=== PATIENT | female | born 1960 | race Caucasian/White ===

== ENCOUNTER 2018-02-11 14:12 | Emergency (ER) | payer SELFPAY ==
[2018-02-11] MEDS ORDERED: Multivitamins, Adult 10 ML, Thiamine HCl 100 MG, Folic Acid 1 MG in Dextrose 5 %-0.45 %... IV SCH (15:30)
[2018-02-11 15:32] LABS: #Basophils 0.1 thou/uL (0.0-0.2); #Eosinphils 0.1 thou/uL (0.0-0.7); #Lymphocytes 1.4 thou/uL (1.20-3.40); #Monocytes 0.8 thou/uL (0.11-0.59); #Neutrophils 2.7 thou/uL (1.40-6.50); %Basophils 2.7 % (0.0-1.0); %Eosinophils 1.4 % (0.0-10.0); %Lymphocytes 27.8 % (21.0-51.0); %Monocytes 14.9 % (0.0-10.0); %Neutrophils 53.2 % (42.0-75.0); Hemoglobin 16.1 g/dL (12.0-16.0); Mean Corpuscular HGB CONC 35.9 g/dL (32.0-36.0); Mean Corpuscular Hemoglobin 33.3 pg (27.0-31.0); Mean Corpuscular Volume 92.9 fl (81.0-99.0); Mean Platelet Volume 8.3 fL (7.4-10.4); Platelet Count 165 thou/uL (130-400); RBC Distribution Width 13.5 % (11.5-14.5); Red Blood Cell (RBC) Count 4.83 mill/uL (4.20-5.40)
[2018-02-11] MEDS ORDERED: chlordiazePOXIDE HCl 25 MG CAP ONE (15:43)
[2018-02-11 15:53] LABS: Acetaminophen Less than 6.0 mcg/mL (10.0-30.0); Alcohol 262 mg/dL (Less than 10); Salicylate Less than 8.0 mg/dL (15.0-30.0)
[2018-02-11 16:04] LABS: ALT (SGPT) 254 U/L (8-55); AST (SGOT) 346 U/L (5-34); Albumin 4.3 g/dL (3.5-5.0); Alkaline Phosphatase 99 U/L (40-150); Anion Gap 15 mmol/L (10-20); BUN (Urea Nitrogen) Less than 4 mg/dL (9.8-20.1); Bilirubin, Total 1.2 mg/dL (0.2-1.2); Calc. Creatinine Clearance 0 mL/min (70-130); Calcium 9.4 mg/dL (7.8-10.44); Carbon Dioxide 24 mmol/L (22-29); Chloride 100 mmol/L (98-107); Estimated GFR-MDRD Greater than 90; Globulin 3.2 g/dL (2.4-3.5); Glucose 93 mg/dL (70-105); Potassium 5.2 mmol/L (3.5-5.1); Protein, Total 7.5 g/dL (6.0-8.3); Sodium 134 mmol/L (136-145)
== END 2018-02-11 17:30 | disposition home or self-care (01) ==
LOC: ERS 14:12
DX: F10.10 Alcohol abuse, uncomplicated (principal); R19.7 Diarrhea, unspecified; F32.9 Major depressive disorder, single episode, unspecified; F41.9 Anxiety disorder, unspecified; F17.210 Nicotine dependence, cigarettes, uncomplicated; Y90.8 Blood alcohol level of 240 mg/100 ml or more
CPT/HCPCS: 36415; 80053; 80307; 82140; 85025; 96365; 96366; J3411; J7042

== ENCOUNTER 2018-08-25 01:24 | Emergency (ER) | payer SELFPAY ==
[2018-08-25 01:56] LABS: #Basophils 0.1 thou/uL (0.0-0.2); #Eosinphils 0.2 thou/uL (0.0-0.7); #Lymphocytes 3.8 thou/uL (1.20-3.40); #Monocytes 0.7 thou/uL (0.11-0.59); #Neutrophils 6.2 thou/uL (1.40-6.50); %Eosinophils 1.5 % (0.0-10.0); %Lymphocytes 34.7 % (21.0-51.0); %Neutrophils 56.8 % (42.0-75.0); Hemoglobin 16.4 g/dL (12.0-16.0); Mean Corpuscular Volume 86.1 fL (78.0-98.0); Mean Platelet Volume 7.4 fL (7.4-10.4); Platelet Count 388 thou/uL (130-400); RBC Distribution Width 12.5 % (11.5-14.5); Red Blood Cell (RBC) Count 5.28 mill/uL (4.20-5.40); White Blood Cell (WBC) Count 10.8 thou/uL (4.8-10.8)
[2018-08-25 02:17] LABS: ALT (SGPT) 9 U/L (8-55); AST (SGOT) 15 U/L (5-34); Albumin 3.8 g/dL (3.5-5.0); Alkaline Phosphatase 81 U/L (40-150); Anion Gap 12 mmol/L (10-20); BUN (Urea Nitrogen) 5 mg/dL (9.8-20.1); Bilirubin, Total 0.4 mg/dL (0.2-1.2); CK (CPK) 131 U/L (29-168); Calc. Creatinine Clearance 0 mL/min (70-130); Calcium 9.4 mg/dL (7.8-10.44); Carbon Dioxide 30 mmol/L (22-29); Chloride 98 mmol/L (98-107); Estimated GFR-MDRD Greater than 90; Globulin 3.4 g/dL (2.4-3.5); Glucose 76 mg/dL (70-105); Potassium 3.7 mmol/L (3.5-5.1); Protein, Total 7.2 g/dL (6.0-8.3); Sodium 136 mmol/L (136-145)
[2018-08-25] MEDS ORDERED: methylPREDNISolone Sod Succ/PF 125 MG/2 ML VIAL ONE (02:37)
[2018-08-25] MEDS ORDERED: predniSONE 20 MG TAB ONE (02:51)
--- NOTE | 2018-08-25 08:18 | RAD ---
RADIOGRAPH CHEST 1 VIEW: HISTORY: A 58-year-old female with dyspnea and cough. FINDINGS: There is hyperinflation of the lungs, consistent with COPD. There is no evidence of air space densit y, pneumothorax, or pulmonary edema. The lateral costophrenic angles are sharp. The cardiomediastin al silhouette is narrowed by the hyperinflation. There are prominent interstitial markings, chronic versus acute, favor chronic. There are no prior studies available for comparison. IMPRESSION: 1) No definitive acute pulmonary findings. 2) Emphysema. jn [] POS: [facility]
--- NOTE | 2018-08-27 14:06 | EKG ---
Test Reason : Blood Pressure : / mmHG Vent. Rate : 102 BPM Atrial Rate : 102 BPM P-R Int : 124 ms QRS Dur : 082 ms QT Int : 370 ms P-R-T Axes : 033 089 066 degrees QTc Int : 482 ms Sinus tachycardia Confirmed by DEVI FLORES DO ([id number]), state editor KAI BOOKER ([id number] on 08/27/2018 2:05:56 PM Referred By: Confirmed By:DEVI FLORES DO
== END 2018-08-25 05:06 | disposition home or self-care (01) ==
LOC: ERS 01:24
DX: J45.901 Unspecified asthma with (acute) exacerbation (principal); J18.9 Pneumonia, unspecified organism; F41.9 Anxiety disorder, unspecified; F17.210 Nicotine dependence, cigarettes, uncomplicated; I10 Essential (primary) hypertension; Z79.899 Other long term (current) drug therapy
CPT/HCPCS: 36415; 71045; 80053; 82550; 83880; 84484; 85025; 93005; 94640; J2930; J7506; J7620

== ENCOUNTER 2018-09-07 06:52 | Emergency (ER) | payer SELFPAY ==
[2018-09-07 07:31] LABS: #Basophils 0.1 thou/uL (0.0-0.2); #Eosinphils 0.1 thou/uL (0.0-0.7); #Lymphocytes 3.1 thou/uL (1.20-3.40); #Monocytes 0.8 thou/uL (0.11-0.59); #Neutrophils 5.5 thou/uL (1.40-6.50); %Basophils 1.1 % (0.0-1.0); %Eosinophils 1.5 % (0.0-10.0); %Lymphocytes 32.4 % (21.0-51.0); %Neutrophils 56.9 % (42.0-75.0); Hemoglobin 15.4 g/dL (12.0-16.0); Mean Corpuscular HGB CONC 35.4 g/dL (32.0-36.0); Mean Corpuscular Hemoglobin 30.7 pg (27.0-31.0); Mean Corpuscular Volume 86.8 fL (78.0-98.0); Mean Platelet Volume 7.2 fL (7.4-10.4); Platelet Count 314 thou/uL (130-400); RBC Distribution Width 14.2 % (11.5-14.5); Red Blood Cell (RBC) Count 5.01 mill/uL (4.20-5.40); White Blood Cell (WBC) Count 9.6 thou/uL (4.8-10.8)
[2018-09-07 07:52] LABS: ALT (SGPT) 23 U/L (8-55); AST (SGOT) 23 U/L (5-34); Albumin 3.8 g/dL (3.5-5.0); Alkaline Phosphatase 88 U/L (40-150); Anion Gap 13 mmol/L (10-20); BUN (Urea Nitrogen) 8 mg/dL (9.8-20.1); Bilirubin, Total 0.9 mg/dL (0.2-1.2); CK (CPK) 37 U/L (29-168); Calc. Creatinine Clearance 0 mL/min (70-130); Calcium 9.1 mg/dL (7.8-10.44); Carbon Dioxide 30 mmol/L (22-29); Chloride 99 mmol/L (98-107); Estimated GFR-MDRD Greater than 90; Globulin 3.1 g/dL (2.4-3.5); Glucose 108 mg/dL (70-105); Potassium 3.6 mmol/L (3.5-5.1); Protein, Total 6.9 g/dL (6.0-8.3); Sodium 138 mmol/L (136-145)
--- NOTE | 2018-09-07 10:07 | CT ---
CT ANGIOGRAM THORAX WITH IV COTNRAST AND 3D RECONSTRUCTIONS: DATE: 09/07/2018. HISTORY: Dyspnea. COMPARISON: None available. FINDINGS: No filling defects are seen in the pulmonary arteries to suggest a pulmonary embolus. Atherosclerotic dense atherosclerotic vascular calcifications are seen in the coronary arteries as we ll as involving the thoracic spine and origins of the great vessels. There is eccentric atherosclero tic plaque in the descending thoracic aorta as well as involving the proximal left common carotid art mary. There is mild irregular thickening involving the mid thoracic esophagus. There is a noncalcified 8 mm pulmonary nodule in the lateral aspect of the left upper lobe (image 29, series 3). No additional pulmonary nodule or mass is visualized. There does appear to be minimal p eribronchial thickening which could be related to inflammatory process and bronchitis/bronchiolitis. There is mild nonspecific thickening of each adrenal gland without nodule seen. Irregular atherosclerotic calcifications are seen involving the abdominal aorta with associated mild irregular atherosclerotic plaque present. IMPRESSION: 1. Focal thickening involving the mid thoracic esophagus. Endoscopy would be helpful for further ev aluation. 2. Suggestion of minimal peribronchial thickening which may be related to inflammatory process (bron chiolitis). 3. Left upper lobe pulmonary nodule measuring [address] thorax is recommended in 4-[address] . [address] evidence of a pulmonary embolus. CODE T POS: [facility]
--- NOTE | 2018-09-07 10:09 | RAD ---
ONE VIEW CHEST: COMPARISON: 08/25/2018. HISTORY: Dyspnea. FINDINGS: Atherosclerosis of the aorta. Normal cardiac silhouette. Lungs are hyperinflated, without consolida tion or mass. No pneumothorax or osseous abnormalities. IMPRESSION: 1. No acute cardiopulmonary process. 2. Atherosclerosis. POS: [facility]
== END 2018-09-07 09:31 | disposition home or self-care (01) ==
LOC: ERS 06:52
DX: J44.9 Chronic obstructive pulmonary disease, unspecified (principal); R91.1 Solitary pulmonary nodule; F41.9 Anxiety disorder, unspecified; I10 Essential (primary) hypertension; F17.210 Nicotine dependence, cigarettes, uncomplicated; Z79.51 Long term (current) use of inhaled steroids; Z79.899 Other long term (current) drug therapy
CPT/HCPCS: 36415; 71045; 71275; 80053; 82550; 83880; 84484; 85025; 85379; 93005

== ENCOUNTER 2018-09-15 18:01 | Emergency (ER) | payer SELFPAY ==
[2018-09-15] MEDS ORDERED: Multivitamins, Adult 10 ML, Thiamine HCl 100 MG, Folic Acid 1 MG in Dextrose 5 %-0.45 %... IV SCH (19:30)
== END 2018-09-15 21:48 | disposition home or self-care (01) ==
LOC: ERS 18:01
DX: F10.129 Alcohol abuse with intoxication, unspecified (principal); I10 Essential (primary) hypertension; F41.9 Anxiety disorder, unspecified; F17.210 Nicotine dependence, cigarettes, uncomplicated; Z79.899 Other long term (current) drug therapy
CPT/HCPCS: 96365; 96366; J3411; J7042

== ENCOUNTER 2018-09-24 00:47 | Inpatient (IN) | payer SELFPAY ==
[2018-09-24 01:33] LABS: #Basophils 0.1 thou/uL (0.0-0.2); #Lymphocytes 2.3 thou/uL (1.20-3.40); #Monocytes 1.2 thou/uL (0.11-0.59); #Neutrophils 10.9 thou/uL (1.40-6.50); %Basophils 0.6 % (0.0-1.0); %Eosinophils 0.1 % (0.0-10.0); %Monocytes 8.2 % (0.0-10.0); %Neutrophils 75.1 % (42.0-75.0); Hemoglobin 16.3 g/dL (12.0-16.0); Mean Corpuscular HGB CONC 37.3 g/dL (32.0-36.0); Mean Corpuscular Hemoglobin 32.1 pg (27.0-31.0); Mean Corpuscular Volume 86.1 fL (78.0-98.0); Mean Platelet Volume 8.5 fL (7.4-10.4); Platelet Count 175 thou/uL (130-400); RBC Distribution Width 14.2 % (11.5-14.5); Red Blood Cell (RBC) Count 5.08 mill/uL (4.20-5.40); White Blood Cell (WBC) Count 14.5 thou/uL (4.8-10.8)
[2018-09-24 01:46] LABS: Bilirubin Negative (Negative); Blood, Urine Negative (Negative); Clarity CLEAR (Clear); Glucose, Urine (Dipstick) Negative (Negative); Leukocyte Small (Negative); Nitrite Positive (Negative); Protein, Urine (Dipstick) Negative (Neg-Trace); Specific Gravity, Urine 1.011 (1.002-1.036); pH, Urine 7.5 (5.0-9.0)
[2018-09-24 01:48] LABS: ALT (SGPT) 30 U/L (8-55); AST (SGOT) 41 U/L (5-34); Albumin 4.1 g/dL (3.5-5.0); Alkaline Phosphatase 133 U/L (40-150); Anion Gap 16 mmol/L (10-20); BUN (Urea Nitrogen) 4 mg/dL (9.8-20.1); Bilirubin, Total 2.4 mg/dL (0.2-1.2); Calc. Creatinine Clearance 0 mL/min (70-130); Calcium 9.5 mg/dL (7.8-10.44); Carbon Dioxide 26 mmol/L (22-29); Chloride 82 mmol/L (98-107); Estimated GFR-MDRD Greater than 90; Globulin 3.3 g/dL (2.4-3.5); Glucose 115 mg/dL (70-105); Potassium 3.2 mmol/L (3.5-5.1); Protein, Total 7.4 g/dL (6.0-8.3); Sodium 121 mmol/L (136-145)
[2018-09-24 01:49] LABS: Bacteria/HPF None Seen HPF (None Seen); Hyaline Casts/LPF 4-6 HYALINE CAST LPF (0-3 Hyaline); Pathc Cast-AUWi Flag 0.29 (0-2.49); Squamous Epithelial 0-3 HPF (0-3)
[2018-09-24 01:50] LABS: Oval Fat Bodies/HPF None Seen HPF (None Seen); Renal Epithelial None Seen HPF (0-3); Sperm/HPF None Seen HPF (None Seen); Transitional Epithelial NONE SEEN HPF (0-3); Trichomonas/HPF None Seen HPF (None Seen); Yeast-All Forms None Seen HPF (None Seen)
[2018-09-24] MEDS ORDERED: Metoclopramide HCl 10 MG/2 ML VIAL ONE (01:51)
[2018-09-24] MEDS ORDERED: Meclizine HCl 25 MG TAB ONE (01:51)
[2018-09-24] MEDS ORDERED: Dicyclomine 20 MG TAB ONE (01:51)
[2018-09-24 02:30] LABS: Acetaminophen Less than 6.0 mcg/mL (10.0-30.0); Alcohol Less than 10 mg/dL (Less than 10); Salicylate Less than 8.0 mg/dL (15.0-30.0)
[2018-09-24 02:37] LABS: Amphetamine Not Detected (NotDetected); Barbiturates Screen Not Detected (NotDetected); Benzodiazepine Screen Not Detected (NotDetected); Cocaine Metabolite Screen Not Detected (NotDetected); Medtox Control Line Valid? VALID (VALID); Medtox Reader # READER 1; Methadone Not Detected (NotDetected); Methamphetamine Not Detected (NotDetected); Opiate Screen Not Detected (NotDetected); Oxycodone Screen Not Detected (NotDetected); Phencyclidine (PCP) Not Detected (NotDetected); THC/Cannabinoid Screen Not Detected (NotDetected); Tricyclic Screen Not Detected (NotDetected)
[2018-09-24] MEDS ORDERED: cefTRIAXone\\ROCEPHIN 1 GM VIAL ONE (02:37)
[2018-09-24] MEDS ORDERED: Acetaminophen 325 MG TAB PO PRN (08:23)
[2018-09-24] MEDS ORDERED: Ondansetron ODT 4 MG TAB PO PRN (08:23)
[2018-09-24] MEDS ORDERED: Meclizine HCl 25 MG TAB PO PRN (08:27)
[2018-09-24 09:20] LABS: ALT (SGPT) 36 U/L (8-55); AST (SGOT) 49 U/L (5-34); Albumin 3.9 g/dL (3.5-5.0); Alkaline Phosphatase 133 U/L (40-150); Anion Gap 14 mmol/L (10-20); BUN (Urea Nitrogen) 6 mg/dL (9.8-20.1); Bilirubin, Total 2.1 mg/dL (0.2-1.2); Calc. Creatinine Clearance 0 mL/min (70-130); Calcium 9.7 mg/dL (7.8-10.44); Carbon Dioxide 31 mmol/L (22-29); Chloride 89 mmol/L (98-107); Estimated GFR-MDRD Greater than 90; Globulin 3.2 g/dL (2.4-3.5); Glucose 84 mg/dL (70-105); Potassium 3.3 mmol/L (3.5-5.1); Protein, Total 7.1 g/dL (6.0-8.3); Sodium 131 mmol/L (136-145)
[2018-09-24 09:28] LABS: #Lymphocytes 2.6 thou/uL (1.20-3.40); #Monocytes 1.1 thou/uL (0.11-0.59); #Neutrophils 5.7 thou/uL (1.40-6.50); %Basophils 0.3 % (0.0-1.0); %Eosinophils 0.4 % (0.0-10.0); %Lymphocytes 27.9 % (21.0-51.0); %Monocytes 11.4 % (0.0-10.0); Mean Corpuscular HGB CONC 34.3 g/dL (32.0-36.0); Mean Corpuscular Hemoglobin 29.9 pg (27.0-31.0); Mean Corpuscular Volume 87.2 fL (78.0-98.0); Mean Platelet Volume 8.5 fL (7.4-10.4); Platelet Count 188 thou/uL (130-400); RBC Distribution Width 14.5 % (11.5-14.5); Red Blood Cell (RBC) Count 5.35 mill/uL (4.20-5.40); White Blood Cell (WBC) Count 9.4 thou/uL (4.8-10.8)
--- NOTE | 2018-09-24 09:43 | RAD ---
FRONTAL VIEW CHEST: Comparison: 09-07-18 Indication: Shortness of breath. FINDINGS: Lungs are hyperinflated. Cardiac silhouette is normal in size. There is vascular calcification. Chest is similar appearing. IMPRESSION: Stable exam. Note is made of the left upper lobe pulmonary nodule faintly suggested on the basis of this film, alt marisel not well depicted. Recommend follow up as per direction on recent CT chest exam performed 09-07. Please reference that report for follow up recommendations of the patient's previously diagnosed pulmonary nodule. Code T POS: [facility]
[2018-09-24 10:07] LABS: RBC Morphology Normal
[2018-09-24] MEDS ORDERED: Famotidine 20 MG TAB ONE (11:56)
[2018-09-24] MEDS ORDERED: Enoxaparin Sodium 40 MG/0.4 ML SYRINGE ONE (11:56)
[2018-09-24] MEDS ORDERED: Folic Acid 1 MG TAB ONE (11:56)
[2018-09-24] MEDS: Famotidine 20 MG TAB PO SCH ×2 (12:11→20:18)
[2018-09-24] MEDS: Enoxaparin Sodium 40 MG/0.4 ML SYRINGE SC SCH (12:11)
[2018-09-24] MEDS: Folic Acid 1 MG TAB PO SCH (12:12)
[2018-09-24] MEDS: Potassium Chloride 20 MEQ in Premix Bag 1 BAG IVPB SCH ×2 (12:20→15:37)
[2018-09-24 14:35] VITALS: BMI 16.9
--- NOTE | 2018-09-24 14:55 | HP ---
CHIEF COMPLAINT: Nausea, vomiting, diarrhea. HISTORY OF PRESENT ILLNESS: This patient is a 58-year-old female with a history of alcohol abuse, who was recently seen for diagnosis of pneumonia about 1 month ago. The patient subsequently discontinued her antibiotics when she started feeling better and did not complete the full course; however, she was subsequently relatively stable, 3 days ago, she developed nausea, vomiting, and diarrhea. Her symptoms were such that she was unable to eat or drink in any attempt resulted in immediate vomiting. She denied any associated abdominal pain or cramping. She had no ill contacts. She did report intermittent fever subjectively. She also reported some associated pain in her upper back that she states was at one point severe and caused her some sense that she could not take deep breaths and breathe adequately, but she feels like her back symptoms are improved and her shortness of breath has improved, although neither of them have completely fully resolved. She states she feels like she would benefit from a nebulizer treatment. She reports that her stools were "like jelly" that seems to have resolved and her last bowel movement was yesterday. She reports that she is actually hungry like that she has not eaten anything in almost 4 days. REVIEW OF SYSTEMS: The patient reports that during this episode, her vertigo was increased and made it difficult for her to get up and move around and she required an ambulance to get to the hospital, because of that she also reports some ear congestion and sinus congestion. She denies specifically any urinary tract symptoms. All other systems were reviewed and all pertinent positives and negatives noted in the history of present illness. 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 She has a history of significant anxiety. She takes sertraline and occasionally BuSpar. She says she occasionally takes doxepin as needed for sleep. She also admits that she only takes her medications intermittently, and when she starts drinking alcohol, she goes off her medications. She reports she has not had any sertraline in at least 2 weeks. She has a history of asthma and has a nebulizer machine, although she feels she does not know where it is at the moment. She also has a history of episodic vertigo and the above mentioned recent diagnosis of pneumonia. PAST SURGICAL HISTORY: . FAMILY HISTORY: Mother with heart disease. She had coronary bypass and was diabetic. Her father is a borderline diabetic and has some bladder issues. She has a sister who at 40 with cancer that she believes started in her lungs. SOCIAL HISTORY: The patient has a history of a pack-a-day smoking. She says she is down to about half a pack now. She also has a history of alcoholism, and said she was sober for 4 years, but then relapsed, and she is currently drinking about 6 beers per day. Denies drugs. She is . She says she has family in the area and they have a reasonable relationship; however, her surrogate decision maker is a friend named Sofy Holland, whom she reports has power of senior trial attorney. She is full code, but it is clear that she would not want to be on any long-term life support. CURRENT MEDICATIONS: 1. Sertraline 100 mg per day (the patient has not taken in 2 weeks). 2. Doxepin 100 mg at bedtime p.r.n. sleep. 3. Ventolin inhaler 90 mcg. 4. The patient reports that she has a nebulizer, but is not using it, I am not sure what it is. 5. The patient also reports that she is on BuSpar, but has not been taking that either. ALLERGIES: NONE. PHYSICAL EXAMINATION: VITAL SIGNS: Initially, BP 181/96 and pulse 105. Most recent set of vital signs, pulse 90, respirations 19, O2 saturations 98% on room air, BP 117/71. GENERAL APPEARANCE: Age-appropriate female, she is in no distress. She is awake, alert, oriented, pleasant, and cooperative. HEENT: PERRL. There is no OP lesion. Slightly dry oral mucosa. Denture is in place. NECK: Supple and symmetric without lymphadenopathy, JVD, or carotid bruits. HEART: Regular rate and rhythm. No murmurs, gallops, or rubs. LUNGS: Clear to auscultation bilaterally with no wheezes or rales with fairly good air exchange. ABDOMEN: Soft, nontender, and nondistended. Normal bowel sounds. No masses. No organomegaly. EXTREMITIES: Warm and dry with no edema. NEUROLOGIC: The patient appears to move all extremities spontaneously and have relatively normal strength. She is able to sit up in the bed without any difficulty and has no vertigo symptoms. She does report slight decreased sensation of both lower extremities below the knees. PSYCHIATRIC: The patient appears to have normal affect and behavior with no overt evidence of anxiety. LABORATORY DATA: White count 14.5, hemoglobin 16.3, platelets 175. Sodium 121, potassium 3.2, chloride 82, CO2 is 26, BUN 4, creatinine 0.53, glucose 115, calcium 9.5, total bilirubin 2.4, AST 41, ALT 30 abdomen 4.1. Urinalysis shows ketones, positive nitrites, small leukocyte esterase, 7 to 10 red cells, 4 to 6 white cells, and no bacteria seen. Toxicology screen is negative. IMPRESSION AND PLAN: 1. Gastroenteritis. The patient presented with nausea, vomiting, and diarrhea, appears to be improving. At this point, her diarrhea stopped. She reports that she has no nausea and she is hungry. She did have some intermittent fever, suggesting possible viral or infectious etiology. I am going to go ahead and advance her diet and give her p.r.n. antiemetics. 2. Dehydration. The patient was unable to take much p.o. for several days and clinically appears to be dehydrated with dry oral mucosa. Given her sodium issues, we will be slow to rehydrate and we will try to allow her to do that orally. 3. Hyponatremia likely due to the history of alcohol use and dehydration. She did receive a liter of fluids in the emergency department. So, I am going to recheck her sodium now in order to be very cautious and slow in trying to reverse the hyponatremia. This may be also the result of the nausea and vomiting in which case it should self correct. 4. History of alcoholism. The patient has history of significant alcohol abuse. She reports less abuse now, but it is ongoing. We will give her thiamine and folate and watch for any signs of withdrawal, but does not sound like she has had significant issues with that in the past. 5. Anxiety. The patient was on sertraline and reportedly BuSpar, but she takes these very intermittently. I am going to start it back on the sertraline alone right now and make sure she does okay with that. If need be, we will try to consider adding the BuSpar back, but I am afraid that may be contributing to her vertigo symptoms as well. So, we will hold off on that for now. 6. Vertigo. The patient has a history of intermittent vertigo. It was worse with her nausea, vomiting, diarrhea, and dehydration, seems to be resolved now. We will give her p.r.n. meclizine. 7. History of lung nodule. The patient previously had been seen in the emergency department, had a CT angiogram, which revealed an 8 mm lung nodule. I discussed this with the patient. She is well aware and understands that she needs to have a repeat CT scan at 4 to 6 months. 8. Asthma. The patient reports a history of asthma. She is not wheezing presently. She does report subjectively that she had some shortness of breath and feels like she would benefit from a nebulizer. We will go ahead and order those for her with DuoNeb's. 9. Hypokalemia. We will go ahead and give her a dose of IV potassium now, primarily IV, because she has some history of esophagitis on the prior CT scan, and I am afraid her GI system may still be a little bit too sensitive to tolerate p.o. potassium. 10. History of esophagitis. This was primarily noted on her prior CT scans showing some inflammation of the esophagus. We will keep her on a H2 catherine for now. She does not otherwise report significant symptoms. 11. Back pain. This appears to be resolved. The etiology is not clear, but we will get another chest x-ray to just ensure there is no other pathology obvious there. 12. Urinary tract infection. The patient has a few red cells and nitrites in her urine. She does not have bacteria or significant number of white cells or leukocyte esterase. She did receive a dose of Rocephin in the emergency department. We will hold any additional antibiotics until we see if that culture is going to show us anything. 13. Macrocytosis likely related to the alcohol. We will continue with the thiamine and folate. 14. Hyperbilirubinemia. The patient has not had this in the past. It is unclear what the etiology is. We will recheck a CMP to trend that. She does not appear to have other significant hepatic pathology, although concerning because of her significant history of alcohol use. 15. Peripheral neuropathy. The patient reports a history of this. It is intermittent. May be related to alcohol as well. 16. Subjective shortness of breath. Again, the patient has some history of reported asthma, and states that she had some back pain making this worse, both of which are improved; however, we will make sure she has nebulizers, and repeat a chest x-ray now. Job ID: [id number]
[2018-09-24] MEDS ORDERED: Potassium Chloride 20 MEQ TAB PO SCH (15:30)
[2018-09-25 07:25] LABS: #Basophils 0.1 thou/uL (0.0-0.2); #Eosinphils 0.1 thou/uL (0.0-0.7); #Lymphocytes 3.5 thou/uL (1.20-3.40); #Monocytes 1.5 thou/uL (0.11-0.59); #Neutrophils 6.2 thou/uL (1.40-6.50); %Eosinophils 0.7 % (0.0-10.0); %Lymphocytes 30.6 % (21.0-51.0); %Neutrophils 54.7 % (42.0-75.0); Hemoglobin 15.8 g/dL (12.0-16.0); Mean Corpuscular HGB CONC 35.3 g/dL (32.0-36.0); Mean Corpuscular Volume 87.7 fL (78.0-98.0); Mean Platelet Volume 8.7 fL (7.4-10.4); Platelet Count 191 thou/uL (130-400); RBC Distribution Width 14.6 % (11.5-14.5); Red Blood Cell (RBC) Count 5.09 mill/uL (4.20-5.40); White Blood Cell (WBC) Count 11.4 thou/uL (4.8-10.8)
[2018-09-25 07:32] LABS: Anion Gap 15 mmol/L (10-20); BUN (Urea Nitrogen) 9 mg/dL (9.8-20.1); Calc. Creatinine Clearance 71 mL/min (70-130); Calcium 9.6 mg/dL (7.8-10.44); Carbon Dioxide 28 mmol/L (22-29); Chloride 95 mmol/L (98-107); Estimated GFR-MDRD Greater than 90; Glucose 90 mg/dL (70-105); Potassium 3.9 mmol/L (3.5-5.1); Sodium 134 mmol/L (136-145)
[2018-09-25] MEDS: Famotidine 20 MG TAB PO SCH ×2 (08:42→19:49)
[2018-09-25] MEDS: Folic Acid 1 MG TAB PO SCH (08:43)
[2018-09-25] MEDS: Enoxaparin Sodium 40 MG/0.4 ML SYRINGE SC SCH (08:43)
--- NOTE | 2018-09-25 09:06 | PDOC.PN ---
- Subjective Encounter Start Date: 09/25/18 Encounter Start Time: 09:06 Had recurrent diarrhea this morning x 6. Watery with mucous. Has pain in the upper back area. Has intermittent vertigo. Has some sinus congestion. Did not sleep at all last night. Says she feel short of breath. Not sure if it is related to anxiety. - Objective Resuscitation Status - Order Detail: 09/24/18 08:23 Resuscitation Status Routine Resuscitation Status: FULL: Full Resuscitation Discussed with: Patient Additional comments: She indicates she does not want any long-term life support measures. Vital Signs & Weight: Vital Signs (12 hours) Temp Pulse Resp BP BP Pulse Ox 09/25/18 08:56 98 F 98 16 113/67 97 09/25/18 03:57 98.3 F 84 20 137/74 95 09/25/18 01:47 98.5 F 85 20 148/74 H 93 L Weight Weight 93 lb I&O: 09/24/18 09/25/18 09/26/18 06:59 06:59 06:59 Intake Total 480 Balance 480 Result Diagrams: 09/25/18 06:56 09/25/18 06:56 Phys Exam - Physical Examination Constitutional: NAD Respiratory: no wheezing, no rales, no rhonchi, clear to auscultation bilateral Cardiovascular: RRR, no significant murmur, no rub Gastrointestinal: soft, no distention, positive bowel sounds Slight TTP in the upper abdomen. No guarding. Musculoskeletal: no edema No anatomic abnormalities of the T-spine. No TTP. Psychiatric: normal affect, A&O x 3 Skin: normal turgor Dx/Plan (1) Gastroenteritis Code(s): K52.9 - NONINFECTIVE GASTROENTERITIS AND COLITIS, UNSPECIFIED Status : Acute (2) Dehydration Code(s): E86.0 - DEHYDRATION Status: Acute (3) Hyponatremia Code(s): E87.1 - HYPO-OSMOLALITY AND HYPONATREMIA Status: Acute (4) Back pain Code(s): M54.9 - DORSALGIA, UNSPECIFIED Status: Acute (5) Anxiety Code(s): F41.9 - ANXIETY DISORDER, UNSPECIFIED Status: Acute (6) Vertigo Code(s): R42 - DIZZINESS AND GIDDINESS Status: Acute (7) Lung nodule Code(s): R91.1 - SOLITARY PULMONARY NODULE Status: Acute (8) History of alcoholism Code(s): F10.21 - ALCOHOL DEPENDENCE, IN REMISSION Status: Acute (9) Asthma Code(s): J45.909 - UNSPECIFIED ASTHMA, UNCOMPLICATED Status: Acute (10) Hypokalemia Code(s): E87.6 - HYPOKALEMIA Status: Acute (11) Hyperbilirubinemia Code(s): E80.6 - OTHER DISORDERS OF BILIRUBIN METABOLISM Status: Acute (12) Peripheral neuropathy Code(s): G62.9 - POLYNEUROPATHY, UNSPECIFIED Status: Acute - Plan * x-rays of T-spine. * Continue gentle hydration orally. * Sodium is improving gradually as desired. * Tx with librium for anxiety. Watch for further withdrawal symptoms. * Stool studies. * Immodium.
[2018-09-25] MEDS ORDERED: PROVENTIL INHALER 6.7 G (200 INHALATIONS) INH PRN (09:41)
[2018-09-25] MEDS ORDERED: Diphenoxylate HCl/Atropine Tablet PO PRN (12:27)
--- NOTE | 2018-09-25 14:23 | RAD ---
THORACIC SPINE 3 VIEW SERIES: INDICATION: Pain. FINDINGS: There is mild right convexity curvature centered at the lower thoracic spine. Multilevel degenerativ e change is present. There is no evidence of a significant compression fracture or subluxation. Vas cular calcification overlies the aortic knob. IMPRESSION: Degenerative changes of the thoracic spine without acute compression fracture or subluxation. POS: [facility]
[2018-09-25] MEDS ORDERED: ALPRAZolam 0.25 MG TAB PO SCH (15:00)
[2018-09-25] MEDS: chlordiazePOXIDE HCl 25 MG CAP PO SCH (19:49)
[2018-09-25] MEDS ORDERED: Doxepin HCl 25 MG CAP PO SCH (21:00)
[2018-09-26 06:24] LABS: #Basophils 0.1 thou/uL (0.0-0.2); #Eosinphils 0.1 thou/uL (0.0-0.7); #Lymphocytes 3.2 thou/uL (1.20-3.40); #Neutrophils 3.3 thou/uL (1.40-6.50); %Basophils 1.1 % (0.0-1.0); %Eosinophils 1.8 % (0.0-10.0); %Lymphocytes 41.7 % (21.0-51.0); %Monocytes 13.2 % (0.0-10.0); %Neutrophils 42.2 % (42.0-75.0); Hemoglobin 13.8 g/dL (12.0-16.0); Mean Corpuscular HGB CONC 35.6 g/dL (32.0-36.0); Mean Corpuscular Hemoglobin 31.1 pg (27.0-31.0); Mean Corpuscular Volume 87.6 fL (78.0-98.0); Mean Platelet Volume 9.1 fL (7.4-10.4); Platelet Count 160 thou/uL (130-400); RBC Distribution Width 14.4 % (11.5-14.5); Red Blood Cell (RBC) Count 4.43 mill/uL (4.20-5.40); White Blood Cell (WBC) Count 7.8 thou/uL (4.8-10.8)
[2018-09-26 06:43] LABS: ALT (SGPT) 48 U/L (8-55); AST (SGOT) 46 U/L (5-34); Albumin 3.4 g/dL (3.5-5.0); Alkaline Phosphatase 96 U/L (40-150); Anion Gap 15 mmol/L (10-20); BUN (Urea Nitrogen) 9 mg/dL (9.8-20.1); Bilirubin, Total 1.4 mg/dL (0.2-1.2); Calc. Creatinine Clearance 81 mL/min (70-130); Calcium 8.8 mg/dL (7.8-10.44); Carbon Dioxide 24 mmol/L (22-29); Chloride 99 mmol/L (98-107); Estimated GFR-MDRD Greater than 90; Globulin 2.7 g/dL (2.4-3.5); Glucose 83 mg/dL (70-105); Potassium 3.8 mmol/L (3.5-5.1); Protein, Total 6.1 g/dL (6.0-8.3); Sodium 134 mmol/L (136-145)
[2018-09-26] MEDS: Folic Acid 1 MG TAB PO SCH (08:32)
[2018-09-26] MEDS: Enoxaparin Sodium 40 MG/0.4 ML SYRINGE SC SCH ×2 (08:32→08:35)
[2018-09-26] MEDS: Famotidine 20 MG TAB PO SCH (08:32)
[2018-09-26] MEDS: chlordiazePOXIDE HCl 25 MG CAP PO SCH ×2 (08:32→14:32)
[2018-09-26 12:41] VITALS: TEMP 97.6
[2018-09-26 14:57] VITALS: BP 105/65
--- NOTE | 2018-09-28 11:43 | EKG ---
Test Reason : Blood Pressure : / mmHG Vent. Rate : 084 BPM Atrial Rate : 084 BPM P-R Int : 146 ms QRS Dur : 068 ms QT Int : 490 ms P-R-T Axes : 069 086 082 degrees QTc Int : 579 ms Normal sinus rhythm Prolonged QT Abnormal ECG Confirmed by JULIA PAVON ([id number]), editor managing newspaper LAZARO ZHENG ([id number]) on 09/28/2018 11:43:21 AM Referred By: Confirmed By:JULIA PAVON
== END 2018-09-26 15:01 | disposition home or self-care (01) | DRG 392 ==
LOC: ERS 00:47 → ERHOLD 02:42 → T4-A 13:41
PROVIDERS: ADMIT Internal Medicine; ATTEND Internal Medicine
DX: K52.9 Noninfective gastroenteritis and colitis, unspecified (principal); E87.1 Hypo-osmolality and hyponatremia; N39.0 Urinary tract infection, site not specified; F10.10 Alcohol abuse, uncomplicated; F41.9 Anxiety disorder, unspecified; J45.909 Unspecified asthma, uncomplicated; F17.210 Nicotine dependence, cigarettes, uncomplicated; E86.0 Dehydration; R42 Dizziness and giddiness; R91.1 Solitary pulmonary nodule; E87.6 Hypokalemia; E80.6 Other disorders of bilirubin metabolism; D75.89 Other specified diseases of blood and blood-forming organs; G62.9 Polyneuropathy, unspecified
CPT/HCPCS: 36415; 71045; 72072; 80048; 80053; 80306; 80307; 81003; 81015; 83630; 85025; 87045; 87046; 87086; 87324; 87449; 87899; 93005; 94640; 96365; 96367; 99406; J0696; J1650; J2765; J3480; J7620

== ENCOUNTER 2018-12-22 08:27 | Emergency (ER) | payer SELFPAY ==
[2018-12-22 09:08] LABS: ALT (SGPT) 26 U/L (8-55); AST (SGOT) 29 U/L (5-34); Albumin 4.3 g/dL (3.5-5.0); Alkaline Phosphatase 85 U/L (40-150); Anion Gap 23 mmol/L (10-20); BUN (Urea Nitrogen) 6 mg/dL (9.8-20.1); Bilirubin, Total 2.4 mg/dL (0.2-1.2); Calc. Creatinine Clearance 0 mL/min (70-130); Carbon Dioxide 23 mmol/L (22-29); Chloride 78 mmol/L (98-107); Estimated GFR-MDRD Greater than 90; Globulin 2.9 g/dL (2.4-3.5); Glucose 135 mg/dL (70-105); Lipase 38 U/L (8-78); Potassium 3.1 mmol/L (3.5-5.1); Protein, Total 7.2 g/dL (6.0-8.3); Sodium 121 mmol/L (136-145)
[2018-12-22 09:10] LABS: Bilirubin Negative (Negative); Blood, Urine Small (Negative); Clarity CLOUDY (Clear); Glucose, Urine (Dipstick) Negative (Negative); Leukocyte Small (Negative); Nitrite Positive (Negative); Protein, Urine (Dipstick) 100 mg/dL (Neg-Trace); Specific Gravity, Urine 1.013 (1.002-1.036)
[2018-12-22 09:11] LABS: #Lymphocytes 1.5 thou/uL (1.20-3.40); #Neutrophils 10.5 thou/uL (1.40-6.50); %Basophils 0.4 % (0.0-1.0); %Eosinophils 0.1 % (0.0-10.0); %Lymphocytes 11.6 % (21.0-51.0); %Monocytes 7.3 % (0.0-10.0); %Neutrophils 80.7 % (42.0-75.0); Hemoglobin 15.8 g/dL (12.0-16.0); Mean Corpuscular HGB CONC 35.6 g/dL (32.0-36.0); Mean Corpuscular Hemoglobin 29.6 pg (27.0-31.0); Mean Corpuscular Volume 83.1 fL (78.0-98.0); Mean Platelet Volume 8.2 fL (7.4-10.4); Platelet Count 243 thou/uL (130-400); RBC Distribution Width 16.9 % (11.5-14.5); Red Blood Cell (RBC) Count 5.36 mill/uL (4.20-5.40)
[2018-12-22 09:11] LABS: Bacteria/HPF 1+ HPF (None Seen); Hyaline Casts/LPF 0-3 HYALINE CAST LPF (0-3 Hyaline); Pathc Cast-AUWi Flag 0.13 (0-2.49); Squamous Epithelial None Seen HPF (0-3)
[2018-12-22] MEDS ORDERED: Multivitamins, Adult 10 ML, Thiamine HCl 100 MG, Folic Acid 1 MG in Dextrose 5 %-0.45 %... IV SCH (09:15)
[2018-12-22] MEDS ORDERED: Ondansetron ODT 4 MG TAB ONE (09:46)
[2018-12-22] MEDS ORDERED: cefTRIAXone\\ROCEPHIN 1 GM VIAL ONE (09:50)
[2018-12-22] MEDS ORDERED: Meclizine HCl 25 MG TAB ONE (11:30)
== END 2018-12-22 11:37 | disposition home or self-care (01) ==
LOC: ERS 08:27
DX: F10.239 Alcohol dependence with withdrawal, unspecified (principal); N39.0 Urinary tract infection, site not specified; I10 Essential (primary) hypertension; J45.909 Unspecified asthma, uncomplicated; F17.210 Nicotine dependence, cigarettes, uncomplicated; Z79.899 Other long term (current) drug therapy; Y90.0 Blood alcohol level of less than 20 mg/100 ml
CPT/HCPCS: 36415; 80053; 80307; 81003; 81015; 83690; 85025; 87077; 87086; 87186; 96365; 96366; 96375; J0696; J3411; J7042; J8499; Q0162

== ENCOUNTER 2019-01-21 17:35 | Emergency (ER) | payer SELFPAY | END 2019-01-21 17:53 | disposition left against medical advice (07) | LOC: ERS 17:35 | DX: Z53.21 Procedure and treatment not carried out due to patient leaving prior to being seen by health care provider (principal) ==

== ENCOUNTER 2019-01-29 14:58 | Emergency (ER) | payer SELFPAY ==
[2019-01-29 16:29] LABS: Pregnancy Test - Urine (BHCG) Negative (Negative); Pregu Control Background? CLEAR/WHITE (CLR/WHITE); Pregu Control Bar Appear? YES (CONTROL BAR); Specific Gravity 1.004 (1.002-1.036)
[2019-01-29] MEDS ORDERED: Albuterol Sulfate 2.5 mg/0.5 ml Neb ONE ×2 (16:35)
[2019-01-29 16:40] LABS: Amphetamine Not Detected (NotDetected); Barbiturates Screen Not Detected (NotDetected); Benzodiazepine Screen Not Detected (NotDetected); Cocaine Metabolite Screen Not Detected (NotDetected); Medtox Control Line Valid? VALID (VALID); Medtox Reader # READER 4; Methadone Not Detected (NotDetected); Methamphetamine Not Detected (NotDetected); Opiate Screen Not Detected (NotDetected); Oxycodone Screen Not Detected (NotDetected); Phencyclidine (PCP) Not Detected (NotDetected); THC/Cannabinoid Screen Not Detected (NotDetected); Tricyclic Screen Not Detected (NotDetected)
[2019-01-29 16:41] LABS: #Basophils 0.1 thou/uL (0.0-0.2); #Eosinphils 0.1 thou/uL (0.0-0.7); #Lymphocytes 3.5 thou/uL (1.20-3.40); #Monocytes 0.6 thou/uL (0.11-0.59); #Neutrophils 3.8 thou/uL (1.40-6.50); %Basophils 1.3 % (0.0-1.0); %Eosinophils 1.2 % (0.0-10.0); %Lymphocytes 43.6 % (21.0-51.0); %Monocytes 7.6 % (0.0-10.0); %Neutrophils 46.4 % (42.0-75.0); Hemoglobin 15.8 g/dL (12.0-16.0); Mean Corpuscular Hemoglobin 30.3 pg (27.0-31.0); Mean Corpuscular Volume 86.4 fL (78.0-98.0); RBC Distribution Width 18.9 % (11.5-14.5); Red Blood Cell (RBC) Count 5.24 mill/uL (4.20-5.40); White Blood Cell (WBC) Count 8.1 thou/uL (4.8-10.8)
[2019-01-29 16:57] LABS: Large Platelets SLIGHT; MDiff Complete? YES; Mean Platelet Volume 9.3 fL (7.4-10.4); Platelet Count 113 thou/uL (130-400); Platelet Morphology Comment Appears Decreased; Target Cells SLIGHT = 2-5 cells (100X) (0-1/hpf)
--- NOTE | 2019-01-29 17:04 | RAD ---
AP view chest. HISTORY: Bronchitis. AP view chest obtained. The lungs are well aerated. No evidence of active intrathoracic seen. No evid ence of effusions, pneumonia or pneumothorax. IMPRESSION: unremarkable AP view chest.
[2019-01-29 17:26] LABS: ALT (SGPT) 163 U/L (8-55); AST (SGOT) 201 U/L (5-34); Acetaminophen Less than 6.0 mcg/mL (10.0-30.0); Albumin 4.5 g/dL (3.5-5.0); Alcohol 328 mg/dL (Less than 10); Alkaline Phosphatase 95 U/L (40-150); Anion Gap 20 mmol/L (10-20); BUN (Urea Nitrogen) Less than 4 mg/dL (9.8-20.1); Bilirubin, Total 1.3 mg/dL (0.2-1.2); Calc. Creatinine Clearance 0 mL/min (70-130); Calcium 9.5 mg/dL (7.8-10.44); Carbon Dioxide 24 mmol/L (22-29); Chloride 96 mmol/L (98-107); Estimated GFR-MDRD Greater than 90; Globulin 3.3 g/dL (2.4-3.5); Glucose 74 mg/dL (70-105); Potassium 4.1 mmol/L (3.5-5.1); Protein, Total 7.8 g/dL (6.0-8.3); Salicylate Less than 8.0 mg/dL (15.0-30.0); Sodium 136 mmol/L (136-145)
[2019-01-29] MEDS ORDERED: chlordiazePOXIDE HCl 25 MG CAP PO SCH (17:30)
[2019-01-29] MEDS ORDERED: chlordiazePOXIDE HCl 25 MG CAP ONE (18:03)
[2019-01-29] MEDS ORDERED: Thiamine 100 MG TAB ONE (20:29)
== END 2019-01-30 01:07 | disposition home or self-care (01) ==
LOC: ERS 14:58
DX: F10.129 Alcohol abuse with intoxication, unspecified (principal); J45.909 Unspecified asthma, uncomplicated; E05.90 Thyrotoxicosis, unspecified without thyrotoxic crisis or storm; F41.9 Anxiety disorder, unspecified; F32.9 Major depressive disorder, single episode, unspecified; F17.210 Nicotine dependence, cigarettes, uncomplicated; Z79.899 Other long term (current) drug therapy; Y90.4 Blood alcohol level of 80-99 mg/100 ml
CPT/HCPCS: 36415; 71045; 80053; 80306; 80307; 81025; 82550; 84443; 85025; 93005; 94640; 96360; 96361; J7611

== ENCOUNTER 2019-03-22 16:23 | Emergency (ER) | payer SELFPAY ==
[2019-03-22 16:58] LABS: #Basophils 0.2 thou/uL (0.0-0.2); #Monocytes 1.1 thou/uL (0.11-0.59); #Neutrophils 8.4 thou/uL (1.40-6.50); %Basophils 1.2 % (0.0-1.0); %Eosinophils 0.2 % (0.0-10.0); %Lymphocytes 29.3 % (21.0-51.0); %Monocytes 8.1 % (0.0-10.0); %Neutrophils 61.2 % (42.0-75.0); Hemoglobin 15.7 g/dL (12.0-16.0); Mean Corpuscular HGB CONC 34.2 g/dL (32.0-36.0); Mean Corpuscular Hemoglobin 28.9 pg (27.0-31.0); Mean Corpuscular Volume 84.6 fL (78.0-98.0); Mean Platelet Volume 6.3 fL (7.4-10.4); Platelet Count 437 thou/uL (130-400); RBC Distribution Width 15.4 % (11.5-14.5); Red Blood Cell (RBC) Count 5.43 mill/uL (4.20-5.40); White Blood Cell (WBC) Count 13.7 thou/uL (4.8-10.8)
[2019-03-22 17:19] LABS: ALT (SGPT) 41 U/L (8-55); AST (SGOT) 48 U/L (5-34); Acetaminophen Less than 6.0 mcg/mL (10.0-30.0); Albumin 4.5 g/dL (3.4-4.8); Alcohol 333 mg/dL (Less than 10); Alkaline Phosphatase 78 U/L (40-150); Anion Gap 19 mmol/L (10-20); BUN (Urea Nitrogen) 5 mg/dL (9.8-20.1); Bilirubin, Total 0.7 mg/dL (0.2-1.2); Calc. Creatinine Clearance 0 mL/min (70-130); Calcium 9.4 mg/dL (7.8-10.44); Carbon Dioxide 24 mmol/L (23-31); Chloride 90 mmol/L (98-107); Estimated GFR-MDRD Greater than 90; Globulin 3.2 g/dL (2.4-3.5); Glucose 95 mg/dL (80-115); Potassium 3.9 mmol/L (3.5-5.1); Protein, Total 7.7 g/dL (6.0-8.3); Salicylate Less than 8.0 mg/dL (15.0-30.0); Sodium 129 mmol/L (136-145)
--- NOTE | 2019-03-22 17:23 | RAD ---
Exam: Chest one view HISTORY:Fever Comparison: 01/29/2019 FINDINGS: Lungs: Hyperinflated with mild interstitial prominence Cardiac silhouette: Normal size Pulmonary vessels: Normal Pleural Spaces: Clear Pneumothorax: None Osseous abnormalities: None of acuity. IMPRESSION: COPD
[2019-03-22 17:30] LABS: Bilirubin Negative (Negative); Blood, Urine Negative (Negative); Clarity Clear (Clear); Glucose, Urine (Dipstick) Normal (Negative); Leukocyte 25 Leu/uL (Negative); Nitrite Negative (Negative); Protein, Urine (Dipstick) Negative (Neg-Trace); RBC/HPF None Seen HPF (0-3); Squamous Epithelial 0-3 HPF (0-3); Urobilinogen Normal mg/dL (Less than 2); WBC/HPF 0-3 HPF (0-3)
[2019-03-22 17:38] LABS: Amphetamine Not Detected (NotDetected); Barbiturates Screen Not Detected (NotDetected); Benzodiazepine Screen Not Detected (NotDetected); Cocaine Metabolite Screen Not Detected (NotDetected); Medtox Control Line Valid? VALID (VALID); Medtox Reader # READER 1; Methadone Not Detected (NotDetected); Methamphetamine Not Detected (NotDetected); Opiate Screen Not Detected (NotDetected); Oxycodone Screen Not Detected (NotDetected); Phencyclidine (PCP) Not Detected (NotDetected); THC/Cannabinoid Screen Not Detected (NotDetected); Tricyclic Screen Not Detected (NotDetected)
[2019-03-22 17:42] LABS: Bacteria/HPF 1+ HPF (None Seen)
[2019-03-22] MEDS ORDERED: Lorazepam 1 MG TAB ONE (18:14)
[2019-03-23] MEDS ORDERED: Ondansetron ODT 4 MG TAB ONE (03:18)
[2019-03-23] MEDS ORDERED: Lorazepam 2 MG/ML VIAL ONE (03:18)
[2019-03-23] MEDS ORDERED: Lorazepam 1 MG TAB ONE (03:20)
[2019-03-23] MEDS ORDERED: Acetaminophen 500 MG TAB ONE (08:03)
== END 2019-03-23 10:51 | disposition home or self-care (01) ==
LOC: ERS 16:23
DX: F10.239 Alcohol dependence with withdrawal, unspecified (principal); F32.9 Major depressive disorder, single episode, unspecified; E05.90 Thyrotoxicosis, unspecified without thyrotoxic crisis or storm; F41.9 Anxiety disorder, unspecified; F17.210 Nicotine dependence, cigarettes, uncomplicated; Z79.899 Other long term (current) drug therapy; Y90.8 Blood alcohol level of 240 mg/100 ml or more
CPT/HCPCS: 36415; 71045; 80053; 80306; 80307; 81003; 81015; 84443; 85025; J2060; Q0162

== ENCOUNTER 2019-03-28 15:35 | Emergency (ER) | payer SELFPAY ==
[2019-03-28] MEDS ORDERED: Ondansetron PF 4 MG/2 ML Vial ONE (16:15)
[2019-03-28] MEDS ORDERED: Multivitamins, Adult 10 ML, Thiamine HCl 100 MG, Folic Acid 1 MG in Dextrose 5 %-0.45 %... IV SCH (16:30)
[2019-03-28 16:41] LABS: #Basophils 0.2 thou/uL (0.0-0.2); #Eosinphils 0.1 thou/uL (0.0-0.7); #Lymphocytes 3.6 thou/uL (1.20-3.40); #Monocytes 0.6 thou/uL (0.11-0.59); #Neutrophils 3.5 thou/uL (1.40-6.50); %Basophils 2.2 % (0.0-1.0); %Eosinophils 1.5 % (0.0-10.0); %Lymphocytes 45.3 % (21.0-51.0); %Monocytes 7.4 % (0.0-10.0); %Neutrophils 43.7 % (42.0-75.0); Hemoglobin 15.4 g/dL (12.0-16.0); Mean Corpuscular Hemoglobin 29.6 pg (27.0-31.0); Mean Corpuscular Volume 84.6 fL (78.0-98.0); Mean Platelet Volume 7.4 fL (7.4-10.4); Platelet Count 280 thou/uL (130-400); RBC Distribution Width 16.1 % (11.5-14.5); Red Blood Cell (RBC) Count 5.21 mill/uL (4.20-5.40); White Blood Cell (WBC) Count 7.9 thou/uL (4.8-10.8)
[2019-03-28 16:51] LABS: Bilirubin Negative (Negative); Blood, Urine Negative (Negative); Clarity Turbid (Clear); Glucose, Urine (Dipstick) Normal (Negative); Leukocyte 500 Leu/uL (Negative); Nitrite 2+ (Negative); Protein, Urine (Dipstick) Negative (Neg-Trace); RBC/HPF 0-3 HPF (0-3); Squamous Epithelial 0-3 HPF (0-3); Urobilinogen Normal mg/dL (Less than 2); WBC/HPF 21-50 HPF (0-3)
[2019-03-28 16:54] LABS: Bacteria/HPF 1+ HPF (None Seen)
[2019-03-28 16:55] LABS: Amphetamine Not Detected (NotDetected); Barbiturates Screen Not Detected (NotDetected); Benzodiazepine Screen Detected (NotDetected); Cocaine Metabolite Screen Not Detected (NotDetected); Medtox Control Line Valid? VALID (VALID); Medtox Reader # READER 1; Methadone Not Detected (NotDetected); Methamphetamine Not Detected (NotDetected); Opiate Screen Not Detected (NotDetected); Oxycodone Screen Not Detected (NotDetected); Phencyclidine (PCP) Not Detected (NotDetected); THC/Cannabinoid Screen Not Detected (NotDetected); Tricyclic Screen Not Detected (NotDetected)
[2019-03-28] MEDS ORDERED: Lorazepam 2 MG/ML VIAL ONE (17:02)
[2019-03-28 17:11] LABS: ALT (SGPT) 38 U/L (8-55); AST (SGOT) 45 U/L (5-34); Acetaminophen Less than 6.0 mcg/mL (10.0-30.0); Albumin 4.3 g/dL (3.4-4.8); Alcohol 332 mg/dL (Less than 10); Alkaline Phosphatase 81 U/L (40-150); Anion Gap 17 mmol/L (10-20); BUN (Urea Nitrogen) 5 mg/dL (9.8-20.1); Bilirubin, Total 0.7 mg/dL (0.2-1.2); Calc. Creatinine Clearance 0 mL/min (70-130); Calcium 8.8 mg/dL (7.8-10.44); Carbon Dioxide 22 mmol/L (23-31); Chloride 98 mmol/L (98-107); Estimated GFR-MDRD Greater than 90; Globulin 3.3 g/dL (2.4-3.5); Glucose 116 mg/dL (80-115); Potassium 4.1 mmol/L (3.5-5.1); Protein, Total 7.6 g/dL (6.0-8.3); Salicylate Less than 8.0 mg/dL (15.0-30.0); Sodium 133 mmol/L (136-145)
[2019-03-28] MEDS ORDERED: cefTRIAXone\\ROCEPHIN 2 GM VIAL ONE (18:53)
[2019-03-29] MEDS ORDERED: busPIRone HCl 10 MG TAB PO SCH (09:00)
[2019-03-29] MEDS ORDERED: Nicotine 21 MG PATCH TOP SCH (11:00)
== END 2019-03-29 12:21 ==
LOC: ERS 15:35
DX: F10.10 Alcohol abuse, uncomplicated (principal); Y90.8 Blood alcohol level of 240 mg/100 ml or more; R45.851 Suicidal ideations; J45.909 Unspecified asthma, uncomplicated; F41.9 Anxiety disorder, unspecified; F32.9 Major depressive disorder, single episode, unspecified; F17.210 Nicotine dependence, cigarettes, uncomplicated; Z79.899 Other long term (current) drug therapy
CPT/HCPCS: 36415; 80053; 80306; 80307; 81003; 81015; 84443; 85025; 93005; 94760; 96361; 96365; 96366; 96368; 96375; J0696; J2060; J2405; J3411; J7042

== ENCOUNTER 2019-06-23 11:43 | Inpatient (IN) | payer SELFPAY ==
[2019-06-23] MEDS ORDERED: Ondansetron PF 4 MG/2 ML Vial ONE (11:59)
[2019-06-23 12:11] LABS: #Basophils 0.1 thou/uL (0.0-0.2); #Eosinphils 0.1 thou/uL (0.0-0.7); #Monocytes 1.2 thou/uL (0.11-0.59); #Neutrophils 7.8 thou/uL (1.40-6.50); %Basophils 1.3 % (0.0-1.0); %Eosinophils 0.6 % (0.0-10.0); %Lymphocytes 18.3 % (21.0-51.0); %Monocytes 10.4 % (0.0-10.0); %Neutrophils 69.5 % (42.0-75.0); Hemoglobin 13.6 g/dL (12.0-16.0); Mean Corpuscular HGB CONC 36.6 g/dL (32.0-36.0); Mean Corpuscular Hemoglobin 28.5 pg (27.0-31.0); Mean Corpuscular Volume 77.8 fL (78.0-98.0); Platelet Count 328 thou/uL (130-400); RBC Distribution Width 17.8 % (11.5-14.5); Red Blood Cell (RBC) Count 4.79 mill/uL (4.20-5.40); White Blood Cell (WBC) Count 11.2 thou/uL (4.8-10.8)
[2019-06-23 12:23] LABS: Hypochromia SLIGHT = 6-15 cells (100X) (0-5/hpf); MDiff Complete? YES; Microcytosis SLIGHT = 6-15 cells (100X) (0-5/hpf); Platelet Morphology Comment Appears Adequate; Polychromasia SLIGHT = 2-3 cells (100X) (0-2/hpf); Target Cells SLIGHT = 2-5 cells (100X) (0-1/hpf)
[2019-06-23 12:25] LABS: ALT (SGPT) 85 U/L (8-55); AST (SGOT) 78 U/L (5-34); Albumin 4.6 g/dL (3.4-4.8); Alkaline Phosphatase 79 U/L (40-110); Anion Gap 15 mmol/L (10-20); BUN (Urea Nitrogen) 7 mg/dL (9.8-20.1); Bilirubin, Total 1.7 mg/dL (0.2-1.2); CK (CPK) 75 U/L (29-168); Calc. Creatinine Clearance 0 mL/min (70-130); Carbon Dioxide 27 mmol/L (23-31); Chloride 80 mmol/L (98-107); Estimated GFR-MDRD Greater than 90; Globulin 3.1 g/dL (2.4-3.5); Glucose 144 mg/dL (80-115); Lipase 98 U/L (8-78); Protein, Total 7.7 g/dL (6.0-8.3)
[2019-06-23 12:29] LABS: Potassium 2.8 mmol/L (3.5-5.1); Sodium 119 mmol/L (136-145)
[2019-06-23] MEDS ORDERED: Lidocaine Viscous Sol 2% 15 ml UD Cup ONE (12:53)
[2019-06-23] MEDS ORDERED: Mag-Al 1200 mg/1200 mg/30 ML UDCUP ONE (12:53)
[2019-06-23] MEDS ORDERED: Pantoprazole 40 MG VIAL ONE (12:53)
[2019-06-23] MEDS ORDERED: Magnesium 2 GM/50 ML BAG (IN WATER) ONE (12:53)
[2019-06-23 13:18] LABS: Alcohol Less than 10 mg/dL (Less than 10); Magnesium 1.7 mg/dL (1.6-2.6)
[2019-06-23] MEDS ORDERED: Potassium Chloride 40 MEQ in Sodium Chloride 0.9% 250 ML 250 ML IVPB SCH (13:30)
--- NOTE | 2019-06-23 13:34 | RAD ---
CHEST 1 VIEW PORTABLE: Date: 06/23/19 HISTORY: Chest pain for several days. COMPARISON: 03/22/19. FINDINGS: Heart size is normal. The lungs are clear. IMPRESSION: No significant acute intrathoracic disease. Atherosclerosis of aorta. POS: [facility]
[2019-06-23] MEDS ORDERED: Acetaminophen 325 MG TAB PO PRN (14:49)
--- NOTE | 2019-06-23 17:07 | CT ---
CT CHEST WITHOUT CONTRAST: Date: 06/23/19 INDICATION: Lung nodule. Comparison made to CT angio chest dated 09/07/18. FINDINGS: The 8 mm pleural based nodule in the peripheral left upper lobe is again seen and is unchanged in siz e and appearance. The lungs show mild chronic change with hyperexpansion. No other evidence of mass or nodule. No infil trate or effusion. Mediastinum unremarkable. IMPRESSION: 8 mm nodule in the peripheral left upper lobe is again seen and appears stable from 09/07/18. Recomme nd follow-up noncontrast chest CT in 6-12 months for continued surveillance. POS: [facility]
[2019-06-23 18:58] LABS: Anion Gap 11 mmol/L (10-20); BUN (Urea Nitrogen) 6 mg/dL (9.8-20.1); Calc. Creatinine Clearance 0 mL/min (70-130); Calcium 8.9 mg/dL (7.8-10.44); Carbon Dioxide 29 mmol/L (23-31); Chloride 91 mmol/L (98-107); Estimated GFR-MDRD Greater than 90; Glucose 118 mg/dL (80-115); Potassium 3.1 mmol/L (3.5-5.1); Sodium 128 mmol/L (136-145)
--- NOTE | 2019-06-23 21:11 | HP ---
CHIEF COMPLAINT: Chest pain. HISTORY OF PRESENT ILLNESS: This patient is a 59-year-old female, who is alcoholic, who was admitted here back in September. I am familiar with her for taking care of her during that stay. The patient reports that she was placed in [facility] back in March. She says at that time, she was still drinking heavily. She made mention to a friend that her veins would be easy to cut that was taken as a suicidal ideation and she said she simply agreed to go and be admitted at that time, although she says specifically she was not suicidal at that time. She got out on April 04 and states that she has not been drinking since that time. She says that over the past several days, she had some nausea ultimately after redirecting the patient numerous times in order to get appropriate history. It sounds like this may have started with what she describes as allergies or a sinus infection causing some drainage, which led to the nausea. She was having difficulty eating because of the nausea, so she started drinking beer again thinking that it would help her belch and it would make her feel better. It did not and in fact it resulted in some nausea and vomiting. Therefore, she said she quit drinking. She says she was vomiting acid phlegm and bile. When she stopped drinking again, she started taking Librium that had been given to her in the past for symptoms of withdrawal. She says today she is feeling a bit better after getting some fluids and feels like she could eat. She also says that for the past 2 to 3 days, she has had pain in her chest that is radiating to her back. This started after the drinking and the vomiting. She says that it only happens when she is taking a deep breath and that it does as mentioned, radiates to her back some. REVIEW OF SYSTEMS: The patient reports she has been voiding frequently and that her urine is orange in color. She has had some diarrhea, but that has resolved. She subjectively says she has intermittently had some fevers or chills and she also feels like her inhalers have not been working appropriately. All other systems were reviewed. The patient has a difficult time staying on task and on question and has to be redirected, but it appears that all other systems reviewed were negative except for those things mentioned in history of present illness. 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 She has the alcoholism, anxiety for which she is on sertraline and BuSpar, which she is intermittently compliant with. She has a history of asthma. She has some episodic vertigo and it is unclear if this was related to her BuSpar. She also has a history of a pulmonary nodule that was supposed to have followup imaging. She also has a history of hyponatremia and was hyponatremic during her admission in September. She also had some thoracic back pain at that time and reported some peripheral neuropathy. PAST SURGICAL HISTORY: . FAMILY HISTORY: Mother of heart disease and was a diabetic. Father was borderline diabetic. Had a sister, who of cancer when she was 40 and that she believes started in her lungs. SOCIAL HISTORY: The patient continues to smoke a pack of cigarettes per day. She has the history of alcoholism and reports that she was not drinking on a regular basis until she drank the 8 beers over 4 days over the past week, which ultimately resulted in the vomiting. Denies drugs. She is . She says she is full code. Her surrogate decision maker is a friend named Sofy Holland, whom she says also has power of traffic law attorney. She says that she does not want any information given to her POA unless the POA is invoked. She is full code, but was clear again that she did not want any long-term life support. ALLERGIES: NONE. CURRENT MEDICATIONS: 1. Zoloft 100 mg daily. 2. Librium 25 mg q.4 hours p.r.n. withdrawals. 3. BuSpar 30 mg b.i.d. PHYSICAL EXAMINATION: VITAL SIGNS: Blood pressure 120/57, pulse 96, respirations 19, O2 saturation 98% on room air. GENERAL APPEARANCE: Thin, age-appropriate female. She is in no distress. She is awake and alert. She is very pleasant, cooperative, very talkative. HEENT: PERRL. No OP lesions. Dentures in place. The patient has some scabbing over her chin area, which she attributes to using a towel held up to her face when she was expectorating and vomiting. NECK: Supple and symmetric. HEART: Regular rate and rhythm without murmurs, gallops, or rubs. LUNGS: Coarse breath sounds throughout without specific wheezing or rales. ABDOMEN: Soft, nontender, nondistended. Positive bowel sounds. No masses. No organomegaly. EXTREMITIES: No cyanosis, clubbing, or edema. PSYCHIATRIC: Again, the patient tends to skip around a great deal in trying to give a history. She requires frequent redirection, but again is pleasant and otherwise generally appropriate. NEUROLOGIC: The patient has normal movement of all extremities with no focal defects and cranial nerves are grossly intact. LABORATORY DATA: White count 11.2, hemoglobin 13.6, platelets 328. Sodium 119, potassium 2.8, chloride 80, CO2 of 27, BUN 7, creatinine 0.61, glucose 144, magnesium 1.7, total bilirubin is 1.7, AST 78, ALT 85, alkaline phosphatase 79. Troponin less than 0.01. Lipase is 98. TSH 0.4. DIAGNOSTIC DATA: Chest x-ray, no significant acute thoracic abnormalities. ER COURSE: The patient received some Zofran, Maalox, magnesium, viscous lidocaine, and Protonix in the emergency department. She is getting potassium infusion now. IMPRESSION AND PLAN: 1. Hyponatremia. The patient has a history of hyponatremia. It was not this low previously, it was only in the low 120s, likely due to poor p.o. intake, possibly some syndrome of inappropriate antidiuretic hormone from nausea, vomiting, and possibly some beer potomania. She received a liter of fluids in the emergency department prior to my evaluation. We will keep her on a p.o. fluid restriction. Consult Urology. Recheck the BMP soon and obviously be cautious in trying to correct this too quickly. The patient appears to be at her normal baseline mental status based on seeing her back in September. Therefore, I do not believe she is actually acutely symptomatic from the hyponatremia. I suspect this will improve if we can get some protein intake and some fluid restriction. She does not have significant prerenal azotemia on her labs and clinically does not appear to be significantly dehydrated. 2. Hypokalemia, IV potassium infusion. Again, we will recheck that fairly soon along with the sodium. 3. Nausea and vomiting appear to be resolved. 4. Chest pain sounds very noncardiac in nature. We will continue with telemetry and serial troponins. 5. Elevated liver enzymes. Obviously, the patient is a known alcoholic. She has recently been drinking, unclear if her history on the amounts are accurate or reliable, but certainly that is the likely source of her elevated liver enzymes. We will continue to monitor. 6. History of alcoholism. Continue with Librium on low-dose schedule. Give thiamine p.o. 7. History of lung nodule. We will repeat a chest CT. She is well overdue to have that re-evaluated. 8. Possible allergic rhinitis. We will start with p.o. cetirizine for now. 9. History of some gastritis and esophagitis. Given her recent vomiting, we will go ahead and keep her on PPI for now. 10. History of anxiety. Continue with the sertraline and BuSpar. Job ID: [id number]
[2019-06-23] MEDS: busPIRone HCl 10 MG TAB PO SCH (21:58)
[2019-06-23] MEDS: Nicotine 14 MG PATCH TD SCH (21:59)
[2019-06-23] MEDS ORDERED: FLU VACC QS2019-20(6MOS UP)/PF 60 MCG/0.5 ML SYRINGE IM ONE (22:45)
[2019-06-24 01:46] VITALS: BMI 16.1
[2019-06-24 05:34] LABS: #Basophils 0.1 thou/uL (0.0-0.2); #Eosinphils 0.1 thou/uL (0.0-0.7); #Lymphocytes 3.2 thou/uL (1.20-3.40); #Monocytes 1.4 thou/uL (0.11-0.59); #Neutrophils 6.1 thou/uL (1.40-6.50); %Basophils 1.3 % (0.0-1.0); %Eosinophils 0.9 % (0.0-10.0); %Lymphocytes 29.1 % (21.0-51.0); %Monocytes 13.1 % (0.0-10.0); %Neutrophils 55.6 % (42.0-75.0); Hemoglobin 12.2 g/dL (12.0-16.0); Mean Corpuscular HGB CONC 36.2 g/dL (32.0-36.0); Mean Corpuscular Hemoglobin 28.9 pg (27.0-31.0); Mean Corpuscular Volume 79.8 fL (78.0-98.0); Mean Platelet Volume 7.8 fL (7.4-10.4); Platelet Count 318 thou/uL (130-400); RBC Distribution Width 18.2 % (11.5-14.5); Red Blood Cell (RBC) Count 4.23 mill/uL (4.20-5.40)
[2019-06-24 05:46] LABS: ALT (SGPT) 77 U/L (8-55); AST (SGOT) 65 U/L (5-34); Albumin 4.1 g/dL (3.4-4.8); Alkaline Phosphatase 65 U/L (40-110); Anion Gap 12 mmol/L (10-20); BUN (Urea Nitrogen) 8 mg/dL (9.8-20.1); Bilirubin, Total 0.8 mg/dL (0.2-1.2); Calc. Creatinine Clearance 63 mL/min (70-130); Calcium 9.2 mg/dL (7.8-10.44); Carbon Dioxide 31 mmol/L (23-31); Chloride 91 mmol/L (98-107); Estimated GFR-MDRD Greater than 90; Globulin 2.7 g/dL (2.4-3.5); Glucose 133 mg/dL (80-115); Potassium 3.9 mmol/L (3.5-5.1); Protein, Total 6.8 g/dL (6.0-8.3); Sodium 130 mmol/L (136-145)
[2019-06-24] MEDS: Enoxaparin Sodium 40 MG/0.4 ML SYRINGE SC SCH (09:35)
[2019-06-24] MEDS: busPIRone HCl 10 MG TAB PO SCH ×2 (09:36→20:54)
[2019-06-24] MEDS: Thiamine 100 MG TAB PO SCH (09:37)
[2019-06-24] MEDS: Loratadine 10 MG TAB PO SCH (09:37)
--- NOTE | 2019-06-24 12:24 | PDOC.HOSPP ---
- Subjective Encounter Date: 06/24/19 Encounter Time: 10:00 Subjective: awake, not in distress is amb in room - Objective Vital Signs & Weight: Vital Signs (12 hours) Temp Pulse Resp BP Pulse Ox 06/24/19 11:10 98.0 F 88 16 107/61 100 06/24/19 08:15 97.9 F 101 H 18 124/63 99 06/24/19 04:00 98.2 F 88 17 152/68 H 99 Weight Weight 88 lb 4.8 oz I&O: 06/23/19 06/24/19 06/25/19 06:59 06:59 06:59 Intake Total 450 Balance 450 Result Diagrams: 06/24/19 05:00 06/24/19 05:00 Hospitalist ROS - Medication Medications: Active Medications Generic Name Dose Route Start Last Admin Trade Name Freq PRN Reason Stop Dose Admin Buspirone HCl 30 mg 06/23/19 21:00 06/24/19 09:36 Buspar PO 30 mg BID ROM Administration Chlordiazepoxide HCl 10 mg 06/23/19 15:00 06/24/19 09:41 Librium PO Not Given TID ROM Enoxaparin Sodium 40 mg 06/24/19 09:00 06/24/19 09:35 Lovenox SC 40 mg 0900 ROM Administration Loratadine 10 mg 06/24/19 09:00 06/24/19 09:37 Claritin PO 10 mg DAILY ROM Administration Nicotine 14 mg 06/23/19 21:00 06/23/19 21:59 Nicoderm Patch TD Not Given Q24HR ROM Pantoprazole Sodium 40 mg 06/23/19 21:00 06/24/19 09:37 Protonix PO 40 mg BID ROM Administration Sertraline HCl 100 mg 06/24/19 09:00 06/24/19 09:36 Zoloft PO 100 mg DAILY ROM Administration Thiamine HCl 100 mg 06/24/19 09:00 06/24/19 09:37 Thiamine PO 100 mg DAILY ROM Administration - Exam General Appearance: awake alert Eye: PERRL, anicteric sclera ENT: no oropharyngeal lesions, moist mucosa Neck: symmetric, no JVD Heart: RRR, no murmur Respiratory: no wheezes, no rales Gastrointestinal: soft, non-tender, non-distended, normal bowel sounds Extremities: no clubbing, no edema Neurological: cranial nerve grossly intact, no focal deficits Psychiatric: normal affect, A&O x 3 Hosp A/P (1) Hyponatremia Code(s): E87.1 - HYPO-OSMOLALITY AND HYPONATREMIA Status: Acute (2) Alcohol abuse Code(s): F10.10 - ALCOHOL ABUSE, UNCOMPLICATED Status: Acute (3) Anxiety Code(s): F41.9 - ANXIETY DISORDER, UNSPECIFIED Status: Chronic (4) Asthma Code(s): J45.909 - UNSPECIFIED ASTHMA, UNCOMPLICATED Status: Chronic Qualifiers: Asthma severity: mild Asthma persistence: intermittent Asthma complication type: uncomplicated Qualified Code(s): J45.20 - Mild intermittent asthma, uncomplicated - Plan is on fluid restriction sodium is 130 this am dc plan in am on librium, buspar, zoloft, nebs prn to amb as tolerated
[2019-06-24 12:40] LABS: Potassium 3.4 mmol/L (3.5-5.1)
--- NOTE | 2019-06-24 12:52 | CON ---
DATE OF CONSULTATION: 06/24/2019 CONSULTING PHYSICIAN: Nikita Villar MD REASON FOR CONSULT: Hyponatremia. REASON FOR ADMISSION: Chest pain. HISTORY OF PRESENT ILLNESS: This is a 59-year-old female with history of hyponatremia, CVA, asthma, anxiety, who came to the hospital with chest pain and was found to have a sodium level of 119 yesterday and was corrected to 130 this morning. Nephrology was consulted this morning for hyponatremia. The patient is feeling better. She actually wants to go home. She said she was not eating very well. She was just drinking alcohol and was having lot of urine output and diarrhea and vomiting. No fever or chills. No skin rash. PAST MEDICAL HISTORY: Positive for CVA, alcoholism, hyponatremia, asthma, and anxiety. PAST SURGICAL HISTORY: . HOME MEDICATIONS: 1. Zoloft. 2. Librium. 3. BuSpar. ALLERGIES: NONE. SOCIAL HISTORY: She smokes 1 pack per day. Drinks 8 beers over 4 days, she quit few months back and then restarted. FAMILY HISTORY: Positive for diabetes. REVIEW OF SYSTEMS: CONSTITUTIONAL: Negative for weight loss or gain, ability to conduct usual activities. SKIN: Negative for rash, itching. EYES: Negative for double vision, pain. ENT/MOUTH: Negative for nose bleeding, neck stiffness, pain, tenderness. CARDIOVASCULAR: Negative for palpitations, dyspnea on exertion, orthopnea. RESPIRATORY: Negative for shortness of breath, wheezing, cough, hemoptysis, fever or night sweats. GASTROINTESTINAL: Negative for poor appetite, abdominal pain, heartburn, nausea, vomiting, constipation, or diarrhea. GENITOURINARY: Negative for urgency, frequency, dysuria, nocturia. MUSCULOSKELETAL: Negative for pain, swelling. NEUROLOGIC/PSYCHIATRIC: Negative for anxiety, depression. ALLERGY/IMMUNOLOGIC: Negative for skin rash, bleeding tendency. PHYSICAL EXAMINATION: GENERAL: Reveals a thin-built female, in no apparent distress. VITAL SIGNS: Temperature 98.2, pulse 80, respiratory rate 18, and blood pressure 152/60. HEENT: Atraumatic, normocephalic. Oral mucosa is moist. NECK: Supple. CARDIOVASCULAR: S1 and S2. Regular rate and rhythm. RESPIRATORY: Clear. GASTROINTESTINAL: Abdomen is soft. MUSCULOSKELETAL: 1+ edema. DERMATOLOGIC: No skin rash. NEUROLOGIC: Alert and awake. PSYCHIATRIC: Mood and affect normal. LABORATORY DATA: Hemoglobin is 12.2. Potassium is 3.9, sodium is 130, BUN is 8, and creatinine is 0.5. ASSESSMENT AND PLAN: 1. Hyponatremia, corrected to 130 this morning from 09/28. We will recheck sodium later on today. 2. Hypokalemia, replaced. 3. Hypochloremia. 4. Edema, controlled. 5. Hypertension. 6. Alcohol abuse, consult. Plan is to recheck sodium and further decision will be made based on the level. Thank you for the consult. Job ID: [id number]
[2019-06-24 20:30] LABS: Potassium 3.3 mmol/L (3.5-5.1)
[2019-06-24] MEDS ORDERED: Doxepin HCl 25 MG CAP PO SCH (20:45)
[2019-06-24] MEDS: Nicotine 14 MG PATCH TD SCH (20:54)
[2019-06-24] MEDS ORDERED: Potassium Chloride 20 MEQ TAB PO SCH (21:00)
[2019-06-25 05:28] LABS: Anion Gap 11 mmol/L (10-20); BUN (Urea Nitrogen) 10 mg/dL (9.8-20.1); Calc. Creatinine Clearance 63 mL/min (70-130); Calcium 8.9 mg/dL (7.8-10.44); Carbon Dioxide 31 mmol/L (23-31); Chloride 96 mmol/L (98-107); Estimated GFR-MDRD Greater than 90; Glucose 99 mg/dL (80-115); Potassium 4.1 mmol/L (3.5-5.1); Sodium 134 mmol/L (136-145)
[2019-06-25 07:44] VITALS: BP 140/61; TEMP 99.6
[2019-06-25] MEDS: Enoxaparin Sodium 40 MG/0.4 ML SYRINGE SC SCH (08:34)
[2019-06-25] MEDS: busPIRone HCl 10 MG TAB PO SCH (08:34)
[2019-06-25] MEDS: Thiamine 100 MG TAB PO SCH (08:34)
[2019-06-25] MEDS: Loratadine 10 MG TAB PO SCH (08:34)
--- NOTE | 2019-06-25 18:03 | DIS ---
DATE OF ADMISSION: 06/23/2019 DATE OF DISCHARGE: 06/25/2019 DISCHARGE DISPOSITION: To home. PRIMARY DISCHARGE DIAGNOSIS: Severe hyponatremia due to beer potomania/SIADH. SECONDARY DISCHARGE DIAGNOSES: Alcohol abuse, anxiety disorder, asthma which is mild intermittent. PROCEDURES DONE DURING HOSPITALIZATION: CT chest done showed 8 mm nodule in the peripheral left upper lobe which appears stable when compared to prior CAT scan done in August of 2018. H and H 12 and 37, platelet count 318, white count of 11, MCV is 79. Sodium was 119 on the day of admission with discharge numbers of 134. AST 78, ALT 85, alkaline phosphatase 79, total bilirubin 1.7. TSH 0.4. Troponin x1 negative. Plasma alcohol was less than 10 on arrival here. DISCHARGE MEDICATIONS: The patient to continue her home medications as before; 1. Aspirin 81 mg p.o. daily. 2. Albuterol inhaler q.6 hourly p.r.n. 3. Buspirone 30 mg twice daily. 4. Doxepin 50 mg p.o. at bedtime. 5. Sertraline 100 mg p.o. daily. ALLERGIES: NO KNOWN DRUG ALLERGIES. DISCHARGE PLAN: The patient to follow up with primary care physician at [facility] in 1 week. BRIEF COURSE DURING HOSPITALIZATION: The patient initially came to ER on the 14 with complaints of chest discomfort. Her initial workup revealed severe hyponatremia with sodium levels of 119. She also admitted to drinking beer likely in excess. The patient was placed on fluid restriction. Her sodium completely got corrected with this. She has remained neurologically and hemodynamically stable. She is ambulating well in the room. She was counseled with regard to fluid restriction and to completely avoid alcohol. The patient's liver enzymes were elevated, likely due to alcohol usage/alcoholic hepatitis which is resolving. Please note, I have seen and examined the patient on the day of discharge. Job ID: [id number]
--- NOTE | 2019-06-25 20:46 | PRG ---
DATE OF SERVICE: 06/25/2019 SUBJECTIVE: Patient was seen and examined at bedside and overnight events noted. Patient denies any shortness of breath or chest pain or palpitation. No history of nausea or vomiting or diarrhea or fever or chills or cramps. OBJECTIVE: GENERAL: This is an elderly female, in no apparent distress. VITAL SIGNS: Temperature . Heart rate 93. Respiratory rate 18. Blood pressure 140/61. HEENT: Atraumatic, normocephalic. Oral mucosa is moist NECK: Supple. CARDIOVASCULAR: S1, S2 heard. Rate and rhythm regular. RESPIRATORY: Clear to auscultation. GASTROINTESTINAL: Abdomen is soft. MUSCULOSKELETAL: No tenderness. No edema. DERMATOLOGIC: No skin rash. NEUROLOGIC: Alert and awake and oriented X3. No focal neurologic deficits. Moving all the extremities. PSYCHIATRIC: Mood and affect normal. LABORATORY DATA: Sodium 134, potassium 4.1, BUN is 10, and creatinine 0.5. ASSESSMENT AND PLAN: 1. Hyponatremia secondary to poor p.o. intake and volume depletion. Sodium level is better . 2. Hypokalemia, replaced. 3. Edema, controlled. 4. Hypertension. 5. Alcohol abuse, consult. Follow up with the clinic in 1 week. Job ID: [id number]
== END 2019-06-25 15:20 | disposition home or self-care (01) | DRG 644 ==
LOC: ERS 11:43 → ERHOLD 14:13 → 2NO 18:58
PROVIDERS: ADMIT Internal Medicine; ATTEND Internal Medicine
DX: E22.2 Syndrome of inappropriate secretion of antidiuretic hormone (principal); F10.288 Alcohol dependence with other alcohol-induced disorder; F41.9 Anxiety disorder, unspecified; F32.9 Major depressive disorder, single episode, unspecified; F17.210 Nicotine dependence, cigarettes, uncomplicated; E87.6 Hypokalemia; E87.8 Other disorders of electrolyte and fluid balance, not elsewhere classified; J45.20 Mild intermittent asthma, uncomplicated; R91.1 Solitary pulmonary nodule; Y90.0 Blood alcohol level of less than 20 mg/100 ml; K70.10 Alcoholic hepatitis without ascites; Z86.73 Personal history of transient ischemic attack (TIA), and cerebral infarction without residual deficits; Z79.899 Other long term (current) drug therapy; Z79.82 Long term (current) use of aspirin; Z23 Encounter for immunization
CPT/HCPCS: 36415; 71045; 71250; 80048; 80053; 80307; 82550; 83690; 83735; 84443; 84484; 85025; 93005; 96361; 96365; 96366; 96367; 96375; C9113; J1650; J2405; J3475; J3480; J7050

== ENCOUNTER 2019-08-22 20:42 | Emergency (ER) | payer SELFPAY ==
[2019-08-22] MEDS ORDERED: busPIRone HCl 10 MG TAB PO SCH (21:00)
[2019-08-22] MEDS ORDERED: Doxepin HCl 25 MG CAP PO SCH (21:00)
[2019-08-22 21:11] LABS: Bilirubin Negative (Negative); Blood, Urine Negative (Negative); Clarity Clear (Clear); Glucose, Urine (Dipstick) Normal (Negative); Leukocyte Negative Leu/uL (Negative); Nitrite Negative (Negative); Protein, Urine (Dipstick) Negative (Neg-Trace); Urobilinogen Normal mg/dL (Less than 2)
[2019-08-22 21:14] LABS: #Basophils 0.1 thou/uL (0.0-0.2); #Eosinphils 0.1 thou/uL (0.0-0.7); #Lymphocytes 3.6 thou/uL (1.20-3.40); #Monocytes 0.8 thou/uL (0.11-0.59); #Neutrophils 8.1 thou/uL (1.40-6.50); %Eosinophils 0.8 % (0.0-10.0); %Lymphocytes 28.5 % (21.0-51.0); %Neutrophils 63.7 % (42.0-75.0); Hemoglobin 15.7 g/dL (12.0-16.0); Mean Corpuscular HGB CONC 35.9 g/dL (32.0-36.0); Mean Corpuscular Hemoglobin 28.5 pg (27.0-31.0); Mean Corpuscular Volume 79.2 fL (78.0-98.0); Mean Platelet Volume 8.7 fL (7.4-10.4); Platelet Count 201 thou/uL (130-400); RBC Distribution Width 18.9 % (11.5-14.5); White Blood Cell (WBC) Count 12.7 thou/uL (4.8-10.8)
[2019-08-22 21:20] LABS: Amphetamine Not Detected (NotDetected); Barbiturates Screen Not Detected (NotDetected); Benzodiazepine Screen Detected (NotDetected); Cocaine Metabolite Screen Not Detected (NotDetected); Medtox Control Line Valid? VALID (VALID); Medtox Reader # READER 1; Methadone Not Detected (NotDetected); Methamphetamine Not Detected (NotDetected); Opiate Screen Not Detected (NotDetected); Oxycodone Screen Not Detected (NotDetected); Phencyclidine (PCP) Not Detected (NotDetected); THC/Cannabinoid Screen Not Detected (NotDetected); Tricyclic Screen Not Detected (NotDetected)
--- NOTE | 2019-08-22 21:29 | RAD ---
Chest AP view INDICATION: Cough COMPARISON: Prior CT of the thorax dated June 23, 2019 FINDINGS: Lungs:Stable severe emphysema Cardiac silhouette:Heart size is normal. Vascular calcifications of the aortic arch are stable. Pulmonary vasculature:Normal Pleural spaces:No pleural effusion or pneumothorax is demonstrated. Upper abdomen:No abnormality seen. Osseous structures: No acute osseous abnormality. Additional findings:None. IMPRESSION: No acute cardiopulmonary abnormality. Stable emphysema.
[2019-08-22 21:35] LABS: Acetaminophen Less than 6.0 mcg/mL (10.0-30.0); Alcohol 352 mg/dL (Less than 10); Salicylate Less than 8.0 mg/dL (15.0-30.0)
[2019-08-22 21:36] LABS: ALT (SGPT) 32 U/L (8-55); AST (SGOT) 44 U/L (5-34); Albumin 4.3 g/dL (3.4-4.8); Alkaline Phosphatase 92 U/L (40-110); Anion Gap 12 mmol/L (10-20); BUN (Urea Nitrogen) Less than 4 mg/dL (9.8-20.1); Bilirubin, Total 0.6 mg/dL (0.2-1.2); CK (CPK) 101 U/L (29-168); Calc. Creatinine Clearance 0 mL/min (70-130); Calcium 9.6 mg/dL (7.8-10.44); Carbon Dioxide 33 mmol/L (23-31); Chloride 98 mmol/L (98-107); Estimated GFR-MDRD Greater than 90; Globulin 3.5 g/dL (2.4-3.5); Glucose 97 mg/dL (80-115); Potassium 4.1 mmol/L (3.5-5.1); Protein, Total 7.8 g/dL (6.0-8.3); Sodium 139 mmol/L (136-145)
[2019-08-22] MEDS ORDERED: Thiamine 100 MG TAB PO SCH (23:00)
[2019-08-23] MEDS ORDERED: Ondansetron ODT 4 MG TAB ONE (03:33)
[2019-08-23] MEDS ORDERED: chlordiazePOXIDE HCl 25 MG CAP PO PRN (07:06)
[2019-08-23] MEDS ORDERED: chlordiazePOXIDE HCl 25 MG CAP ONE ×2 (07:18→15:52)
[2019-08-23] MEDS ORDERED: Diazepam 10 MG/2 ML SYRINGE ONE (14:13)
== END 2019-08-23 16:04 | disposition home or self-care (01) ==
LOC: ERS 20:42
DX: F10.239 Alcohol dependence with withdrawal, unspecified (principal); F10.229 Alcohol dependence with intoxication, unspecified; R00.0 Tachycardia, unspecified; Y90.0 Blood alcohol level of less than 20 mg/100 ml; E05.90 Thyrotoxicosis, unspecified without thyrotoxic crisis or storm; J45.909 Unspecified asthma, uncomplicated; F41.9 Anxiety disorder, unspecified; F32.9 Major depressive disorder, single episode, unspecified; F17.210 Nicotine dependence, cigarettes, uncomplicated; Z79.51 Long term (current) use of inhaled steroids; Z79.899 Other long term (current) drug therapy; Z79.82 Long term (current) use of aspirin
CPT/HCPCS: 36415; 71045; 80053; 80306; 80307; 81003; 82550; 84443; 85025; 93005; 94640; 96361; 96374; J3360; J7620; Q0162

== ENCOUNTER 2020-02-06 13:50 | Inpatient (IN) | payer SELFPAY ==
[~2020-02-06 13:50] MED LIST: Iopamidol-370 76% 500 ML 1 ML ONE
[2020-02-06] MEDS ORDERED: Ondansetron ODT 4 MG TAB ONE (14:17)
[2020-02-06] MEDS ORDERED: Ondansetron ODT 4 MG TAB PO SCH (15:15)
[2020-02-06] MEDS ORDERED: Multivitamins, Adult 10 ML, Thiamine HCl 100 MG, Folic Acid 1 MG in Dextrose 5 %-0.45 %... IV SCH (15:15)
[2020-02-06] MEDS ORDERED: Diazepam 5 MG TAB PO SCH (15:30)
[2020-02-06 15:34] LABS: Hemoglobin 14.1 g/dL (12.0-16.0); Mean Corpuscular HGB CONC 33.1 g/dL (32.0-36.0); Mean Corpuscular Hemoglobin 28.2 pg (27.0-31.0); Mean Corpuscular Volume 85.2 fL (78.0-98.0); RBC Distribution Width 19.5 % (11.5-14.5); Red Blood Cell (RBC) Count 4.98 mill/uL (4.20-5.40)
[2020-02-06 15:49] LABS: Anisocytosis SLIGHT = 6-15 cells (100X) (0-5/hpf); Band 3 % (5-11); Lymphocytes 4 % (21-51); MDiff Complete? YES; Mean Platelet Volume 11.9 fL (7.4-10.4); Monocytes 6 % (0-10); Neutrophil 87 % (42-75); Platelet Count 133 thou/uL (130-400); Platelet Morphology Comment Appears Adequate; Target Cells SLIGHT = 2-5 cells (100X) (0-1/hpf); White Blood Cell (WBC) Count 8.8 thou/uL (4.8-10.8)
[2020-02-06] MEDS ORDERED: Diazepam 5 MG TAB ONE (16:02)
[2020-02-06 17:04] LABS: ALT (SGPT) 126 U/L (8-55); AST (SGOT) 142 U/L (5-34); Albumin 4.4 g/dL (3.4-4.8); Alcohol Less than 10 mg/dL (Less than 10); Alkaline Phosphatase 105 U/L (40-110); Anion Gap 15 mmol/L (10-20); BUN (Urea Nitrogen) 5 mg/dL (9.8-20.1); Bilirubin, Total 1.4 mg/dL (0.2-1.2); Calc. Creatinine Clearance 0 mL/min (70-130); Calcium 9.2 mg/dL (7.8-10.44); Carbon Dioxide 29 mmol/L (23-31); Chloride 90 mmol/L (98-107); Estimated GFR-MDRD Greater than 90; Globulin 3.3 g/dL (2.4-3.5); Glucose 88 mg/dL (80-115); Magnesium 2.1 mg/dL (1.6-2.6); Potassium 3.6 mmol/L (3.5-5.1); Protein, Total 7.7 g/dL (6.0-8.3); Sodium 130 mmol/L (136-145)
--- NOTE | 2020-02-06 19:24 | CT ---
CTA Angio Chest W WO Con 02/06/2020 6:44 PM Indication: History of shortness of breath and dyspnea Technique: Multiple CTA images were obtained of the thorax with IV contrast. 3-D rendering: MIP dot nstructed images were created and reviewed. Comparison: CT of the thorax dated June 23, [address] PE examination dated September 07, 2018 Findings: Pulmonary arteries: No central or segmental pulmonary embolus is evident. Heart and Aorta: There are thoracic aortic and coronary artery calcifications Mediastinum:Normal appearing. No enlarged lymph nodes. Lungs:There is stable moderate to severe emphysema. Spiculated pulmonary nodule left upper lobe is in creased in size now measuring 10 x 8 x 13 mm whereas previously the lesion measured 8.0 x 7.4 x 8 mm. Pleural space: Clear. Upper Abdomen: There are new hypodensities within the right hepatic lobe, one seen within segment 8 of the right hepatic lobe on image 104 series 2 and additional seen in segment 7 of the right hepatic lobe on image 112 of series 2. The 1.3 cm hypodensity, adjacent to the falciform ligament is relatively stable and may reflect a small hemangioma or area of increased focal fatty deposition. There is diffuse fatty infiltration of the liver. There is a stable 1.1 cm right adrenal myelolipoma. Mild hypertrophy of the left adrenal gland is stable appearing. Osseous Structures: No acute osseous abnormality. There is scattered degenerative and osteoarthritic change present. Diffuse osteopenia. Soft tissues:No abnormality. Other findings:None. Impression: 1. No central or segmental pulmonary embolus demonstrated. 2. Enlarging left upper lobe spiculated pulmonary nodule suspicious for worsening lung malignancy. Th ere are new hypodensities within the right hepatic lobe suspicious for early metastatic disease. Nonemergent follow-up CT the abdomen utilizing liver mass protocol is recommended for additional prudence acterization. There is a small hypodensity seen adjacent to the falciform ligament the liver suspicious for either a small hemangioma or an area of increased focal fatty deposition. 3. Stable moderate to severe emphysema. 4. Stable right adrenal myelolipoma and mild hypertrophy of the left adrenal gland.
--- NOTE | 2020-02-06 21:14 | HP ---
PRIMARY CARE PHYSICIAN: Jimmie. CHIEF COMPLAINT: Feeling shaky. HISTORY OF PRESENT ILLNESS: Ms. Shah is a pleasant 59-year-old female, who has a history of alcoholism. She says that since the pandemic started, she has been locked in the house and cannot do anything and as a result, her drinking has increased. She does tend to drink about a 12 pack a day. She says that has increased it over the last few weeks. She says that she just could not do it anymore and stopped drinking last night. Then this morning, she started feeling extremely shaky and then she was vomiting off and on as well and as a result, she came to the ER for evaluation. She denies any hematemesis, no melena, and denies any abdominal pain. She says she has headache off and on, and then she also says she has been having shortness of breath for the past three weeks, but then she also had earlier asked about getting follow up on a nodule that she had had discovered back in June, which appears to be a pulmonary nodule. Otherwise, the patient has no other complaints other than feeling depressed. She says that she has not been taking her antidepressants because when she drinks, she does not take her medications. However, she denies any suicidal or homicidal ideation and this was asked specifically. REVIEW OF SYSTEMS: All systems were reviewed and are negative except for that mentioned in the history of present illness. PAST MEDICAL HISTORY: Significant for alcoholism, asthma, vertigo, pulmonary nodule, and depression. PAST SURGICAL HISTORY: She has had a . ALLERGIES: NO KNOWN DRUG ALLERGIES. SOCIAL HISTORY: She drinks a 12 pack of beer a day. She also admits to smoking about a pack a day for the last 40 years. She is . She has one daughter. Her medical power of etl application developer is her friend, Sofy Holland. She wants to be a full code. FAMILY HISTORY: Significant for heart disease in her mother. Father was diabetic. Sister had cancer. CURRENT MEDICATIONS: Include: 1. Sertraline. 2. BuSpar. 3. Duloxetine. However, she says she has not had any medications in the last 3 weeks. PHYSICAL EXAMINATION: GENERAL: She is alert and oriented. She does not appear to be in any distress. She is chronically ill in appearance and a bit disheveled. VITAL SIGNS: Blood pressure 126/78, heart rate was 110, respiratory rate of 18, temperature is 98.4, O2 saturation was 95% on room air. HEENT: Pupils are equal, round, and reactive. Extraocular muscles are intact. Her sclerae anicteric. Throat, there is no erythema, no exudates on her ears. Her tympanic membranes are pearly gordillo. There was some mild redness to the drum but there was no bulging, no fluid, and no retraction. NECK: No adenopathy. No bruits. LUNGS: Essentially clear to auscultation. There is a slight rale in the left mid lung field but no wheezing, no rhonchi. CARDIOVASCULAR: She has a normal S1, S2. No S3 or S4. No murmurs, clicks, or rubs. ABDOMEN: Soft. She had some mild right mid abdominal tenderness, very mild. There is no rebound, no guarding, no organomegaly. EXTREMITIES: She has some diffuse muscle wasting in her calves. No edema. No calf tenderness. No joint effusions. NEUROLOGIC: Muscle strength is 5/5 in both upper and lower extremities. SKIN AND INTEGUMENT: There are no skin changes. No rash. LABORATORY DATA: Lab results: The white blood cell count is 8.8, hemoglobin 14.1, hematocrit is 42.5, and platelet count is 133. Sodium 130, potassium 3.6, chloride is 90, CO2 is 29, BUN of 5, creatinine 0.58, glucose is 88, total bilirubin 1.4, AST 142, ALT 126. ASSESSMENT: This is a 59-year-old female, who presents with alcohol withdrawal. She will be admitted to the telemetry unit and placed on an ASE protocol as well as Ativan p.r.n., banana bag. Consult Case Management resources for alcohol abuse. She has been counseled here in the emergency room on the need to quit. She says that she was last in a treatment program in March of last year and she said she was sober for a time, but relapsed. Shortness of breath. I have asked the ER physician to obtain a CT angiogram. However, she does not appear to have any symptoms, but she says subjectively she has been short of breath for the past three weeks. This will allow to rule out PE plus followup on the pulmonary nodule as she had hoped for. 1. Depression. This appears to be clinically stable. Hopefully, once she is stabilized from the alcohol withdrawal standpoint, she can restart her home medications for depression and she will need outpatient followup for this as well. Job ID: [id number]
[2020-02-06 21:23] VITALS: BMI 15.7
[2020-02-06] MEDS ORDERED: Lorazepam 2 MG/ML VIAL SLOW IVP PRN (21:53)
[2020-02-06] MEDS ORDERED: cloNIDine 0.1 MG TAB PO PRN (21:53)
[2020-02-06] MEDS ORDERED: Ondansetron ODT 4 MG TAB PO PRN (21:53)
[2020-02-06] MEDS ORDERED: Lorazepam 1 MG TAB PO PRN (21:53)
[2020-02-06] MEDS ORDERED: Ondansetron PF 4 MG/2 ML Vial IVP PRN (21:53)
[2020-02-07 05:01] LABS: #Basophils 0.1 thou/uL (0.0-0.2); #Eosinphils 0.1 thou/uL (0.0-0.7); #Lymphocytes 2.2 thou/uL (1.20-3.40); #Monocytes 0.8 thou/uL (0.11-0.59); #Neutrophils 3.4 thou/uL (1.40-6.50); %Basophils 1.6 % (0.0-1.0); %Eosinophils 1.3 % (0.0-10.0); %Lymphocytes 33.1 % (21.0-51.0); %Monocytes 11.8 % (0.0-10.0); %Neutrophils 52.2 % (42.0-75.0); Mean Corpuscular HGB CONC 33.3 g/dL (32.0-36.0); Mean Platelet Volume 12.1 fL (7.4-10.4); Platelet Count 133 thou/uL (130-400); RBC Distribution Width 18.8 % (11.5-14.5); Red Blood Cell (RBC) Count 4.64 mill/uL (4.20-5.40); White Blood Cell (WBC) Count 6.5 thou/uL (4.8-10.8)
[2020-02-07 05:17] LABS: Anion Gap 13 mmol/L (10-20); BUN (Urea Nitrogen) 4 mg/dL (9.8-20.1); Calc. Creatinine Clearance 68 mL/min (70-130); Calcium 8.4 mg/dL (7.8-10.44); Carbon Dioxide 23 mmol/L (23-31); Chloride 99 mmol/L (98-107); Estimated GFR-MDRD Greater than 90; Glucose 88 mg/dL (80-115); Potassium 4.3 mmol/L (3.5-5.1); Sodium 131 mmol/L (136-145)
[2020-02-07 13:46] VITALS: BP 142/78; TEMP 97.5
[2020-02-07] MEDS ORDERED: Multivitamins, Adult 10 ML, Folic Acid 1 MG, Thiamine HCl 100 MG in Dextrose 5 %-0.45 %... IV SCH (16:00)
--- NOTE | 2020-02-09 14:06 | DIS ---
DATE OF ADMISSION: 02/06/2020 DATE OF DISCHARGE: 02/07/2020 DISCHARGE DIAGNOSES: 1. Suspicious lung nodule, likely malignant. 2. Vertigo. 3. Urinary tract infection. 4. Early alcohol withdrawal. 5. Depression. DISCHARGE MEDICATIONS: 1. Keflex 500 mg orally twice daily for 7 days. 2. Flonase 1 spray each nose daily, one bottle. 3. Loperamide 2 mg orally as needed for diarrhea. 4. Meclizine 12.5 mg orally twice daily. HISTORY OF PRESENT ILLNESS AND HOSPITAL COURSE: The patient is a 59-year-old female with past medical history of asthma, vertigo, alcoholism, and a pulmonary nodule that was 8 mm and stable until June of 2019. The patient presented with worsening vertigo. The patient has long history of peripheral vertigo and is not on any outpatient medication for it. The patient drinks alcohol daily and stated that she increased her intake over the past few weeks. She started to feel extremely shaky on the day of admission and stated she was unable to walk steadily. The patient was placed in observation status on IV hydration. CT scan of the lung with contrast was obtained, which showed worsening pulmonary nodule which is now 1.3 cm with spiculation suggestive of malignancy. A liver nodule was also noted on the exam. The patient was managed for early alcohol withdrawal with Ativan as needed for CIWA score greater than 8. She was able to ambulate well on the second day of hospitalization and stated that her vertigo has improved. The patient also complained of dysuria and her urinalysis revealed elevated WBC count. The patient will be discharged on a course of Keflex and meclizine. An outpatient followup with pulmonology will be arranged to evaluate her pulmonary nodule. Job ID: [id number]
== END 2020-02-07 14:56 | disposition home or self-care (01) | DRG 181 ==
LOC: ERS 13:50 → 2NO 18:40 → ERHOLD 20:05 → 2NO 21:29
PROVIDERS: ADMIT Internal Medicine; ATTEND Internal Medicine
DX: C34.90 Malignant neoplasm of unspecified part of unspecified bronchus or lung (principal); F10.239 Alcohol dependence with withdrawal, unspecified; N39.0 Urinary tract infection, site not specified; R91.1 Solitary pulmonary nodule; R42 Dizziness and giddiness; F32.9 Major depressive disorder, single episode, unspecified; F41.9 Anxiety disorder, unspecified
CPT/HCPCS: 36415; 71275; 80048; 80053; 80307; 83735; 85025; 93005; 94760; 96365; 96366; J3411; J3475; J3490; J7042; Q0162; Q9967

== ENCOUNTER 2020-03-19 20:07 | Emergency (ER) | payer OTHER, SELFPAY ==
[~2020-03-19 20:07] MED LIST changes: +Iopamidol 370 76% 100 ML VIAL ONE; -Iopamidol-370 76% 500 ML 1 ML ONE
[2020-03-19] MEDS ORDERED: Lidocaine 1% PF 5 ML VIAL ONE (20:23)
[2020-03-19] MEDS ORDERED: Adacel (T-DAP) 0.5 ML SYRINGE ONE (20:23)
--- NOTE | 2020-03-19 21:25 | RAD ---
3 views right hand: 03/19/2020 COMPARISON: None HISTORY: Injury, trauma, pain FINDINGS: There is a comminuted obliquely oriented fracture of the second proximal phalanx extending into the region of the second metacarpal phalangeal joint. No displacement or evidence of dislocation is seen. IMPRESSION: Nondisplaced fracture of the second proximal phalanx as detailed above.
--- NOTE | 2020-03-19 21:26 | RAD ---
4 views right knee: 03/19/2020 COMPARISON: None HISTORY: Injury, trauma, pain FINDINGS: No fracture or dislocation. No radiopaque foreign body or subcutaneous gas. Posterior ather osclerotic calcification noted. IMPRESSION: No acute findings.
--- NOTE | 2020-03-19 21:26 | RAD ---
4 views left knee: 03/19/2020 COMPARISON: None HISTORY: Injury, trauma, pain FINDINGS: No fracture or dislocation. No radiopaque foreign body or subcutaneous gas. Posterior ather osclerotic calcification noted. IMPRESSION: No acute findings.
--- NOTE | 2020-03-19 21:30 | CT ---
Head CT without contrast 03/19/2020: COMPARISON: None HISTORY: Trauma TECHNIQUE: Axial CT imaging at 5 mm intervals from vertex through skull base without contrast FINDINGS: The visualized paranasal sinuses and mastoid air cells are well aerated. No displaced olga rial fracture. Mild diffuse cerebral volume loss. No intracranial hemorrhage, midline shift, or mass effect. IMPRESSION: No intracranial hemorrhage or displaced calvarial fracture.
--- NOTE | 2020-03-19 21:40 | CT ---
CT of thecervical spine: 03/19/2020 COMPARISON:None available HISTORY:Trauma TECHNIQUE: Serial axial CT imaging at2.5 mm intervals from theskull base through lung apices without contrast. Coronal and sagittal reformatted imaging obtained. Findings:The occipital condyles, dens, C1 to articulation, craniocervical junction, atlantoaxial inte rspace, and cervicothoracic junction appear intact. No anterolisthesis or retrolisthesis. No prevertebral soft tissue swelling. On axial image 42, involving the superior articular facet of C7 there is a obliquely oriented lucency suspicious for a nondisplaced fracture. No additional fracture is evident. There are scattered atherosclerotic calcifications at the level of the great vessel origins and involving the carotid system within the neck bilaterally. IMPRESSION: Findings suspicious for a nondisplaced fracture involving the superior articular facet of the C7 vertebral body on the right. Findings discussed with Dr. Mahmood at 9:35 PM 03/19/2020.
--- NOTE | 2020-03-19 21:49 | CT ---
CT of the chest, abdomen, and pelvis: 03/19/2020 HISTORY: Injury, trauma, pain, recent diagnosis of lung cancer TECHNIQUE: Axial CT imaging at 5 mm intervals from the thoracic inlet to the pubic symphysis with IV contrast. Coronal and sagittal reformatted imaging obtained. FINDINGS: No axillary, hilar, or mediastinal lymphadenopathy is noted. No pleural, pericardial, or me diastinal fluid is seen. There is extensive coronary arterial calcification. There is also extensive atherosclerotic calcification involving the aortic arch and the origin of the great vessels . There is scattered atherosclerotic calcification of the descending thoracic aorta. There are scattered emphysematous changes noted bilaterally with an upper lobe predominance. There is a pulmona ry nodule within the lateral aspect of the left upper lobe best seen on axial image 19 measuring 1 cm in transverse dimension, enlarged from the 09/07/2018 CT examination of the chest at which time it measured 8 mm. Interval enlargement is suspicious for possible malignancy. No free intraperitoneal air is seen. The hepatic parenchyma is relatively hypodense, suggesting hepatic steatosis. There is a vague hypode nsity within the anterior aspect of the liver on axial image 59 measuring 8 mm. Additional hypodensity within the anterior aspect of the left lobe of the liver on image 62 measures 8 mm. As re commended on recent CT of the chest, follow-up liver mass protocol CT or MRI advised for further assessment. No hepatic or splenic laceration. The adrenal glands, gallbladder, pancreas, and kidneys demonstrate no acute findings. Limited assessment of the bowel demonstrates sigmoid diverticulosis without evidence for diverticulit is or bowel inflammatory change/bowel obstruction. There is extensive atherosclerotic calcification of the abdominal aorta and its branches. No retroperitoneal or pelvic lymphadenopathy is noted. No acute osseous abnormality is noted within the pelvis. No acute fracture or dislocation is seen involving the thoracic spine or lumbar spine. There is a foc al area of cortical irregularity involving the anterior aspect of the sternum on the sagittal imaging suggesting a possible anterior superior sternal fracture. IMPRESSION: Left upper lobe pulmonary nodule suspicious for malignancy. Nonspecific small hypodensiti es within the liver for which follow-up imaging advised to evaluate for possible metastatic disease. Findings suspicious for a subtle anterior fracture of the superior sternal body. Additional incidental findings as detailed above.
[2020-03-19] MEDS ORDERED: Ketorolac Tromethamine 30 MG/ML VIAL ONE (22:55)
[2020-03-20] MEDS ORDERED: Meclizine HCl 25 MG TAB ONE (00:56)
[2020-03-20] MEDS ORDERED: Acetaminophen 500 MG TAB ONE (00:57)
== END 2020-03-20 01:23 ==
LOC: ERS 20:07
DX: S12.601A Unspecified nondisplaced fracture of seventh cervical vertebra, initial encounter for closed fracture (principal); S62.640A Nondisplaced fracture of proximal phalanx of right index finger, initial encounter for closed fracture; S22.20XA Unspecified fracture of sternum, initial encounter for closed fracture; S61.011A Laceration without foreign body of right thumb without damage to nail, initial encounter; F41.9 Anxiety disorder, unspecified; F17.210 Nicotine dependence, cigarettes, uncomplicated; Z79.899 Other long term (current) drug therapy; V89.2XXA Person injured in unspecified motor-vehicle accident, traffic, initial encounter
CPT/HCPCS: 12002; 70450; 71260; 72125; 74177; 90471; 90715; 96374; J1885; Q9967

== ENCOUNTER 2020-03-29 17:51 | Inpatient (IN) | payer OTHER, SELFPAY ==
[~2020-03-29 17:51] MED LIST changes: +Aminocaproic Acid 5 GM/20 ML VIAL ONE; +Calcium Chloride 1 GM/10 ML Abboject SYRINGE ONE; +Cardioplegic Soln 1,000 ML BAG ONE; +Dexamethasone 20 MG/5 ML VIAL ONE; +EPHEDRINE 25 MG/5 ML SYRINGE ONE; +Heparin 10,000 UNITS/ 10 ML VIAL ONE; +Heparin 30,000 units/30 ml VIAL ONE; +Heparin 5,000 UNITS/ML VIAL ONE; +Iopamidol 370 76% 50 ML VIAL FS ONE; +Ketorolac Tromethamine 30 MG/ML VIAL ONE; +Lidocaine 2% PF 5 ML VIAL ONE; +Magnesium Sulfate 1 GM/2 ML VIAL ONE; +Metoprolol Tartrate 5 MG/5 ML VIAL ONE; +Nitroglycerin 50 MG/250 ML BOT ONE; +PHENYLEPHRINE-NS 100 MCG/ML 10 ML SYRINGE ONE; +Papaverine 60 MG/2 ML VIAL ONE; +Potassium Chloride 60 MEQ/30 ML VIAL ONE; +Protamine Sulfate 250 MG/25 ML VIAL ONE; +Sodium Bicarb 50 MEQ/50 ML Abboject 8.4% SYRINGE ONE; +Thrombin 5000 UNITS/5 ML VIAL ONE; +Vecuronium 10 MG VIAL ONE
[2020-03-29 18:09] LABS: #Basophils 0.1 thou/uL (0.0-0.2); #Lymphocytes 1.3 thou/uL (1.20-3.40); #Neutrophils 9.4 thou/uL (1.40-6.50); %Basophils 0.7 % (0.0-1.0); %Eosinophils 0.3 % (0.0-10.0); %Monocytes 8.3 % (0.0-10.0); %Neutrophils 79.7 % (42.0-75.0); Hemoglobin 11.5 g/dL (12.0-16.0); Mean Corpuscular HGB CONC 32.2 g/dL (32.0-36.0); Mean Corpuscular Hemoglobin 26.8 pg (27.0-31.0); Mean Platelet Volume 7.9 fL (7.4-10.4); Platelet Count 469 thou/uL (130-400); RBC Distribution Width 18.7 % (11.5-14.5); Red Blood Cell (RBC) Count 4.29 mill/uL (4.20-5.40); White Blood Cell (WBC) Count 11.8 thou/uL (4.8-10.8)
[2020-03-29 18:23] LABS: ALT (SGPT) 60 U/L (8-55); AST (SGOT) 56 U/L (5-34); Albumin 4.1 g/dL (3.4-4.8); Alkaline Phosphatase 92 U/L (40-110); Anion Gap 16 mmol/L (10-20); BUN (Urea Nitrogen) 9 mg/dL (9.8-20.1); Bilirubin, Total 0.7 mg/dL (0.2-1.2); Calc. Creatinine Clearance 0 mL/min (70-130); Calcium 9.3 mg/dL (7.8-10.44); Carbon Dioxide 22 mmol/L (23-31); Chloride 100 mmol/L (98-107); Estimated GFR-MDRD 89; Globulin 3.1 g/dL (2.4-3.5); Glucose 170 mg/dL (80-115); Potassium 3.8 mmol/L (3.5-5.1); Protein, Total 7.2 g/dL (6.0-8.3); Sodium 134 mmol/L (136-145)
[2020-03-29 18:28] LABS: PTT 25.5 sec (22.9-36.1); Prothrombin Time 13.5 sec (12.0-14.7)
[2020-03-29 18:36] LABS: Acetaminophen Less than 6.0 mcg/mL (10.0-30.0); Alcohol Less than 10 mg/dL (Less than 10); Lipase 61 U/L (8-78); Magnesium 1.8 mg/dL (1.6-2.6); Salicylate Less than 8.0 mg/dL (15.0-30.0)
--- NOTE | 2020-03-29 18:45 | RAD ---
CHEST ONE VIEW: History: Chest pain, Code 3. Comparison: 08-22-19 FINDINGS: Heart size is within normal limits. There are increased linear and interstitial markings noted bilate rally, horizontally, particularly in the mid and lower lung zones raising concern for some minimal ac point lay ira edema. No confluent pneumonia. No significant acute pleural effusion. IMPRESSION: Evidence for minimal acute interstitial edema. No confluent pneumonia or overt pleural effusion. Stab le heart size. Continued short term follow up. POS: RRE
[2020-03-29 18:50] LABS: CKMB 3.2 ng/mL (0-6.6)
[2020-03-29] MEDS ORDERED: Midazolam HCl 2 mg/2 ml Vial ONE ×2 (19:28→19:47)
[2020-03-29] MEDS ORDERED: Ondansetron PF 4 MG/2 ML Vial ONE (19:29)
[2020-03-29] MEDS ORDERED: Midazolam HCl 5 mg/5 ml Vial ONE (19:47)
[2020-03-29] MEDS ORDERED: Fentanyl 100 MCG/2 ML VIAL ONE (19:47)
[2020-03-29] MEDS ORDERED: Vecuronium 10 MG VIAL ONE (19:48)
[2020-03-29] MEDS ORDERED: Dexmedetomidine 200 MCG/2 ML VIAL ONE (19:48)
[2020-03-29] MEDS ORDERED: Albumin 5% 500 ML ONE (20:09)
[2020-03-29] MEDS ORDERED: Heparin 10,000 UNITS/1 ML VIAL 30,000 UNITS in Sodium Chloride 0.9% 1,000 ML FS SCH (20:15)
[2020-03-29] MEDS ORDERED: Insulin Regular 300 UNITS/3 ML VIAL ONE (20:54)
[2020-03-29] MEDS ORDERED: PHENYLEPHRINE-NS 100 MCG/ML 10 ML SYRINGE ONE (21:48)
[2020-03-29] MEDS ORDERED: Bupivacaine PF 0.5% 30 ML VIAL ONE (22:24)
[2020-03-29] MEDS ORDERED: Dexamethasone 4 mg/ml Vial ONE (22:24)
[2020-03-29] MEDS ORDERED: EPINEPHrine 1 MG/ML AMP ONE (22:24)
[2020-03-29] MEDS ORDERED: Phenylephrine 10 MG/ML VIAL ONE (22:54)
[2020-03-29] MEDS ORDERED: Propofol 1,000 MG/100 ML VIAL IV ONE (23:49)
[2020-03-29] MEDS ORDERED: NS 0.9% w/ 20 MEQ KCL 1,000 ML IV SCH (23:54)
[2020-03-29] MEDS ORDERED: Nitroglycerin 50 MG/250 ML BOT 250 ML IVPB PRN (23:54)
[2020-03-29] MEDS ORDERED: Ondansetron PF 4 MG/2 ML Vial IVP PRN (23:54)
[2020-03-29] MEDS ORDERED: Acetaminophen 325 MG TAB PO PRN (23:54)
[2020-03-29] MEDS ORDERED: Fentanyl 100 MCG/2 ML VIAL SLOW IVP PRN ×2 (23:54)
[2020-03-29] MEDS ORDERED: Potassium Chloride 20 MEQ/100 ML PREMIX BAG IVPB PRN (23:54)
[2020-03-29] MEDS ORDERED: Mag-Al 1200 mg/1200 mg/30 ML UDCUP PO PRN (23:54)
[2020-03-29] MEDS ORDERED: Guaifenesin DM 100-10/5 ML UDCUP PO PRN (23:54)
[2020-03-29] MEDS ORDERED: hydrALAZINE 20 MG/ML VIAL SLOW IVP PRN (23:54)
[2020-03-29] MEDS ORDERED: Bisacodyl 10 MG SUPP PR PRN (23:54)
[2020-03-29] MEDS ORDERED: Phenylephrine 10 MG in Sodium Chloride 0.9% 250 ML 250 ML IVPB PRN (23:54)
[2020-03-29] MEDS ORDERED: Hetastarch 6% 500 ML 500 ML IVPB PRN (23:54)
[2020-03-29] MEDS ORDERED: Morphine 2 MG/ML VIAL SLOW IVP PRN (23:54)
[2020-03-29] MEDS ORDERED: Bisacodyl 5 MG TAB PO PRN (23:54)
[2020-03-29] MEDS ORDERED: Ventilator Sedation Protocol 1 EACH FS ONE (23:54)
[2020-03-30] MEDS ORDERED: Propofol BOLUS 1,000 MG/100 ML VIAL IV PRN (00:02)
[2020-03-30] MEDS ORDERED: Propofol 1,000 MG/100 ML VIAL IV PRN (00:02)
[2020-03-30] MEDS ORDERED: Lorazepam 2 MG/ML VIAL SLOW IVP PRN (00:02)
[2020-03-30] MEDS ORDERED: fentaNYL Citrate/PF 2,000 MCG in Sodium Chloride 0.9% 60 ML IV SCH (00:02)
[2020-03-30] MEDS ORDERED: Morphine 2 MG/ML VIAL SLOW IVP PRN (00:02)
[2020-03-30] MEDS ORDERED: DISCONTINUE PREVIOUS NARCOTIC PAIN MEDICATIONS AND BENZODIAZEPINES FS SCH (00:02)
[2020-03-30] MEDS ORDERED: Fentanyl BOLUS 250 ML IVPB PRN (00:02)
--- NOTE | 2020-03-30 00:05 | CON ---
DATE OF CONSULTATION: 03/29/2020 REASON FOR CONSULTATION: To evaluate patient for emergency coronary artery bypass grafting. HISTORY OF PRESENT ILLNESS: Ms. Shah presented from alf with ST-elevation myocardial infarction. She was brought to the cathode builder, underwent potential cardiac catheterization, which revealed severe three-vessel disease with occluded LAD. Attempted intervention was unsuccessful in the LAD and she was emergently taken to the operating room. PAST MEDICAL HISTORY: Hypertension. PAST SURGICAL HISTORY: Unknown. CURRENT MEDICATIONS: Unknown. ALLERGIES: NONE. PHYSICAL EXAMINATION: GENERAL: This is a thin elderly appearing woman. VITAL SIGNS: Her heart rate was in the 60s, her blood pressure was 180/70. LUNGS: Clear bilaterally. HEART: Rhythm is regular. ABDOMEN: Soft and nontender. ASSESSMENT/PLAN: To the OR for emergency bypass. Job ID: [id number]
[2020-03-30 00:13] LABS: Actual Bicarbonate (HCO3a) 19.5 mEq/L (22-28); Analyzer IN Cardio ER; Base Excess (BEa) -3.8 mEq/L (-2.0 to +3.0); CO2 Tension 30.4 mmHg (35.0-45.0); Calcium, Ionized (arterial) 1.06 mmol/L (1.12-1.30); Carboxyhemoglobin (COHb) 0.6 gm% (0.0-3.0); Hemoglobin (Hb) 13.4 g/dL (12.0-16.0); O2 Tension (PaO2), arterial 142.4 mmHg (> 80.0); Potassium - ABG Lab 3.73 mmol/L (3.70-5.30); pH, Arterial 7.43 (7.35-7.45)
[2020-03-30 00:18] LABS: Puncture Site LINE
[2020-03-30] MEDS ORDERED: Dextrose 5% in Water 1,000 ML IV PRN (00:18)
[2020-03-30] MEDS ORDERED: Insulin Regular 300 UNITS/3 ML VIAL SC PRN (00:18)
[2020-03-30] MEDS ORDERED: Dextrose 50% Abboject 50 ML SYRINGE SLOW IVP PRN (00:18)
--- NOTE | 2020-03-30 00:19 | RAD ---
EXAM: CHEST ONE VIEW HISTORY: Instrument count postoperative. COMPARISON: 03/29/2020 at 1804 hours. FINDINGS: Right subclavian central venous catheter is noted in place with tip overlying the expected location o f the SVC. Left-sided thoracostomy tube is noted in place with tip overlying the lateral left upper chest. Linear metallic density overlies the lower mediastinum which may represent mediastinal drain. Postoperative changes related to median sternotomy are present. Endotracheal tube is seen, but the tip is unable to be visualized as there is a metallic instrument overlying the lower neck and mediast inum as well as epigastric region which obscures visualization of the tip of the endotracheal tube. Pacing device overlies right chest. Cardiac silhouette is magnified by projection. Pulmonary vascular congestion is present with suggestion of an element of minimal pulmonary edema although this does appear improved. No other interval change. IMPRESSION: 1. Lines and tubes in place as described above including a large metallic device overlying the medias tinum. 2. No definite metallic foreign body is appreciated. 3. Lines and tubes in place. 4. Pulmonary vascular congestion and element of mild pulmonary edema
--- NOTE | 2020-03-30 00:21 | RAD ---
EXAM: CHEST ONE VIEW HISTORY: Post open heart surgery. Follow-up evaluation. COMPARISON: 03/29/2020 at 2317 hours FINDINGS: Endotracheal tube is noted in place with tip overlying the T5 vertebral body and above the level of t he [place]. Right subclavian central venous catheter, mediastinal drains and left-sided thoracostomy tube are stable in position. Metallic instrument overlying the lower neck and mediastinum has been re moved. Cardiac silhouette is within normal limits. , Pulmonary vascular congestion and element of mild pulmonary edema persists. No pneumothorax or pleural effusion is evident. IMPRESSION: 1. Postoperative changes of the mediastinum with lines and tubes stable in position. 2. Pulmonary vascular congestion and element of mild pulmonary edema.
[2020-03-30 00:32] LABS: INR-International Normal Ratio 1.3; PTT 32.2 sec (22.9-36.1); Prothrombin Time 16.2 sec (12.0-14.7)
[2020-03-30 00:33] LABS: #Monocytes 1.7 thou/uL (0.11-0.59); #Neutrophils 16.3 thou/uL (1.40-6.50); %Basophils 0.2 % (0.0-1.0); %Eosinophils 0.2 % (0.0-10.0); %Lymphocytes 5.1 % (21.0-51.0); %Monocytes 8.7 % (0.0-10.0); %Neutrophils 85.8 % (42.0-75.0); Hemoglobin 13.1 g/dL (12.0-16.0); Mean Corpuscular HGB CONC 34.3 g/dL (32.0-36.0); Mean Corpuscular Hemoglobin 30.1 pg (27.0-31.0); Mean Corpuscular Volume 87.8 fL (78.0-98.0); Mean Platelet Volume 7.7 fL (7.4-10.4); Platelet Count 222 thou/uL (130-400); RBC Distribution Width 17.3 % (11.5-14.5); Red Blood Cell (RBC) Count 4.37 mill/uL (4.20-5.40)
--- NOTE | 2020-03-30 00:42 | OP ---
DATE OF PROCEDURE: 03/29/2020 PREOPERATIVE DIAGNOSES: 1. Coronary artery disease, status post ST elevation myocardial infarction. 2. Hypertension. 3. Tobacco abuse. POSTOPERATIVE DIAGNOSES: 1. Coronary artery disease, status post ST elevation myocardial infarction. 2. Hypertension. 3. Tobacco abuse. PROCEDURE: 1. Coronary artery bypass grafting x3. 2. Reverse saphenous vein to 1.25 mm LAD-good conduit, small target. 3. Saphenous vein to 1-5 mm obtuse marginal - good conduit, small target. 4. Reverse saphenous vein to 1.25 mm posterior descending artery - good conduit, small target. ANESTHESIA: General endotracheal, Dr. Benita Olivares and . TAMALE MACHINE FEEDER SURGEON: Dr. Evelio Posada. PUMP TIME: 46 minutes. CROSSCLAMP TIME: 23 minutes. LOW-CORE TEMPERATURE: 34 degrees Celsius. DIRECTOR OF MARKET RESEARCH: Audrey Piper. DRAINS: 19-[place] drains x2. DESCRIPTION OF PROCEDURE: The patient was emergently brought from the laboratory equipment installer, placed in supine position on the operating table. Appropriate central line was placed and general endotracheal anesthesia was induced. Chest, abdomen, and legs were prepped and draped in usual sterile fashion. Greater saphenous vein was harvested from both legs for utilization for bypass. Median sternotomy was performed. Left internal mammary artery was begun to be harvested and it was too small to use for bypass. This was aborted. The patient was systemically heparinized. Thymic fat and pericardium were divided with cautery. Pericardial stay sutures were placed. Aortic and atrial cannulation was performed. After adequate heparinization, retrograde prime was performed. The patient was placed on cardiopulmonary bypass. Distal targets were marked. Aortic crossclamp was applied and antegrade sanguineous cardioplegic arrest was obtained. 1 L of antegrade cold [place] cardioplegia was given. Topical cold solution was used. Reverse saphenous vein was anastomosed to PDA in end-to-side fashion with running 7-0 Prolene suture. Anastomosis was tested and was hemostatic. Reverse saphenous vein was anastomosed to the OM in end-to-side fashion with running 7-0 Prolene suture. Anastomosis was tested and was hemostatic. Reverse saphenous vein was anastomosed to LAD in end-to-side fashion with running 7-0 Prolene suture. Anastomosis was tested and was hemostatic. Cross-clamp was removed. Partial occluding clamp placed. Saphenous veins to the OM and PDA were anastomosed to the aortic root. Saphenous vein to LAD was anastomosed to the sidewall of the OM graft. Partial occluding clamp was removed and graft was deaired. Anastomoses were inspected for hemostasis, which was good. Two stitches placed in the LAD graft for hemostasis. The patient was warmed and weaned from cardiopulmonary bypass. After resumption of sinus rhythm, good hemodynamics, temperature greater 36.5, bypass was discontinued. Transfusion was given. Decannulation was performed and pursestring suture secured. Protamine was administered. A 19-[place] drains were placed in the mediastinum. Sternum was treated with vancomycin paste. After adequate hemostasis had been obtained, sternum was closed #5 wire. Sternum was treated with platelet rich plasma and wires were twisted and buried. A presternal block was performed with 0.5% Marcaine mixed with Decadron. Wounds were irrigated and treated with platelet-poor plasma and closed in multiple layers. Needle, sponge, and instrument counts were all reported as correct at the end of the procedure. The patient tolerated the procedure well and was transferred to the intensive care in stable condition. Job ID: [id number]
[2020-03-30 01:00] LABS: Anion Gap 11 mmol/L (10-20); BUN (Urea Nitrogen) 7 mg/dL (9.8-20.1); Calc. Creatinine Clearance 84 mL/min (70-130); Calcium 7.3 mg/dL (7.8-10.44); Carbon Dioxide 21 mmol/L (23-31); Chloride 109 mmol/L (98-107); Estimated GFR-MDRD Greater than 90; Glucose 111 mg/dL (80-115); Potassium 3.8 mmol/L (3.5-5.1); Sodium 137 mmol/L (136-145)
[2020-03-30 04:28] LABS: #Monocytes 1.1 thou/uL (0.11-0.59); #Neutrophils 11.5 thou/uL (1.40-6.50); %Basophils 0.3 % (0.0-1.0); %Lymphocytes 7.1 % (21.0-51.0); %Neutrophils 84.5 % (42.0-75.0); Hemoglobin 13.1 g/dL (12.0-16.0); Mean Corpuscular HGB CONC 33.6 g/dL (32.0-36.0); Mean Corpuscular Hemoglobin 29.1 pg (27.0-31.0); Mean Corpuscular Volume 86.8 fL (78.0-98.0); Mean Platelet Volume 8.3 fL (7.4-10.4); Platelet Count 234 thou/uL (130-400); RBC Distribution Width 17.3 % (11.5-14.5); White Blood Cell (WBC) Count 13.7 thou/uL (4.8-10.8)
[2020-03-30] MEDS: CEFAZOLIN 2 GM in Premix Bag 1 BAG IVPB SCH ×3 (04:36→20:35)
[2020-03-30 04:45] LABS: Anion Gap 11 mmol/L (10-20); BUN (Urea Nitrogen) 9 mg/dL (9.8-20.1); Calc. Creatinine Clearance 77 mL/min (70-130); Calcium 7.5 mg/dL (7.8-10.44); Carbon Dioxide 20 mmol/L (23-31); Chloride 110 mmol/L (98-107); Estimated GFR-MDRD Greater than 90; Glucose 146 mg/dL (80-115); Potassium 4.5 mmol/L (3.5-5.1); Sodium 136 mmol/L (136-145)
--- NOTE | 2020-03-30 06:21 | CON ---
DATE OF CONSULTATION: CHIEF COMPLAINT: Chest pain with acute PA. HISTORY OF PRESENT ILLNESS: Ms. Shah is a 60-year-old woman with previous history of tobacco abuse, who recently presented with acute onset chest pain. This began at 3:30 this afternoon. She proceeded to the emergency room, where she was found have ST-segment elevation. She has no previous history of underlying coronary artery disease. She does have a previous history of alcohol abuse in addition to tobacco abuse. The patient was last seen in the hospital in January of 2020 for alcohol withdrawal. PAST MEDICAL HISTORY: ETOH abuse, asthma, vertigo, pulmonary nodule, depression, . ALLERGIES: NONE. SOCIAL HISTORY: Positive alcohol use, although she has been in [facility] for the last 10 days. She is currently , with one daughter. FAMILY HISTORY: Positive for CAD. REVIEW OF SYSTEMS: A 10-point review of systems is reviewed and is as above, otherwise negative. PHYSICAL EXAMINATION: GENERAL: Patient is a pleasant female, who is in no acute distress. The patient does appear much older than stated age. VITAL SIGNS: Heart rate is 80, blood pressure is 110/70, respirations 20. NEUROLOGIC: The patient is alert and oriented x3 with no focal neurologic deficits. HEENT: Sclerae without icterus. Mouth has moist mucous membranes with normal pallor. NECK: No JVD. Carotid upstroke brisk. No bruits bilaterally. LUNGS: Clear to auscultation with unlabored respirations. BACK: No scoliosis or kyphosis. CARDIAC: Regular rate and rhythm with normal S1 and S2. No S3 or S4 noted. No significant rubs, murmurs, thrills, or gallops noted throughout the precordium. PMI is not displaced. There is no parasternal heave. ABDOMEN: Soft, nontender, nondistended. No peritoneal signs present. No hepatosplenomegaly. No abnormal striae. EXTREMITIES: 2+ femoral and 2+ dorsalis pedis pulses. No cyanosis, clubbing, or edema. SKIN: No gross abnormalities. PERTINENT LABORATORY DATA: Hemoglobin 11.5. Creatinine 0.67. AST and ALT of 56 and 60 respectively. EKG showed normal sinus rhythm with anterolateral ST-segment elevation, suggesting acute myocardial infarction. IMPRESSION: 1. Acute myocardial infarction. 2. Tobacco abuse. RECOMMENDATIONS: At this point, Ms. Shah has been transferred directly to the roving tester laboratory for primary PCI. I discussed the procedure in full detail with the patient. Risks include, but not limited to the following: , stroke, PA, need for emergency surgery, loss of limb, bleeding, and infection, as well as a reaction to the dye causing kidney failure and needing long-term dialysis. I also discussed the risks of PCI to include all of the above including coronary dissection and perforation in addition to acute stent thrombosis and restenosis. All questions about the procedure were answered. Given the above, the patient agreed to proceed with coronary angiography and possible PCI. All questions were answered, and given the above, the patient agreed to proceed with above procedure. I also discussed drug-coated versus nondrug-coated stent placement. She is unsure if she can take Plavix for a year without missing a dose. We will therefore proceed with a bare-metal stent. Further recommendations pending the above. Job ID: [id number]
--- NOTE | 2020-03-30 07:24 | PRG ---
DATE OF SERVICE: 03/30/2020 SUBJECTIVE: She is now about 6 hours post CABG, has been stable overnight with mild hypotension in the 90s. However, decreasing her sedation has increased her blood pressure. She remains intubated with coughing spells. Chest x-ray is unremarkable this morning, perhaps some haziness in the right lung compared to the left. Her laboratory values revealed hemoglobin of 13, a creatinine less than 1. Her chest tube output has been minimal overnight. The chest tube output total is about 100 and her urine output is excellent. PLAN: At this time is to extubate her as tolerated. Pulmonary toilet, nebs, and await COVID test. Job ID: [id number]
[2020-03-30 07:58] LABS: Actual Bicarbonate (HCO3a) 16.8 mEq/L (22-28); Base Excess (BEa) -7.1 mEq/L (-2.0 to +3.0); Calcium, Ionized (arterial) 1.01 mmol/L (1.12-1.30); Carboxyhemoglobin (COHb) 0.6 gm% (0.0-3.0); Hemoglobin (Hb) 11.6 g/dL (12.0-16.0); O2 Tension (PaO2), arterial 112.9 mmHg (> 80.0); Potassium - ABG Lab 3.49 mmol/L (3.70-5.30); pH, Arterial 7.38 (7.35-7.45)
[2020-03-30 08:01] LABS: Puncture Site ALINE
--- NOTE | 2020-03-30 08:03 | RAD ---
EXAM: Single view of the chest HISTORY: Status post open heart surgery COMPARISON: 03/29/2020 FINDINGS: Single view of the chest shows a normal sized cardiomediastinal silhouette. The patient is status post sternotomy. The lines and tubes are unchanged in position. No pneumothorax is seen. There is no evidence of consolidation, mass, or pleural effusion. The bones are unremarkable IMPRESSION: Stable exam
[2020-03-30] MEDS ORDERED: Sodium Bicarb 50 MEQ/50 ML Abboject 8.4% SYRINGE ONE (08:06)
[2020-03-30] MEDS: HYDROcodone/Acetaminophen 5/325 mg Tablet PO PRN ×4 (09:57→22:45)
[2020-03-30] MEDS: Aspirin 325 MG TAB PO SCH (09:58)
[2020-03-30] MEDS: Famotidine/PF 20 mg/2ml Vial SLOW IVP SCH ×2 (10:00→20:36)
[2020-03-30] MEDS: busPIRone HCl 10 MG TAB PO SCH ×2 (10:00→20:37)
[2020-03-30 14:44] LABS: SARS-CoV-2 MS2 Positive; SARS-CoV-2 N Gene Negative; SARS-CoV-2 S Gene Negative; SARS-CoV-2 orf1ab Negative
--- NOTE | 2020-03-30 17:47 | PRG ---
DATE OF SERVICE: 03/30/2020 SUBJECTIVE: Ms. Shah is doing well. She is extubated. No current complaints. OBJECTIVE: VITAL SIGNS: Blood pressure 102/60, pulse 97, and respirations 20. LUNGS: Minimal crackles bilaterally. HEART: Regular rate and rhythm. ABDOMEN: Soft, nontender, and nondistended. EXTREMITIES: No edema. IMPRESSION: 1. Acute myocardial infarction. 2. Severe coronary artery disease. 3. Status post bypass surgery. RECOMMENDATIONS: I discussed the case with Dr. Evelio Posada. The patient did not appear to have a dissection on bypass. She had a good target within the LAD and did well. She is surprisingly done fairly well postoperatively. Once blood pressure is stable, we would recommend TANESHA inhibitor therapy in addition to beta-catherine therapy. She is on aspirin and will add statin therapy. Job ID: [id number]
[2020-03-30] MEDS: Atorvastatin Calcium 40 MG TAB PO SCH (20:38)
[2020-03-30] MEDS ORDERED: Atorvastatin Calcium 10 MG TAB PO SCH (21:00)
[2020-03-30] MEDS: Doxepin HCl 25 MG CAP PO SCH (22:42)
[2020-03-31] MEDS: HYDROcodone/Acetaminophen 5/325 mg Tablet PO PRN ×5 (02:18→23:38)
[2020-03-31 04:48] LABS: #Basophils 0.1 thou/uL (0.0-0.2); #Monocytes 1.2 thou/uL (0.11-0.59); #Neutrophils 9.7 thou/uL (1.40-6.50); %Basophils 0.7 % (0.0-1.0); %Eosinophils 0.2 % (0.0-10.0); %Lymphocytes 14.9 % (21.0-51.0); %Monocytes 9.4 % (0.0-10.0); %Neutrophils 74.7 % (42.0-75.0); Hemoglobin 11.3 g/dL (12.0-16.0); Mean Corpuscular HGB CONC 32.7 g/dL (32.0-36.0); Mean Corpuscular Hemoglobin 28.7 pg (27.0-31.0); Mean Corpuscular Volume 87.8 fL (78.0-98.0); Mean Platelet Volume 8.5 fL (7.4-10.4); Platelet Count 275 thou/uL (130-400); RBC Distribution Width 17.6 % (11.5-14.5); Red Blood Cell (RBC) Count 3.94 mill/uL (4.20-5.40)
[2020-03-31 05:09] LABS: Anion Gap 7 mmol/L (10-20); BUN (Urea Nitrogen) 13 mg/dL (9.8-20.1); Calc. Creatinine Clearance 71 mL/min (70-130); Calcium 7.7 mg/dL (7.8-10.44); Carbon Dioxide 27 mmol/L (23-31); Chloride 103 mmol/L (98-107); Estimated GFR-MDRD Greater than 90; Glucose 116 mg/dL (80-115); Potassium 3.7 mmol/L (3.5-5.1); Sodium 133 mmol/L (136-145)
[2020-03-31] MEDS: Aspirin 325 MG TAB PO SCH (07:28)
[2020-03-31] MEDS: Famotidine/PF 20 mg/2ml Vial SLOW IVP SCH (07:28)
[2020-03-31] MEDS: busPIRone HCl 10 MG TAB PO SCH ×2 (07:28→20:50)
--- NOTE | 2020-03-31 08:08 | RAD ---
EXAM: Single view of the chest HISTORY: Status post open heart surgery COMPARISON: 03/30/2020 FINDINGS: Single view of the chest shows a normal sized cardiomediastinal silhouette. The patient is status post sternotomy. The endotracheal tube, left chest tube, and mediastinal drain have been removed. No pneumothorax is seen. The central venous catheter is unchanged in position. There are sm all bilateral pleural effusions. The bones are unremarkable IMPRESSION: Bilateral pleural effusions
[2020-03-31] MEDS ORDERED: diphenhydrAMINE 25 MG CAP PO PRN (08:46)
[2020-03-31] MEDS ORDERED: Zolpidem Tartrate 5 MG TAB PO PRN (08:46)
[2020-03-31] MEDS ORDERED: Guaifenesin DM 100-10/5 ML UDCUP PO PRN (08:46)
[2020-03-31] MEDS ORDERED: Nitroglycerin 0.4 MG TAB (25 Tab Bottle) SL PRN (08:46)
[2020-03-31] MEDS ORDERED: Mineral Oil ENEMA PR PRN (08:46)
[2020-03-31] MEDS ORDERED: Mag-Al 1200 mg/1200 mg/30 ML UDCUP PO PRN (08:46)
[2020-03-31] MEDS ORDERED: Milk Of Magnesia 30 ML UDCUP PO PRN (08:46)
[2020-03-31] MEDS ORDERED: Bisacodyl 10 MG SUPP PR PRN (08:46)
[2020-03-31] MEDS ORDERED: Bisacodyl 5 MG TAB PO PRN (08:46)
[2020-03-31] MEDS ORDERED: Dextrose 50% Abboject 50 ML SYRINGE SLOW IVP PRN (09:08)
[2020-03-31] MEDS ORDERED: Insulin Regular 300 UNITS/3 ML VIAL SC PRN (09:08)
[2020-03-31] MEDS ORDERED: Dextrose 5% in Water 1,000 ML IV PRN (09:08)
[2020-03-31] MEDS ORDERED: Furosemide 40 MG/4 ML VIAL SLOW IVP SCH (09:15)
--- NOTE | 2020-03-31 09:20 | PRG ---
DATE OF SERVICE: 03/31/2020 SUBJECTIVE: David Shah is status post CABG. She is doing well, less shortness of breath, less cough. OBJECTIVE: VITAL SIGNS: Pulse 103, blood pressure 90/60, saturations 90%, respirations 27. CHEST: No wheezing. No crackles. CARDIAC: Normal S1 and S2. No gallops. ABDOMEN: No masses. LABORATORY DATA: Unremarkable. A chest x-ray this morning shows some CHF and small pleural effusion. ASSESSMENT: Status post coronary artery bypass graft, chronic obstructive pulmonary disease, left lung nodule, bilateral pleural effusion. PLAN: Continue present care, diuretics started. Continue neb treatments. We will follow up. Job ID: [id number]
--- NOTE | 2020-03-31 10:03 | CON ---
DATE OF CONSULTATION: SUBJECTIVE: 60-year-old female, status post CABG in the ICU, just extubated. She [place]. She is currently in the [facility]. Got an EKG, showed ST-segment elevation. Brought to the ER, given nitroglycerin. She was taken to the cardiac cath and underwent bypass. She was extubated. She is a smoker a pack a day for most of her life. PAST MEDICAL HISTORY: Pertinent for asthma, tobacco abuse, coronary artery disease, depression, alcohol abuse. PREVIOUS SURGERIES: , CABG. HOME MEDICATIONS: Include; 1. Librium. 2. Flonase. 3. Doxepin 50. 4. Buspirone 30. 5. Albuterol HFA. 6. She is presently on scheduled neb treatments. ALLERGIES: NONE. REVIEW OF SYSTEMS: Ten-point negative. PHYSICAL EXAMINATION: VITAL SIGNS: Sats are 97% on 2 L, temperature 98, pulse 89, respirations 13, blood pressure 130/80. CHEST: Minimal rhonchi. CARDIAC: Normal S1, S2. No gallops. ABDOMEN: No masses. LABORATORY DATA: PO2 was 112, pCO2 was 29, pH 7.38, prior to extubation, lytes are normal. White count 13,000. ASSESSMENT: Ongoing tobacco and alcohol abuse, chronic obstructive pulmonary disease, acute coronary syndrome, severe 3-vessel disease. PLAN: Just continue neb treatments, supportive care. She was advised to refrain from smoking and drinking. She had a previous CT scan done which had a spiculated nodule in the left upper lung, which as of 03/29 still shows suspicious for malignancy. She is scheduled to have a PET scan done. We will follow. Job ID: [id number]
[2020-03-31] MEDS: Atorvastatin Calcium 40 MG TAB PO SCH (20:50)
[2020-03-31] MEDS: Doxepin HCl 25 MG CAP PO SCH (21:00)
[2020-04-01] MEDS: HYDROcodone/Acetaminophen 5/325 mg Tablet PO PRN ×4 (03:25→21:30)
[2020-04-01] MEDS ORDERED: Carvedilol 6.25 MG TAB PO SCH (09:00)
[2020-04-01] MEDS: Aspirin 325 MG TAB PO SCH (09:07)
[2020-04-01] MEDS: Potassium Chloride 10 MEQ TAB PO SCH (09:07)
[2020-04-01] MEDS: Furosemide 20 MG TAB PO SCH (09:07)
[2020-04-01] MEDS: busPIRone HCl 10 MG TAB PO SCH ×2 (09:07→21:30)
[2020-04-01] MEDS: Carvedilol 3.125 MG TAB PO SCH ×2 (09:08→21:32)
--- NOTE | 2020-04-01 11:29 | PRG ---
DATE OF SERVICE: 03/31/2020 SUBJECTIVE: Ms. Shah is doing very well status post bypass surgery. No current complaints. Blood pressure and heart rate appear stable. She is currently not on pressor agents. She is continuing to use incentive spirometry. OBJECTIVE: VITAL SIGNS: Blood pressure 112/66, pulse 94, respirations 20. LUNGS: Clear to auscultation. HEART: Regular rate and rhythm. ABDOMEN: Soft, nontender, and nondistended. EXTREMITIES: No edema. PERTINENT LABORATORY DATA: Hemoglobin 11.3. Creatinine 0.57. IMPRESSION: 1. Acute myocardial infarction. 2. Coronary artery disease. 3. Status post bypass surgery. 4. Tobacco abuse. 5. Cardiomyopathy. RECOMMENDATIONS: 1. Continue aspirin in addition to atorvastatin. 2. Hold TANESHA inhibitor therapy, ARB, and beta catherine therapy due to hypotension. 3. Incentive spirometry. Job ID: [id number]
--- NOTE | 2020-04-01 11:50 | PRG ---
DATE OF SERVICE: 04/01/2020 SUBJECTIVE: Post CABG, doing well. Less short of breath, less cough. OBJECTIVE: VITAL SIGNS: Sats on room air 95%, pulse 109, blood pressure 140/60. CHEST: No wheezing, no crackles. CARDIAC: Normal S1, S2. No gallops. ABDOMEN: No masses. ASSESSMENT AND PLAN: Chronic obstructive pulmonary disease, status post coronary artery bypass graft, left upper lung nodule, requires outpatient work including a PET scan. Continue neb treatments, supportive care. Job ID: [id number]
[2020-04-01 13:12] VITALS: BMI 18.7
--- NOTE | 2020-04-01 15:29 | PRG ---
DATE OF SERVICE: 04/01/2020 SUBJECTIVE: The patient is doing much better. She appears to be doing well. No current complaints. She does have chronic shortness of breath. She has been released by the group home. OBJECTIVE: VITAL SIGNS: Blood pressure 124/68, pulse 87, temperature 98. LUNGS: Clear to auscultation. HEART: Regular rate and rhythm. ABDOMEN: Soft, nontender, and nondistended. EXTREMITIES: No edema. IMPRESSION: 1. Likely chronic systolic heart failure. 2. Recent myocardial infarction. 3. Status post bypass surgery. 4. Tobacco abuse. RECOMMENDATIONS: 1. I have added low-dose Coreg. 2. We will add TANESHA inhibitor therapy tomorrow. 3. Strict I's and O's with sodium restriction. 4. Discussed LifeVest. She is amenable. 5. Home soon. Job ID: [id number]
[2020-04-01] MEDS: Atorvastatin Calcium 40 MG TAB PO SCH (21:31)
[2020-04-01] MEDS: Doxepin HCl 25 MG CAP PO SCH (21:37)
[2020-04-02] MEDS: HYDROcodone/Acetaminophen 5/325 mg Tablet PO PRN ×3 (03:27→20:50)
[2020-04-02] MEDS ORDERED: Carvedilol 3.125 MG TAB PO SCH (08:52)
[2020-04-02] MEDS ORDERED: Furosemide 40 MG/4 ML VIAL IVP SCH (09:00)
[2020-04-02] MEDS: Potassium Chloride 10 MEQ TAB PO SCH (09:02)
[2020-04-02] MEDS: busPIRone HCl 10 MG TAB PO SCH ×2 (09:02→20:50)
[2020-04-02] MEDS: Aspirin 325 MG TAB PO SCH (09:02)
[2020-04-02] MEDS: Lisinopril 5 MG TAB PO SCH (09:03)
[2020-04-02] MEDS: Furosemide 20 MG TAB PO SCH (09:03)
[2020-04-02] MEDS: Carvedilol 6.25 MG TAB PO SCH ×2 (09:08→20:51)
--- NOTE | 2020-04-02 10:17 | PRG ---
DATE OF SERVICE: SUBJECTIVE: This morning, she is having some difficulty breathing. OBJECTIVE: VITAL SIGNS: Her sats are 92% on room air, respirations 16, temperature 98, pulse 103, blood pressure 130/63. CHEST: No wheezing. No crackles. CARDIAC: Normal S1, S2. No gallops. ABDOMEN: No masses. ASSESSMENT AND PLAN: 1. Chronic obstructive pulmonary disease, emergency coronary artery bypass grafting. 2. Left lung nodule. I have added Dulera to her present neb treatment. Continue supportive care, PT, outpatient workup regarding the left lung nodule. X-ray shows congestive heart failure. She may benefit from a diuretic. Job ID: [id number]
--- NOTE | 2020-04-02 14:58 | PRG ---
DATE OF SERVICE: 04/02/2020 SUBJECTIVE: Ms. Shah today is having more difficulty with shortness of breath. She states she does have underlying COPD. She has difficulty walking to the bathroom and back. She does have crackles on physical exam. Her LVEF is markedly diminished. She is awaiting approval on the . OBJECTIVE: VITAL SIGNS: Blood pressure 142/73, pulse 96, and temperature 98.8. LUNGS: Crackles noted bilaterally. HEART: Regular rate and rhythm. ABDOMEN: Soft, nontender, nondistended. EXTREMITIES: 1+ pitting edema. PERTINENT LABORATORY DATA: Hemoglobin 11.3, hematocrit 34.6. Creatinine 0.57. IMPRESSION: 1. Acute on chronic systolic heart failure. 2. Recent myocardial infarction. 3. Status post bypass surgery. 4. Chronic obstructive pulmonary disease. 5. Tobacco abuse. RECOMMENDATIONS: 1. Give IV dose Lasix x1. 2. Continue p.o. Lasix at 20 q.a.m. 3. Increase carvedilol to 6.25 b.i.d. 4. Continue lisinopril 5 daily. Job ID: [id number]
[2020-04-02] MEDS: Mometasone 200 MCG/Formoterol 5 MCG 120 PUFF INHALER INH SCH (19:13)
[2020-04-02] MEDS: Doxepin HCl 25 MG CAP PO SCH (20:53)
[2020-04-02] MEDS: Atorvastatin Calcium 40 MG TAB PO SCH (20:54)
[2020-04-03] MEDS: HYDROcodone/Acetaminophen 5/325 mg Tablet PO PRN (01:07)
[2020-04-03 04:02] VITALS: TEMP 98.8
[2020-04-03 07:00] VITALS: BP 121/58
[2020-04-03] MEDS: Mometasone 200 MCG/Formoterol 5 MCG 120 PUFF INHALER INH SCH (07:23)
--- NOTE | 2020-04-03 08:13 | PDOC.CPN ---
- Subjective Date: 04/03/20 Time: 08:30 Interval history: Awake, lying in bed, watching TV. Anxious to go home, denies any acute cardiac complaints or concerns. Denies pain other than incisional soreness. Reports BM yesterday, ambulating without assist. Denies any wheezing, using her IS multiple times an hour. Wearing Lifevest, she understands rationale for external defibrillator. Telemetry reviewed, no overnight events. - Review of Systems General: denies: fever/chills, weight/appetite/sleep changes, night sweats, fatigue Respiratory: denies: cough, congestion, shortness of breath, exercise intolerance Cardiovascular: denies: chest pain, palpitation, edema, paroxysmal nocturnal dyspnea, orthopnea Gastrointestinal: reports: nausea. denies: vomiting, diarrhea, constipation, abd pain, GI bleeding - Objective Allergies/Adverse Reactions: Allergies Allergy/AdvReac Type Severity Reaction Status Date / Time No Known Drug Allergies Allergy Verified 11/30/19 22:15 Visit Medications: Current Medications Acetaminophen (Tylenol) 650 mg PO Q6H PRN PRN Reason: Headache/Fever Or Mild Pain Last Admin: 03/30/20 20:38 Dose: 650 mg Hydrocodone Bitart/Acetaminophen ([place] 5/325) 1 tab PO Q4H PRN PRN Reason: Moderate Pain (4-6) Last Admin: 04/03/20 01:07 Dose: 1 tab Hydrocodone Bitart/Acetaminophen ([place] 5/325) 2 tab PO Q4H PRN PRN Reason: Severe Pain (7-10) Last Admin: 04/02/20 20:50 Dose: 2 tab Al Hydroxide/Mg Hydroxide (Maalox) 30 ml PO Q4H PRN PRN Reason: Indigestion Albuterol/Ipratropium (Duoneb) 3 ml NEB Q6H PRN PRN Reason: SHORTNESS OF BREATH Albuterol/Ipratropium (Duoneb) 3 ml NEB [id number] ROM Last Admin: 04/03/20 07:19 Dose: 3 ml Aspirin (Aspirin) 325 mg PO QAM-WM ROM Last Admin: 04/02/20 09:02 Dose: 325 mg Atorvastatin Calcium (Lipitor) 40 mg PO HS ROM Last Admin: 04/02/20 20:54 Dose: 40 mg Bisacodyl (Dulcolax) 10 mg PO Q12H PRN PRN Reason: Constipation Last Admin: 04/02/20 03:27 Dose: 10 mg Bisacodyl (Dulcolax) 10 mg ID Q12H PRN PRN Reason: Constipation Buspirone HCl (Buspar) 30 mg PO BID [facility] Last Admin: 04/02/20 20:50 Dose: 30 mg Carvedilol (Coreg) 6.25 mg PO BID [facility] Last Admin: 04/02/20 20:51 Dose: 6.25 mg Diphenhydramine HCl (Benadryl) 25 mg PO Q6H PRN PRN Reason: Itching & Insomnia or Dereje Silvestre Doxepin HCl (Sinequan) 50 mg PO HS [facility] Last Admin: 04/02/20 20:53 Dose: Not Given Furosemide (Lasix) 20 mg PO DAILY [facility] Last Admin: 04/02/20 09:03 Dose: 20 mg Guaifenesin/Dextromethorphan (Robitussin Dm) 15 ml PO Q4H PRN PRN Reason: Cough Hydralazine HCl (Apresoline) 10 mg SLOW IVP Q6H PRN PRN Reason: To Maintain SBP< 140mmHG Lisinopril (Zestril) 5 mg PO DAILY [facility] Last Admin: 04/02/20 09:03 Dose: 5 mg Magnesium Hydroxide (Milk Of Magnesium) 30 ml PO Q12H PRN PRN Reason: Constipation Mineral Oil (Fleet Mineral Oil) 133 ml ID DAILYPRN PRN PRN Reason: Constipation Mometasone Furoate/Formoterol Fumar (Dulera 200 Mcg/5 Mcg Inhaler) 2 puff INH BID-RT [facility] Last Admin: 04/03/20 07:23 Dose: 2 puff Morphine Sulfate (Morphine) 2 mg SLOW IVP Q15M PRN PRN Reason: Severe Pain (7-10) Nitroglycerin (Nitrostat) 0.4 mg SL Q5MIN PRN PRN Reason: Chest Pain Ondansetron HCl (Zofran) 4 mg IVP Q6H PRN PRN Reason: Nausea/Vomiting Potassium Chloride (Kcl) 20 meq IVPB PRN PRN PRN Reason: K level </= 4.0 Last Admin: 03/30/20 01:28 Dose: 20 meq Potassium Chloride (Klor-Con 10) 10 meq PO QAM-WM [facility] Last Admin: 04/02/20 09:02 Dose: 10 meq Sertraline HCl (Zoloft) 100 mg PO DAILY [facility] Last Admin: 04/02/20 09:02 Dose: 100 mg Sodium Chloride (Flush - Normal Saline) 10 ml IVF PRN PRN PRN Reason: Saline Flush Last Admin: 04/02/20 09:01 Dose: 10 ml Zolpidem Tartrate (Ambien) 5 mg PO HSPRN PRN PRN Reason: Insomnia Vital Signs & Weight: Vital Signs Temp Pulse Resp BP BP Pulse Ox 04/03/20 07:19 110 H 16 04/03/20 07:01 93 L 04/03/20 07:00 98.8 F 91 14 121/58 L 93 L 04/03/20 03:58 98.8 F 89 16 110/59 L 93 L 04/03/20 01:11 93 L 04/03/20 01:10 95 16 109/57 L 93 L 04/03/20 01:09 95 16 95 04/02/20 23:50 91 98/54 L 04/02/20 20:51 111/57 L Admit Weight 96 lb 5.472 oz Weight 88 lb 14.4 oz - Quality Measures CV meds: Beta Elie: Yes, TANESHA/ARB: Yes, Statin: Yes, ASA: Yes, Plavix/Effient/ Brilinta: No, Anticoagulant: No - Medication Contraindications No Antithrombotic reason: Treatment not indicated No Anticoagulant reason: Treatment not indicated - Physical Exam General: alert & oriented x3, appears well, no apparent distress Neck: supple neck, no JVD/HJR Cardiac: regular rate and rhythm, no murmur, S1/S2 Lungs: clear to auscultation, normal breath sounds, no wheeze, rales, rhonchi Neuro: grossly intact Abdomen: active bowel sounds, soft, non-tender Extremities: no cyanosis, no clubbing, no edema Musculoskeletal: normal range of motion - Labs Result Diagrams: 03/31/20 04:30 03/31/20 04:30 Troponin/CKMB CK-MB (CK-2) 3.2 ng/mL (0-6.6) 03/29/20 18:01 Troponin I 0.912 ng/mL (< 0.028) H* 03/29/20 18:01 - Telemetry Sinus rhythms and dysrhythmias: sinus rhythm (Sinus Tachycardia, PACs, rate 80s- 110s) - Assessment/Plan Assessment/Plan: Assessment: 1. CAD-s/p NSTEMI, emergent CABG x3 03/29 2. Systolic HF-EF <35%, LifeVest in place 3. HTN 4. COPD 5. Tobacco Abuse Plan: Okay to d/c home on current medications. Good response to diuretics, home on PO furosemide. Incisions okay, ambulatory without assist. Reinforced importance of follow-up, medication adherence, and alcohol/tobacco cessation. Tolerating current beta elie, ACEi doses, titrate up as tolerated. Follow-up with Dr. Martinez in 4 weeks.
[2020-04-03] MEDS: Furosemide 20 MG TAB PO SCH (08:22)
[2020-04-03] MEDS: busPIRone HCl 10 MG TAB PO SCH (08:22)
[2020-04-03] MEDS: Potassium Chloride 10 MEQ TAB PO SCH (08:23)
[2020-04-03] MEDS: Lisinopril 5 MG TAB PO SCH (08:23)
[2020-04-03] MEDS: Aspirin 325 MG TAB PO SCH (08:23)
[2020-04-03] MEDS: Carvedilol 6.25 MG TAB PO SCH (08:23)
--- NOTE | 2020-04-03 08:55 | DIS ---
DATE OF ADMISSION: 03/29/2020 DATE OF DISCHARGE: 04/03/2020 DIAGNOSES: 1. ST-elevation myocardial infarction. 2. Hypertension. 3. Dyslipidemia. 4. History of tobacco abuse. PROCEDURES: 1. Cardiac catheterization. 2. Coronary artery bypass grafting x3 - reverse saphenous vein grafts to LAD, OM, and PDA. DESCRIPTION OF HOSPITAL STAY: Ms. Shah was brought from correction to the emergency department with ST-elevation myocardial infarction. She was found to have an occluded right system and a critical heavily calcified LAD, which was uninterventional. She was emergently taken to the operating room and underwent bypass as above. She has done remarkably well postoperatively. She is being discharged to home in good condition, follow up with me in [address] Martinez in a month. DISCHARGE MEDICATIONS: 1. Albuterol two puffs every 6 hours. 2. Buspirone 30 mg b.i.d. 3. Doxepin 50 mg at bedtime. 4. Sertraline 100 mg daily. 5. Aspirin 325 mg daily. 6. Lipitor 40 mg at bedtime. 7. Coreg 6.25 mg b.i.d. 8. Fluticasone one spray each nostril daily. 9. Lasix 20 mg daily. 10. Zestril 5 mg daily. 11. [place] 5/325 one to two every 6 hours p.r.n. for pain. Job ID: [id number]
== END 2020-04-03 10:23 | disposition home or self-care (01) | DRG 231 ==
LOC: ERS 17:51 → CCU 18:20 → ERS 18:20 → CCL 18:59 → CCU 19:01 → 2NO 03-31 15:00
PROVIDERS: ADMIT Internal Medicine Cardiovascular Disease; ATTEND Internal Medicine Cardiovascular Disease
PROC: 02100Z9 Bypass Coronary Artery, One Artery from Left Internal Mammary, Open Approach (ICD-10-PCS; principal; 2020-03-29)
PROC: 027034Z Dilation of Coronary Artery, One Artery with Drug-eluting Intraluminal Device, Percutaneous Approach (ICD-10-PCS; 2020-03-29)
PROC: 021109W Bypass Coronary Artery, Two Arteries from Aorta with Autologous Venous Tissue, Open Approach (ICD-10-PCS; 2020-03-29)
PROC: 5A1221Z Performance of Cardiac Output, Continuous (ICD-10-PCS; 2020-03-29)
PROC: 30233N1 Transfusion of Nonautologous Red Blood Cells into Peripheral Vein, Percutaneous Approach (ICD-10-PCS; 2020-03-29)
PROC: 4A023N7 Measurement of Cardiac Sampling and Pressure, Left Heart, Percutaneous Approach (ICD-10-PCS; 2020-03-29)
DX: I21.3 ST elevation (STEMI) myocardial infarction of unspecified site (principal); I50.23 Acute on chronic systolic (congestive) heart failure; I16.1 Hypertensive emergency; J90 Pleural effusion, not elsewhere classified; I42.9 Cardiomyopathy, unspecified; F32.9 Major depressive disorder, single episode, unspecified; I25.10 Atherosclerotic heart disease of native coronary artery without angina pectoris; F17.210 Nicotine dependence, cigarettes, uncomplicated; F10.10 Alcohol abuse, uncomplicated; I95.9 Hypotension, unspecified; I11.0 Hypertensive heart disease with heart failure; R91.1 Solitary pulmonary nodule
CPT/HCPCS: 36415; 36416; 36430; 71045; 76942; 80048; 80053; 80307; 82553; 82805; 83690; 83735; 84484; 85025; 85347; 85610; 85730; 86850; 86900; 86901; 87635; 92920; 93005; 93010; 93458; 93798; 94002; 94150; 94640; 96374; 96375; 97139; 99152; 99153; J0171; J0690; J1100; J1644; J1815; J1885; J1940; J2250; J2370; J2405; J2440; J2704; J2720; J3010; J3370; J3475; J3480; J3490; J7620; P9016; P9045; Q9967; S0017; S0020; S0028; U0003

== ENCOUNTER 2020-06-15 19:31 | Inpatient (IN) | payer OTHER, SELFPAY ==
--- NOTE | 2020-06-15 20:35 | RAD ---
Exam: Chest one view HISTORY:Patient fell from standing. Trauma. Pain. Comparison: 03/31/2020 FINDINGS: Cardiac silhouette:Normal cardiac silhouette. Stable sternotomy wires. Aorta: Atherosclerotic Pulmonary vessels: Normal Costophrenic angles: Left pleural effusion. LUNGS: Hyperinflation with chronic lung parenchymal changes. Pneumothorax: None Osseous abnormalities: Diffuse bony mineralization. Remote left clavicle fracture. IMPRESSION: 1. Atherosclerosis 2. Left pleural effusion.
[2020-06-15 20:42] LABS: #Basophils 0.1 thou/uL (0.0-0.2); #Monocytes 0.8 thou/uL (0.11-0.59); #Neutrophils 5.6 thou/uL (1.40-6.50); %Basophils 0.9 % (0.0-1.0); %Eosinophils 0.2 % (0.0-10.0); %Lymphocytes 23.7 % (21.0-51.0); %Monocytes 9.3 % (0.0-10.0); Hemoglobin 14.3 g/dL (12.0-16.0); Mean Corpuscular HGB CONC 34.2 g/dL (32.0-36.0); Mean Corpuscular Hemoglobin 26.9 pg (27.0-31.0); Mean Corpuscular Volume 78.6 fL (78.0-98.0); Mean Platelet Volume 9.1 fL (7.4-10.4); Platelet Count 277 thou/uL (130-400); RBC Distribution Width 18.6 % (11.5-14.5); Red Blood Cell (RBC) Count 5.32 mill/uL (4.20-5.40); White Blood Cell (WBC) Count 8.5 thou/uL (4.8-10.8)
[2020-06-15 20:49] LABS: PTT 30.9 sec (22.9-36.1); Prothrombin Time 13.1 sec (12.0-14.7)
[2020-06-15 21:05] LABS: ALT (SGPT) 35 U/L (8-55); AST (SGOT) 46 U/L (5-34); Albumin 3.7 g/dL (3.4-4.8); Alkaline Phosphatase 106 U/L (40-110); Anion Gap 21 mmol/L (10-20); BUN (Urea Nitrogen) Less than 4 mg/dL (9.8-20.1); Calc. Creatinine Clearance 0 mL/min (70-130); Calcium 8.7 mg/dL (7.8-10.44); Carbon Dioxide 20 mmol/L (23-31); Chloride 83 mmol/L (98-107); Estimated GFR-MDRD Greater than 90; Globulin 3.6 g/dL (2.4-3.5); Glucose 88 mg/dL (80-115); Lipase 53 U/L (8-78); Potassium 3.9 mmol/L (3.5-5.1); Protein, Total 7.3 g/dL (6.0-8.3); Sodium 120 mmol/L (136-145)
--- NOTE | 2020-06-15 21:10 | CT ---
Exam: Head CT without contrast HISTORY: Fall from standing. Patient hit her head. COMPARISON: 03/19/2020 FINDINGS: Hemorrhage: No intraparenchymal hemorrhage or extra-axial hematoma. Brain parenchyma: Cortical gordillo-white matter differentiation is preserved. No mass effect or midline shift. Basilar cisterns are patent. Ventricular system: Ventricles and sulci are patent symmetric. Redemonstration of a cavum septum jossy ucidum. Calvarium: Intact. Sinuses and mastoid air cells: Adequate aeration. IMPRESSION: No intracranial post traumatic sequelae.
[2020-06-15 21:27] LABS: CKMB 2.8 ng/mL (0-6.6)
[2020-06-15 22:31] LABS: Lactic Acid 3.3 mmol/L (0.5-2.2)
[2020-06-15 22:43] LABS: Acetaminophen Less than 6.0 mcg/mL (10.0-30.0); Alcohol 177 mg/dL (Less than 10); Salicylate Less than 8.0 mg/dL (15.0-30.0)
[2020-06-15] MEDS ORDERED: Ondansetron PF 4 MG/2 ML Vial ONE (23:11)
[2020-06-15 23:43] LABS: Amphetamine Not Detected (NotDetected); Barbiturates Screen Not Detected (NotDetected); Benzodiazepine Screen Not Detected (NotDetected); Cocaine Metabolite Screen Not Detected (NotDetected); Medtox Control Line Valid? VALID (VALID); Medtox Reader # READER 4; Methadone Not Detected (NotDetected); Methamphetamine Not Detected (NotDetected); Opiate Screen Not Detected (NotDetected); Oxycodone Screen Not Detected (NotDetected); Phencyclidine (PCP) Not Detected (NotDetected); THC/Cannabinoid Screen Not Detected (NotDetected); Tricyclic Screen Not Detected (NotDetected)
[2020-06-15] MEDS ORDERED: Ondansetron ODT 4 MG TAB SL PRN (23:45)
[2020-06-15] MEDS ORDERED: Ondansetron PF 4 MG/2 ML Vial IVP PRN (23:45)
[2020-06-15] MEDS ORDERED: Acetaminophen 325 MG TAB PO PRN (23:45)
[2020-06-16 00:21] LABS: Troponin I 0.093 ng/mL (< 0.028)
[2020-06-16] MEDS ORDERED: Promethazine HCl 12.5 MG in Sodium Chloride 0.9% 50 ML IVPB PRN (00:37)
[2020-06-16] MEDS ORDERED: Guaifenesin DM 100-10/5 ML UDCUP PO PRN (00:37)
[2020-06-16] MEDS ORDERED: hydrALAZINE 20 MG/ML VIAL SLOW IVP PRN (00:37)
[2020-06-16] MEDS ORDERED: Acetaminophen 325 MG TAB PO PRN (00:37)
[2020-06-16] MEDS ORDERED: cloNIDine 0.1 MG TAB PO PRN (00:37)
[2020-06-16] MEDS ORDERED: Labetalol HCl 100 MG/20 ML VIAL SLOW IVP PRN (00:37)
[2020-06-16 00:39] LABS: Anion Gap 18 mmol/L (10-20); BUN (Urea Nitrogen) Less than 4 mg/dL (9.8-20.1); Calc. Creatinine Clearance 74 mL/min (70-130); Calcium 8.7 mg/dL (7.8-10.44); Carbon Dioxide 23 mmol/L (23-31); Chloride 87 mmol/L (98-107); Estimated GFR-MDRD Greater than 90; Glucose 81 mg/dL (80-115); Potassium 3.1 mmol/L (3.5-5.1); Sodium 125 mmol/L (136-145)
--- NOTE | 2020-06-16 00:39 | PDOC.HHP ---
Hospitalist HPI - History of Present Illness Vertigo History of Present Illness: Patient is a 60 year old female with PMH hyponatremia, alcohol abuse who presents to ED for vertigo and fall. Patient reports vertigo x 1 day, fell from standing today, no LOC, reports hitting head, no lacterations or open wounds. No persisting head or neck pain. Patient complains of vomiting. She drinks alcohol daily, including before presenting to ED. She drinks over 10 The patient does state that this vertigo has been going on for the past few days. She denies any loss consciousness. The patient has a history of hyponatremia secondary to that. The patient denies any chest pain or shortness of breath although she does have a LifeVest in place. In ED, troponin elevated, Na 120, Dr Denis consulted and recommended no IVF, I[facility] admission. CT head without acute findings. Hospitalist ROS - Review of Systems Constitutional: reports: weakness, malaise, other (vertigo, fall). denies: fever, chills, sweats Eyes: reports: other (chronic blindness). denies: pain, vision change, conjunctivae inflammation, eyelid inflammation, redness ENT: denies: ear pain, ear discharge, nose pain, nose discharge, nose c ongestion, mouth pain, mouth swelling, throat pain, throat swelling, other Respiratory: denies: cough, dry, shortness of breath, hemoptysis, SOB with excertion, pleuritic pain, sputum, wheezing, other Cardiovascular: denies: chest pain, palpitations, orthopnea, paroxysmal noc. dyspnea, edema, light headedness, other Gastrointestinal: denies: nausea, vomiting, abdominal pain, diarrhea, constipation, melena, hematochezia, other Genitourinary: denies: dysuria, frequency, incontinence, hematuria, retention, other Musculoskeletal: denies: neck pain, shoulder pain, arm pain, back pain, hand pain, leg pain, foot pain, other Skin: denies: rash, lesions, derrick, bruising, other Neurological: denies: weakness, numbness, incoordination, change in speech, confusion, seizures, other All other systems reviewed; all pertinent +/- noted in HPI/Subj - Medication Medications: reviewed, see admission documents for list Hospitalist History - Past Medical History Other Medical History: asthma, blood clot in left w/ blindness - Past Surgical History Past Surgical History: reports: CABG, - Family History Family History: reports: no pertinent history - Social History Smoking Status: Current every day smoker Alcohol: reports: Heavy (>10 drinks a day) - Exam General Appearance: NAD, awake alert Eye: PERRL, anicteric sclera ENT: normocephalic atraumatic, no oropharyngeal lesions, moist mucosa Neck: supple, symmetric, no JVD, no thyromegaly, no lymphadenopathy, no carotid bruit Heart: RRR, no murmur, no gallops, no rubs, normal peripheral pulses Respiratory: CTAB, no wheezes, no rales, no ronchi, normal chest expansion, no tachypnea, normal percussion Gastrointestinal: soft, non-tender, non-distended, normal bowel sounds, no palpable masses, no hepatomegaly, no splenomegaly, no bruit Extremities: no cyanosis, no clubbing, no edema Skin: normal turgor, no lesions, no rashes Neurological: cranial nerve grossly intact, normal sensation to touch, no weakness, no focal deficits, no new deficit Musculoskeletal: normal tone, normal strength, no muscle wasting Psychiatric: normal affect, normal behavior, A&O x 3 Hospitalist Results - Labs Result Diagrams: 06/15/20 20:34 06/16/20 05:48 Lab results: WBC 8.5 thou/uL (4.8-10.8) 06/15/20 20:34 Hgb 14.3 g/dL (12.0-16.0) 06/15/20 20:34 Hct 41.8 % (36.0-47.0) 06/15/20 20:34 MCV 78.6 fL (78.0-98.0) 06/15/20 20:34 Plt Count 277 thou/uL (130-400) 06/15/20 20:34 Neutrophils % 66.0 % (42.0-75.0) 06/15/20 20:34 Sodium 120 mmol/L (136-145) L 06/15/20 20:34 Potassium 3.9 mmol/L (3.5-5.1) 06/15/20 20:34 Chloride 83 mmol/L (98-107) L 06/15/20 20:34 Carbon Dioxide 20 mmol/L (23-31) L 06/15/20 20:34 BUN Less than 4 mg/dL (9.8-20.1) L 06/15/20 20:34 Creatinine 0.50 mg/dL (0.6-1.1) L 06/15/20 20:34 Glucose 88 mg/dL (80-115) 06/15/20 20:34 Lactic Acid 3.3 mmol/L (0.5-2.2) H 06/15/20 21:50 Calcium 8.7 mg/dL (7.8-10.44) 06/15/20 20:34 Total Bilirubin 1.0 mg/dL (0.2-1.2) 06/15/20 20:34 AST 46 U/L (5-34) H 06/15/20 20:34 ALT 35 U/L (8-55) 06/15/20 20:34 Alkaline Phosphatase 106 U/L (40-110) 06/15/20 20:34 CK-MB (CK-2) 2.8 ng/mL (0-6.6) 06/15/20 20:34 Troponin I 0.093 ng/mL (< 0.028) H 06/15/20 23:48 B-Natriuretic Peptide 142.0 pg/mL (0-100) H 06/15/20 20:34 Serum Total Protein 7.3 g/dL (6.0-8.3) 06/15/20 20:34 Albumin 3.7 g/dL (3.4-4.8) 06/15/20 20:34 Lipase 53 U/L (8-78) 06/15/20 20:34 Additional comment: VITAL SIGNS SunJun 15, 2020 23:09 JESUS Thomas Jonathan BP: 112/63 (Right Arm) Pulse: 89 Resp: 16 O2 sat: 100 on (Room Air) Time: 06/15/2020 23:09. ED documents, labs, imaging reports, notes reviewed - EKG Interpretation EKG: NSR, 87 bpm, qtc 565, no acute St changes Hospitalist H&P A/P - Plan Plan: Patient is a 60 year old female with PMH hyponatremia, alcohol abuse who presents to ED for vertigo and fall. # hyponatremia - symptomatic w/ vertigo # alcohol abuse # elevated troponin - patient reports vertigo x 1 day, fell from standing today, no LOC, reports hitting head, no lacterations or open wounds. No persisting head or neck pain. Patient complains of vomiting. She drinks alcohol daily, including before presenting to ED. She drinks over 10 drinks a day. The patient does state that this vertigo has been going on for the past few days. She denies any loss consciousness. The patient has a history of hyponatremia secondary to that. The patient denies any chest pain or shortness of breath although she does have a LifeVest in place. In ED, troponin elevated, Na 120, Dr Denis consulted and re commended no IVF, [facility] [place] head without acute findings. - admit [place] [facility] [place] 1L fluid restriction - appreciate nephrology - monitor clinically - ASE protocol
[2020-06-16] MEDS ORDERED: Electrolyte Replacement Protoc 1 EACH EACH FS SCH (00:45)
[2020-06-16] MEDS ORDERED: Potassium Chloride 20 MEQ TAB PO SCH (02:00)
[2020-06-16] MEDS: Ondansetron PF 4 MG/2 ML Vial IVP PRN ×2 (03:14→13:18)
[2020-06-16] MEDS ORDERED: Diazepam 5 MG TAB PO SCH (04:30)
[2020-06-16] MEDS ORDERED: Thiamine HCl 200 MG/2 ML VIAL IM SCH (04:30)
[2020-06-16 06:14] LABS: Anion Gap 17 mmol/L (10-20); BUN (Urea Nitrogen) 4 mg/dL (9.8-20.1); Calc. Creatinine Clearance 65 mL/min (70-130); Calcium 8.7 mg/dL (7.8-10.44); Carbon Dioxide 25 mmol/L (23-31); Chloride 90 mmol/L (98-107); Estimated GFR-MDRD Greater than 90; Glucose 93 mg/dL (80-115); Potassium 4.1 mmol/L (3.5-5.1); Sodium 128 mmol/L (136-145)
[2020-06-16] MEDS ORDERED: Polyethylene Glycol OPTH DROP 15 ML BOT EA EYE PRN (08:50)
[2020-06-16] MEDS ORDERED: SYSTANE GEL OPHTH DROPS 10 ML EA EYE PRN (08:50)
--- NOTE | 2020-06-16 08:55 | PDOC.HOSPP ---
- Subjective Encounter Date: 06/16/20 Encounter Time: 10:00 Subjective: Patient feeling better than on admission. Still with chronic vertigo. Continues to drink heavily which she states makes the vertigo feel a bit better but understands that she needs to stop. - Objective Vital Signs & Weight: Vital Signs (12 hours) Temp Pulse Resp BP Pulse Ox 06/16/20 07:23 98.2 F 06/16/20 04:00 98.4 F 06/16/20 00:00 97/59 L 98 06/15/20 23:48 92 19 105/63 94 L 06/15/20 23:37 97.6 F Weight Weight 82 lb Most Recent Monitor Data Heart Rate from ECG 98 NIBP 89/54 NIBP BP-Mean 65 Respiration from ECG 21 SpO2 94 I&O: 06/15/20 06/16/20 06/17/20 06:59 06:59 06:59 Intake Total 360 Output Total 600 Balance -240 Result Diagrams: 06/15/20 20:34 06/16/20 08:59 Hospitalist ROS - Review of Systems Constitutional: denies: fever, chills Respiratory: denies: cough, shortness of breath Cardiovascular: denies: chest pain, palpitations Gastrointestinal: denies: nausea, vomiting, abdominal pain Neurological: denies: seizures - Medication Medications: Active Medications Generic Name Dose Route Start Last Admin Trade Name Freq PRN Reason Stop Dose Admin Ondansetron HCl 4 mg 06/16/20 00:37 06/16/20 03:14 Ondansetron Pf 4 Mg/2 Ml Vial IVP 4 mg Q6H PRN Administration Nausea/Vomiting use 1st - Exam General Appearance: NAD, awake alert ENT: moist mucosa Heart: RRR, no murmur, no gallops, no rubs Respiratory: CTAB, no wheezes, no rales, no ronchi Gastrointestinal: soft, non-tender, non-distended, normal bowel sounds Neurological - other findings: minimal shakiness at this time in hands Psychiatric: normal affect, normal behavior, A&O x 3 Hosp A/P (1) Vertigo Code(s): R42 - DIZZINESS AND GIDDINESS Status: Acute (2) Alcohol abuse Code(s): F10.10 - ALCOHOL ABUSE, UNCOMPLICATED Status: Acute (3) Hyponatremia Code(s): E87.1 - HYPO-OSMOLALITY AND HYPONATREMIA Status: Acute (4) Anxiety Code(s): F41.9 - ANXIETY DISORDER, UNSPECIFIED Status: Chronic (5) Asthma Code(s): J45.909 - UNSPECIFIED ASTHMA, UNCOMPLICATED Status: Chronic Qualifiers: Asthma severity: mild Asthma persistence: intermittent Asthma complication type: uncomplicated Qualified Code(s): J45.20 - Mild intermittent asthma, uncomplicated (6) Hypokalemia Code(s): E87.6 - HYPOKALEMIA Status: Resolved (7) CAD (coronary artery disease) Code(s): I25.10 - ATHSCL HEART DISEASE OF [place] CORONARY ARTERY W/O ANG PCTRS Status: Chronic (8) S/P CABG x 3 Code(s): Z95.1 - PRESENCE OF AORTOCORONARY BYPASS GRAFT Status: Chronic - Plan Sodium improving with fluid restriction CABG in March, now with pleural effusion, elevated BNP, elevated troponin. Will check ECHO and get cardiology consult Resume home meds as tolerated by blood pressure, holding Lasix for now DVT proph: Lovenox GI proph: Pepcid
[2020-06-16] MEDS ORDERED: Dextrose 5% in Water 1,000 ML IV SCH (09:15)
[2020-06-16] MEDS ORDERED: Fluticasone Propionate Nasal Spray 16 gm Bottle NASAL SCH (09:15)
[2020-06-16 09:29] LABS: Anion Gap 16 mmol/L (10-20); BUN (Urea Nitrogen) 5 mg/dL (9.8-20.1); Calc. Creatinine Clearance 62 mL/min (70-130); Calcium 8.8 mg/dL (7.8-10.44); Carbon Dioxide 25 mmol/L (23-31); Chloride 91 mmol/L (98-107); Estimated GFR-MDRD Greater than 90; Glucose 95 mg/dL (80-115); Potassium 4.4 mmol/L (3.5-5.1); Sodium 128 mmol/L (136-145)
[2020-06-16] MEDS ORDERED: PROVENTIL INHALER 6.7 G (200 INHALATIONS) INH PRN (09:42)
[2020-06-16] MEDS: Heparin 5,000 UNITS/ML VIAL SC SCH ×2 (09:58→21:37)
[2020-06-16] MEDS: Carvedilol 6.25 MG TAB PO SCH ×2 (09:59→20:32)
[2020-06-16] MEDS: Multivitamin W/ Minerals 1 TAB PO SCH (09:59)
[2020-06-16] MEDS: Folic Acid 1 MG TAB PO SCH (09:59)
--- NOTE | 2020-06-16 10:01 | CON ---
DATE OF CONSULTATION: 06/15/2020 REASON FOR CONSULTATION: Hyponatremia. TIME OF CONSULTATION: 10 p.m. HISTORY OF PRESENTING ILLNESS: This is a very pleasant 60-year-old female, who presented to the hospital with vertigo. The patient was noted to have a sodium of 120, but at the time of consultation, repeat sodium was done, which was 125. The patient denies no headache, numbness, nausea, vomiting, or chest pain. PAST MEDICAL HISTORY: Significant for asthma, COPD, hyponatremia, CABG, , noncompliance, history of tobacco abuse, history of alcohol use. ALLERGIES: REVIEWED. MEDICATIONS: Home medications, list reviewed. Hospital medications, list reviewed. REVIEW OF SYSTEMS: A 15-point review of system was performed, negative except for positives noted above. HEENT: Eyes intact, no diplopia. Ears: No hearing loss or earache. Nose: No discharge or bleeding. Chest: No cough or phlegm. Abdomen: No nausea or vomiting. Genitourinary: No hematuria. No Antonio catheter. Musculoskeletal: No low back pain. No joint swelling or pain. Neurological: No syncope. No seizures. Skin: No complaints of rash or itching. Psychiatric: No depression. Constitutional: No weight loss or loss of appetite. PHYSICAL EXAMINATION: General: The patient is awake and alert. Vital Signs: Afebrile, pulse 92, breathing 16, blood pressure 105/53. HEENT: Head normocephalic and atraumatic. Eyes intact, no ulcers. Nose intact, no ulcers. Ears intact, no ulcers. Neck: Supple. No JVD. Chest: Symmetrical and clear. Cardiovascular: Shows S1 and S2, no rub, no murmur. Gastrointestinal: Abdomen is soft, bowel sounds positive. Extremities: Show no edema or ulcers. Skin: Shows no rash or petechiae. Musculoskeletal: Shows no joint swelling or stiffness. Genitourinary: Shows no Antonio or CVA tenderness. Neurologic: Motor intact. Cranial nerves intact. LABORATORY DATA: Labs show sodium 125. ASSESSMENT AND RECOMMENDATION: 1. Hyponatremia, most likely because of beer potomania and excessive fluid intake. This is acute hyponatremia, would recommend no fluid restriction, and we will do a stat sodium. This was ordered for 11 p.m. to see what the progression has been made and we will follow sodium alone. Recheck sodium every 4 to 6 hours. 2. Alcohol abuse. Recommend rehab. 3. Anemia, stable. 4. Medication based on GFR appropriate. Job ID: [id number]
[2020-06-16] MEDS: Lisinopril 5 MG TAB PO SCH (10:07)
[2020-06-16] MEDS: Fluticasone Propionate Nasal Spray 16 gm Bottle NASAL SCH (10:10)
[2020-06-16] MEDS ORDERED: busPIRone HCl 10 MG TAB PO SCH (10:30)
[2020-06-16 12:00] LABS: SARS-CoV-2 MS2 Positive; SARS-CoV-2 N Gene Negative; SARS-CoV-2 S Gene Negative; SARS-CoV-2 by NAA Not Detected (NotDetected); SARS-CoV-2 orf1ab Negative
--- NOTE | 2020-06-16 12:00 | PRG ---
DATE OF SERVICE: 06/16/2020 SUBJECTIVE: A 60-year-old female, being seen for hyponatremia. The patient denies any nausea, vomiting, or chest pain. The patient's sodium after consultation had corrected from 125 to 128 until 9 a.m. this morning. The patient had excessive amount of beer. OBJECTIVE: GENERAL: The patient is awake and alert. VITAL SIGNS: Afebrile, pulse 83, breathing at 16, and blood pressure 106/64. HEENT: Head normocephalic and atraumatic. Eyes intact, no ulcers. Nose intact, no ulcers. Ears intact, no ulcers. NECK: Supple. No JVD. CHEST: Symmetrical and clear. CARDIOVASCULAR: Shows S1 and S2, no rub, no murmur. GASTROINTESTINAL: Abdomen is soft, bowel sounds positive. EXTREMITIES: Show no edema or ulcers. SKIN: Shows no rash or petechiae. MUSCULOSKELETAL: Shows no joint swelling or stiffness. GENITOURINARY: Shows no Antonio or CVA tenderness. NEUROLOGIC: Motor intact. Cranial nerves intact. LABORATORY DATA: Reviewed. ASSESSMENT: 1. Chronic kidney disease, stage 1, stable. 2. Hyponatremia, stable. We will continue D5 water overcorrect the sodium. 3. Hypokalemia, resolved. I would recommend checking magnesium as well as cortisol level. No indication for hypertonic saline. Overall, prognosis is poor . Job ID: [id number]
[2020-06-16 12:25] VITALS: BMI 15.0
--- NOTE | 2020-06-16 12:35 | CON ---
DATE OF CONSULTATION: HISTORY OF PRESENT ILLNESS: David Shah is a 60-year-old female, well known to us, who presented to the ER with dizziness, apparently vertigo symptoms, she tells me. She is still drinking several beers a day. She apparently fell hitting a head. CT of head was done, which is negative. Still smoking up to a pack a day. This morning, in the MICU, she says she is feeling better. Denies any coughing or wheezing. She recently had a PET scan done as outlined following CABG, which had showed a left lung nodule, for which further work was in process. She has chronic cough and some shortness of breath. PAST MEDICAL HISTORY: COPD, asthma, coronary artery disease, depression, alcohol abuse, and tobacco abuse. PAST SURGICAL HISTORY: Recent CABG, . HOME MEDICATIONS: Include: 1. Zoloft 100. 2. Dulera. 3. Lasix 20. 4. Zestril 5. 5. Doxepin 50. 6. Coreg 6.25 twice a day. 7. Buspirone 30 twice a day. 8. Lipitor 40. 9. Aspirin. ALLERGIES: NONE. SOCIAL HISTORY: As noted, alcohol and tobacco abuse. REVIEW OF SYSTEMS: 10-point negative. PHYSICAL EXAMINATION: VITAL SIGNS: Temperature 98, blood pressure 106/65, pulse respiratory rate 18. CHEST: No wheezing. No rhonchi. CARDIAC: Normal S1, S2. No gallops. ABDOMEN: No masses. LABORATORY DATA: Sodium 128, improved from last night, which was 120. Alcohol level is 177. No drugs were seen otherwise. Chest x-ray read as normal. CT head . ASSESSMENT: 1. Chronic obstructive pulmonary disease, ongoing tobacco abuse. 2. Alcohol abuse. 3. Hyponatremia. 4. Coronary artery disease. PLAN: Pulmonary flores, she once again was advised to refrain smoking and drinking. She is on neb treatments. She is on supportive care. Pulmonary/Critical Care is going to follow while in the MICU. Job ID: [id number]
[2020-06-16] MEDS: Diazepam 5 MG TAB PO PRN ×3 (13:13→23:21)
[2020-06-16] MEDS: PROVENTIL INHALER 6.7 G (200 INHALATIONS) INH SCH ×3 (14:13→22:10)
[2020-06-16 17:02] LABS: Chloride 89 mmol/L (98-107); Potassium 3.9 mmol/L (3.5-5.1); Sodium 129 mmol/L (136-145)
[2020-06-16 17:03] LABS: Calcium 9.4 mg/dL (7.8-10.44); Glucose 103 mg/dL (80-115)
[2020-06-16 17:04] LABS: Anion Gap 17 mmol/L (10-20); Carbon Dioxide 27 mmol/L (23-31)
[2020-06-16 17:06] LABS: Calc. Creatinine Clearance 57 mL/min (70-130); Estimated GFR-MDRD Greater than 90
[2020-06-16 17:07] LABS: BUN (Urea Nitrogen) 7 mg/dL (9.8-20.1)
[2020-06-16] MEDS: Loperamide HCl 1 MG/7.5 ML UDCUP PO PRN ×2 (18:32→23:22)
[2020-06-16] MEDS: Mometasone 200 MCG/Formoterol 5 MCG 120 PUFF INHALER INH SCH (18:48)
[2020-06-16] MEDS: busPIRone HCl 10 MG TAB PO SCH (20:31)
[2020-06-16] MEDS: Atorvastatin Calcium 40 MG TAB PO SCH (20:32)
[2020-06-16] MEDS: Famotidine 20 MG TAB PO SCH (20:32)
[2020-06-16] MEDS: Doxepin HCl 25 MG CAP PO SCH (20:32)
[2020-06-16] MEDS: Enoxaparin Sodium 40 MG/0.4 ML SYRINGE SC SCH ×2 (20:33→21:06)
--- NOTE | 2020-06-17 00:37 | CON ---
DATE OF CONSULTATION: INDICATION FOR CONSULTATION: A 60-year-old female with multiple medical problems with coronary artery disease. She recently was admitted with myocardial infarction, underwent bypass surgery. She is now admitted with weakness and hyponatremia. HISTORY OF PRESENT ILLNESS: This very unfortunate 60-year-old female who was seen back in March in the hospital at which time she suffered anterior myocardial infarction. She was taken to the cardiac medical laboratory assistant emergently where I apparently was unable to open the left anterior descending artery using angioplasty techniques. She then underwent bypass surgery. At the time of the bypass surgery, her ejection fraction was about 25% to 30%. She had been doing relatively well after her surgery. She was seen in the office approximately 2 months ago as she does have significant peripheral vascular disease. She has been taking some of her medications, but not all of them. She continues to smoke and apparently continues to use alcohol. Her alcohol level was elevated when she arrived in the hospital on this admission. At this time, she is much more lucid. Apparently, she was slightly confused but was weak, was falling. When she arrived, her sodium was 120, repeat was 125 that was yesterday and today it is now up to 129. Her potassium was also low at 3.1, it is the lowest I saw and then up to 4.4. The renal function also appears to be relatively normal and she denies any complaints of chest pain. She does have some shortness of breath. She has had a LifeVest on in the past, that is not on today during the evaluation. PAST MEDICAL HISTORY: Significant for coronary artery disease, anterior myocardial infarction in March of this year, history of hypertension, tobacco abuse. She has a history of asthma, vertigo, and actually she was complaining of some significant dizziness and fell. She thought she has vertigo, but this may be due to hyponatremia. She has a history of depression. She also has a pulmonary nodule. She has been scheduled for 07/[address] Baca either for biopsy or removal of the pulmonary nodule. I am uncertain as to exactly what the plan is. She has also had a performed in the past. FAMILY HISTORY: Positive for heart disease, diabetes and hypertension. SOCIAL HISTORY: She continues to smoke and abuse alcohol. ALLERGIES: NONE. MEDICATIONS: Prior to admission should have included, 1. Buspirone HCL 30 mg twice a day. 2. Sertraline 100 mg once a day. 3. Aspirin 325 mg a day. 4. Atorvastatin 40 mg a day. 5. Coreg 6.25 mg one twice a day. 6. Stanton 5/325 once every 6 hours p.r.n. as needed. She may not be using this similar to this after surgery. 7. Lisinopril 5 mg a day. 8. Melatonin 5 mg as needed for sleep. 9. Furosemide 20 mg once a day. REVIEW OF SYSTEMS: Mainly, she complains of lightheadedness, dizziness and weakness in her legs, stating that she has numbness in her feet. She complains of vertigo. She has dry eyes. She has occasional cough. She has recently had some diarrhea. Otherwise 12-point review of systems is unremarkable. PHYSICAL EXAMINATION: GENERAL: Reveals an elderly female who actually looks somewhat older than her stated age. VITAL SIGNS: Her blood pressure at this time was 156/90, heart rates in the 90s to 100s and it shows what appears to be sinus tachycardia. Respiratory rate is about 16. O2 saturations were stable in the 90s. Heart rate was in the 99 range. O2 saturation was 95% on room air. HEENT: Shows the head to be normocephalic and atraumatic. NECK: She has bilateral carotid bruits. CHEST: Decreased breath sounds are noted throughout. CARDIOVASCULAR: She has a very soft systolic murmur noted at the apex. I do not hear any significant murmurs, heaves, thrills, bruits, or rubs. ABDOMEN: Shows abdomen to be soft, nontender. Positive bowel sounds are present, actually somewhat hyperactive. MUSCULOSKELETAL: I cannot palpate femoral, popliteal or pedal pulses. She had no lower extremity edema. NEUROLOGIC: She appears to be intact. I cannot elicit any gross focal motor deficits at this time. SKIN: Warm and dry. LABORATORY DATA: As noted. Sodium was 120 on admission, it is now up to 125. Her potassium was 3.1, it is now up to 3.9. Chloride was 87, bicarb was 27. BUN was 7 with a creatinine of 0.6. Her blood sugar was in the 90s to 100s. Her troponin I was 0.093 and yesterday, the troponin was 0.067. Her BNP was 142. Thyroid function appeared to be normal. The TSH was normal. AST was slightly elevated at 46. DIAGNOSTIC DATA: Her EKG shows a sinus rhythm with evidence of previous anterior myocardial infarction. IMPRESSION: 1. Hyponatremia of uncertain etiology. This may be due to diuretics. If she has lung cancer, this may also be playing a role in the hyponatremia. This was being corrected. She will be continued to be followed by the primary service for her hyponatremia. 2. Pulmonary nodule, this is in the left lung and this will be evaluated by Dr. Baca for possible intervention. 3. History of tobacco abuse and chronic cough. She has been advised on multiple occasions to stop smoking. 4. History of chronic obstructive pulmonary disease and asthma. 5. History of coronary artery disease, status post bypass surgery. This appears to be relatively stable despite having a large anterior myocardial infarction at the time of the original visit in March. 6. History of alcohol abuse. She will also be advised to stop smoking. Her alcohol level was somewhat elevated when she was admitted. She will need to be observed for possible delirium tremens. 7. History of depression. I will try to order an echocardiogram for this lady if this has not already been done, so I can re-evaluate exactly what her ejection fraction is prior to further evaluation. Previously, her ejection fraction was about 25% to 30%. Further care of the patient will be by Dr. Martinez when he visits with the patient tomorrow. Job ID: [id number]
[2020-06-17] MEDS ORDERED: Diazepam 5 MG TAB PO PRN (04:00)
[2020-06-17 06:30] LABS: #Basophils 0.1 thou/uL (0.0-0.2); #Eosinphils 0.1 thou/uL (0.0-0.7); #Lymphocytes 1.9 thou/uL (1.20-3.40); #Monocytes 0.8 thou/uL (0.11-0.59); #Neutrophils 3.3 thou/uL (1.40-6.50); %Basophils 1.2 % (0.0-1.0); %Eosinophils 1.5 % (0.0-10.0); %Lymphocytes 30.9 % (21.0-51.0); %Monocytes 12.4 % (0.0-10.0); Hemoglobin 13.1 g/dL (12.0-16.0); Mean Corpuscular HGB CONC 33.4 g/dL (32.0-36.0); Mean Platelet Volume 8.6 fL (7.4-10.4); Platelet Count 259 thou/uL (130-400); RBC Distribution Width 18.2 % (11.5-14.5); Red Blood Cell (RBC) Count 4.82 mill/uL (4.20-5.40); White Blood Cell (WBC) Count 6.1 thou/uL (4.8-10.8)
[2020-06-17] MEDS ORDERED: Nicotine 7 MG PATCH TOP SCH (06:45)
[2020-06-17] MEDS: PROVENTIL INHALER 6.7 G (200 INHALATIONS) INH SCH ×3 (08:08→20:14)
[2020-06-17] MEDS: Mometasone 200 MCG/Formoterol 5 MCG 120 PUFF INHALER INH SCH ×2 (08:08→20:14)
[2020-06-17] MEDS ORDERED: Magnesium Oxide 400 MG TAB PO SCH (09:00)
[2020-06-17] MEDS: busPIRone HCl 10 MG TAB PO SCH ×2 (09:49→20:11)
[2020-06-17] MEDS: Multivitamin W/ Minerals 1 TAB PO SCH (09:49)
[2020-06-17] MEDS: Famotidine 20 MG TAB PO SCH ×2 (09:49→20:10)
[2020-06-17] MEDS: Aspirin 325 MG TAB PO SCH (09:49)
[2020-06-17] MEDS: Folic Acid 1 MG TAB PO SCH (09:49)
[2020-06-17] MEDS: Thiamine 100 MG TAB PO SCH (09:49)
[2020-06-17] MEDS: Lorazepam 2 MG/ML VIAL SLOW IVP PRN ×3 (09:50→23:27)
[2020-06-17] MEDS: Fluticasone Propionate Nasal Spray 16 gm Bottle NASAL SCH (09:50)
[2020-06-17] MEDS: Heparin 5,000 UNITS/ML VIAL SC SCH ×2 (09:50→20:10)
--- NOTE | 2020-06-17 09:58 | PRG ---
DATE OF SERVICE: SUBJECTIVE: David Shah is a 60-year-old female. This morning says she is better, less short of breath. OBJECTIVE: VITAL SIGNS: Saturations are 96% on room air, blood pressure 96/66 . CHEST: No wheezing. No crackles. CARDIAC: Normal S1, S2. No gallops. ABDOMEN: No masses. LABORATORY DATA: Sodium is up to 129. White count 6000. IMPRESSION: 1. Chronic obstructive pulmonary disease, ongoing tobacco abuse, ongoing alcohol abuse. 2. Lung nodule. Hyponatremia, better. PLAN: Pulmonary flores, continue PT, supportive care. We will follow. Job ID: [id number]
[2020-06-17] MEDS: Carvedilol 6.25 MG TAB PO SCH ×2 (10:01→20:14)
[2020-06-17] MEDS: Lisinopril 5 MG TAB PO SCH (10:02)
[2020-06-17 10:17] LABS: Anion Gap 14 mmol/L (10-20); BUN (Urea Nitrogen) 6 mg/dL (9.8-20.1); Calc. Creatinine Clearance 65 mL/min (70-130); Calcium 8.7 mg/dL (7.8-10.44); Carbon Dioxide 26 mmol/L (23-31); Chloride 93 mmol/L (98-107); Estimated GFR-MDRD Greater than 90; Glucose 98 mg/dL (80-115); Magnesium 1.8 mg/dL (1.6-2.6); Potassium 4.1 mmol/L (3.5-5.1); Sodium 129 mmol/L (136-145)
[2020-06-17] MEDS ORDERED: Magnesium 2 GM/50 ML 2 GM in Premix Bag 1 BAG IVPB SCH (10:45)
--- NOTE | 2020-06-17 12:47 | PRG ---
DATE OF SERVICE: 06/17/2020 SUBJECTIVE: Ms. Shah currently has no complaints. No chest pain or pressure noted. She was admitted on 06/16/2020 for lightheadedness and falls. She was found to be hyponatremic and hypokalemic. The patient has a history of tobacco abuse in addition to alcohol abuse. She continues to smoke despite recent bypass surgery. OBJECTIVE: VITAL SIGNS: Blood pressure 118/84, pulse 89, and respirations 20. LUNGS: Rhonchi and rales bilaterally. HEART: Regular rate and rhythm. Slightly tachycardic. ABDOMEN: Soft, nontender, and nondistended. EXTREMITIES: No edema. PERTINENT LABORATORY DATA: Sodium 129, creatinine 0.6. Hemoglobin 13.1, hematocrit 39.1. IMPRESSION: 1. Dizziness and falls. 2. Coronary artery disease. 3. Tobacco abuse. 4. Alcohol abuse. 5. Status post bypass surgery. 6. Hyponatremia. RECOMMENDATIONS: CV standpoint, Ms. Shah appears stable. Continue to treat hyponatremia, which likely caused her recent symptoms. She unfortunately continues to drink and continues to smoke. She does have underlying COPD. Otherwise from my standpoint, I have no further recommendations. We will follow peripherally. Job ID: [id number]
[2020-06-17 13:28] LABS: Anion Gap 11 mmol/L (10-20); BUN (Urea Nitrogen) 8 mg/dL (9.8-20.1); Calc. Creatinine Clearance 57 mL/min (70-130); Carbon Dioxide 30 mmol/L (23-31); Chloride 95 mmol/L (98-107); Estimated GFR-MDRD Greater than 90; Glucose 116 mg/dL (80-115); Sodium 132 mmol/L (136-145)
[2020-06-17] MEDS: Ondansetron PF 4 MG/2 ML Vial IVP PRN (13:53)
--- NOTE | 2020-06-17 14:57 | PDOC.HOSPP ---
- Subjective Encounter Date: 06/17/20 Encounter Time: 11:30 Subjective: Patient is resting. She does have an appointment with Dr. Baca on for lung nodule/cancer, which is diagnosed in 2019. She is afebrile Blood pressure slightly high. Her sodium improved to 132. COVID negative - Objective Vital Signs & Weight: Vital Signs (12 hours) Temp BP Pulse Ox 06/17/20 13:41 97.7 F 06/17/20 10:02 130/89 06/17/20 10:01 115/77 06/17/20 08:00 96 06/17/20 07:08 96.8 F L 06/17/20 04:00 96.8 F L Weight Admit Weight 82 lb 12.8 oz Weight 81 lb 6.4 oz Most Recent Monitor Data Heart Rate from ECG 76 NIBP 151/78 NIBP BP-Mean 102 Respiration from ECG 21 SpO2 93 I&O: 06/16/20 06/17/20 06/18/20 06:59 06:59 06:59 Intake Total 360 2500 Output Total 600 900 Balance -240 1600 Result Diagrams: 06/17/20 03:15 06/17/20 12:50 Hospitalist ROS - Medication Medications: Active Medications Generic Name Dose Route Start Last Admin Trade Name Freq PRN Reason Stop Dose Admin Albuterol Sulfate 2 puff 06/16/20 13:00 06/17/20 13:55 Proventil Inhaler 6.7 G (200 Inhalations) INH 2 puff [id number] ROM Administration Aspirin 325 mg 06/17/20 08:00 06/17/20 09:49 Aspirin 325 Mg Tab PO 325 mg QAM-WM ROM Administration Atorvastatin Calcium 40 mg 06/16/20 21:00 06/16/20 20:32 Atorvastatin Calcium 40 Mg Tab PO 40 mg HS ROM Administration Buspirone HCl 30 mg 06/16/20 21:00 06/17/20 09:49 Buspirone Hcl 10 Mg Tab PO 30 mg BID ROM Administration Carvedilol 6.25 mg 06/16/20 09:00 06/17/20 10:01 Carvedilol 6.25 Mg Tab PO 6.25 mg BID ROM Administration Diazepam 10 mg 06/16/20 04:15 06/16/20 23:21 Diazepam 5 Mg Tab PO 06/17/20 04:00 10 mg Q4H PRN Administration FOR ASE 10 OR GREATER Doxepin HCl 50 mg 06/16/20 21:00 06/16/20 20:32 Doxepin Hcl 25 Mg Cap PO 50 mg HS ROM Administration Famotidine 20 mg 06/16/20 21:00 06/17/20 09:49 Famotidine 20 Mg Tab PO 20 mg BID ROM Administration Fluticasone Propionate 0 gm 06/17/20 09:00 06/17/20 09:50 Fluticasone Propionate Nasal [place] 16 Gm Bottle NASAL Not Given DAILY ROM Folic Acid 1 mg 06/16/20 09:00 06/17/20 09:49 Folic Acid 1 Mg Tab PO 1 mg DAILY ROM Administration Heparin Sodium (Porcine) 5,000 units 06/16/20 09:00 06/17/20 09:50 Heparin 5,000 Units/Ml Vial SC 5,000 units BID ROM Administration Iron/Minerals/Multivitamins 1 tab 06/16/20 09:00 06/17/20 09:49 Multivitamin W/ Minerals 1 Tab PO 1 tab DAILY ROM Administration Lisinopril 5 mg 06/16/20 09:00 06/17/20 10:02 Lisinopril 5 Mg Tab PO Not Given DAILY ROM Loperamide HCl 1 mg 06/16/20 16:55 06/16/20 23:22 Loperamide Hcl 1 Mg/7.5 Ml Udcup PO 1 mg Q4H PRN Administration Diarrhea/Loose Stools Lorazepam 1 mg 06/16/20 04:10 06/17/20 09:50 Lorazepam 2 Mg/Ml Vial SLOW IVP 1 mg Q4H PRN Administration Anxiety/Agitation Magnesium Oxide 400 mg 06/17/20 09:00 06/17/20 09:49 Magnesium Oxide 400 Mg Tab PO 400 mg DAILY ROM Administration Mometasone Furoate/Formoterol Fumar 2 puff 06/16/20 18:30 06/17/20 08:08 Mometasone 200 Mcg/Formoterol 5 Mcg 120 Puff Inhaler INH 2 puff BID-RT ROM Administration Ondansetron HCl 4 mg 06/16/20 00:37 06/17/20 13:53 Ondansetron Pf 4 Mg/2 Ml Vial IVP 4 mg Q6H PRN Administration Nausea/Vomiting use 1st Sertraline HCl 100 mg 06/16/20 09:00 06/17/20 09:49 Sertraline Hcl 100 Mg Tab PO 100 mg DAILY ROM Administration Sodium Chloride 10 ml 06/16/20 09:00 06/17/20 09:51 Flush - Normal Saline 10 Ml Syringe IVF 10 ml Q12HR ROM Administration Sodium Chloride 10 ml 06/15/20 23:45 06/17/20 13:53 Flush - Normal Saline 10 Ml Syringe IVF 10 ml PRN PRN Administration Saline Flush Thiamine HCl 100 mg 06/17/20 09:00 06/17/20 09:49 Thiamine 100 Mg Tab PO 100 mg DAILY ROM Administration - Exam General Appearance: NAD, awake alert, ill appearing Eye: PERRL ENT: normocephalic atraumatic Neck: supple Heart: RRR, normal peripheral pulses Respiratory: CTAB, normal chest expansion Gastrointestinal: soft, normal bowel sounds Neurological: no focal deficits Psychiatric: A&O x 3 Hosp A/P - Plan (1) dizziness secondary to possible dehydration hyponatremia and alcohol use Code(s): R42 - DIZZINESS AND GIDDINESS Status: Acute (4) Anxiety Code(s): F41.9 - ANXIETY DISORDER, UNSPECIFIED Status: Chronic (5) Asthma Code(s): J45.909 - UNSPECIFIED ASTHMA, UNCOMPLICATED Status: Chronic Qualifiers: Asthma severity: mild Asthma persistence: intermittent Asthma complication type: uncomplicated Qualified Code(s): J45.20 - Mild intermittent asthma, uncomplicated (6) Hypokalemia Code(s): E87.6 - HYPOKALEMIA Status: Resolved (7) CAD (coronary artery disease) Code(s): I25.10 - ATHSCL HEART DISEASE OF [place] CORONARY ARTERY W/O ANG PCTRS Status: Chronic (8) S/P CABG x 3 Code(s): Z95.1 - PRESENCE OF AORTOCORONARY BYPASS GRAFT Status: Chronic Lung nodule She does have an appointment with Dr. Baca on for lung nodule/cancer, which is diagnosed in 2019. (3) Hyponatremia -Due to lung cancer and/or beer [place] -With the fluid restriction her sodium is improved History of recent CABG -Echo has been ordered. Stable from cardiac point of view Alcohol abuse, tobacco abuse and ongoing -Ativan. As needed On thiamine. And folic acid and magnesium supplement DVT proph: Lovenox COVID negative
[2020-06-17] MEDS: Loperamide HCl 1 MG/7.5 ML UDCUP PO PRN ×2 (15:24→21:23)
--- NOTE | 2020-06-17 18:03 | PRG ---
DATE OF SERVICE: 06/17/2020 SUBJECTIVE: This is a 60-year-old female, being seen for hyponatremia. The patient denies any nausea, vomiting, or chest pain. PHYSICAL EXAMINATION: General: The patient is awake and alert. Vital Signs: Afebrile, pulse 75, breathing at 16, blood pressure 151/58. HEENT: Head normocephalic and atraumatic. Eyes intact, no ulcers. Nose intact, no ulcers. Ears intact, no ulcers. Neck: Supple. No JVD. Chest: Symmetrical and clear. Cardiovascular: Shows S1 and S2, no rub, no murmur. Gastrointestinal: Abdomen is soft, bowel sounds positive. Extremities: Show no edema or ulcers. Skin: Shows no rash or petechiae. Musculoskeletal: Shows no joint swelling or stiffness. Genitourinary: Shows no Antonio or CVA tenderness. Neurologic: Motor intact. Cranial nerves intact. LABORATORY DATA: Labs reviewed. Sodium was 132, creatinine 0.6. ASSESSMENT: 1. Hyponatremia, resolved. 2. Acute kidney injury, stable. 3. Hypertension, stable. 4. Medication based on GFR appropriate. I will sign off on this patient. Please reconsult as needed. Job ID: [id number]
[2020-06-17] MEDS: Atorvastatin Calcium 40 MG TAB PO SCH (20:11)
[2020-06-17] MEDS: Doxepin HCl 25 MG CAP PO SCH ×2 (20:14→21:17)
[2020-06-17] MEDS ORDERED: Nicotine 14 MG PATCH TOP SCH (21:00)
[2020-06-18] MEDS: PROVENTIL INHALER 6.7 G (200 INHALATIONS) INH SCH ×2 (01:00→06:57)
[2020-06-18 06:42] LABS: Anion Gap 11 mmol/L (10-20); BUN (Urea Nitrogen) 9 mg/dL (9.8-20.1); Calc. Creatinine Clearance 62 mL/min (70-130); Calcium 8.6 mg/dL (7.8-10.44); Carbon Dioxide 28 mmol/L (23-31); Chloride 96 mmol/L (98-107); Estimated GFR-MDRD Greater than 90; Glucose 92 mg/dL (80-115); Potassium 3.9 mmol/L (3.5-5.1); Sodium 131 mmol/L (136-145)
[2020-06-18] MEDS: Mometasone 200 MCG/Formoterol 5 MCG 120 PUFF INHALER INH SCH (06:56)
[2020-06-18] MEDS: busPIRone HCl 10 MG TAB PO SCH (09:14)
[2020-06-18] MEDS: Aspirin 325 MG TAB PO SCH (09:15)
[2020-06-18] MEDS: Fluticasone Propionate Nasal Spray 16 gm Bottle NASAL SCH (09:15)
[2020-06-18] MEDS: Carvedilol 6.25 MG TAB PO SCH (09:15)
[2020-06-18] MEDS: Famotidine 20 MG TAB PO SCH (09:15)
[2020-06-18] MEDS: Lisinopril 5 MG TAB PO SCH (09:16)
[2020-06-18] MEDS: Folic Acid 1 MG TAB PO SCH (09:16)
[2020-06-18] MEDS: Multivitamin W/ Minerals 1 TAB PO SCH (09:16)
[2020-06-18] MEDS: Thiamine 100 MG TAB PO SCH (09:16)
[2020-06-18] MEDS: Heparin 5,000 UNITS/ML VIAL SC SCH (09:16)
[2020-06-18] MEDS: Lorazepam 2 MG/ML VIAL SLOW IVP PRN (09:17)
--- NOTE | 2020-06-18 11:24 | PRG ---
DATE OF SERVICE: 06/18/2020 SUBJECTIVE: This morning, she is better. OBJECTIVE: VITAL SIGNS: Temperature 97, blood pressure 159/94, pulse 91, sats are 92%, respiratory rate 18. CHEST: No wheezing. No crackles. CARDIAC: Normal S1, S2. No masses. LABORATORY DATA: Sodium 131. IMPRESSION: 1. Chronic obstructive pulmonary disease. 2. Hyponatremia. 3. Alcohol abuse. 4. Tobacco abuse. 5. Lung nodule. PLAN: Disposition home any time. She is to refrain from smoking and drinking. Will see in the office as needed. Job ID: [id number]
[2020-06-18] MEDS ORDERED: Aspirin 325 MG TAB PO SCH (11:43)
[2020-06-18] MEDS ORDERED: Metoprolol Tartrate 5 MG/5 ML VIAL IVP PRN (11:43)
[2020-06-18] MEDS ORDERED: Diazepam 5 MG TAB PO SCH ×2 (11:45→21:00)
[2020-06-18] MEDS ORDERED: Aspirin Chewable 81 MG TAB PO SCH (12:30)
[2020-06-18 13:06] VITALS: BP 110/70; TEMP 98.4
--- NOTE | 2020-06-18 15:20 | DIS ---
DATE OF ADMISSION: 06/15/2020 DATE OF DISCHARGE: 06/18/2020 DISCHARGE DIAGNOSES: 1. Dizziness secondary to dehydration, hyponatremia and alcohol use. 2. Anxiety. 3. Hypokalemia. 4. Coronary artery disease. 5. Recent status post CABG x3. 6. Alcohol, tobacco abuse. 7. She has a lung nodule, and appointment with Dr. Baca on and this nodule was diagnosed in 2018. DISCHARGE MEDICATIONS: Same home medications from the previous. There is no change in her home medications. PHYSICAL EXAMINATION: VITAL SIGNS: On the day of discharge, temperature 98.4, pulse 74, blood pressure 110/70, saturating 98% on room air. GENERAL: The patient is alert, oriented, but she looked quite fatigued and tired because of the diarrheal episodes yesterday. She is alert, oriented x3. She is very fragile little lady. CARDIOVASCULAR: Regular rate and rhythm without murmurs, rubs, or gallops. LUNGS: Clear to auscultation bilaterally without wheezing, rales, or rhonchi. ABDOMEN: Soft, nontender, nondistended. Good bowel sounds. CONSULTS: Cardiology with Dr. Martinez and Nephrology with Dr. Denis for hyponatremia. HOSPITAL COURSE: Please refer to history and physical and daily progress note for more details. Briefly, a 60-year-old female with past medical history of alcohol abuse, hyponatremia, presented with dizziness and fall. She had no LOC, reportedly hitting head. No lacerations or open wounds. CT head is unremarkable. She went through fluid restrictions for hyponatremia . It improved to 131 prior to discharge. Her TSH was in the normal range. Cardiology recommended repeat echo, currently the report is pending. She has several risk factors for hyponatremia with CHF and recent EF of 25% but she is on LifeVest for that and chronic alcohol use and she has a lung nodule which could cause paraneoplastic syndrome and associated SIADH and hyponatremia. She has appointment with Dr. Baca on July 05 for evaluation of the lung nodule. Both Cardiology as well as Nephrology cleared her for discharge. She is hemodynamically stable to discharge home. DISCHARGE INSTRUCTIONS: 1. Activity as tolerated. Regular diet. Follow up with PCP in 1 week. 2. Follow up with Dr. Baca on July 05 for lung nodule biopsy. Discharge time took over 35 minutes. Job ID: [id number] [facility]
[2020-06-19] MEDS ORDERED: Aspirin Chewable 81 MG TAB PO SCH (09:00)
== END 2020-06-18 13:12 | disposition home or self-care (01) | DRG 645 ==
LOC: ERS 19:31 → IMCU/EMU 22:07 → T4-A 06-17 17:36
PROVIDERS: ADMIT Internal Medicine; ATTEND Internal Medicine
DX: E22.2 Syndrome of inappropriate secretion of antidiuretic hormone (principal); E86.0 Dehydration; F10.20 Alcohol dependence, uncomplicated; Z20.828 Contact with and (suspected) exposure to other viral communicable diseases; F17.210 Nicotine dependence, cigarettes, uncomplicated; F41.9 Anxiety disorder, unspecified; E87.6 Hypokalemia; I25.10 Atherosclerotic heart disease of native coronary artery without angina pectoris; Z95.1 Presence of aortocoronary bypass graft; G13.0 Paraneoplastic neuromyopathy and neuropathy; F32.9 Major depressive disorder, single episode, unspecified; D64.9 Anemia, unspecified; N18.1 Chronic kidney disease, stage 1; R91.1 Solitary pulmonary nodule; J44.9 Chronic obstructive pulmonary disease, unspecified; J45.20 Mild intermittent asthma, uncomplicated; Z91.19 Patient's noncompliance with other medical treatment and regimen; I25.2 Old myocardial infarction
CPT/HCPCS: 36415; 70450; 71045; 80048; 80053; 80306; 80307; 82010; 82533; 82553; 83605; 83690; 83735; 83880; 83930; 84443; 84484; 85025; 85610; 85730; 87635; 93005; 93306; 96374; J1644; J1650; J2060; J2405; J3411; J3475; J3490; U0003

== ENCOUNTER 2020-06-30 08:07 | Outpatient (CLI) | payer SELFPAY, OTHER | END 2020-06-30 08:08 | disposition home or self-care (01) | LOC: LABBT 08:07 | PROVIDERS: ATTEND Thoracic Surgery (Cardiothoracic Vascular Surgery) | DX: Z01.818 Encounter for other preprocedural examination (principal); R91.8 Other nonspecific abnormal finding of lung field | CPT/HCPCS: 80061; 93005; 93010 ==

== ENCOUNTER 2020-06-30 10:00 | Inpatient (IN) | payer OTHER, SELFPAY ==
[2020-06-30 14:28] LABS: Mean Corpuscular HGB CONC 32.6 g/dL (32.0-36.0); Mean Corpuscular Hemoglobin 26.1 pg (27.0-31.0); Mean Platelet Volume 7.3 fL (7.4-10.4); Platelet Count 642 thou/uL (130-400); RBC Distribution Width 17.8 % (11.5-14.5); Red Blood Cell (RBC) Count 4.99 mill/uL (4.20-5.40)
[2020-06-30 16:02] LABS: Anion Gap 15 mmol/L (10-20); BUN (Urea Nitrogen) 10 mg/dL (9.8-20.1); Calc. Creatinine Clearance 0 mL/min (70-130); Calcium 9.8 mg/dL (7.8-10.44); Carbon Dioxide 26 mmol/L (23-31); Chloride 96 mmol/L (98-107); Estimated GFR-MDRD Greater than 90; Glucose 96 mg/dL (80-115); Potassium 4.9 mmol/L (3.5-5.1); Sodium 132 mmol/L (136-145)
[2020-07-01 13:14] LABS: SARS-CoV-2 MS2 Positive; SARS-CoV-2 N Gene Negative; SARS-CoV-2 S Gene Negative; SARS-CoV-2 by NAA Not Detected (NotDetected); SARS-CoV-2 orf1ab Negative
[2020-07-05] MEDS ORDERED: Fentanyl 100 MCG/2 ML VIAL ONE ×3 (06:26→09:51)
[2020-07-05] MEDS ORDERED: Midazolam HCl 2 mg/2 ml Vial ONE (06:29)
[2020-07-05] MEDS ORDERED: Bupivacaine/Epinephrine 0.25% 30 ML VIAL ONE (06:32)
[2020-07-05] MEDS ORDERED: Phenylephrine 10 MG/ML VIAL ONE (07:19)
[2020-07-05] MEDS ORDERED: Ondansetron HCl/PF 4 MG/2 ML Vial IVP PRN (08:19)
[2020-07-05] MEDS ORDERED: Promethazine HCl 25 MG/ML VIAL IM PRN ×2 (08:19→08:30)
[2020-07-05] MEDS ORDERED: Acetaminophen 500 MG TAB PO PRN (08:19)
[2020-07-05] MEDS ORDERED: Promethazine HCl 25 MG/ML VIAL SLOW IVP PRN (08:19)
[2020-07-05] MEDS ORDERED: Naloxone HCl 0.4 mg/ml Vial IVP PRN (08:30)
[2020-07-05] MEDS ORDERED: Naloxone HCl 0.4 mg/ml Vial IV PRN (08:30)
[2020-07-05] MEDS ORDERED: Ondansetron PF 4 MG/2 ML Vial IVP PRN ×2 (08:30→08:56)
[2020-07-05] MEDS ORDERED: HYDROcodone/Acetaminophen 5/325 mg Tablet PO PRN ×2 (08:30)
[2020-07-05] MEDS ORDERED: traMADol HCl 50 MG TAB PO PRN ×2 (08:30)
[2020-07-05] MEDS ORDERED: Fentanyl 5 mcg/Bup 0.075% Cadd 100 ML EPIDURAL SCH (08:30)
[2020-07-05] MEDS ORDERED: diphenhydrAMINE 50 MG/ML VIAL IVP PRN (08:30)
[2020-07-05] MEDS ORDERED: Bupivacaine 0.25% 10 ML VIAL EPIDURAL PRN (08:30)
[2020-07-05] MEDS ORDERED: Promethazine HCl 25 MG SUPP PR PRN (08:30)
[2020-07-05] MEDS ORDERED: Hydrocerin (Eucerin) Cream 120 gm Jar TOP PRN (08:30)
[2020-07-05] MEDS ORDERED: Zolpidem Tartrate 5 MG TAB PO PRN (08:30)
[2020-07-05] MEDS ORDERED: diphenhydrAMINE 50 MG/ML VIAL IM PRN (08:30)
[2020-07-05] MEDS ORDERED: Nitroglycerin 50 MG/250 ML BOT 250 ML IVPB PRN (08:56)
[2020-07-05] MEDS ORDERED: SYSTANE GEL OPHTH DROPS 10 ML EA EYE PRN (08:56)
[2020-07-05] MEDS ORDERED: Fluticasone Propionate Nasal Spray 16 gm Bottle NASAL PRN (08:56)
[2020-07-05] MEDS ORDERED: Phenylephrine 10 MG/NS 250 ML 250 ML IVPB PRN (08:56)
[2020-07-05] MEDS ORDERED: Polyethylene Glycol OPTH DROP 15 ML BOT EA EYE PRN (08:56)
[2020-07-05] MEDS ORDERED: Phenylephrine 40 MG in Sodium Chloride 0.9% 250 ML 250 ML IVPB SCH (09:15)
--- NOTE | 2020-07-05 09:21 | RAD ---
PORTABLE CHEST 1 VIEW: Date; 07/05/2020 Time: 0833 hours HISTORY: Needle count. FINDINGS/IMPRESSION: Comparison made with exam of 06/15/2020. Interval postop changes are seen in the left upper lung. A left-sided chest tube has been placed. The re is a needle in the projection of the left subclavian vein with a guiding wire through it extending into/coiling in the projection of the azygos vein. Changes of median sternotomy again seen. Surgical clips in the left suprahilar region again noted. Th e heart size is normal. No pneumothoraces or large effusions are seen. POS: OFF
[2020-07-05] MEDS ORDERED: Glycopyrrolate 0.2 MG/ML 5 ML SYRINGE ONE (09:41)
[2020-07-05] MEDS ORDERED: PROPOFOL 200 MG/20 ML VIAL ONE (09:41)
[2020-07-05] MEDS ORDERED: Rocuronium Bromide 10 MG/ML (10ML VIAL) ONE (09:41)
[2020-07-05] MEDS ORDERED: Lidocaine 1% PF 5 ML VIAL ONE (09:41)
[2020-07-05] MEDS ORDERED: Ketorolac Tromethamine 30 MG/ML VIAL ONE (09:41)
[2020-07-05] MEDS ORDERED: Dexamethasone 20 MG/5 ML VIAL ONE (09:41)
[2020-07-05] MEDS ORDERED: Lidocaine 1.5% w/Epi 1:200K 30 ML VIAL (Epid Use) ONE (09:41)
[2020-07-05] MEDS ORDERED: Ondansetron PF 4 MG/2 ML Vial ONE (09:41)
[2020-07-05] MEDS ORDERED: PHENYLEPHRINE-NS 100 MCG/ML 10 ML SYRINGE ONE (09:41)
--- NOTE | 2020-07-05 09:48 | RAD ---
Exam: Chest one view HISTORY:Status post left thoracotomy Comparison: 07/05/2020 at 8:30 AM FINDINGS: Lines and tubes: Left-sided chest tube, oriented towards the medial apex. Position is unchanged. Ther e appears to be a vascular catheter via the left subclavian approach. Catheter projects over the aortic arch/aortic knob. Correlate for possible arterial access. The distal tip may be along the inno minate artery outflow tract. Cardiac silhouette:Normal heart size. There are sternotomy wires. Aorta: Unremarkable Pulmonary vessels: Normal Costophrenic angles: Minimal atelectasis or effusion in the left lung base. LUNGS: Postsurgical changes involving the left lung with diminished lung volume. Pneumothorax: None Osseous abnormalities: None IMPRESSION: 1. Postop changes as described above. Stable left-sided chest tube. 2. Vascular access via the left subclavian approach. Catheter tip does project over the aortic knob. Distal tip is in the upper mediastinum. Tip may terminate along the innominate artery outflow tract. Results study conveyed to Dr. Baca via [employer] connect 07/05/2020 ADDENDUM: Findings were discussed with patient's nurse Cornelia Mccormick. Patient nurse states that there is not a left-sided vascular catheter. Rather, it is the patient's epidural projecting over the left hemithorax and midline the spine.
[2020-07-05] MEDS: Ketorolac Tromethamine 30 MG/ML VIAL IVP SCH ×3 (12:10→23:19)
--- NOTE | 2020-07-05 12:16 | PRG ---
DATE OF SERVICE: 07/05/2020 SUBJECTIVE: A 60-year-old female, status post thoracotomy with biopsy of left lung lesion. Postop, she is extubated in the ICU. Denies any difficulty breathing. OBJECTIVE: VITAL SIGNS: Temperature 98, pulse 75, respiratory rate 18, sats 98%, blood pressure 120/80. CHEST: Decreased breath sounds. No wheezing. CARDIAC: Normal S1 and S2. No gallops. ABDOMEN: No masses. IMAGING STUDIES: X-ray post thoracotomy shows no infiltrates. ASSESSMENT: Chronic obstructive pulmonary disease, ongoing tobacco abuse, status post thoracotomy with biopsy, coronary artery disease. PLAN: She is on adequate inhalers. Continue PT, supportive care, early ambulation. We will follow. Await final path. Job ID: [id number]
[2020-07-05] MEDS: Sodium Chloride 0.9% 1,000 ML IV SCH (12:37)
[2020-07-05] MEDS: CEFAZOLIN 2 GM in Premix Bag 1 BAG IVPB SCH ×2 (14:31→21:04)
[2020-07-05] MEDS: Mometasone 200 MCG/Formoterol 5 MCG 120 PUFF INHALER INH SCH (18:34)
[2020-07-05] MEDS: diphenhydrAMINE 25 MG CAP PO PRN (19:26)
[2020-07-05] MEDS: busPIRone HCl 10 MG TAB PO SCH (21:03)
[2020-07-05] MEDS: Atorvastatin Calcium 40 MG TAB PO SCH (21:04)
--- NOTE | 2020-07-05 21:37 | OP ---
DATE OF PROCEDURE: 07/05/2020 PREOPERATIVE DIAGNOSIS: Left upper lobe lung mass - PET positive. POSTOPERATIVE DIAGNOSIS: Left upper lobe lung mass - PET positive. PROCEDURE PERFORMED: Left thoracoscopy with wedge resection of left upper lobe lung mass. ANESTHESIA: General endotracheal - Dr. Marvel Casillas. DRAINS: 24-Estonian chest tube x1. SPECIMENS: Left upper lobe wedge resection. DESCRIPTION OF PROCEDURE: After consent was obtained, the patient was brought to the operating room and placed in supine position on the operating table. Appropriate central line and monitors were placed. General endotracheal anesthesia was induced. Flexible fiberoptic bronchoscopy was used to confirm double-lumen tube location. The patient was placed in the right lateral decubitus position. Joints were appropriately padded. SCDs were used. Two port incisions were made for 5 mm ports. The ports were inserted, and camera inserted. Adhesions were taken down with electrocautery. I could not visually localize where the lesion was in the left upper lobe as it was approximately 1 cm in diameter, but on the surface. A small working incision was made in the axilla. I was able to insert my finger to feel about mass. The area close to the mass was grasped, and a JUAN JOSE stapler was used to staple a wedged section with approximately a centimeter plus the surrounding tissue. The lung was re-expanded and expanded nicely. There was no air leak from the suture lines. A 24-E[place]ian drain was placed anteriorly. The wounds were then closed in layers and Dermabond applied to skin. The patient was awakened, extubated, and transferred to the recovery room in stable condition. Needle, sponge, and instrument counts were all reported as correct at the end of the procedure. Job ID: [id number]
[2020-07-06 05:03] LABS: #Basophils 0.1 thou/uL (0.0-0.2); #Eosinphils 0.1 thou/uL (0.0-0.7); #Monocytes 0.9 thou/uL (0.11-0.59); #Neutrophils 5.3 thou/uL (1.40-6.50); %Basophils 1.2 % (0.0-1.0); %Eosinophils 0.7 % (0.0-10.0); %Monocytes 9.5 % (0.0-10.0); %Neutrophils 56.6 % (42.0-75.0); Mean Corpuscular HGB CONC 32.6 g/dL (32.0-36.0); Mean Corpuscular Hemoglobin 25.5 pg (27.0-31.0); Mean Corpuscular Volume 78.3 fL (78.0-98.0); Mean Platelet Volume 7.3 fL (7.4-10.4); Platelet Count 407 thou/uL (130-400); RBC Distribution Width 17.4 % (11.5-14.5); Red Blood Cell (RBC) Count 3.92 mill/uL (4.20-5.40); White Blood Cell (WBC) Count 9.4 thou/uL (4.8-10.8)
[2020-07-06 05:20] LABS: Anion Gap 11 mmol/L (10-20); BUN (Urea Nitrogen) 11 mg/dL (9.8-20.1); Calc. Creatinine Clearance 64 mL/min (70-130); Calcium 8.4 mg/dL (7.8-10.44); Carbon Dioxide 22 mmol/L (23-31); Chloride 98 mmol/L (98-107); Estimated GFR-MDRD Greater than 90; Glucose 89 mg/dL (80-115); Sodium 127 mmol/L (136-145)
[2020-07-06] MEDS: Ketorolac Tromethamine 30 MG/ML VIAL IVP SCH ×3 (06:11→17:24)
[2020-07-06] MEDS: CEFAZOLIN 2 GM in Premix Bag 1 BAG IVPB SCH (06:11)
[2020-07-06] MEDS: diphenhydrAMINE 25 MG CAP PO PRN ×2 (06:14→20:26)
[2020-07-06] MEDS: Sodium Chloride 0.9% 1,000 ML IV SCH (06:18)
[2020-07-06] MEDS: Mometasone 200 MCG/Formoterol 5 MCG 120 PUFF INHALER INH SCH ×2 (06:50→18:24)
[2020-07-06] MEDS: Multivit, Therapeutic 1 TAB PO SCH (07:44)
[2020-07-06] MEDS: busPIRone HCl 10 MG TAB PO SCH ×2 (07:45→20:26)
[2020-07-06] MEDS: Aspirin 325 MG TAB PO SCH (07:45)
--- NOTE | 2020-07-06 08:03 | RAD ---
PORTABLE CHEST: Date: 07/06/2020 HISTORY: Status post thoracotomy. FINDINGS: Heart size is borderline in size. Postop sternotomy changes are present. Left-sided chest tube is in place. Elevation of the left hemidiaphragm. Surgical chain-type sutures in the left upper lobe. IMPRESSION: Essentially stable exam. POS: OFF
[2020-07-06] MEDS ORDERED: FLU VACC QS2020-21(6MOS UP)/PF 60 MCG/0.5 ML SYRINGE IM ONE (13:45)
[2020-07-06 14:44] VITALS: BMI 16.5
[2020-07-06] MEDS: Atorvastatin Calcium 40 MG TAB PO SCH (20:26)
[2020-07-07] MEDS: Ketorolac Tromethamine 30 MG/ML VIAL IVP SCH ×2 (00:01→05:45)
[2020-07-07] MEDS ORDERED: Milk Of Magnesia 30 ML UDCUP PO PRN (05:59)
[2020-07-07] MEDS: Mometasone 200 MCG/Formoterol 5 MCG 120 PUFF INHALER INH SCH (07:04)
[2020-07-07] MEDS: Aspirin 325 MG TAB PO SCH (08:44)
[2020-07-07] MEDS: busPIRone HCl 10 MG TAB PO SCH (08:44)
[2020-07-07] MEDS: Multivit, Therapeutic 1 TAB PO SCH (08:44)
[2020-07-07] MEDS ORDERED: Carvedilol 6.25 MG TAB PO SCH (09:00)
[2020-07-07] MEDS: diphenhydrAMINE 25 MG CAP PO PRN (10:18)
[2020-07-07] MEDS ORDERED: HYDROcodone/Acetaminophen 10/325 mg Tablet PO PRN (11:11)
--- NOTE | 2020-07-07 11:37 | PRG ---
DATE OF SERVICE: 07/07/2020 SUBJECTIVE: Post thoracotomy, doing well, still awaiting path. OBJECTIVE: VITAL SIGNS: Temperature 98, blood pressure 106/65, sats 90%, respiratory rate 18. CHEST: No wheezing. No crackles. CARDIAC: Normal S1, S2. No gallops. ABDOMEN: Soft. IMPRESSION: Chronic obstructive pulmonary disease, former smoker, cardiac disease, thoracotomy, wedge resection. PLAN: Hopefully, she can be discharged home soon. Awaiting path. Meantime, we will continue neb treatments, supportive care. She is to avoid a tobacco abuse. Job ID: [id number]
[2020-07-07] MEDS: HYDROcodone/Acetaminophen 10/325 mg Tablet PO PRN ×2 (12:08→15:40)
--- NOTE | 2020-07-07 12:23 | PRG ---
DATE OF SERVICE: 07/06/2020 SUBJECTIVE: Status post thoracotomy, remains in the ICU, but in no distress. Less pain. Less shortness of breath. OBJECTIVE: VITAL SIGNS: Saturations are 94% on room air, pulse respiratory rate 20, and blood pressure . CHEST: Decreased breath sounds. No wheezing. CARDIAC: Normal S1, S2 . ABDOMEN: Soft. LABORATORY DATA: Sodium is 127, otherwise labs are unremarkable. IMPRESSION: 1. Chronic obstructive pulmonary disease. 2. Coronary artery disease. 3. Hyponatremia. PLAN: The patient probably can be transferred out of the ICU. Awaiting results of the path. Job ID: [id number]
[2020-07-07 12:35] VITALS: TEMP 98.5
[2020-07-07 16:07] VITALS: BP 142/71
--- NOTE | 2020-07-07 17:43 | DIS ---
DATE OF ADMISSION: 07/05/2020 DATE OF DISCHARGE: 07/07/2020 DIAGNOSIS: Left upper lobe PET positive 1 cm lung mass. PROCEDURE PERFORMED: Left thoracoscopic resection of lung mass. DESCRIPTION OF HOSPITAL STAY: Ms. Shah was admitted to the hospital for elective wedge resection. She underwent thorascopic wedge resection without difficulty. Chest tube has been discontinued today and she is being discharged to home. Discharge medications were unchanged from her home regimen with the addition of tramadol 50 mg 1 to 2 p.o. q.6 hours p.r.n. pain. Follow up is with me in 2 weeks. Job ID: [id number]
== END 2020-07-07 16:42 | disposition home or self-care (01) | DRG 164 ==
LOC: SURG A 07-05 05:54 → CCU 07-05 11:15 → 2NO 07-06 16:27
PROVIDERS: ADMIT Thoracic Surgery (Cardiothoracic Vascular Surgery); ATTEND Thoracic Surgery (Cardiothoracic Vascular Surgery)
PROC: 0BBC4ZZ Excision of Right Upper Lung Lobe, Percutaneous Endoscopic Approach (ICD-10-PCS; principal; 2020-07-05)
PROC: 0BJ08ZZ Inspection of Tracheobronchial Tree, Via Natural or Artificial Opening Endoscopic (ICD-10-PCS; 2020-07-05)
DX: R91.8 Other nonspecific abnormal finding of lung field (principal); E87.1 Hypo-osmolality and hyponatremia; Z20.828 Contact with and (suspected) exposure to other viral communicable diseases; J44.9 Chronic obstructive pulmonary disease, unspecified; I25.10 Atherosclerotic heart disease of native coronary artery without angina pectoris; F17.210 Nicotine dependence, cigarettes, uncomplicated; I25.2 Old myocardial infarction
CPT/HCPCS: 71045; 80048; 85025; 85027; 86850; 86900; 86901; 87635; 88307; 88313; 88341; 88342; 88360; J0690; J1100; J1200; J1642; J1885; J2001; J2250; J2370; J2405; J2704; J3010; P9045; Q0163; U0003

== ENCOUNTER 2020-07-21 13:01 | Outpatient (CLI) | payer SELFPAY ==
--- NOTE | 2020-07-21 13:43 | RAD ---
XR Chest Pa Lat STANDARD HISTORY: Lung mass, atherosclerotic heart disease COMPARISON: 07/06/2020 FINDINGS: The heart size is normal. Changes of median sternotomy are again seen. The aorta is tortuou s. There are postop changes in the left upper lung. The lungs are well expanded without focal areas of consolidation, pneumothorax or pleural effusions. IMPRESSION: No radiographic evidence of acute cardiopulmonary process.
== END 2020-07-21 13:02 | disposition home or self-care (01) ==
LOC: BICRAD 13:01
PROVIDERS: ATTEND Thoracic Surgery (Cardiothoracic Vascular Surgery)
DX: I25.110 Atherosclerotic heart disease of native coronary artery with unstable angina pectoris (principal); R91.8 Other nonspecific abnormal finding of lung field
CPT/HCPCS: 71046

== ENCOUNTER 2020-08-03 10:58 | Observation (INO) | payer SELFPAY ==
--- NOTE | 2020-08-03 11:44 | RAD ---
PORTABLE CHEST: Date: 08/03/2020 HISTORY: Cough. History of lung cancer. COMPARISON: 07/06/2020 exam. FINDINGS: Heart size within normal limits. There are postop sternotomy changes. Surgical clips are seen in the left hilar region with surgical chain-type sutures in the left upper lobe. No infiltrative process. IMPRESSION: Postop changes of the left lung. No active intrathoracic disease. POS: AH
[2020-08-03 11:49] LABS: Hemoglobin 11.8 g/dL (12.0-16.0); Mean Corpuscular HGB CONC 34.9 g/dL (32.0-36.0); Mean Corpuscular Hemoglobin 25.6 pg (27.0-31.0); Mean Corpuscular Volume 73.5 fL (78.0-98.0); Platelet Count 313 thou/uL (130-400); RBC Distribution Width 19.8 % (11.5-14.5); Red Blood Cell (RBC) Count 4.61 mill/uL (4.20-5.40); White Blood Cell (WBC) Count 4.8 thou/uL (4.8-10.8)
[2020-08-03 12:13] LABS: ALT (SGPT) 23 U/L (8-55); AST (SGOT) 31 U/L (5-34); Alkaline Phosphatase 85 U/L (40-110); Anion Gap 18 mmol/L (10-20); BUN (Urea Nitrogen) Less than 4 mg/dL (9.8-20.1); Bilirubin, Total 0.7 mg/dL (0.2-1.2); Calc. Creatinine Clearance 0 mL/min (70-130); Calcium 8.7 mg/dL (7.8-10.44); Carbon Dioxide 24 mmol/L (23-31); Chloride 98 mmol/L (98-107); Estimated GFR-MDRD Greater than 90; Globulin 3.4 g/dL (2.4-3.5); Glucose 81 mg/dL (80-115); Potassium 3.9 mmol/L (3.5-5.1); Protein, Total 7.4 g/dL (6.0-8.3); Sodium 136 mmol/L (136-145)
[2020-08-03 12:26] LABS: #Basophils 0.1 thou/uL (0.0-0.2); #Eosinphils 0.1 thou/uL (0.0-0.7); #Lymphocytes 1.9 thou/uL (1.20-3.40); #Monocytes 0.5 thou/uL (0.11-0.59); #Neutrophils 2.4 thou/uL (1.40-6.50); %Basophils 1.5 % (0.0-1.0); %Eosinophils 1.3 % (0.0-10.0); %Lymphocytes 39.3 % (21.0-51.0); %Monocytes 9.2 % (0.0-10.0); %Neutrophils 48.8 % (42.0-75.0); Lymphocytes 46 % (21-51); MDiff Complete? YES; Microcytosis SLIGHT = 6-15 cells (100X) (0-5/hpf); Monocytes 6 % (0-10); Neutrophil 45 % (42-75); Platelet Morphology Comment Appears Adequate; Target Cells MODERATE= 6-15 cells (100X) (0-1/hpf)
--- NOTE | 2020-08-03 12:48 | CT ---
CT ANGIOGRAM THORAX WITH CONTRAST: (CTA pulmonary angiogram) DATE: 08/03/2020 HISTORY: 60-year-old female with chest pain and dyspnea. COMPARISON: The nondiagnostic attenuation correction CT for the PET scan of 04/27/2020 TECHNIQUE: IV injection of iodinated contrast. Scan acquisition timing attempted to coincide with iodinated contrast bolus reaching maximal density in pulmonary arteries. 3-D MIP reconstructions. FINDINGS: The previously demonstrated laterally, peripherally located 1 cm left upper lobe pulmonary nodule is no longer present. Instead, there is now a broad band of partially calcified pulmonary scar transversely oriented along the upper portion of the left major fissure, contiguous with focal thickening at its junction with the left lateral pleural surface. No acute infiltrate, pleural effusion, pneumothorax, consolidation, or new suspicious pulmonary nodul e. No pulmonary thromboembolism. Ectasia of ascending aorta. Moderately heavily calcified atherosclerotic plaque of aortic arch and throughout the descending thor acic aorta. Heavy atherosclerotic calcification versus stent in LAD and LCx. No cardiomegaly, pericardial effusion, mediastinal or hilar lymphadenopathy, or tracheobronchial sten osis. Sternotomy wires. No acute rib fracture. IMPRESSION: 1) no pulmonary thromboembolism. 2) no acute findings. 3) status post left upper lobe segmental resection. 4) coronary atherosclerosis due to calcified coronary lesion. 5) previous open-heart surgery.
[2020-08-03] MEDS ORDERED: Iopamidol-370 76% 500 ML 1 ML ONE (13:00)
[2020-08-03] MEDS ORDERED: PROVENTIL INHALER 6.7 G (200 INHALATIONS) ONE (13:29)
[2020-08-03] MEDS ORDERED: Albuterol 200 PUFF (6.7GM INHALER) ONE ×2 (13:32→13:40)
[2020-08-03] MEDS ORDERED: predniSONE 20 MG TAB ONE (14:11)
[2020-08-03] MEDS ORDERED: diphenhydrAMINE 12.5 MG/5 ML UDCUP ONE ×2 (14:57→14:59)
[2020-08-03] MEDS ORDERED: diphenhydrAMINE 50 MG/ML VIAL ONE (15:00)
[2020-08-03] MEDS ORDERED: Furosemide 40 MG/4 ML VIAL ONE (15:01)
[2020-08-03 16:05] LABS: Troponin I 0.027 ng/mL (< 0.028)
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
[2020-08-03] MEDS ORDERED: Magnesium Sulfate 2 GM in Sodium Chloride 0.9% 100 ML IVPB SCH (18:30)
--- NOTE | 2020-08-03 18:41 | PDOC.HHP ---
Hospitalist HPI - History of Present Illness Shortness of breath History of Present Illness: Patient is a 60-year-old female with lung cancer s/p recent wedge resection, asthma with ongoing tobacco abuse, coronary artery disease s/p CABG presented to the emergency room with above complaints. Over the last few weeks patient has shortness of breath that is progressively getting worse. Patient gets short of breath on minimal exertion. The shortness of breath also gets worse when she lies down flat. She also had some cough productive of thick whitish phlegm. She felt nauseous however denies any vomit ing. She continues to smoke on the daily basis. No chest pain, palpitations, syncope or sick contacts reported. In the emergency room her initial vital signs showed temperature 98.5 with respiration of 20 pulse rate of 113 with a blood pressure of 125/78 and O2 saturation 98% on room air. She received 40 mg IV Lasix with oral prednisone and albuterol inhaler in the emergency room. Hospitalist ROS - Review of Systems Gastrointestinal: denies: nausea, vomiting, abdominal pain, diarrhea, constipation, melena, hematochezia, other Genitourinary: denies: dysuria, frequency, incontinence, hematuria, retention, other All other systems reviewed; all pertinent +/- noted in HPI/Subj - Medication Medications: Medication Instructions Recorded Confirmed Type Doxepin HCl 100 mg PO HS PRN 09/24/18 07/02/20 History Sertraline HCl [Zoloft] 100 mg PO DAILY 09/24/18 07/02/20 History Albuterol Sulfate [Proventil Hfa] 2 puff INH Q6H PRN 06/23/19 07/02/20 History Buspirone HCl [busPIRone HCl] 30 mg PO BID 06/23/19 07/02/20 History Polyethylene Glycol OPTH DROP 2 drop EA EYE ASDIR PRN 06/23/19 07/02/20 History [Systane Ophth Solution] Systane Gel Drops [Systane Gel 1 - 2 drop EA EYE ASDIR PRN 06/23/19 07/02/20 History Overnight Therapy] Aspirin 325 mg PO QAM-WM #120 tab 04/02/20 07/02/20 Rx Carvedilol [Coreg] 6.25 mg PO BID #180 tab 04/02/20 07/02/20 Rx Mometasone/Formoterol 200/5 2 puff INH BID-RT #1 inh 04/02/20 07/02/20 Rx [Dulera 200 Mcg/5 Mcg Inhaler] Furosemide [Lasix] 20 mg PO DAILY #90 tab 04/03/20 07/02/20 Rx Atorvastatin Calcium [Lipitor] 40 mg PO DAILY 07/02/20 07/02/20 History Fluticasone Propionate [Flonase 1 spray EA NARE DAILY PRN 07/02/20 07/02/20 History Nasal [place]] Losartan Potassium 25 mg PO DAILY 07/02/20 07/02/20 History Multivitamin [Multivitamins] 1 cap PO DAILY 07/02/20 07/02/20 History Allergies No Known Drug Allergies Allergy (Verified 07/02/20 14:28) pineapple Allergy (Verified 07/06/20 14:31) Hospitalist History - Past Medical History Cardiac: reports: CAD, CHF Pulmonary: reports: asthma, Other (Lung mass status post wedge resection and ) - Past Surgical History Past Surgical History: reports: CABG, - Family History Family History: reports: no pertinent history - Social History Smoking Status: Current every day smoker Alcohol: reports: Heavy (>10 drinks a day) Living Situation: With Family Other Social History: Full code - Exam General Appearance: ill appearing General - other findings: Able to complete short phrases Eye: PERRL, anicteric sclera ENT: normocephalic atraumatic, no oropharyngeal lesions Neck: supple, no JVD, no thyromegaly, no lymphadenopathy Heart: RRR, no gallops, no rubs, normal peripheral pulses Respiratory: no wheezes, rales (Few rales at bases), rhonchi, tachypneic Gastrointestinal: soft, non-tender, non-distended, normal bowel sounds, no guarding, no rigidity Extremities: no cyanosis, no clubbing, no edema Skin: normal turgor, no lesions Neurological: no new deficit Musculoskeletal: generalized weakness Psychiatric: normal affect, A&O x 3 Hospitalist Results - Labs Result Diagrams: 08/03/20 11:30 08/03/20 11:30 Lab results: WBC 4.8 thou/uL (4.8-10.8) 08/03/20 11:30 Hgb 11.8 g/dL (12.0-16.0) L 08/03/20 11:30 Hct 33.8 % (36.0-47.0) L 08/03/20 11:30 MCV 73.5 fL (78.0-98.0) L 08/03/20 11:30 Plt Count 313 thou/uL (130-400) 08/03/20 11:30 Neutrophils % 48.8 % (42.0-75.0) 08/03/20 11:30 Sodium 136 mmol/L (136-145) 08/03/20 11:30 Potassium 3.9 mmol/L (3.5-5.1) 08/03/20 11:30 Chloride 98 mmol/L (98-107) 08/03/20 11:30 Carbon Dioxide 24 mmol/L (23-31) 08/03/20 11:30 BUN Less than 4 mg/dL (9.8-20.1) L 08/03/20 11:30 Creatinine 0.53 mg/dL (0.6-1.1) L 08/03/20 11:30 Glucose 81 mg/dL (80-115) 08/03/20 11:30 Calcium 8.7 mg/dL (7.8-10.44) 08/03/20 11:30 Total Bilirubin 0.7 mg/dL (0.2-1.2) 08/03/20 11:30 AST 31 U/L (5-34) 08/03/20 11:30 ALT 23 U/L (8-55) 08/03/20 11:30 Alkaline Phosphatase 85 U/L (40-110) 08/03/20 11:30 Troponin I 0.027 ng/mL (< 0.028) 08/03/20 15:24 B-Natriuretic Peptide 63.7 pg/mL (0-100) 08/03/20 11:30 Serum Total Protein 7.4 g/dL (6.0-8.3) 08/03/20 11:30 Albumin 4.0 g/dL (3.4-4.8) 08/03/20 11:30 - EKG Interpretation EKG: Sinus rhythm with nonspecific ST-T wave changesreviewed by me - Radiology Interpretation CT scan - chest Status: image reviewed by me Additional Comment: FINDINGS: The previously demonstrated laterally, peripherally located 1 cm left upper lobe pulmonary nodule is no longer present. Instead, there is now a broad band of partially calcified pulmonary scar transversely oriented along the upper portion of the left major fissure, contiguous with focal thickening at its junction with the left lateral pleural surface. No acute infiltrate, pleural effusion, pneumothorax, consolidation, or new suspicious pulmonary nodul e. No pulmonary thromboembolism. Ectasia of ascending aorta. Moderately heavily calcified atherosclerotic plaque of aortic arch and throughout the descending thor acic aorta. Heavy atherosclerotic calcification versus stent in LAD and LCx. No cardiomegaly, pericardial effusion, mediastinal or hilar lymphadenopathy, or tracheobronchial sten osis. Sternotomy wires. No acute rib fracture. IMPRESSION: 1) no pulmonary thromboembolism. 2) no acute findings. 3) status post left upper lobe segmental resection. 4) coronary atherosclerosis due to calcified coronary lesion. 5) previous open-heart surgery. Chest x-ray Status: image reviewed by me Additional Comment: Negative for infiltrate Hospitalist H&P A/P - Plan Plan: Shortness of breathmultifactorial Suspected acute on chronic systolic heart failure exacerbationechocardiogram in 06/29 showed ejection fraction 30 to 35% Coronary artery disease s/p CABG earlier this year Anxiety Ongoing tobacco abuse Hypomagnesemia Bronchial asthma History of lung adenocarcinoma status post recent wedge resection chronic alcoholism Plan: Patient will be monitored in the telemetry unit. Serial troponins will be obtained. She received 1 dose of Lasix. We will continue IV Lasix. She normally takes 20 mg daily. Continue aspirin with beta-blockers and losartan. Verify other home medications. Patient was counseled on tobacco and alcohol ce ssation. Recheck labs in a.m. Replace magnesium. Add thiamine, folic acid and multivitamin. Alcohol withdrawal protocol. Recheck labs in a.m.
[2020-08-03] MEDS ORDERED: Lorazepam 1 MG TAB PO PRN (18:48)
[2020-08-03] MEDS ORDERED: Acetaminophen 325 MG TAB PO PRN ×2 (19:15→19:16)
[2020-08-03] MEDS ORDERED: Ondansetron ODT 4 MG TAB PO PRN (19:16)
[2020-08-03] MEDS ORDERED: Senokot S 8.6-50 MG TAB PO PRN (19:16)
[2020-08-03] MEDS ORDERED: Ondansetron PF 4 MG/2 ML Vial IVP PRN (19:16)
[2020-08-03] MEDS ORDERED: Calcium Carbonate 500 MG ChewTAB PO PRN (19:16)
[2020-08-03] MEDS ORDERED: Polyethylene Glycol OPTH DROP 15 ML BOT EA EYE PRN (19:20)
[2020-08-03] MEDS ORDERED: SYSTANE GEL OPHTH DROPS 10 ML EA EYE PRN (19:20)
[2020-08-03] MEDS ORDERED: Fluticasone Propionate Nasal Spray 16 gm Bottle NASAL PRN (19:20)
[2020-08-03] MEDS ORDERED: cloNIDine 0.1 MG TAB PO PRN (19:21)
[2020-08-03 19:30] LABS: Troponin I 0.026 ng/mL (< 0.028)
[2020-08-03] MEDS ORDERED: Albuterol 200 PUFF (6.7GM INHALER) INH PRN (19:36)
[2020-08-03 20:21] VITALS: BMI 18.2
[2020-08-03] MEDS ORDERED: Magnesium 2 GM/50 ML 2 GM in Premix Bag 1 BAG IVPB SCH (21:00)
[2020-08-03] MEDS: Carvedilol 6.25 MG TAB PO SCH (21:42)
[2020-08-03] MEDS: busPIRone HCl 10 MG TAB PO SCH (21:43)
[2020-08-03] MEDS: Doxepin HCl 25 MG CAP PO PRN (21:43)
[2020-08-03] MEDS: Atorvastatin Calcium 40 MG TAB PO SCH (21:43)
[2020-08-03] MEDS: Famotidine 20 MG TAB PO SCH (21:44)
[2020-08-03] MEDS: Heparin 5,000 UNITS/ML VIAL SC SCH (21:49)
[2020-08-04 03:09] LABS: SARS-CoV-2 MS2 Positive; SARS-CoV-2 N Gene Negative; SARS-CoV-2 S Gene Negative; SARS-CoV-2 by NAA Not Detected (NotDetected); SARS-CoV-2 orf1ab Negative
[2020-08-04 05:52] LABS: #Basophils 0.1 thou/uL (0.0-0.2); #Lymphocytes 2.1 thou/uL (1.20-3.40); #Neutrophils 4.1 thou/uL (1.40-6.50); %Basophils 1.1 % (0.0-1.0); %Eosinophils 0.4 % (0.0-10.0); %Lymphocytes 28.6 % (21.0-51.0); %Monocytes 13.9 % (0.0-10.0); Hemoglobin 11.5 g/dL (12.0-16.0); Mean Corpuscular HGB CONC 31.4 g/dL (32.0-36.0); Mean Corpuscular Hemoglobin 23.3 pg (27.0-31.0); Mean Platelet Volume 8.9 fL (7.4-10.4); Platelet Count 303 thou/uL (130-400); RBC Distribution Width 19.7 % (11.5-14.5); Red Blood Cell (RBC) Count 4.94 mill/uL (4.20-5.40); White Blood Cell (WBC) Count 7.4 thou/uL (4.8-10.8)
[2020-08-04] MEDS ORDERED: Furosemide 20 MG/2 ML VIAL SLOW IVP SCH (06:00)
[2020-08-04 06:17] LABS: Anion Gap 17 mmol/L (10-20); BUN (Urea Nitrogen) 10 mg/dL (9.8-20.1); Calc. Creatinine Clearance 79 mL/min (70-130); Calcium 9.1 mg/dL (7.8-10.44); Carbon Dioxide 27 mmol/L (23-31); Chloride 95 mmol/L (98-107); Estimated GFR-MDRD Greater than 90; Glucose 72 mg/dL (80-115); Sodium 135 mmol/L (136-145)
[2020-08-04] MEDS: Mometasone 200 MCG/Formoterol 5 MCG 120 PUFF INHALER INH SCH ×2 (06:46→18:22)
[2020-08-04] MEDS: Heparin 5,000 UNITS/ML VIAL SC SCH ×2 (08:16→21:29)
[2020-08-04] MEDS: Aspirin 325 MG TAB PO SCH (08:17)
[2020-08-04] MEDS: Thiamine 100 MG TAB PO SCH (08:17)
[2020-08-04] MEDS: Multivit, Therapeutic 1 TAB PO SCH (08:17)
[2020-08-04] MEDS: Famotidine 20 MG TAB PO SCH ×2 (08:18→21:29)
[2020-08-04] MEDS: Carvedilol 6.25 MG TAB PO SCH ×2 (08:18→23:55)
[2020-08-04] MEDS: Folic Acid 1 MG TAB PO SCH (08:18)
[2020-08-04] MEDS: busPIRone HCl 10 MG TAB PO SCH ×2 (08:18→21:27)
[2020-08-04] MEDS ORDERED: Multivit, Therapeutic 1 TAB PO SCH (09:00)
[2020-08-04] MEDS ORDERED: Losartan 25 MG TAB PO SCH (09:00)
[2020-08-04] MEDS ORDERED: FLU VACC QS2020-21(6MOS UP)/PF 60 MCG/0.5 ML SYRINGE IM ONE (09:00)
[2020-08-04] MEDS ORDERED: Furosemide 20 MG TAB PO SCH (09:00)
--- NOTE | 2020-08-04 12:14 | PDOC.HOSPP ---
- Subjective Encounter Date: 08/04/20 Encounter Time: 12:13 Subjective: This patient is a 60-year-old woman who actually looks a lot older than her age with a history of lung cancer status post wedge resection, she likely has COPD from tobacco smoking, she is not on O2 at home who presented to the hospital with worsening shortness of breath. She is requiring O2 and does desaturate rather rapidly whenever she ambulates within the room. It is felt that she has congestive heart failure exacerbation but her chest x-ray is clear and her BNP is only 63. On exam she does not have any edema and she had very little if any rales on exam. I suspect her dyspnea likely from COPD exacerbation. She does not appear to have any wheezing on exam. I agree with bronchodilators, steroids and will consider empiric antibiotics. - Objective Vital Signs & Weight: Vital Signs (12 hours) Temp Pulse Resp BP BP Pulse Ox 08/04/20 11:06 90 15 106/60 97 08/04/20 08:18 149/77 H 97 08/04/20 07:34 98.3 F 97 16 149/77 H 97 08/04/20 06:47 98 08/04/20 06:46 98 16 98 08/04/20 04:00 98.1 F 92 22 H 140/82 100 Weight Weight 99 lb 11.2 oz I&O: 08/03/20 08/04/20 08/05/20 06:59 06:59 06:59 Intake Total 1010 Balance 1010 Result Diagrams: 08/04/20 05:23 08/04/20 05:23 Radiology Reviewed by me: Yes EKG Reviewed by me: Yes Hospitalist ROS - Review of Systems Constitutional: reports: sweats, weakness, malaise Respiratory: reports: cough, dry, shortness of breath, SOB with excertion, wheezing - Medication Medications: Active Medications Generic Name Dose Route Start Last Admin Trade Name Freq PRN Reason Stop Dose Admin Aspirin 325 mg 08/04/20 08:00 08/04/20 08:17 Aspirin 325 Mg Tab PO 325 mg QAM-WM ROM Administration Atorvastatin Calcium 40 mg 08/03/20 21:00 08/03/20 21:43 Atorvastatin Calcium 40 Mg Tab PO 40 mg HS ROM Administration Buspirone HCl 30 mg 08/03/20 21:00 08/04/20 08:18 Buspirone Hcl 10 Mg Tab PO 30 mg BID ROM Administration Carvedilol 6.25 mg 08/03/20 21:00 08/04/20 08:18 Carvedilol 6.25 Mg Tab PO 6.25 mg BID ROM Administration Doxepin HCl 100 mg 08/03/20 19:36 08/03/20 21:43 Doxepin Hcl 25 Mg Cap PO 100 mg HSPRN PRN Administration Insomnia Famotidine 20 mg 08/03/20 21:00 08/04/20 08:18 Famotidine 20 Mg Tab PO 20 mg BID ROM Administration Folic Acid 1 mg 08/04/20 09:00 08/04/20 08:18 Folic Acid 1 Mg Tab PO 1 mg DAILY ROM Administration Furosemide 20 mg 08/04/20 06:00 08/04/20 05:51 Furosemide 20 Mg/2 Ml Vial SLOW IVP 20 mg 0600,1400 ROM Administration Heparin Sodium (Porcine) 5,000 units 08/03/20 21:00 08/04/20 08:16 Heparin 5,000 Units/Ml Vial SC 5,000 units BID ROM Administration Losartan Potassium 25 mg 08/04/20 09:00 08/04/20 08:17 Losartan 25 Mg Tab PO 25 mg DAILY ROM Administration Mometasone Furoate/Formoterol Fumar 2 puff 08/04/20 06:30 08/04/20 06:46 Mometasone 200 Mcg/Formoterol 5 Mcg 120 Puff Inhaler INH 2 puff BID-RT ROM Administration Multivitamins 1 tab 08/04/20 09:00 08/04/20 08:17 Multivit, Therapeutic 1 Tab PO 1 tab DAILY ROM Administration Sertraline HCl 100 mg 08/04/20 09:00 08/04/20 08:17 Sertraline Hcl 100 Mg Tab PO 100 mg DAILY ROM Administration Sodium Chloride 10 ml 08/03/20 19:16 08/04/20 05:51 Flush - Normal Saline 10 Ml Syringe IVF 10 ml PRN PRN Administration Saline Flush Thiamine HCl 100 mg 08/04/20 09:00 08/04/20 08:17 Thiamine 100 Mg Tab PO 100 mg DAILY ROM Administration - Exam General Appearance: NAD, awake alert Eye: PERRL, anicteric sclera ENT: normocephalic atraumatic, no oropharyngeal lesions Neck: supple, symmetric, no JVD, no thyromegaly, no lymphadenopathy Heart: RRR, no murmur, no gallops, no rubs, normal peripheral pulses Respiratory: CTAB, no wheezes, no rales, no ronchi, normal chest expansion Gastrointestinal: soft, non-tender, non-distended, normal bowel sounds, no palpable masses Extremities: no cyanosis, no clubbing, 1+ LE edema Skin: normal turgor, no lesions, no rashes Neurological: cranial nerve grossly intact, normal sensation to touch, no weakness, no focal deficits, no new deficit Musculoskeletal: normal tone, normal strength Psychiatric: normal affect, normal behavior, A&O x 3 Hosp A/P (1) Acute respiratory failure with hypoxia Code(s): J96.01 - ACUTE RESPIRATORY FAILURE WITH HYPOXIA Status: Acute (2) COPD with acute exacerbation Code(s): J44.1 - CHRONIC OBSTRUCTIVE PULMONARY DISEASE W (ACUTE) EXACERBATION Status: Acute (3) Ischemic cardiomyopathy Code(s): I25.5 - ISCHEMIC CARDIOMYOPATHY Status: Acute (4) CAD (coronary artery disease) Code(s): I25.10 - ATHSCL HEART DISEASE OF [place] CORONARY ARTERY W/O ANG PCTRS Status: Chronic (5) Tobacco dependence Code(s): F17.200 - NICOTINE DEPENDENCE, UNSPECIFIED, UNCOMPLICATED Status: Acute - Plan #1. Acute respiratory failure with hypoxia. This is secondary to COPD exacerbation. I will continue O2 supplementation and wean as tolerated. 2. COPD with acute exacerbation. Agree with bronchodilators, steroids and I am going to add empiric IV antibiotics. Her chest x-ray did not show any evidence of pneumonia however. 3. Tobacco dependence. Patient unfortunately continues to indulge in tobacco. I have counseled about cessation of tobacco. We will have nicotine patches available. 4. Protein calorie malnutrition. The patient's BMI is only 18 suggesting moderate to severe malnutrition. She could benefit from dietary consult. 5. Coronary artery disease Patient with previous bypass surgery. 6. Ischemic cardiomyopathy. Continue routine home medicines.
[2020-08-04] MEDS ORDERED: ALPRAZolam 0.25 MG TAB PO PRN (16:56)
[2020-08-04] MEDS: Atorvastatin Calcium 40 MG TAB PO SCH (21:28)
[2020-08-04] MEDS: Cefdinir 300 MG CAP PO SCH (21:28)
[2020-08-05] MEDS: Doxepin HCl 25 MG CAP PO PRN (00:20)
[2020-08-05 05:07] LABS: #Basophils 0.1 thou/uL (0.0-0.2); #Eosinphils 0.1 thou/uL (0.0-0.7); #Lymphocytes 2.4 thou/uL (1.20-3.40); #Monocytes 0.6 thou/uL (0.11-0.59); #Neutrophils 4.2 thou/uL (1.40-6.50); %Basophils 1.3 % (0.0-1.0); %Eosinophils 1.3 % (0.0-10.0); %Lymphocytes 32.4 % (21.0-51.0); %Monocytes 8.4 % (0.0-10.0); %Neutrophils 56.5 % (42.0-75.0); Mean Corpuscular HGB CONC 32.8 g/dL (32.0-36.0); Mean Corpuscular Hemoglobin 24.3 pg (27.0-31.0); Mean Corpuscular Volume 74.2 fL (78.0-98.0); Mean Platelet Volume 9.6 fL (7.4-10.4); Platelet Count 251 thou/uL (130-400); Red Blood Cell (RBC) Count 4.93 mill/uL (4.20-5.40); White Blood Cell (WBC) Count 7.5 thou/uL (4.8-10.8)
[2020-08-05 05:24] LABS: Anion Gap 15 mmol/L (10-20); BUN (Urea Nitrogen) 13 mg/dL (9.8-20.1); Calc. Creatinine Clearance 62 mL/min (70-130); Calcium 9.2 mg/dL (7.8-10.44); Carbon Dioxide 29 mmol/L (23-31); Chloride 92 mmol/L (98-107); Estimated GFR-MDRD 89; Glucose 132 mg/dL (80-115); Potassium 3.2 mmol/L (3.5-5.1); Sodium 133 mmol/L (136-145)
[2020-08-05] MEDS: Mometasone 200 MCG/Formoterol 5 MCG 120 PUFF INHALER INH SCH (08:04)
[2020-08-05] MEDS ORDERED: Furosemide 20 MG TAB PO SCH (09:00)
[2020-08-05] MEDS: busPIRone HCl 10 MG TAB PO SCH (09:54)
[2020-08-05] MEDS: Aspirin 325 MG TAB PO SCH (09:54)
[2020-08-05] MEDS: Cefdinir 300 MG CAP PO SCH (09:55)
[2020-08-05] MEDS: Folic Acid 1 MG TAB PO SCH (09:55)
[2020-08-05] MEDS: Carvedilol 6.25 MG TAB PO SCH (09:55)
[2020-08-05] MEDS: Famotidine 20 MG TAB PO SCH (09:55)
[2020-08-05] MEDS: Heparin 5,000 UNITS/ML VIAL SC SCH (09:56)
[2020-08-05] MEDS: Thiamine 100 MG TAB PO SCH (09:56)
[2020-08-05] MEDS: Multivit, Therapeutic 1 TAB PO SCH (09:56)
[2020-08-05 12:03] VITALS: BP 114/61; TEMP 97.4
--- NOTE | 2020-08-05 15:03 | PDOC.DS.DS ---
Provider - Provider Date of Admission: 08/03/20 14:36 Date of Discharge: 08/05/20 Admitting Provider: Quinn Mckinnon MD Primary Care Physician: [facility] Clinic Course - Hospital Course Hospital Course: This is a 60-year-old woman who has quite a complex medical history including coronary artery disease with recent bypass surgery, she has ischemic cardiomyopathy with an EF around 30%. She has congestive heart failure likely from systolic dysfunction, she has COPD and unfortunately ongoing tobacco dependence who presented to the hospital worsening shortness of breath. She was admitted due to concern for CHF exacerbation. She was started on diuresis. She did diurese as much as possible. In addition she was also felt to have COPD exacerbation more than congestive heart failure. She responded well to inhalers. She did receive empiric IV antibiotics. During this hospitalization she did have an episode where her blood pressure was very low but it did improve with time. She does take Coreg, Lasix, losartan at home as part of her home medicines. I took the liberty to change her beta-catherine from Coreg to metoprolol succinate 12.5 mg daily. We discussed the need for her to stop smoking. She was willing to try some nicotine patch. She did well and was subsequently discharged home today in a stable condition. Resuscitation Status: 08/03/20 19:16 Resuscitation Status Routine Resuscitation Status: FULL: Full Resuscitation - Labs Lab Results: 08/05/20 04:45 08/05/20 04:45 Abnormal Lab Results - Last 48 hrs 08/04/20 05:23: Sodium 135 L, Chloride 95 L, Creatinine 0.53 L 08/04/20 05:23: Hgb 11.5 L, MCV 74.0 L, MCH 23.3 L, MCHC 31.4 L, RDW 19.7 H, Monocytes % 13.9 H, Basophils % 1.1 H, Monocytes # 1.0 H 08/05/20 04:45: Sodium 133 L, Potassium 3.2 L, Chloride 92 L 08/05/20 04:45: MCV 74.2 L, MCH 24.3 L, RDW 20.0 H, Basophils % 1.3 H, Monocytes # 0.6 H - Physical Exam Vitals: Vital Signs (12 hours) Temp Pulse Pulse Pulse Resp BP BP 08/05/20 11:59 97.4 F L 80 17 08/05/20 09:55 129/43 L 08/05/20 09:36 08/05/20 08:46 99 113 H 87/57 L 08/05/20 07:23 98.3 F 90 14 08/05/20 04:00 97.7 F 89 16 BP BP BP BP BP Pulse Ox 08/05/20 11:59 114/61 98 08/05/20 09:55 08/05/20 09:36 86/54 L 85/51 L 121/63 08/05/20 08:46 96/54 L 76/46 L 08/05/20 07:23 129/65 97 08/05/20 04:00 100/60 95 Weight Admit Weight 99 lb Weight 103 lb Physical Exam: The patient was seen and examined on the day of discharge. Problem - Problem (1) Acute respiratory failure with hypoxia Code(s): J96.01 - ACUTE RESPIRATORY FAILURE WITH HYPOXIA Status: Acute Plan: This resolved and she was sent home today. (2) COPD with acute exacerbation Code(s): J44.1 - CHRONIC OBSTRUCTIVE PULMONARY DISEASE W (ACUTE) EXACERBATION Status: Acute Plan: She will continue her home inhalers. (3) Ischemic cardiomyopathy Code(s): I25.5 - ISCHEMIC CARDIOMYOPATHY Status: Acute Plan: She will continue her routine home medicines. (4) CAD (coronary artery disease) Code(s): I25.10 - ATHSCL HEART DISEASE OF [place] CORONARY ARTERY W/O ANG PCTRS Status: Chronic Qualifiers: Coronary Disease-Associated Artery/Lesion type: [place] artery [place] vs. transplanted heart: [place] heart Associated angina: without angina Qualified Code(s): I25.10 - Atherosclerotic heart disease of [place] coronary artery without angina pectoris (5) Tobacco dependence Code(s): F17.200 - NICOTINE DEPENDENCE, UNSPECIFIED, UNCOMPLICATED Status: Acute Plan: She is in desperate need of smoking cessation. Plan - Discharge Medications Prescriptions: Meclizine HCl [Antivert] 12.5 mg PO DAILY #30 tab Nicotine [Nicotine Patch] 1 each TD DAILY #30 patch.td24 Cefdinir [Omnicef] 300 mg PO BID #10 cap Metoprolol Succinate [Toprol XL] 12.5 mg PO DAILY #90 tab Home Medications: Medication Instructions Recorded Confirmed Type Doxepin HCl 100 mg PO HS PRN 09/24/18 08/03/20 History Buspirone HCl [busPIRone HCl] 30 mg PO BID 06/23/19 08/03/20 History Aspirin 325 mg PO QAM-WM #120 tab 04/02/20 08/03/20 Rx Mometasone/Formoterol 200/5 2 puff INH BID-RT #1 inh 04/02/20 08/03/20 Rx [Dulera 200 Mcg/5 Mcg Inhaler] Furosemide [Lasix] 20 mg PO DAILY #90 tab 04/03/20 08/03/20 Rx Atorvastatin Calcium [Lipitor] 40 mg PO DAILY 07/02/20 08/03/20 History QUEtiapine Fumarate [SEROquel] 25 mg PO DAILY 08/03/20 08/03/20 History Cefdinir [Omnicef] 300 mg PO BID #10 cap 08/05/20 Rx Furosemide [Lasix] 20 mg PO DAILY tab 08/05/20 Rx Meclizine HCl [Antivert] 12.5 mg PO DAILY #30 tab 08/05/20 Rx Metoprolol Succinate [Toprol XL] 12.5 mg PO DAILY #90 tab 08/05/20 Rx Nicotine [Nicotine Patch] 1 each TD DAILY #30 patch.td24 08/05/20 Rx Sertraline HCl [Zoloft] 100 mg PO DAILY tab 08/05/20 Rx Allergies: pineapple Allergy (Verified 08/05/20 03:43) Hives - Discharge Instructions Activity:: Activity as Tolerated Nourishment:: Heart Healthy Diet Therapies:: Physical Therapy - Follow up Plan Referrals: Cardiac Rehab - [place] [Outside] - 7 Days (Your doctor has ordered Outpatient Cardiac Rehab for you to begin within 1-2 weeks after you go home from the hospital. The location nearest to you is the [facility]. The front office in [place] will call you in 1-2 days to get you scheduled for your evaluation. If you do not receive a call, please reach out to them at [phone] and request an appointment. ) [facility] [Primary Care Provider] - 7 Days Disposition: HOME Quality - Care Measures CORE MEASURES:: N/A
== END 2020-08-05 14:01 | disposition home or self-care (01) ==
LOC: ERS 10:58 → 2SE 14:36
PROVIDERS: ADMIT Internal Medicine; ATTEND Hospitalist
DX: J44.1 Chronic obstructive pulmonary disease with (acute) exacerbation (principal); J96.01 Acute respiratory failure with hypoxia; I25.5 Ischemic cardiomyopathy; I25.10 Atherosclerotic heart disease of native coronary artery without angina pectoris; F17.290 Nicotine dependence, other tobacco product, uncomplicated; E43 Unspecified severe protein-calorie malnutrition; Z79.82 Long term (current) use of aspirin; Z79.899 Other long term (current) drug therapy; Z91.018 Allergy to other foods; Z68.1 Body mass index [BMI] 19.9 or less, adult
CPT/HCPCS: 36415; 71045; 71275; 80048; 80053; 83735; 83880; 84484; 85025; 87635; 93005; 93798; 94664; 96374; 96375; 96376; 97139; G0378; J1200; J1644; J1940; J1956; J2405; J3475; J7512; Q0163; Q9967; U0003

== ENCOUNTER 2020-08-30 12:11 | Inpatient (IN) | payer OTHER, SELFPAY ==
--- NOTE | 2020-08-30 13:09 | CT ---
Head CT without contrast 08/30/2020: COMPARISON: 06/15/2020 HISTORY: Weakness and dizziness, dehydration, fall and head trauma a few days ago TECHNIQUE: Axial CT imaging at 5 mm intervals from vertex through skull base without contrast FINDINGS: Imaged paranasal sinuses and mastoid air cells are well-aerated. No displaced calvarial fra cture. No intracranial hemorrhage, midline shift, mass effect, or ventricular enlargement. Cavum septum pellucidum incidentally noted. IMPRESSION: No acute findings.
[2020-08-30 13:19] LABS: Hemoglobin 11.7 g/dL (12.0-16.0); Mean Corpuscular HGB CONC 34.9 g/dL (32.0-36.0); Mean Corpuscular Hemoglobin 26.1 pg (27.0-31.0); Mean Corpuscular Volume 74.8 fL (78.0-98.0); Mean Platelet Volume 11.5 fL (7.4-10.4); Platelet Count 177 thou/uL (130-400); RBC Distribution Width 21.3 % (11.5-14.5); Red Blood Cell (RBC) Count 4.49 mill/uL (4.20-5.40); White Blood Cell (WBC) Count 18.3 thou/uL (4.8-10.8)
--- NOTE | 2020-08-30 13:20 | RAD ---
XR Chest 1 View Portable History: Vertigo Comparison: Chest radiograph August 03, 2020 Findings: Suture left upper lobe. Left perihilar surgical clips. Mild chronic left hemithorax volume loss. No confluent airspace consolidation, pneumothorax or effusions. Dense transverse aortic calcification s. New left distal clavicular fracture distal to the coracoclavicular ligaments. Impression: 1. No acute intrathoracic abnormality. 2. New minimally displaced left distal clavicular fracture peripheral to the coracoclavicular ligamen ts.
[2020-08-30 13:27] LABS: Acetaminophen Less than 6.0 mcg/mL (10.0-30.0); Alcohol Less than 10 mg/dL (Less than 10); Salicylate Less than 8.0 mg/dL (15.0-30.0)
[2020-08-30 13:34] LABS: ALT (SGPT) 103 U/L (8-55); AST (SGOT) 205 U/L (5-34); Albumin 3.9 g/dL (3.4-4.8); Alkaline Phosphatase 83 U/L (40-110); Anion Gap 24 mmol/L (10-20); BUN (Urea Nitrogen) 10 mg/dL (9.8-20.1); Bilirubin, Total 2.4 mg/dL (0.2-1.2); Calc. Creatinine Clearance 0 mL/min (70-130); Calcium 8.6 mg/dL (7.8-10.44); Carbon Dioxide 22 mmol/L (23-31); Glucose 104 mg/dL (80-115); Protein, Total 6.9 g/dL (6.0-8.3)
[2020-08-30 13:44] LABS: Chloride 71 mmol/L (98-107); Potassium 2.9 mmol/L (3.5-5.1); Sodium 114 mmol/L (136-145)
[2020-08-30 13:45] LABS: Anisocytosis MODERATE=16-30 cells (100X) (0-5/hpf); Band 14 % (5-11); Lymphocytes 5 % (21-51); MDiff Complete? YES; Monocytes 1 % (0-10); Neutrophil 80 % (42-75); Platelet Morphology Comment Appears Adequate; Target Cells MODERATE= 6-15 cells (100X) (0-1/hpf)
--- NOTE | 2020-08-30 14:39 | PDOC.HHP ---
Hospitalist HPI - History of Present Illness Severe hyponatremia History of Present Illness: 60-year-old female who was admitted recently in hospital, she was discharged from the hospital on August 05, 2020, patient came back to emergency room with decreased appetite, nausea vomiting, generalized weakness, dizziness, symptoms gradually gotten worse for last 3 days, patient reports that because of dizzi ness he fell down and hit her head, she denies any loss of consciousness, in the emergency room patient had CT brain which was negative for any acute process, ED Course: BP: 119/69, Pulse: 99, Resp: 18, Temp: 99.1 (Oral), Pain: 9, O2 sat: 99 on (Room Air), Time: 08/30/2020 12:19. Patient is given IV fluid 1 L Hospitalist ROS - Review of Systems Constitutional: reports: weakness, malaise Eyes: denies: pain, vision change, conjunctivae inflammation, eyelid inflammation, redness, other ENT: denies: ear pain, ear discharge, nose pain, nose discharge, nose congestion, mouth pain, mouth swelling, throat pain, throat swelling, other Respiratory: denies: cough, dry, shortness of breath, hemoptysis, SOB with excertion, pleuritic pain, sputum, wheezing, other Cardiovascular: reports: light headedness Gastrointestinal: denies: nausea, vomiting, abdominal pain, diarrhea, constip ation, melena, hematochezia, other Genitourinary: denies: dysuria, frequency, incontinence, hematuria, retention, other Musculoskeletal: denies: neck pain, shoulder pain, arm pain, back pain, hand pain, leg pain, foot pain, other Skin: denies: rash, lesions, derrick, bruising, other - Medication Medications: Medication Medication Instructions Recorded Confirmed Type Doxepin HCl 100 mg PO HS PRN 09/24/18 08/03/20 History Buspirone HCl [busPIRone HCl] 30 mg PO BID 06/23/19 08/03/20 History Aspirin 325 mg PO QAM-WM #120 tab 04/02/20 08/03/20 Rx Mometasone/Formoterol 200/5 2 puff INH BID-RT #1 inh 04/02/20 08/03/20 Rx [Dulera 200 Mcg/5 Mcg Inhaler] Furosemide [Lasix] 20 mg PO DAILY #90 tab 04/03/20 08/03/20 Rx Atorvastatin Calcium [Lipitor] 40 mg PO DAILY 07/02/20 08/03/20 History QUEtiapine Fumarate [SEROquel] 25 mg PO DAILY 08/03/20 08/03/20 History Cefdinir [Omnicef] 300 mg PO BID #10 cap 08/05/20 Rx Furosemide [Lasix] 20 mg PO DAILY tab 08/05/20 Rx Meclizine HCl [Antivert] 12.5 mg PO DAILY #30 tab 08/05/20 Rx Metoprolol Succinate [Toprol XL] 12.5 mg PO DAILY #90 tab 08/05/20 Rx Nicotine [Nicotine Patch] 1 each TD DAILY #30 patch.td24 08/05/20 Rx Sertraline HCl [Zoloft] 100 mg PO DAILY tab 08/05/20 Rx Allergy Allergies pineapple Allergy (Verified 08/05/20 03:43) Philip Hospitalist History - Past Medical History Other Medical History: Hypertension Asthma Alcohol abuse Blood clot in left eye - Past Surgical History Past Surgical History: reports: CABG, Other Surgical History: Left lower lobectomy - Family History Other Family History: No strong family history of premature coronary artery disease stroke or cancer - Social History Alcohol: reports: Heavy (>10 drinks a day) Other Social History: Patient drinks alcohol daily, 10 drinks per day, she smokes about half pack per day, no other illicit drug abuse - Exam General Appearance: NAD, awake alert Eye: PERRL, anicteric sclera ENT: normocephalic atraumatic, no oropharyngeal lesions Neck: supple, symmetric, no JVD, no thyromegaly Heart: RRR, no murmur, no gallops, no rubs Respiratory: no wheezes, no rales, no ronchi Gastrointestinal: soft, non-tender, non-distended, normal bowel sounds Extremities: no cyanosis, no clubbing, no edema Skin: normal turgor, no lesions Neurological: no focal deficits Musculoskeletal: normal tone, normal strength Psychiatric: normal affect, normal behavior Hospitalist Results - Labs Result Diagrams: 08/30/20 12:54 08/30/20 12:54 Lab results: WBC 18.3 thou/uL (4.8-10.8) H 08/30/20 12:54 Hgb 11.7 g/dL (12.0-16.0) L 08/30/20 12:54 Hct 33.6 % (36.0-47.0) L 08/30/20 12:54 MCV 74.8 fL (78.0-98.0) L 08/30/20 12:54 Plt Count 177 thou/uL (130-400) 08/30/20 12:54 Band Neuts % (Manual) 14 % (5-11) H 08/30/20 12:54 Sodium 114 mmol/L (136-145) L* 08/30/20 12:54 Potassium 2.9 mmol/L (3.5-5.1) L* 08/30/20 12:54 Chloride 71 mmol/L (98-107) L* 08/30/20 12:54 Carbon Dioxide 22 mmol/L (23-31) L 08/30/20 12:54 BUN 10 mg/dL (9.8-20.1) 08/30/20 12:54 Creatinine 0.55 mg/dL (0.6-1.1) L 08/30/20 12:54 Glucose 104 mg/dL (80-115) 08/30/20 12:54 Calcium 8.6 mg/dL (7.8-10.44) 08/30/20 12:54 Total Bilirubin 2.4 mg/dL (0.2-1.2) H 08/30/20 12:54 AST 205 U/L (5-34) H 08/30/20 12:54 ALT 103 U/L (8-55) H 08/30/20 12:54 Alkaline Phosphatase 83 U/L (40-110) 08/30/20 12:54 Troponin I 0.024 ng/mL (< 0.028) 08/30/20 12:54 Serum Total Protein 6.9 g/dL (6.0-8.3) 08/30/20 12:54 Albumin 3.9 g/dL (3.4-4.8) 08/30/20 12:54 - Radiology Interpretation Chest x-ray Status: image reviewed by me Additional Comment: Chest x-ray showing no acute cardiopulmonary process, minimally displaced left distal clavicular fracture peripheral to coracoclavicular ligament CT scan - head Status: image reviewed by me Additional Comment: CT brain based on my review no acute intracranial process Hospitalist H&P A/P - Problem (1) Hyponatremia Code(s): E87.1 - HYPO-OSMOLALITY AND HYPONATREMIA Status: Acute Assessment and Plan: Suspecting from beer potomania (2) Hypokalemia Code(s): E87.6 - HYPOKALEMIA Status: Acute Assessment and Plan: Due to nausea and vomiting (3) Clavicular fracture Code(s): S42.009A - FRACTURE OF UNSP PART OF UNSP CLAVICLE, INIT FOR CLOS FX Status: Acute (4) Transaminitis Code(s): R74.01 - ELEVATION OF LEVELS OF LIVER TRANSAMINASE LEVELS Status: Acute Assessment and Plan: Due to alcohol (5) Leukocytosis Code(s): D72.829 - ELEVATED WHITE BLOOD CELL COUNT, UNSPECIFIED Status: Acute Qualifiers: Leukocytosis type: bandemia Qualified Code(s): D72.825 - Bandemia (6) COPD (chronic obstructive pulmonary disease) Status: Chronic Qualifiers: Chronic bronchitis type: unspecified (7) Alcohol abuse Code(s): F10.10 - ALCOHOL ABUSE, UNCOMPLICATED Status: Chronic (8) Ischemic cardiomyopathy Code(s): I25.5 - ISCHEMIC CARDIOMYOPATHY Status: Chronic (9) Peripheral neuropathy Code(s): G62.9 - POLYNEUROPATHY, UNSPECIFIED Status: Chronic (10) Tobacco dependence Code(s): F17.200 - NICOTINE DEPENDENCE, UNSPECIFIED, UNCOMPLICATED Status: Chronic (11) Vertigo Code(s): R42 - DIZZINESS AND GIDDINESS Status: Chronic (12) Anxiety Code(s): F41.9 - ANXIETY DISORDER, UNSPECIFIED Status: Chronic (13) CAD (coronary artery disease) Code(s): I25.10 - ATHSCL HEART DISEASE OF [place] CORONARY ARTERY W/O ANG PCTRS Status: Chronic Qualifiers: Coronary Disease-Associated Artery/Lesion type: [place] artery [place] vs. transplanted heart: [place] heart Associated angina: without angina Qualified Code(s): I25.10 - Atherosclerotic heart disease of [place] coronary artery without angina pectoris - Plan Plan: Plan Admission to IMCU Check urine sodium, creatinine, osmolality, TSH, cortisol, Continue NS with KCl at 100 mL/h Nephrology consultation right upper quadrant ultrasound Repeat labs tomorrow Add IV vitamins with IV fluid Check urine analysis and urine culture Start empiric Rocephin for bandemia Selected home medication will be reconciled Counseling given to avoid tobacco and alcohol abuse DVT prophylaxis Lovenox 40 mg subcu daily GI prophylaxis C 20 mg p.o. twice daily CODE STATUS patient is full code
[2020-08-30 15:40] LABS: Bilirubin Negative (Negative); Blood, Urine Negative (Negative); Clarity Turbid (Clear); Glucose, Urine (Dipstick) Normal (Negative); Ketone, Urine 80 mg/dL (Negative); Leukocyte Negative Leu/uL (Negative); Nitrite Negative (Negative); Protein, Urine (Dipstick) 20 mg/dL (Neg-Trace); Specific Gravity, Urine 1.017 (1.002-1.036)
[2020-08-30 16:00] LABS: Amphetamine Not Detected (NotDetected); Barbiturates Screen Not Detected (NotDetected); Benzodiazepine Screen Not Detected (NotDetected); Cocaine Metabolite Screen Not Detected (NotDetected); Medtox Control Line Valid? VALID (VALID); Medtox Reader # READER 4; Methadone Not Detected (NotDetected); Methamphetamine Not Detected (NotDetected); Opiate Screen Not Detected (NotDetected); Oxycodone Screen Not Detected (NotDetected); Phencyclidine (PCP) Not Detected (NotDetected); THC/Cannabinoid Screen Not Detected (NotDetected); Tricyclic Screen Not Detected (NotDetected)
[2020-08-30] MEDS ORDERED: Loperamide HCl 2 MG CAP PO PRN (16:44)
[2020-08-30] MEDS ORDERED: Multivit, Adult Inj 10 ML VIAL IV SCH (16:44)
[2020-08-30] MEDS ORDERED: Bisacodyl 10 MG SUPP PR PRN (16:44)
[2020-08-30] MEDS ORDERED: Calcium Carbonate 500 MG ChewTAB PO PRN (16:44)
[2020-08-30] MEDS ORDERED: Guaifenesin DM 100-10/5 ML UDCUP PO PRN (16:44)
[2020-08-30] MEDS ORDERED: Senokot S 8.6-50 MG TAB PO PRN (16:44)
[2020-08-30] MEDS ORDERED: Lorazepam 2 MG/ML VIAL SLOW IVP PRN (16:44)
[2020-08-30] MEDS ORDERED: NS 0.9% w/ 20 MEQ KCL 1,000 ML/1,000 ML BAG IV SCH (16:44)
[2020-08-30 17:36] LABS: Sodium 119 mmol/L (136-145)
[2020-08-30] MEDS ORDERED: Mometasone 200 MCG/Formoterol 5 MCG 120 PUFF INHALER INH SCH ×2 (18:30→20:15)
[2020-08-30] MEDS ORDERED: Multivitamins, Adult 10 ML in Sodium Chloride 0.9% 500 ML IV SCH (20:30)
[2020-08-30] MEDS: busPIRone HCl 10 MG TAB PO SCH (21:09)
[2020-08-30] MEDS: Famotidine 20 MG TAB PO SCH (21:09)
[2020-08-30] MEDS: cefTRIAXone\\ROCEPHIN 1 GM in Sodium Chloride 0.9% 100 ML IVPB SCH (21:10)
[2020-08-30 21:29] LABS: Anion Gap 21 mmol/L (10-20); BUN (Urea Nitrogen) 6 mg/dL (9.8-20.1); Calc. Creatinine Clearance 0 mL/min (70-130); Carbon Dioxide 21 mmol/L (23-31); Chloride 80 mmol/L (98-107); Glucose 88 mg/dL (80-115)
--- NOTE | 2020-08-30 21:29 | ULT ---
US Gallbladder RUQ: 08/30/2020 8:11 PM CLINICAL HISTORY: Abnormal LFTs. STUDY: Limited right upper quadrant ultrasound of abdomen. COMPARISON: CTA chest 08/03/2020 FINDINGS: Liver: Size: Normal. Echogenicity: Hyperechoic consistent with hepatic steatosis. Contour: Smooth. Mass: None. Bile ducts: No intrahepatic or extrahepatic biliary dilatation. Common bile duct measures 4 mm. Gallbladder: Normal. Pancreas: Head, body, and tail appear normal. Right kidney: No pelvicalyceal dilatation. Right kidney measuring 11.3 cm in length. IMPRESSION: Fatty liver
[2020-08-30 21:34] LABS: Potassium 2.7 mmol/L (3.5-5.1); Sodium 119 mmol/L (136-145)
[2020-08-30] MEDS ORDERED: Nicotine 21 MG PATCH TD PRN (22:00)
[2020-08-30] MEDS ORDERED: Potassium Chloride 20 MEQ TAB PO SCH (22:30)
[2020-08-30 23:29] VITALS: BMI 14.8
[2020-08-31 01:22] LABS: SARS-CoV-2 MS2 Positive; SARS-CoV-2 N Gene Negative; SARS-CoV-2 S Gene Negative; SARS-CoV-2 by NAA Not Detected (NotDetected); SARS-CoV-2 orf1ab Negative
[2020-08-31] MEDS: busPIRone HCl 10 MG TAB PO SCH ×3 (03:05→20:49)
[2020-08-31 04:26] LABS: ALT (SGPT) 76 U/L (8-55); AST (SGOT) 113 U/L (5-34); Albumin 3.3 g/dL (3.4-4.8); Alkaline Phosphatase 72 U/L (40-110); Anion Gap 20 mmol/L (10-20); BUN (Urea Nitrogen) 5 mg/dL (9.8-20.1); Bilirubin, Total 1.5 mg/dL (0.2-1.2); Calc. Creatinine Clearance 75 mL/min (70-130); Calcium 8.2 mg/dL (7.8-10.44); Carbon Dioxide 22 mmol/L (23-31); Chloride 82 mmol/L (98-107); Globulin 2.6 g/dL (2.4-3.5); Glucose 84 mg/dL (80-115); Magnesium 1.9 mg/dL (1.6-2.6); Potassium 3.2 mmol/L (3.5-5.1); Protein, Total 5.9 g/dL (6.0-8.3); Sodium 121 mmol/L (136-145)
[2020-08-31 04:35] LABS: Phosphorus 1.6 mg/dL (2.3-4.7)
[2020-08-31] MEDS ORDERED: Electrolyte Replacement Protocol 1 EACH FS SCH (04:45)
[2020-08-31] MEDS ORDERED: Magnesium 2 GM/50 ML 2 GM in Premix Bag 1 BAG IVPB SCH ×2 (05:00→09:45)
[2020-08-31 05:12] LABS: #Basophils 0.2 thou/uL (0.0-0.2); #Lymphocytes 1.5 thou/uL (1.20-3.40); #Monocytes 1.4 thou/uL (0.11-0.59); #Neutrophils 13.1 thou/uL (1.40-6.50); %Basophils 1.3 % (0.0-1.0); %Eosinophils 0.1 % (0.0-10.0); %Lymphocytes 9.4 % (21.0-51.0); %Monocytes 8.5 % (0.0-10.0); %Neutrophils 80.8 % (42.0-75.0); Anisocytosis MODERATE=16-30 cells (100X) (0-5/hpf); Hemoglobin 9.9 g/dL (12.0-16.0); MDiff Complete? YES; Mean Corpuscular HGB CONC 34.3 g/dL (32.0-36.0); Mean Corpuscular Hemoglobin 25.6 pg (27.0-31.0); Mean Corpuscular Volume 74.5 fL (78.0-98.0); Mean Platelet Volume 11.2 fL (7.4-10.4); Platelet Count 176 thou/uL (130-400); RBC Distribution Width 21.3 % (11.5-14.5); Red Blood Cell (RBC) Count 3.87 mill/uL (4.20-5.40); Target Cells MODERATE= 6-15 cells (100X) (0-1/hpf); White Blood Cell (WBC) Count 16.2 thou/uL (4.8-10.8)
[2020-08-31] MEDS ORDERED: Potassium Phosphate 15 MMOL in Sodium Chloride 0.9% 250 ML 250 ML IVPB SCH (05:15)
[2020-08-31] MEDS ORDERED: Potassium Chloride 20 MEQ TAB PO SCH ×2 (05:15→08:30)
[2020-08-31] MEDS: PHOS-NAK 1 PKT PACK PO SCH ×2 (05:41→09:59)
[2020-08-31] MEDS: Mometasone 200 MCG/Formoterol 5 MCG 120 PUFF INHALER INH SCH (08:33)
[2020-08-31 08:51] LABS: Anion Gap 18 mmol/L (10-20); BUN (Urea Nitrogen) 5 mg/dL (9.8-20.1); Calc. Creatinine Clearance 75 mL/min (70-130); Calcium 8.5 mg/dL (7.8-10.44); Carbon Dioxide 22 mmol/L (23-31); Chloride 84 mmol/L (98-107); Glucose 80 mg/dL (80-115); Potassium 3.3 mmol/L (3.5-5.1); Sodium 121 mmol/L (136-145)
[2020-08-31] MEDS ORDERED: FLU VACC QS2020-21(6MOS UP)/PF 60 MCG/0.5 ML SYRINGE IM ONE (09:00)
--- NOTE | 2020-08-31 09:25 | CON ---
DATE OF CONSULTATION: 08/31/2020 REASON FOR CONSULTATION: Hyponatremia. TIME AND DATE OF CONSULTATION: 9 a.m. on August 31. HISTORY OF PRESENT ILLNESS: This is a very pleasant 60-year-old female, who presented to the hospital for severe hyponatremia. The patient denies headache, numbness, tingling, or weakness. Denies any confusion. The patient has a history of alcohol abuse and poor nutrition and has been admitted on multiple times. PAST MEDICAL HISTORY: Significant for hypertension, asthma, alcohol abuse, history of CABG, and . HOME MEDICATIONS: List reviewed. HOSPITAL MEDICATIONS: List reviewed. REVIEW OF SYSTEMS: 15-point review of systems was performed, negative except for positives noted above. HEENT: Eyes intact, no diplopia. Ears: No hearing loss or earache. Nose: No discharge or bleeding. CHEST: No cough or phlegm. ABDOMEN: No nausea or vomiting. GENITOURINARY: No hematuria. No Antonio catheter. MUSCULOSKELETAL: No low back pain. No joint swelling or pain. NEUROLOGICAL: No syncope. No seizures. SKIN: No complaints of rash or itching. PSYCHIATRIC: No depression. CONSTITUTIONAL: No weight loss or loss of appetite. PHYSICAL EXAMINATION: GENERAL: The patient is awake and alert. VITAL SIGNS: Afebrile, pulse 98, breathing at 16, blood pressure 92/62. HEENT: Head normocephalic and atraumatic. Eyes intact, no ulcers. Nose intact, no ulcers. Ears intact, no ulcers. NECK: Supple. No JVD. CHEST: Symmetrical and clear. CARDIOVASCULAR: Shows S1 and S2, no rub, no murmur. GASTROINTESTINAL: Abdomen is soft, bowel sounds positive. EXTREMITIES: Show no edema or ulcers. SKIN: Shows no rash or petechiae. MUSCULOSKELETAL: Shows no joint swelling or stiffness. GENITOURINARY: Shows no Antonio or CVA tenderness. NEUROLOGIC: Motor intact. Cranial nerves intact. LABORATORY DATA: Hemoglobin 9.9. Sodium is 121. ASSESSMENT AND RECOMMENDATIONS: 1. Hyponatremia, improved from 119 to 121. Rate of correction is good. 2. Hypophosphatemia. Recommend high phosphorus diet. 3. Hypomagnesemia. Recommend replacement. 4. Hypokalemia. Recommend 40 mEq of potassium. I would recommend checking labs every 6 hours and please call me with the results. Job ID: [id number]
[2020-08-31] MEDS: Aspirin 325 MG TAB PO SCH (09:57)
[2020-08-31] MEDS: Atorvastatin Calcium 40 MG TAB PO SCH (09:57)
[2020-08-31] MEDS: Famotidine 20 MG TAB PO SCH ×2 (09:57→20:32)
[2020-08-31] MEDS: Enoxaparin Sodium 40 MG/0.4 ML SYRINGE SC SCH (09:59)
[2020-08-31] MEDS: Lorazepam 1 MG TAB PO PRN (09:59)
--- NOTE | 2020-08-31 15:04 | PDOC.HOSPP ---
- Subjective Encounter Date: 08/31/20 Encounter Time: 11:00 Subjective: F/u: hyponatremia The patient is laying in bed. She is tired with no other complaints. She drinks two beers daily. She has not had any seizures. She does have some shortness of breath She states she fell yesterday, did not hit her head or lose consciousness. She complains of left sided shoulder pain which is very tender to touch and she asks me not to move it - Objective Vital Signs & Weight: Vital Signs (12 hours) Temp Pulse Pulse Pulse Resp BP BP 08/31/20 12:54 101 H 13 08/31/20 12:00 98.3 F 08/31/20 09:03 102 H 98 96/55 L 107/63 08/31/20 08:00 08/31/20 07:32 98.8 F 08/31/20 04:00 98.1 F 97 20 08/31/20 03:41 98.1 F BP Pulse Ox Pulse Ox Pulse Ox 08/31/20 12:54 100 08/31/20 12:00 08/31/20 09:03 100 100 08/31/20 08:00 100 08/31/20 07:32 08/31/20 04:00 96/61 100 08/31/20 03:41 Weight Admit Weight 81 lb 1 oz Weight 81 lb 1 oz Most Recent Monitor Data Heart Rate from ECG 99 NIBP 102/62 NIBP BP-Mean 75 Respiration from ECG 13 SpO2 97 I&O: 08/30/20 08/31/20 09/01/20 06:59 06:59 06:59 Intake Total 75 Balance 75 Result Diagrams: 08/31/20 03:45 08/31/20 08:18 Hospitalist ROS - Review of Systems Constitutional: denies: fever, chills - Medication Medications: Active Medications Generic Name Dose Route Start Last Admin Trade Name Freq PRN Reason Stop Dose Admin Albuterol/Ipratropium 3 ml 08/30/20 19:00 08/31/20 12:54 Ipratropium/Albuterol Sulfate 3 Ml Neb NEB 3 ml [id number] ROM Administration Aspirin 325 mg 08/31/20 08:00 08/31/20 09:57 Aspirin 325 Mg Tab PO 325 mg QAM-WM ROM Administration Atorvastatin Calcium 40 mg 08/31/20 09:00 08/31/20 09:57 Atorvastatin Calcium 40 Mg Tab PO 40 mg DAILY ROM Administration Buspirone HCl 30 mg 08/30/20 21:00 08/31/20 10:00 Buspirone Hcl 10 Mg Tab PO Not Given BID ROM Enoxaparin Sodium 40 mg 08/31/20 09:00 08/31/20 09:59 Enoxaparin Sodium 40 Mg/0.4 Ml Syringe SC 40 mg 0900 ROM Administration Famotidine 20 mg 08/30/20 21:00 08/31/20 09:57 Famotidine 20 Mg Tab PO 20 mg BID ROM Administration Ceftriaxone Sodium 1 gm/ 100 mls @ 200 mls/hr 08/30/20 21:00 08/30/20 21:10 Sodium Chloride IVPB 100 mls Q24HR ROM Administration Lorazepam 1 mg 08/30/20 16:44 08/31/20 09:59 Lorazepam 1 Mg Tab PO 1 mg Q4H PRN Administration Anxiety/Agitation Mometasone Furoate/Formoterol Fumar 2 puff 08/31/20 06:30 08/31/20 08:33 Mometasone 200 Mcg/Formoterol 5 Mcg 120 Puff Inhaler INH Not Given BID-RT ROM Quetiapine Fumarate 25 mg 08/30/20 21:00 08/30/20 21:10 Quetiapine Fumarate 25 Mg Tab PO 25 mg HS ROM Administration Quetiapine Fumarate 12.5 mg 08/31/20 09:00 08/31/20 13:01 Quetiapine Fumarate 25 Mg Tab PO Not Given 0900,1200 [facility] Sertraline HCl 100 mg 08/31/20 09:00 08/31/20 09:57 Sertraline Hcl 100 Mg Tab PO 100 mg DAILY ROM Administration - Exam General Appearance: NAD, awake alert Eye: PERRL, anicteric sclera ENT: normocephalic atraumatic, no oropharyngeal lesions Neck: no JVD Heart: RRR, no murmur, no gallops, no rubs Respiratory: CTAB, no wheezes, no rales, no ronchi, normal percussion Gastrointestinal: soft, non-tender, non-distended, normal bowel sounds, no palpable masses Extremities: no cyanosis, no clubbing, no edema Extremities - other findings: extensive bruising left shoulder and upper back, tender to palpation Skin: normal turgor, no lesions, no rashes Neurological: cranial nerve grossly intact, normal sensation to touch, no weakness Musculoskeletal: normal tone, normal strength, no muscle wasting Psychiatric: A&O x 3 Hosp A/P - Plan F/u: hyponatremia This is a 60 year old female who presented with severe dizziness. She fell two days ago and states her left arm hurts. She was found to have a sodium of 122 and admitted for further workup Hyponatremia - BMP is 121, increased 7 points from yesterday. Will repeat BMP this afternoon to make sure it is not increasing too much - check urine and serum osmolarity. If consistent with SIADH, will add a fluid restriction Hypokalemia - potassium 3.3, will recheck Minimally displaced left clavicular fracture - will place ortho consult Leukocytosis- possibily from UTI - continue IV ceftriaxone. WBC has improved to 16.2 Macrocytic anemia - Hb 9.9, check B12/folate/TSH
[2020-08-31 16:21] LABS: Anion Gap 17 mmol/L (10-20); BUN (Urea Nitrogen) 6 mg/dL (9.8-20.1); Calc. Creatinine Clearance 81 mL/min (70-130); Calcium 8.2 mg/dL (7.8-10.44); Carbon Dioxide 24 mmol/L (23-31); Chloride 87 mmol/L (98-107); Glucose 94 mg/dL (80-115); Potassium 3.8 mmol/L (3.5-5.1); Sodium 124 mmol/L (136-145)
[2020-08-31 19:46] LABS: Anion Gap 17 mmol/L (10-20); BUN (Urea Nitrogen) 7 mg/dL (9.8-20.1); Calc. Creatinine Clearance 79 mL/min (70-130); Calcium 8.3 mg/dL (7.8-10.44); Carbon Dioxide 23 mmol/L (23-31); Chloride 90 mmol/L (98-107); Glucose 104 mg/dL (80-115); Potassium 4.1 mmol/L (3.5-5.1); Sodium 126 mmol/L (136-145)
[2020-08-31] MEDS: cefTRIAXone\\ROCEPHIN 1 GM in Sodium Chloride 0.9% 100 ML IVPB SCH (20:32)
[2020-09-01] MEDS: Lorazepam 1 MG TAB PO PRN (00:04)
[2020-09-01] MEDS: Mometasone 200 MCG/Formoterol 5 MCG 120 PUFF INHALER INH SCH ×3 (02:03→19:49)
[2020-09-01 04:19] LABS: Hemoglobin 10.2 g/dL (12.0-16.0); Mean Corpuscular HGB CONC 33.1 g/dL (32.0-36.0); Mean Corpuscular Hemoglobin 24.9 pg (27.0-31.0); Mean Corpuscular Volume 75.2 fL (78.0-98.0); Mean Platelet Volume 10.9 fL (7.4-10.4); Platelet Count 206 thou/uL (130-400); RBC Distribution Width 21.2 % (11.5-14.5); White Blood Cell (WBC) Count 13.8 thou/uL (4.8-10.8)
[2020-09-01 04:28] LABS: Anion Gap 17 mmol/L (10-20); BUN (Urea Nitrogen) 6 mg/dL (9.8-20.1); Calc. Creatinine Clearance 79 mL/min (70-130); Calcium 8.6 mg/dL (7.8-10.44); Carbon Dioxide 25 mmol/L (23-31); Chloride 89 mmol/L (98-107); Glucose 98 mg/dL (80-115); Potassium 3.7 mmol/L (3.5-5.1); Sodium 127 mmol/L (136-145)
[2020-09-01] MEDS: Atorvastatin Calcium 40 MG TAB PO SCH (09:42)
[2020-09-01] MEDS: Aspirin 325 MG TAB PO SCH (09:42)
[2020-09-01] MEDS: Famotidine 20 MG TAB PO SCH ×2 (09:42→20:42)
[2020-09-01] MEDS: Enoxaparin Sodium 40 MG/0.4 ML SYRINGE SC SCH (09:43)
[2020-09-01] MEDS: busPIRone HCl 10 MG TAB PO SCH ×2 (09:43→20:42)
--- NOTE | 2020-09-01 11:01 | PRG ---
DATE OF SERVICE: 09/01/2020 SUBJECTIVE: A 60-year-old female, being seen for hyponatremia. The patient is resting. PHYSICAL EXAMINATION: The patient is resting General: The patient is awake and alert. Vital Signs: Afebrile, pulse 85, breathing at 16, blood pressure 110/70. HEENT: Head normocephalic and atraumatic. Eyes intact, no ulcers. Nose intact, no ulcers. Ears intact, no ulcers. Neck: Supple. No JVD. Chest: Symmetrical and clear. Cardiovascular: Shows S1 and S2, no rub, no murmur. Gastrointestinal: Abdomen is soft, bowel sounds positive. Extremities: Show no edema or ulcers. Skin: Shows no rash or petechiae. Musculoskeletal: Shows no joint swelling or stiffness. Genitourinary: Shows no Antonio or CVA tenderness. Neurologic: Motor intact. Cranial nerves intact. LABORATORY DATA: Reviewed. ASSESSMENT AND PLAN: 1. Chronic kidney disease, stage 1, stable. 2. Hyponatremia, improved. 3. Medication based on GFR, appropriate. 4. I would recommend 1200 mL fluid restriction. I will sign off on this patient. Please reconsult as needed. Job ID: [id number]
--- NOTE | 2020-09-01 11:45 | CON ---
DATE OF CONSULTATION: REQUESTING PHYSICIAN: Erin Biswas MD CONSULTING PHYSICIAN: Torey Duff MD REASON FOR CONSULTATION: Left distal clavicle fracture from fall. BRIEF CLINICAL HISTORY: David is a 60-year-old female who was admitted by the medicine team for hyponatremia and change in mentation. She also sustained a fall, resulting in a left clavicle fracture, which is why our service has been consulted. PAST MEDICAL HISTORY: Her medical history is very complex and includes: 1. Hyponatremia. 2. Chronic alcohol use. 3. Chronic tobacco use. 4. Generalized deconditioning overall and poor health. Apparently, she was discharged about a month ago and has been readmitted to the hospital 2 days ago by the medicine team after a fall, striking her head. The pain in the clavicle was exacerbated with use of the arm. She does have some alleviating symptomatology with resting and reclining. She has not been placed in a sling at this point. She is aware of the discomfort and pain in her clavicle from the fracture. She denies any fever, chills, nausea, vomiting, or other constitutional symptoms preceding her fall. PHYSICAL EXAMINATION: GENERAL: She is alert, responsive, but quite groggy, but communicates appropriately, but not very effectively with examiner. She is alert, awakens, and responsive with examiner, but appears very somnolent. VITAL SIGNS: Temperature 98, pulse 100, respiratory rate 18, O2 saturation 94% on room air. EXTREMITIES: Visual inspection of the left chest wall demonstrates her to have bruising over the left distal clavicle as expected. Little bit tenderness is elicited with palpation. She is neurovascularly intact in the left upper extremity with good manager billing strength, 5/5 strength is noted. IMAGING STUDIES: Two views of left clavicle demonstrate a displaced distal clavicle fracture involving probably the last centimeter of the clavicle itself with not much shortening. IMPRESSION: Minimally displaced left distal clavicle fracture. PLAN: 1. Conservative treatment at this point will be instituted with an arm sling and may remove for showers and try to limit weightbearing as much as possible. Nonoperative management is highly recommended with this particular patient as well as this particular injury. No surgical recommendation will be made at this point. We will order a sling and sign off for now. If therapy is instituted, then she may be weightbearing as tolerated on the left upper extremity. 2. Reconsult as needed. Job ID: [id number]
--- NOTE | 2020-09-01 11:47 | RAD ---
2 VIEWS LEFT CLAVICLE: Date: 09/01/2020 HISTORY: Fracture. FINDINGS: There is an obliquely oriented left clavicle fracture distally with comminution. The distal fracture fragment demonstrates superior displacement measuring approximately 6-7 mm. Midline sternotomy wires are noted. There is a suture line in the left lung apex. IMPRESSION: Comminuted, displaced distal left clavicle fracture. POS: AH
--- NOTE | 2020-09-01 16:21 | PDOC.HOSPP ---
- Subjective Encounter Date: 09/01/20 Encounter Time: 11:00 Subjective: F/u : Hypernatremia, left clavicle fracture The patient is more alert today. SHe states she wants something to eat and would like mashed potatoes. She has no teeth . She denies headaches. She still has some left arm pain . She has not gotten out of bed yet - Objective Vital Signs & Weight: Vital Signs (12 hours) Temp Pulse Pulse Pulse Resp BP Pulse Ox 09/01/20 16:00 98.4 F 09/01/20 14:20 106 H 18 96 09/01/20 11:32 98.6 F 09/01/20 09:08 109 H 118 H 150/95 H 09/01/20 08:00 94 L 09/01/20 07:29 98.2 F 09/01/20 07:19 102 H 18 98 09/01/20 04:43 99 Pulse Ox Pulse Ox 09/01/20 16:00 09/01/20 14:20 09/01/20 11:32 09/01/20 09:08 100 100 09/01/20 08:00 09/01/20 07:29 09/01/20 07:19 09/01/20 04:43 Weight Admit Weight 81 lb 1 oz Weight 81 lb 1 oz Most Recent Monitor Data Heart Rate from ECG 107 NIBP 91/60 NIBP BP-Mean 70 Respiration from ECG 14 SpO2 92 I&O: 08/31/20 09/01/20 09/02/20 06:59 06:59 06:59 Intake Total 75 Output Total 100 Balance 75 -100 Result Diagrams: 09/01/20 03:48 09/01/20 03:48 Hospitalist ROS - Review of Systems Constitutional: denies: fever, chills - Medication Medications: Active Medications Generic Name Dose Route Start Last Admin Trade Name Freq PRN Reason Stop Dose Admin Albuterol/Ipratropium 3 ml 08/30/20 19:00 09/01/20 14:20 Ipratropium/Albuterol Sulfate 3 Ml Neb NEB 3 ml [id number] ROM Administration Aspirin 325 mg 08/31/20 08:00 09/01/20 09:42 Aspirin 325 Mg Tab PO 325 mg QAM-WM ROM Administration Atorvastatin Calcium 40 mg 08/31/20 09:00 09/01/20 09:42 Atorvastatin Calcium 40 Mg Tab PO 40 mg DAILY ROM Administration Buspirone HCl 30 mg 08/30/20 21:00 09/01/20 09:43 Buspirone Hcl 10 Mg Tab PO Not Given BID ROM Enoxaparin Sodium 40 mg 08/31/20 09:00 09/01/20 09:43 Enoxaparin Sodium 40 Mg/0.4 Ml Syringe SC 40 mg 0900 ROM Administration Famotidine 20 mg 08/30/20 21:00 09/01/20 09:42 Famotidine 20 Mg Tab PO 20 mg BID [facility] Administration Ceftriaxone Sodium 1 gm/ 100 mls @ 200 mls/hr 08/30/20 21:00 08/31/20 20:32 Sodium Chloride IVPB 100 mls Q24HR ROM Administration Lorazepam 1 mg 08/30/20 16:44 09/01/20 00:04 Lorazepam 1 Mg Tab PO 1 mg Q4H PRN Administration Anxiety/Agitation Mometasone Furoate/Formoterol Fumar 2 puff 08/31/20 06:30 09/01/20 07:18 Mometasone 200 Mcg/Formoterol 5 Mcg 120 Puff Inhaler INH 2 puff BID-RT ROM Administration Quetiapine Fumarate 25 mg 08/30/20 21:00 08/31/20 20:33 Quetiapine Fumarate 25 Mg Tab PO 25 mg HS ROM Administration Sertraline HCl 100 mg 08/31/20 09:00 09/01/20 09:42 Sertraline Hcl 100 Mg Tab PO 100 mg DAILY ROM Administration Sodium Chloride 10 ml 08/31/20 21:00 09/01/20 09:43 Flush - Normal Saline 10 Ml Syringe IVF 10 ml Q12HR ROM Administration - Exam General Appearance: NAD, awake alert General - other findings: drowsy Eye: PERRL, anicteric sclera ENT: normocephalic atraumatic, no oropharyngeal lesions Neck: no JVD Heart: RRR, no murmur, no gallops, no rubs Respiratory: CTAB, no wheezes, no rales, no ronchi, normal percussion Gastrointestinal: soft, non-tender, non-distended, normal bowel sounds Extremities: no cyanosis, no clubbing, no edema Extremities - other findings: pain on left shoulder Skin: normal turgor, no lesions, no rashes Skin - other findings: bruising of skin on the left shoulder Neurological: cranial nerve grossly intact, normal sensation to touch, no weakness Hosp A/P - Plan F/u: hyponatremia Clavicle Xray: comminuted, displaced left clavicle fracture This is a 60 year old female who presented with severe dizziness. She fell two days ago and states her left arm hurts. She was found to have a sodium of 122 a nd admitted for further workup Hyponatremia - likely from beer potomania, SIADH - sodium has improved to 127. Started fluid restriction today by nephrology. Serum osmolarity 255, urine osmolarity 590 Acute metabolic vs drug induced encephalopathy - still very drowsy. She gets seroquel tid, will discontinue - continue with PT Minimally displaced left clavicular fracture - ortho consulted. CLavicle X ray shows displaced left clavicle fracture. PLaced in a sling. Ortho recommended nonoperative management. Can remove for showers and limit weightbearing Hypokalemia -resolved Leukocytosis- possibily from UTI - continue IV ceftriaxone. WBC has improved to 13.8. Will send urine culture Microcytic anemia - Hb 10, B12/folate/TSH normal. Check iron panel in the am Dispo: transfer to medical floor if mental status improves
[2020-09-01 18:02] LABS: Anion Gap 16 mmol/L (10-20); BUN (Urea Nitrogen) 7 mg/dL (9.8-20.1); Calc. Creatinine Clearance 71 mL/min (70-130); Calcium 8.5 mg/dL (7.8-10.44); Carbon Dioxide 26 mmol/L (23-31); Chloride 92 mmol/L (98-107); Glucose 196 mg/dL (80-115); Potassium 3.1 mmol/L (3.5-5.1); Sodium 131 mmol/L (136-145)
[2020-09-01] MEDS: cefTRIAXone\\ROCEPHIN 1 GM in Sodium Chloride 0.9% 100 ML IVPB SCH (20:42)
--- NOTE | 2020-09-01 21:40 | PDOC.EVN ---
Event Note - Event Note Event Note: Patient's sodium has increased by 10 in 24 hours. Will add D5W to slow rate of correction for a few hours
[2020-09-01] MEDS ORDERED: Dextrose 5% in Water 1,000 ML IV SCH (21:45)
[2020-09-01] MEDS ORDERED: Potassium Chloride 20 MEQ TAB PO SCH (21:45)
[2020-09-02 04:14] LABS: Anion Gap 15 mmol/L (10-20); BUN (Urea Nitrogen) 7 mg/dL (9.8-20.1); Calc. Creatinine Clearance 74 mL/min (70-130); Calcium 8.9 mg/dL (7.8-10.44); Carbon Dioxide 28 mmol/L (23-31); Chloride 92 mmol/L (98-107); Glucose 144 mg/dL (80-115); Iron 36 ug/dL (50-170); Iron Binding Capacity, Total 271 mcg/dL (265-497); Potassium 3.8 mmol/L (3.5-5.1); Sodium 131 mmol/L (136-145)
[2020-09-02 05:31] LABS: Hemoglobin 10.4 g/dL (12.0-16.0); Mean Corpuscular HGB CONC 33.7 g/dL (32.0-36.0); Mean Corpuscular Hemoglobin 25.8 pg (27.0-31.0); Mean Corpuscular Volume 76.6 fL (78.0-98.0); Mean Platelet Volume 9.7 fL (7.4-10.4); Platelet Count 253 thou/uL (130-400); RBC Distribution Width 21.6 % (11.5-14.5); Red Blood Cell (RBC) Count 4.01 mill/uL (4.20-5.40); White Blood Cell (WBC) Count 11.3 thou/uL (4.8-10.8)
[2020-09-02] MEDS: Mometasone 200 MCG/Formoterol 5 MCG 120 PUFF INHALER INH SCH ×2 (06:47→19:06)
[2020-09-02] MEDS: Famotidine 20 MG TAB PO SCH ×2 (10:08→19:53)
[2020-09-02] MEDS: Aspirin 325 MG TAB PO SCH (10:08)
[2020-09-02] MEDS: Atorvastatin Calcium 40 MG TAB PO SCH (10:08)
[2020-09-02] MEDS: busPIRone HCl 10 MG TAB PO SCH ×2 (10:08→19:54)
[2020-09-02] MEDS: Enoxaparin Sodium 40 MG/0.4 ML SYRINGE SC SCH (10:09)
--- NOTE | 2020-09-02 10:19 | PRG ---
DATE OF SERVICE: 09/02/2020 SUBJECTIVE: A 60-year-old female, being seen for hyponatremia. The patient denies nausea, vomiting, or chest pain. OBJECTIVE: GENERAL: On exam, the patient is awake and alert. VITAL SIGNS: Afebrile, pulse , breathing at 16, and blood pressure 137/96. HEENT: Head normocephalic and atraumatic. Eyes intact, no ulcers. Nose intact, no ulcers. Ears intact, no ulcers. NECK: Supple. No JVD. CHEST: Symmetrical and clear. CARDIOVASCULAR: Shows S1 and S2, no rub, no murmur. GASTROINTESTINAL: Abdomen is soft, bowel sounds positive. EXTREMITIES: Show no edema or ulcers. SKIN: Shows no rash or petechiae. MUSCULOSKELETAL: Shows no joint swelling or stiffness. GENITOURINARY: Shows no Antonio or CVA tenderness. NEUROLOGIC: Motor intact. Cranial nerves intact. LABORATORY DATA: Reviewed. ASSESSMENT AND PLAN: 1. Chronic kidney disease, stage 1, stable. 2. Hypertension, stable. 3. Hyponatremia, resolved. I will sign off on this patient. Please reconsult as needed. Job ID: [id number]
--- NOTE | 2020-09-02 17:24 | PDOC.HOSPP ---
- Subjective Encounter Date: 09/02/20 Encounter Time: 14:00 Subjective: F/u: hyponatremia The patient's sodium has improved to 131. She is eating and drinking now. SHe complains of dizziness while walking and is very unsteady per nursing. Her family member stated that she did not look good and falls a lot at home. She reports a history of vertigo Family member told nurse that she drinks 12 beers daily Encephalopathy - nurse states that she did not know where she was earlier. She was heard calling for her mom and dad when I left the room - Objective Vital Signs & Weight: Vital Signs (12 hours) Temp Pulse Pulse Resp BP BP Pulse Ox 09/02/20 16:31 98.2 F 79 18 159/82 H 96 09/02/20 14:59 104 H 131/71 09/02/20 14:40 104 H 20 98 09/02/20 11:27 97.6 F 09/02/20 08:00 100 09/02/20 07:37 98.4 F 09/02/20 06:51 110 H 22 H 98 09/02/20 06:47 110 H 22 H 98 Weight Admit Weight 81 lb 1 oz Weight 81 lb 1 oz Most Recent Monitor Data Heart Rate from ECG 113 NIBP 137/87 NIBP BP-Mean 103 Respiration from ECG 19 SpO2 100 I&O: 09/01/20 09/02/20 09/03/20 06:59 06:59 06:59 Intake Total 720 Output Total 100 Balance -100 720 Result Diagrams: 09/02/20 03:37 09/02/20 03:37 Hospitalist ROS - Review of Systems Constitutional: denies: fever, chills - Medication Medications: Active Medications Generic Name Dose Route Start Last Admin Trade Name Freq PRN Reason Stop Dose Admin Albuterol/Ipratropium 3 ml 08/30/20 19:00 09/02/20 14:40 Ipratropium/Albuterol Sulfate 3 Ml Neb NEB 3 ml [id number] ROM Administration Aspirin 325 mg 08/31/20 08:00 09/02/20 10:08 Aspirin 325 Mg Tab PO 325 mg QAM-WM ROM Administration Atorvastatin Calcium 40 mg 08/31/20 09:00 09/02/20 10:08 Atorvastatin Calcium 40 Mg Tab PO 40 mg DAILY ROM Administration Buspirone HCl 30 mg 08/30/20 21:00 09/02/20 10:08 Buspirone Hcl 10 Mg Tab PO 30 mg BID ROM Administration Enoxaparin Sodium 40 mg 08/31/20 09:00 09/02/20 10:09 Enoxaparin Sodium 40 Mg/0.4 Ml Syringe SC 40 mg 0900 ROM Administration Famotidine 20 mg 08/30/20 21:00 09/02/20 10:08 Famotidine 20 Mg Tab PO 20 mg BID ROM Administration Ceftriaxone Sodium 1 gm/ 100 mls @ 200 mls/hr 08/30/20 21:00 09/01/20 20:42 Sodium Chloride IVPB 100 mls Q24HR ROM Administration Lorazepam 1 mg 08/30/20 16:44 09/01/20 00:04 Lorazepam 1 Mg Tab PO 1 mg Q4H PRN Administration Anxiety/Agitation Mometasone Furoate/Formoterol Fumar 2 puff 08/31/20 06:30 09/02/20 06:47 Mometasone 200 Mcg/Formoterol 5 Mcg 120 Puff Inhaler INH 2 puff BID-RT ROM Administration Quetiapine Fumarate 25 mg 08/30/20 21:00 09/01/20 20:42 Quetiapine Fumarate 25 Mg Tab PO 25 mg HS ROM Administration Sertraline HCl 100 mg 08/31/20 09:00 09/02/20 10:08 Sertraline Hcl 100 Mg Tab PO 100 mg DAILY ROM Administration Sodium Chloride 10 ml 08/31/20 21:00 09/02/20 10:35 Flush - Normal Saline 10 Ml Syringe IVF 10 ml Q12HR ROM Administration - Exam General Appearance: NAD, awake alert General - other findings: more awake, confused Eye: PERRL, anicteric sclera ENT: normocephalic atraumatic, no oropharyngeal lesions Neck: no JVD Heart: RRR, no murmur, no gallops, no rubs Respiratory: CTAB, no wheezes, no rales, no ronchi Gastrointestinal: soft, non-tender, non-distended, normal bowel sounds Extremities: no cyanosis, no clubbing, no edema Skin: normal turgor, no lesions, no rashes Hosp A/P - Plan F/u: hyponatremia Clavicle Xray: comminuted, displaced left clavicle fracture This is a 60 year old female who presented with severe dizziness. She fell two days ago and states her left arm hurts. She was found to have a sodium of 122 and admitted for further workup Hyponatremia - likely from beer potomania, SIADH - sodium has improved to 131. Continue fluid restriction. Acute metabolic vs drug induced encephalopathy vs from UTI - still very drowsy. Seroquel was discontinued. Will reduce the night dose - continue with PT Dizziness - check orthostatics. Will order meclizine prn UTI - patient with leukocytosis, is currently on day 4 of antibiotics. WBC has improved to 11. Urine culture normal - will switch IV ceftriaxone to oral Anemia of chronic disease - Hb 10, iron studies consistent with anemia of chronic disease. B12 and folate and TSH normal Minimally displaced left clavicular fracture - ortho consulted. CLavicle X ray shows displaced left clavicle fracture. PLaced in a sling. Ortho recommended nonoperative management. Can remove for showers and limit weightbearing Hypokalemia -resolved Dispo: transfer to medical floor if mental status improves
[2020-09-02] MEDS ORDERED: Cefdinir 300 MG CAP PO SCH (17:45)
[2020-09-03] MEDS: Acetaminophen 325 MG TAB PO PRN ×2 (01:43→18:34)
[2020-09-03 06:11] LABS: Hemoglobin 9.6 g/dL (12.0-16.0); Mean Corpuscular HGB CONC 33.1 g/dL (32.0-36.0); Mean Corpuscular Hemoglobin 25.4 pg (27.0-31.0); Mean Corpuscular Volume 76.6 fL (78.0-98.0); Mean Platelet Volume 8.8 fL (7.4-10.4); Platelet Count 316 thou/uL (130-400); RBC Distribution Width 21.6 % (11.5-14.5); Red Blood Cell (RBC) Count 3.77 mill/uL (4.20-5.40); White Blood Cell (WBC) Count 9.8 thou/uL (4.8-10.8)
[2020-09-03 06:31] LABS: Anion Gap 13 mmol/L (10-20); BUN (Urea Nitrogen) 10 mg/dL (9.8-20.1); Calc. Creatinine Clearance 81 mL/min (70-130); Calcium 8.7 mg/dL (7.8-10.44); Carbon Dioxide 28 mmol/L (23-31); Chloride 97 mmol/L (98-107); Glucose 102 mg/dL (80-115); Potassium 3.6 mmol/L (3.5-5.1); Sodium 134 mmol/L (136-145)
[2020-09-03] MEDS: Mometasone 200 MCG/Formoterol 5 MCG 120 PUFF INHALER INH SCH ×2 (07:12→18:19)
[2020-09-03] MEDS: Cefdinir 300 MG CAP PO SCH ×2 (08:40→21:51)
[2020-09-03] MEDS: Famotidine 20 MG TAB PO SCH ×2 (08:40→21:51)
[2020-09-03] MEDS: busPIRone HCl 10 MG TAB PO SCH ×2 (08:40→21:51)
[2020-09-03] MEDS: Aspirin 325 MG TAB PO SCH (08:40)
[2020-09-03] MEDS: Enoxaparin Sodium 40 MG/0.4 ML SYRINGE SC SCH (08:40)
[2020-09-03] MEDS: Atorvastatin Calcium 40 MG TAB PO SCH (08:40)
[2020-09-03] MEDS ORDERED: Fludrocortisone Acetate 0.1 MG TAB PO SCH (12:30)
--- NOTE | 2020-09-03 15:34 | PDOC.HOSPP ---
- Subjective Encounter Date: 09/03/20 Encounter Time: 11:00 Subjective: F/u: hyponatremia, dizziness The patient still feels dizzy while walking but improved from yesterday. Orthostatics positive yesterday 160 supine to 100 standing. She was given fludrocortisone and repeat orthostatics supine 137/75, sitting 123/76, standing 119/74 I discussed with the patient about going to rehab from here which she was agreeable, and thereafter she would probably benefit from a substance abuse [facility]. Spoke to patient's HCP with permission of the patient. She states she doesn't feel the patient needs the seroquel and [facility] had ordered it more for insomnia. She feels her insomnia was more from her drinking too much and it made her too sedated. The patient drinks two 16 ounce beers daily . - Objective Vital Signs & Weight: Vital Signs (12 hours) Temp Pulse Resp BP Pulse Ox 09/03/20 08:40 154/77 H 96 09/03/20 07:12 98 18 95 09/03/20 04:45 97.9 F 99 18 161/82 H 96 Weight Admit Weight 81 lb 1 oz Weight 81 lb 1 oz Most Recent Monitor Data Heart Rate from ECG 113 NIBP 137/87 NIBP BP-Mean 103 Respiration from ECG 19 SpO2 100 I&O: 09/02/20 09/03/20 09/04/20 06:59 06:59 06:59 Intake Total 720 250 Output Total 71 Balance 720 179 Result Diagrams: 09/03/20 05:47 09/03/20 05:47 Hospitalist ROS - Review of Systems Constitutional: denies: fever, chills - Medication Medications: Active Medications Generic Name Dose Route Start Last Admin Trade Name Freq PRN Reason Stop Dose Admin Acetaminophen 650 mg 08/30/20 16:44 09/03/20 01:43 Acetaminophen 325 Mg Tab PO 650 mg Q4H PRN Administration Headache/Fever/Mild Pain (1-3) Albuterol/Ipratropium 3 ml 08/30/20 19:00 09/03/20 14:58 Ipratropium/Albuterol Sulfate 3 Ml Neb NEB Not Given [id number] ROM Aspirin 325 mg 08/31/20 08:00 09/03/20 08:40 Aspirin 325 Mg Tab PO 325 mg QAM-WM ROM Administration Atorvastatin Calcium 40 mg 08/31/20 09:00 09/03/20 08:40 Atorvastatin Calcium 40 Mg Tab PO 40 mg DAILY ROM Administration Buspirone HCl 30 mg 08/30/20 21:00 09/03/20 08:40 Buspirone Hcl 10 Mg Tab PO 30 mg BID ROM Administration Cefdinir 300 mg 09/03/20 09:00 09/03/20 08:40 Cefdinir 300 Mg Cap PO 300 mg BID ROM Administration Enoxaparin Sodium 40 mg 08/31/20 09:00 09/03/20 08:40 Enoxaparin Sodium 40 Mg/0.4 Ml Syringe SC 40 mg 0900 ROM Administration Famotidine 20 mg 08/30/20 21:00 09/03/20 08:40 Famotidine 20 Mg Tab PO 20 mg BID ROM Administration Lorazepam 1 mg 08/30/20 16:44 09/01/20 00:04 Lorazepam 1 Mg Tab PO 1 mg Q4H PRN Administration Anxiety/Agitation Mometasone Furoate/Formoterol Fumar 2 puff 08/31/20 06:30 09/03/20 07:12 Mometasone 200 Mcg/Formoterol 5 Mcg 120 Puff Inhaler INH 2 puff BID-RT ROM Administration Sertraline HCl 100 mg 08/31/20 09:00 09/03/20 08:40 Sertraline Hcl 100 Mg Tab PO 100 mg DAILY ROM Administration Sodium Chloride 10 ml 08/31/20 21:00 09/03/20 08:41 Flush - Normal Saline 10 Ml Syringe IVF 10 ml Q12HR ROM Administration - Exam General Appearance: NAD, awake alert General - other findings: severely malnourished Eye: PERRL, anicteric sclera ENT: normocephalic atraumatic, no oropharyngeal lesions Neck: no JVD Heart: RRR, no murmur, no gallops, no rubs Respiratory: CTAB, no wheezes, no rales, no ronchi Gastrointestinal: soft, non-tender, non-distended, normal bowel sounds Extremities: no cyanosis, no clubbing, no edema Skin: normal turgor, no lesions, no rashes Neurological: cranial nerve grossly intact, normal sensation to touch, no weakne ss Hosp A/P - Plan F/u: hyponatremia Clavicle Xray: comminuted, displaced left clavicle fracture This is a 60 year old female who presented with severe dizziness. She fell two days ago and states her left arm hurts. She was found to have a sodium of 122 and admitted for further workup Hyponatremia - likely from beer potomania, SIADH -resolved, sodium up to 137 Acute metabolic vs drug induced encephalopathy vs from UTI - resolved. Seroquel will be completely discontinued Dizziness likely from orthostatic hypotension vs drug related - added fludrocortisone 0.1 mg daily with improvement in orthostatics but still mild dizziness. Advised to wear TORIBIO stockings - continue with PT UTI - patient with leukocytosis, is currently on day 5 of antibiotics. WBC has resolved to 9. Will discontinue cefdinir after tonights dose Minimally displaced left clavicular fracture - ortho consulted. CLavicle X ray shows displaced left clavicle fracture. PLaced in a sling. Ortho recommended nonoperative management. Can remove for showers and limit weightbearing Severe Malnutrition - will continue ensure supplements bid Anemia of chronic disease - Hb 10, iron studies consistent with anemia of chronic disease. B12 and folate and TSH normal Hypokalemia -resolved Dispo: case management consulted for rehab
[2020-09-04] MEDS: Mometasone 200 MCG/Formoterol 5 MCG 120 PUFF INHALER INH SCH ×2 (07:05→19:40)
[2020-09-04 07:31] LABS: Anion Gap 14 mmol/L (10-20); BUN (Urea Nitrogen) 14 mg/dL (9.8-20.1); Calc. Creatinine Clearance 79 mL/min (70-130); Calcium 8.5 mg/dL (7.8-10.44); Carbon Dioxide 28 mmol/L (23-31); Chloride 97 mmol/L (98-107); Glucose 95 mg/dL (80-115); Potassium 3.5 mmol/L (3.5-5.1); Sodium 135 mmol/L (136-145)
[2020-09-04] MEDS ORDERED: Potassium Chloride 20 MEQ TAB PO SCH (07:45)
[2020-09-04 08:07] LABS: Hemoglobin 10.2 g/dL (12.0-16.0); Mean Corpuscular HGB CONC 32.4 g/dL (32.0-36.0); Mean Corpuscular Hemoglobin 25.4 pg (27.0-31.0); Mean Corpuscular Volume 78.3 fL (78.0-98.0); Mean Platelet Volume 8.4 fL (7.4-10.4); Platelet Count 400 thou/uL (130-400); RBC Distribution Width 22.6 % (11.5-14.5); Red Blood Cell (RBC) Count 4.01 mill/uL (4.20-5.40); White Blood Cell (WBC) Count 6.1 thou/uL (4.8-10.8)
[2020-09-04] MEDS: Aspirin 325 MG TAB PO SCH (08:42)
[2020-09-04] MEDS: busPIRone HCl 10 MG TAB PO SCH ×2 (08:43→19:40)
[2020-09-04] MEDS: Atorvastatin Calcium 40 MG TAB PO SCH (08:44)
[2020-09-04] MEDS: Cefdinir 300 MG CAP PO SCH (08:44)
[2020-09-04] MEDS: Famotidine 20 MG TAB PO SCH ×2 (08:45→19:40)
[2020-09-04] MEDS: Fludrocortisone Acetate 0.1 MG TAB PO SCH (08:46)
[2020-09-04] MEDS: Enoxaparin Sodium 40 MG/0.4 ML SYRINGE SC SCH (08:46)
[2020-09-04] MEDS: HYDROcodone/Acetaminophen 5/325 mg Tablet PO PRN ×2 (12:51→19:40)
--- NOTE | 2020-09-04 18:03 | PDOC.HOSPP ---
- Subjective Encounter Date: 09/04/20 Encounter Time: 17:55 Subjective: f/u s/p fall with L clavicle fx managed non-operatively, hyponatremia due to beer potomania resolving. Awaiting rehab approval. - Objective Vital Signs & Weight: Vital Signs (12 hours) Temp Pulse Resp BP Pulse Ox 09/04/20 11:50 97.8 F 99 16 152/79 H 98 09/04/20 07:35 99.0 F 100 16 154/77 H 95 09/04/20 07:04 99 14 94 L Weight Admit Weight 81 lb 1 oz Weight 81 lb 1 oz Most Recent Monitor Data Heart Rate from ECG 113 NIBP 137/87 NIBP BP-Mean 103 Respiration from ECG 19 SpO2 100 I&O: 09/03/20 09/04/20 09/05/20 06:59 06:59 06:59 Intake Total 250 473 472 Output Total 71 Balance 179 473 472 Result Diagrams: 09/04/20 06:11 09/04/20 06:11 Additional Labs: Microbiology 09/01/20 06:55 Urine voided Urine Culture - Final NO GROWTH AT 48 HOURS Laboratory Tests 08/30/20 08/30/20 08/31/20 16:40 17:01 15:41 Sodium Iron Vitamin B12 Folate 8.40 TSH 3rd Generation Cortisol 36.10 SARS-CoV-2 (PCR) Not Detected 08/31/20 09/01/20 09/01/20 15:41 03:48 17:33 Sodium 127 L 131 L Iron Vitamin B12 1462 H Folate TSH 3rd Generation 1.0435 Cortisol SARS-CoV-2 (PCR) 09/02/20 09/03/20 03:37 05:47 Sodium 131 L 134 L Iron 36 L Vitamin B12 Folate TSH 3rd Generation Cortisol SARS-CoV-2 (PCR) Hospitalist ROS - Medication Medications: Active Medications Generic Name Dose Route Start Last Admin Trade Name Freq PRN Reason Stop Dose Admin Acetaminophen 650 mg 08/30/20 16:44 09/03/20 18:34 Acetaminophen 325 Mg Tab PO 650 mg Q4H PRN Administration Headache/Fever/Mild Pain (1-3) Hydrocodone Bitart/Acetaminophen 1 tab 08/30/20 16:44 09/04/20 12:51 Hydrocodone/Acetaminophen 5/325 Mg Tablet PO 1 tab Q4H PRN Administration Moderate Pain (4-6) Albuterol/Ipratropium 3 ml 08/30/20 19:00 09/04/20 15:30 Ipratropium/Albuterol Sulfate 3 Ml Neb NEB Not Given T5MW-OH ROM Aspirin 325 mg 08/31/20 08:00 09/04/20 08:42 Aspirin 325 Mg Tab PO 325 mg QAM-WM ROM Administration Atorvastatin Calcium 40 mg 08/31/20 09:00 09/04/20 08:44 Atorvastatin Calcium 40 Mg Tab PO 40 mg DAILY ROM Administration Buspirone HCl 30 mg 08/30/20 21:00 09/04/20 08:43 Buspirone Hcl 10 Mg Tab PO 30 mg BID ROM Administration Famotidine 20 mg 08/30/20 21:00 09/04/20 08:45 Famotidine 20 Mg Tab PO 20 mg BID ROM Administration Fludrocortisone Acetate 0.1 mg 09/04/20 09:00 09/04/20 08:46 Fludrocortisone Acetate 0.1 Mg Tab PO 0.1 mg DAILY ROM Administration Lorazepam 1 mg 08/30/20 16:44 09/01/20 00:04 Lorazepam 1 Mg Tab PO 1 mg Q4H PRN Administration Anxiety/Agitation Mometasone Furoate/Formoterol Fumar 2 puff 08/31/20 06:30 09/04/20 07:05 Mometasone 200 Mcg/Formoterol 5 Mcg 120 Puff Inhaler INH 2 puff BID-RT ROM Administration Sertraline HCl 100 mg 08/31/20 09:00 09/04/20 08:45 Sertraline Hcl 100 Mg Tab PO 100 mg DAILY ROM Administration Sodium Chloride 10 ml 08/31/20 21:00 09/04/20 09:10 Flush - Normal Saline 10 Ml Syringe IVF Not Given Q12HR ROM - Exam General Appearance: NAD, awake alert Eye: PERRL, anicteric sclera ENT: normocephalic atraumatic, no oropharyngeal lesions Neck: supple, symmetric, no JVD, no thyromegaly Heart: RRR, no murmur, no gallops, no rubs, normal peripheral pulses Heart - other findings: S1, S2 Respiratory: CTAB, no wheezes, no rales, no ronchi, normal chest expansion, no tachypnea Gastrointestinal: soft, non-tender, non-distended, normal bowel sounds, no palpable masses Extremities: no cyanosis Extremities - other findings: LUE in sling Skin: normal turgor, no lesions Neurological: cranial nerve grossly intact, no new deficit Musculoskeletal: normal tone, normal strength, no muscle wasting, diffuse muscle atrophy Psychiatric: normal affect, A&O x 3 Hosp A/P (1) Hyponatremia Code(s): E87.1 - HYPO-OSMOLALITY AND HYPONATREMIA Status: Chronic Plan: Secondary to SIADH/ETOH abuse, resolving currently (2) Alcohol abuse Code(s): F10.10 - ALCOHOL ABUSE, UNCOMPLICATED Status: Chronic Plan: ETOH cessation resources, may consider detox unit (3) Severe protein-calorie malnutrition Code(s): E43 - UNSPECIFIED SEVERE PROTEIN-CALORIE MALNUTRITION Status: Chronic Plan: Continue Regular diet/Ensure/Mighty shakes (4) Hypokalemia Code(s): E87.6 - HYPOKALEMIA Status: Acute Plan: Resolving, continue supplementation and serial monitoring (5) Acute metabolic encephalopathy Code(s): G93.41 - METABOLIC ENCEPHALOPATHY Status: Acute Plan: Resolved, likely multifactorial including severe hyponatremia - Plan PT/OT, administrator social welfare, out of bed/ambulate, DVT proph w/SCDs Stable currently Continue supportive mgmt OOB with PT CM assisting with rehab options Fluid restriction, Na+ replacement
[2020-09-05] MEDS: Mometasone 200 MCG/Formoterol 5 MCG 120 PUFF INHALER INH SCH ×2 (07:36→19:58)
[2020-09-05] MEDS: Famotidine 20 MG TAB PO SCH ×2 (08:22→20:47)
[2020-09-05] MEDS: Atorvastatin Calcium 40 MG TAB PO SCH (08:22)
[2020-09-05] MEDS: Fludrocortisone Acetate 0.1 MG TAB PO SCH (08:22)
[2020-09-05] MEDS: Aspirin 325 MG TAB PO SCH (08:22)
[2020-09-05] MEDS: busPIRone HCl 10 MG TAB PO SCH ×2 (08:22→20:47)
[2020-09-05] MEDS: Enoxaparin Sodium 30 MG/0.3 ML SYRINGE SC SCH (08:23)
--- NOTE | 2020-09-05 14:35 | PDOC.HOSPP ---
- Subjective Encounter Date: 09/05/20 Encounter Time: 14:30 Subjective: f/u for ETOH abuse, fall with L clavicle fx managed non-operatively. Overall feeling better, tolerating po intake. - Objective Vital Signs & Weight: Vital Signs (12 hours) Temp Pulse Resp BP Pulse Ox 09/05/20 07:36 108 H 18 94 L 09/05/20 07:32 97.6 F 109 H 18 145/83 H 94 L 09/05/20 04:45 97.9 F 108 H 16 159/81 H 96 Weight Admit Weight 81 lb 1 oz Weight 81 lb 1 oz Most Recent Monitor Data Heart Rate from ECG 113 NIBP 137/87 NIBP BP-Mean 103 Respiration from ECG 19 SpO2 100 I&O: 09/04/20 09/05/20 09/06/20 06:59 06:59 06:59 Intake Total 473 592 Balance 473 592 Result Diagrams: 09/04/20 06:11 09/04/20 06:11 Additional Labs: Microbiology 09/01/20 06:55 Urine voided Urine Culture - Final NO GROWTH AT 48 HOURS Laboratory Tests 08/30/20 08/30/20 08/31/20 16:40 17:01 15:41 Sodium Iron Vitamin B12 Folate 8.40 TSH 3rd Generation Cortisol 36.10 SARS-CoV-2 (PCR) Not Detected 08/31/20 09/01/20 09/01/20 15:41 03:48 17:33 Sodium 127 L 131 L Iron Vitamin B12 1462 H Folate TSH 3rd Generation 1.0435 Cortisol SARS-CoV-2 (PCR) 09/02/20 09/03/20 03:37 05:47 Sodium 131 L 134 L Iron 36 L Vitamin B12 Folate TSH 3rd Generation Cortisol SARS-CoV-2 (PCR) Hospitalist ROS - Medication Medications: Active Medications Generic Name Dose Route Start Last Admin Trade Name Freq PRN Reason Stop Dose Admin Acetaminophen 650 mg 08/30/20 16:44 09/03/20 18:34 Acetaminophen 325 Mg Tab PO 650 mg Q4H PRN Administration Headache/Fever/Mild Pain (1-3) Hydrocodone Bitart/Acetaminophen 1 tab 08/30/20 16:44 09/04/20 19:40 Hydrocodone/Acetaminophen 5/325 Mg Tablet PO 1 tab Q4H PRN Administration Moderate Pain (4-6) Albuterol/Ipratropium 3 ml 08/30/20 19:00 09/05/20 07:36 Ipratropium/Albuterol Sulfate 3 Ml Neb NEB 3 ml [id number] ROM Administration Aspirin 325 mg 08/31/20 08:00 09/05/20 08:22 Aspirin 325 Mg Tab PO 325 mg QAM-WM ROM Administration Atorvastatin Calcium 40 mg 08/31/20 09:00 09/05/20 08:22 Atorvastatin Calcium 40 Mg Tab PO 40 mg DAILY ROM Administration Buspirone HCl 30 mg 08/30/20 21:00 09/05/20 08:22 Buspirone Hcl 10 Mg Tab PO 30 mg BID ROM Administration Enoxaparin Sodium 30 mg 09/05/20 09:00 09/05/20 08:23 Enoxaparin Sodium 30 Mg/0.3 Ml Syringe SC 30 mg 0900 ROM Administration Famotidine 20 mg 08/30/20 21:00 09/05/20 08:22 Famotidine 20 Mg Tab PO 20 mg BID ROM Administration Fludrocortisone Acetate 0.1 mg 09/04/20 09:00 09/05/20 08:22 Fludrocortisone Acetate 0.1 Mg Tab PO 0.1 mg DAILY ROM Administration Lorazepam 1 mg 08/30/20 16:44 09/01/20 00:04 Lorazepam 1 Mg Tab PO 1 mg Q4H PRN Administration Anxiety/Agitation Mometasone Furoate/Formoterol Fumar 2 puff 08/31/20 06:30 09/05/20 07:36 Mometasone 200 Mcg/Formoterol 5 Mcg 120 Puff Inhaler INH 2 puff BID-RT ROM Administration Sertraline HCl 100 mg 08/31/20 09:00 09/05/20 08:22 Sertraline Hcl 100 Mg Tab PO 100 mg DAILY ROM Administration Sodium Chloride 10 ml 08/31/20 21:00 09/05/20 08:23 Flush - Normal Saline 10 Ml Syringe IVF 10 ml Q12HR ROM Administration - Exam General Appearance: NAD, awake alert Eye: PERRL, anicteric sclera ENT: normocephalic atraumatic, no oropharyngeal lesions Neck: supple, symmetric, no JVD, no thyromegaly, no lymphadenopathy Heart: RRR, no murmur, no gallops, no rubs, normal peripheral pulses Heart - other findings: S1, S2 Respiratory: CTAB, no wheezes, no rales, no ronchi, normal chest expansion, no tachypnea Gastrointestinal: soft, non-tender, non-distended, normal bowel sounds, no palpable masses Extremities: no cyanosis, no clubbing Extremities - other findings: L distal clavicle with ecchymosis, TTP Skin: normal turgor, no lesions Neurological: cranial nerve grossly intact, no new deficit Musculoskeletal: normal tone, generalized weakness Psychiatric: normal affect, A&O x 3 Hosp A/P (1) Hyponatremia Code(s): E87.1 - HYPO-OSMOLALITY AND HYPONATREMIA Status: Chronic Plan: Improved, continue supportive mgmt (2) Alcohol abuse Code(s): F10.10 - ALCOHOL ABUSE, UNCOMPLICATED Status: Chronic Plan: Cessation resources, no withdrawal sx (3) Severe protein-calorie malnutrition Code(s): E43 - UNSPECIFIED SEVERE PROTEIN-CALORIE MALNUTRITION Status: Chronic Plan: Continue Ensure/Mighty shakes/Reg diet (4) Hypokalemia Code(s): E87.6 - HYPOKALEMIA Status: Acute Plan: Resolved (5) Acute metabolic encephalopathy Code(s): G93.41 - METABOLIC ENCEPHALOPATHY Status: Acute - Plan PT/OT, social security benefits interviewer, out of bed/ambulate, DVT proph w/SCDs Stable currently Continue supportive mgmt OOB with PT CM assisting with rehab options Fluid restriction, Na+ replacement
[2020-09-05] MEDS: HYDROcodone/Acetaminophen 5/325 mg Tablet PO PRN ×2 (17:24→21:31)
[2020-09-06] MEDS: Acetaminophen 325 MG TAB PO PRN (04:08)
[2020-09-06] MEDS: busPIRone HCl 10 MG TAB PO SCH ×2 (08:04→19:52)
[2020-09-06] MEDS: Aspirin 325 MG TAB PO SCH (08:04)
[2020-09-06] MEDS: Atorvastatin Calcium 40 MG TAB PO SCH (08:04)
[2020-09-06] MEDS: Fludrocortisone Acetate 0.1 MG TAB PO SCH (08:04)
[2020-09-06] MEDS: Enoxaparin Sodium 30 MG/0.3 ML SYRINGE SC SCH (08:04)
[2020-09-06] MEDS: Famotidine 20 MG TAB PO SCH ×2 (08:05→19:52)
[2020-09-06] MEDS: Mometasone 200 MCG/Formoterol 5 MCG 120 PUFF INHALER INH SCH ×2 (11:46→18:59)
--- NOTE | 2020-09-06 16:42 | PDOC.HOSPP ---
- Subjective Encounter Date: 09/06/20 Encounter Time: 16:45 Subjective: f/u for ETOH abuse/fall/L clavicle fx managed non-operatively. Awaiting placmement options. - Objective Vital Signs & Weight: Vital Signs (12 hours) Temp Pulse Resp BP BP BP Pulse Ox 09/06/20 08:39 164/93 H 164/89 H 09/06/20 07:33 97.9 F 109 H 20 167/90 H 93 L Pulse Ox Pulse Ox 09/06/20 08:39 97 95 09/06/20 07:33 Weight Admit Weight 81 lb 1 oz Weight 81 lb 1 oz Most Recent Monitor Data Heart Rate from ECG 113 NIBP 137/87 NIBP BP-Mean 103 Respiration from ECG 19 SpO2 100 I&O: 09/05/20 09/06/20 09/07/20 06:59 06:59 06:59 Intake Total 592 370 Balance 592 370 Result Diagrams: 09/04/20 06:11 09/04/20 06:11 Additional Labs: Microbiology 09/01/20 06:55 Urine voided Urine Culture - Final NO GROWTH AT 48 HOURS Laboratory Tests 08/30/20 08/30/20 08/31/20 16:40 17:01 15:41 Sodium Iron Vitamin B12 Folate 8.40 TSH 3rd Generation Cortisol 36.10 SARS-CoV-2 (PCR) Not Detected 08/31/20 09/01/20 09/01/20 15:41 03:48 17:33 Sodium 127 L 131 L Iron Vitamin B12 1462 H Folate TSH 3rd Generation 1.0435 Cortisol SARS-CoV-2 (PCR) 09/02/20 09/03/20 03:37 05:47 Sodium 131 L 134 L Iron 36 L Vitamin B12 Folate TSH 3rd Generation Cortisol SARS-CoV-2 (PCR) Hospitalist ROS - Medication Medications: Active Medications Generic Name Dose Route Start Last Admin Trade Name Freq PRN Reason Stop Dose Admin Acetaminophen 650 mg 08/30/20 16:44 09/06/20 04:08 Acetaminophen 325 Mg Tab PO 650 mg Q4H PRN Administration Headache/Fever/Mild Pain (1-3) Hydrocodone Bitart/Acetaminophen 1 tab 08/30/20 16:44 09/05/20 21:31 Hydrocodone/Acetaminophen 5/325 Mg Tablet PO 1 tab Q4H PRN Administration Moderate Pain (4-6) Albuterol/Ipratropium 3 ml 08/30/20 19:00 09/06/20 14:34 Ipratropium/Albuterol Sulfate 3 Ml Neb NEB Not Given [id number] ROM Aspirin 325 mg 08/31/20 08:00 09/06/20 08:04 Aspirin 325 Mg Tab PO 325 mg QAM-WM ROM Administration Atorvastatin Calcium 40 mg 08/31/20 09:00 09/06/20 08:04 Atorvastatin Calcium 40 Mg Tab PO 40 mg DAILY ROM Administration Buspirone HCl 30 mg 08/30/20 21:00 09/06/20 08:04 Buspirone Hcl 10 Mg Tab PO 30 mg BID ROM Administration Enoxaparin Sodium 30 mg 09/05/20 09:00 09/06/20 08:04 Enoxaparin Sodium 30 Mg/0.3 Ml Syringe SC 30 mg 0900 ROM Administration Famotidine 20 mg 08/30/20 21:00 09/06/20 08:05 Famotidine 20 Mg Tab PO 20 mg BID ROM Administration Fludrocortisone Acetate 0.1 mg 09/04/20 09:00 09/06/20 08:04 Fludrocortisone Acetate 0.1 Mg Tab PO 0.1 mg DAILY ROM Administration Lorazepam 1 mg 08/30/20 16:44 09/01/20 00:04 Lorazepam 1 Mg Tab PO 1 mg Q4H PRN Administration Anxiety/Agitation Mometasone Furoate/Formoterol Fumar 2 puff 08/31/20 06:30 09/06/20 11:46 Mometasone 200 Mcg/Formoterol 5 Mcg 120 Puff Inhaler INH Not Given BID-RT ROM Sertraline HCl 100 mg 08/31/20 09:00 09/06/20 08:04 Sertraline Hcl 100 Mg Tab PO 100 mg DAILY ROM Administration Sodium Chloride 10 ml 08/31/20 21:00 09/06/20 08:05 Flush - Normal Saline 10 Ml Syringe IVF 10 ml Q12HR ROM Administration - Exam General Appearance: NAD, awake alert Eye: PERRL, anicteric sclera ENT: normocephalic atraumatic, no oropharyngeal lesions Neck: supple, symmetric, no JVD, no thyromegaly, no lymphadenopathy Heart: RRR, no gallops, no rubs, normal peripheral pulses Heart - other findings: S1, S2 Respiratory: CTAB, no wheezes, no rales, no ronchi, normal chest expansion, no t achypnea Gastrointestinal: soft, non-tender, non-distended, normal bowel sounds, no palpable masses Extremities: no cyanosis, no clubbing, no edema Skin: normal turgor, no lesions Neurological: cranial nerve grossly intact, no new deficit Musculoskeletal: normal tone, generalized weakness Psychiatric: normal affect, A&O x 3 Hosp A/P (1) Hyponatremia Code(s): E87.1 - HYPO-OSMOLALITY AND HYPONATREMIA Status: Chronic Plan: Improved, continue routine monitoring, secondary to ETOH abuse (2) Alcohol abuse Code(s): F10.10 - ALCOHOL ABUSE, UNCOMPLICATED Status: Chronic Plan: Cessation resources (3) Severe protein-calorie malnutrition Code(s): E43 - UNSPECIFIED SEVERE PROTEIN-CALORIE MALNUTRITION Status: Chronic Plan: Continue Reg Diet/Ensure Enlive/Mighty Shakes (4) Hypokalemia Code(s): E87.6 - HYPOKALEMIA Status: Acute Plan: Resolved (5) Acute metabolic encephalopathy Code(s): G93.41 - METABOLIC ENCEPHALOPATHY Status: Acute - Plan PT/OT, social work specialist, out of bed/ambulate, DVT proph w/SCDs Stable currently Continue supportive mgmt OOB with PT CM assisting with rehab options Fluid restriction, Na+ replacement
[2020-09-06] MEDS: HYDROcodone/Acetaminophen 5/325 mg Tablet PO PRN (19:52)
[2020-09-06] MEDS: Meclizine HCl 25 MG TAB PO PRN (19:58)
[2020-09-06] MEDS: Lorazepam 1 MG TAB PO PRN (21:37)
[2020-09-07] MEDS: Mometasone 200 MCG/Formoterol 5 MCG 120 PUFF INHALER INH SCH ×2 (07:21→19:02)
[2020-09-07] MEDS: Aspirin 325 MG TAB PO SCH (08:25)
[2020-09-07] MEDS: Fludrocortisone Acetate 0.1 MG TAB PO SCH (08:25)
[2020-09-07] MEDS: busPIRone HCl 10 MG TAB PO SCH ×2 (08:25→20:03)
[2020-09-07] MEDS: Famotidine 20 MG TAB PO SCH ×2 (08:25→20:03)
[2020-09-07] MEDS: Atorvastatin Calcium 40 MG TAB PO SCH (08:25)
[2020-09-07] MEDS: Enoxaparin Sodium 30 MG/0.3 ML SYRINGE SC SCH (08:25)
[2020-09-07] MEDS: HYDROcodone/Acetaminophen 5/325 mg Tablet PO PRN ×2 (08:33→16:09)
--- NOTE | 2020-09-07 13:02 | PDOC.HOSPP ---
- Subjective Encounter Date: 09/07/20 Encounter Time: 13:00 Subjective: f/u s/p fall/ETOH abuse/L clavicle fracture and severe deconditioning. Nurse reports pt unsteady and needing CGA using bedside toilet. - Objective Vital Signs & Weight: Vital Signs (12 hours) Temp Pulse Resp BP Pulse Ox 09/07/20 07:53 98.8 F 113 H 18 120/72 95 09/07/20 07:19 101 H 14 97 09/07/20 01:42 102 H 12 94 L Weight Admit Weight 81 lb 1 oz Weight 81 lb 1 oz Most Recent Monitor Data Heart Rate from ECG 113 NIBP 137/87 NIBP BP-Mean 103 Respiration from ECG 19 SpO2 100 I&O: 09/06/20 09/07/20 09/08/20 06:59 06:59 06:59 Intake Total 370 510 240 Balance 370 510 240 Result Diagrams: 09/04/20 06:11 09/04/20 06:11 Hospitalist ROS - Medication Medications: Active Medications Generic Name Dose Route Start Last Admin Trade Name Freq PRN Reason Stop Dose Admin Acetaminophen 650 mg 08/30/20 16:44 09/06/20 04:08 Acetaminophen 325 Mg Tab PO 650 mg Q4H PRN Administration Headache/Fever/Mild Pain (1-3) Hydrocodone Bitart/Acetaminophen 1 tab 08/30/20 16:44 09/07/20 08:33 Hydrocodone/Acetaminophen 5/325 Mg Tablet PO 1 tab Q4H PRN Administration Moderate Pain (4-6) Albuterol/Ipratropium 3 ml 08/30/20 19:00 09/07/20 07:19 Ipratropium/Albuterol Sulfate 3 Ml Neb NEB 3 ml [id number] Administration Aspirin 325 mg 08/31/20 08:00 09/07/20 08:25 Aspirin 325 Mg Tab PO 325 mg QAM-WM ROM Administration Atorvastatin Calcium 40 mg 08/31/20 09:00 09/07/20 08:25 Atorvastatin Calcium 40 Mg Tab PO 40 mg DAILY ROM Administration Buspirone HCl 30 mg 08/30/20 21:00 09/07/20 08:25 Buspirone Hcl 10 Mg Tab PO 30 mg BID ROM Administration Enoxaparin Sodium 30 mg 09/05/20 09:00 09/07/20 08:25 Enoxaparin Sodium 30 Mg/0.3 Ml Syringe SC 30 mg 0900 ROM Administration Famotidine 20 mg 08/30/20 21:00 09/07/20 08:25 Famotidine 20 Mg Tab PO 20 mg BID ROM Administration Fludrocortisone Acetate 0.1 mg 09/04/20 09:00 09/07/20 08:25 Fludrocortisone Acetate 0.1 Mg Tab PO 0.1 mg DAILY ROM Administration Lorazepam 1 mg 08/30/20 16:44 09/06/20 21:37 Lorazepam 1 Mg Tab PO 1 mg Q4H PRN Administration Anxiety/Agitation Meclizine HCl 25 mg 09/02/20 14:21 09/06/20 19:58 Meclizine Hcl 25 Mg Tab PO 25 mg Q8H PRN Administration Dizziness Mometasone Furoate/Formoterol Fumar 2 puff 08/31/20 06:30 09/07/20 07:21 Mometasone 200 Mcg/Formoterol 5 Mcg 120 Puff Inhaler INH 2 puff BID-RT ROM Administration Sertraline HCl 100 mg 08/31/20 09:00 09/07/20 08:25 Sertraline Hcl 100 Mg Tab PO 100 mg DAILY ROM Administration Sodium Chloride 10 ml 08/31/20 21:00 09/07/20 08:26 Flush - Normal Saline 10 Ml Syringe IVF 10 ml Q12HR ROM Administration - Exam General Appearance: NAD, awake alert Eye: PERRL, anicteric sclera ENT: normocephalic atraumatic, no oropharyngeal lesions Neck: supple, symmetric, no JVD, no thyromegaly, no lymphadenopathy Heart: RRR, no murmur, no gallops, no rubs, normal peripheral pulses Heart - other findings: S1, S2 Respiratory: CTAB, no wheezes, no rales, no ronchi, normal chest expansion, no tachypnea Gastrointestinal: soft, non-tender, non-distended, normal bowel sounds, no palpable masses Extremities: no cyanosis, no clubbing, no edema Skin: normal turgor Neurological: cranial nerve grossly intact, no new deficit Musculoskeletal: normal tone, generalized weakness Psychiatric: A&O x 3, flat affect Hosp A/P (1) Hyponatremia Code(s): E87.1 - HYPO-OSMOLALITY AND HYPONATREMIA Status: Chronic Plan: Improved, avoid ETOH, serial monitoring (2) Alcohol abuse Code(s): F10.10 - ALCOHOL ABUSE, UNCOMPLICATED Status: Chronic Plan: Cessation resources (3) Severe protein-calorie malnutrition Code(s): E43 - UNSPECIFIED SEVERE PROTEIN-CALORIE MALNUTRITION Status: Chronic Plan: Regular Diet/Ensure Enlive/Mighty Shakes (4) Hypokalemia Code(s): E87.6 - HYPOKALEMIA Status: Acute Plan: Resolved (5) Acute metabolic encephalopathy Code(s): G93.41 - METABOLIC ENCEPHALOPATHY Status: Acute (6) Physical deconditioning Code(s): R53.81 - OTHER MALAISE Status: Chronic Plan: OOB with PT, likely will need HH or SNF but unfunded - Plan PT/OT, social services analyst, out of bed/ambulate, DVT proph w/SCDs Stable currently Continue supportive mgmt OOB with PT SNF and HH likely not an option given pt is unfunded Fluid restriction, Na+ replacement Fall risk precautions
[2020-09-07] MEDS: Meclizine HCl 25 MG TAB PO PRN (16:09)
[2020-09-07] MEDS: Lorazepam 1 MG TAB PO PRN (20:03)
[2020-09-08 07:58] VITALS: BP 148/81; TEMP 97.8
[2020-09-08] MEDS: Atorvastatin Calcium 40 MG TAB PO SCH (08:42)
[2020-09-08] MEDS: busPIRone HCl 10 MG TAB PO SCH (08:42)
[2020-09-08] MEDS: Famotidine 20 MG TAB PO SCH (08:42)
[2020-09-08] MEDS: Aspirin 325 MG TAB PO SCH (08:42)
[2020-09-08] MEDS: Enoxaparin Sodium 30 MG/0.3 ML SYRINGE SC SCH (08:43)
[2020-09-08] MEDS: Fludrocortisone Acetate 0.1 MG TAB PO SCH (08:53)
[2020-09-08] MEDS: Meclizine HCl 25 MG TAB PO PRN (08:53)
--- NOTE | 2020-09-08 10:44 | DIS ---
DATE OF ADMISSION: 08/30/2020 DATE OF DISCHARGE: 09/08/2020 DISCHARGE DIAGNOSES: 1. Hyponatremia, acute on chronic secondarily to beer potomania; improved. 2. Hypokalemia, resolved. 3. Left clavicle fracture, conservative management. 4. Chronic alcohol abuse. 5. Severe protein calorie malnutrition. 6. Acute metabolic encephalopathy, multifactorial, improved. 7. Physical deconditioning. 8. Multiple falls. 9. Hypertension. CONSULTATIONS: Dr. Denis with Nephrology Service. PERTINENT LABORATORY AND X-RAY FINDINGS: Sodium ranged between 114-135, potassium ranged between 2.7 to 4.1, phosphorus 1.6, magnesium level ranged between 1.9 to 2.0. Serum iron level 36, TIBC 271, ferritin 319. Vitamin B12 level 1462. Folate level 8.40. TSH 1.04. Serum cortisol level 36.1. CBC showed a white blood cell count ranged between 6.1 to 18.3, hemoglobin ranged between 9.6 to 11.7. Urine drug screen dated 08/30/2020 negative. Plasma alcohol level less than 10. COVID-19 PCR not detected 08/30/2020. Urine culture dated 09/01/2020, showed no growth at 48 hours. Abdominal ultrasound dated 08/30/2020, showed fatty liver without acute process. CT of the brain without contrast dated 08/30/2020, showed no acute cardiopulmonary process. Portable chest x-ray dated 08/30/2020, showed no acute intrathoracic process. Minimally displaced left distal clavicle fracture. HOSPITAL COURSE: The patient was initially admitted after presenting with generalized weakness, vertigo, general deconditioning, and recent fall. The patient was initially managed with IV fluids with chest imaging showing a minimally displaced left clavicle fracture. The patient with chronic alcohol abuse with associated hyponatremia, treated with intravenous normal saline and consultation with Nephrology Service. The patient received generous IV fluid replacement with serial monitoring of sodium level showing overall improving values in a controlled manner. The patient's initial sodium of 114, corrected to 135 by the time of discharge. The patient also received electrolyte replacement protocol due to hypokalemia and hypophosphatemia and received general supportive management. The patient was also held on all antihypertensive medications after initial presentation with hypotension, likely multifactorial including dehydration and poor nutrition. The patient was evaluated by the Orthopedic Surgery Service, however, was deemed appropriate for conservative management of her left clavicle fracture with left arm sling. The patient was evaluated for potential prison inpatient rehab placement. However, due to lack of insurance, was unable to secure a bed. The patient did ambulate with Physical Therapy up to 160 feet with standby assistance. The patient was noted with unsteady gait, however, was able to mobilize and transfer from the bed to sitting position and the toilet with minimal assistance. I have examined the patient at the time of discharge and discussed followup instructions. The patient verbalizes understanding and agreement; ready for discharge on 09/08/2020. DISCHARGE MEDICATIONS: 1. BuSpar 30 mg p.o. b.i.d. 2. Lisinopril 5 mg p.o. daily. 3. Meclizine 12.5 mg p.o. daily p.r.n. 4. Lipitor 40 mg p.o. daily. 5. Dulera 2 puffs inhaled b.i.d. 6. Zoloft 100 mg p.o. daily. 7. Albuterol sulfate 2 puffs inhaled q.4-6 hours p.r.n. FOLLOWUP: The patient may follow up with her primary clinic at [place], [place]. The patient will follow up with the Orthopedic Surgery Service and to call their office for appointment time and date. CONDITION ON DISCHARGE: Fair. ACTIVITY: Ad-carmina. DIET: Regular. CODE STATUS: Full. DISPOSITION: To home, 09/08/2020. TIME SPENT: Total time preparing and coordinating discharge, 35 minutes. Job ID: [id number]
[2020-09-08] MEDS: Mometasone 200 MCG/Formoterol 5 MCG 120 PUFF INHALER INH SCH (14:08)
--- NOTE | 2020-09-11 16:53 | EKG ---
Test Reason : DIZZINESS Blood Pressure : / mmHG Vent. Rate : 097 BPM Atrial Rate : 097 BPM P-R Int : 174 ms QRS Dur : 092 ms QT Int : 434 ms P-R-T Axes : 076 087 057 degrees QTc Int : 551 ms Normal sinus rhythm Possible Left atrial enlargement Anterior infarct , age undetermined Abnormal ECG Confirmed by ADINA VANEGAS ([id number]), staff editor LAZARO ZHENG ([id number]) on 09/11/2020 4:53:06 PM Referred By: MOHIT Confirmed By:ADINA Mendoza
== END 2020-09-08 14:48 | disposition home or self-care (01) | DRG 643 ==
LOC: ERS 12:11 → ERHOLD 14:51 → IMCU/EMU 19:48 → T4-B 09-02 16:52
PROVIDERS: ADMIT Internal Medicine; ATTEND Internal Medicine
DX: E22.2 Syndrome of inappropriate secretion of antidiuretic hormone (principal); E43 Unspecified severe protein-calorie malnutrition; G93.41 Metabolic encephalopathy; Z68.1 Body mass index [BMI] 19.9 or less, adult; N39.0 Urinary tract infection, site not specified; Z20.828 Contact with and (suspected) exposure to other viral communicable diseases; E87.6 Hypokalemia; Y90.0 Blood alcohol level of less than 20 mg/100 ml; E83.39 Other disorders of phosphorus metabolism; E86.0 Dehydration; F17.210 Nicotine dependence, cigarettes, uncomplicated; R74.01 Elevation of levels of liver transaminase levels; J44.9 Chronic obstructive pulmonary disease, unspecified; I25.5 Ischemic cardiomyopathy; G62.9 Polyneuropathy, unspecified; F41.9 Anxiety disorder, unspecified; I25.10 Atherosclerotic heart disease of native coronary artery without angina pectoris; F32.9 Major depressive disorder, single episode, unspecified; F10.20 Alcohol dependence, uncomplicated; S42.032A Displaced fracture of lateral end of left clavicle, initial encounter for closed fracture; E83.42 Hypomagnesemia; N18.1 Chronic kidney disease, stage 1; I12.9 Hypertensive chronic kidney disease with stage 1 through stage 4 chronic kidney disease, or unspecified chronic kidney disease; W18.30XA Fall on same level, unspecified, initial encounter; R29.6 Repeated falls; Z91.81 History of falling; Z28.21 Immunization not carried out because of patient refusal; Z79.899 Other long term (current) drug therapy; Z91.018 Allergy to other foods; Z95.1 Presence of aortocoronary bypass graft
CPT/HCPCS: 36415; 51701; 70450; 71045; 76705; 80048; 80053; 80306; 80307; 81003; 82533; 82607; 82728; 82746; 83540; 83550; 83735; 83930; 83935; 84100; 84443; 84484; 85025; 85027; 87086; 87635; 93005; 94640; J0696; J1650; J3475; J3490; J7620; U0003

== ENCOUNTER 2020-10-03 17:41 | Inpatient (IN) | payer MEDICAID, OTHER, SELFPAY ==
[~2020-10-03 17:41] MED LIST changes: -Aminocaproic Acid 5 GM/20 ML VIAL ONE; -Calcium Chloride 1 GM/10 ML Abboject SYRINGE ONE; -Cardioplegic Soln 1,000 ML BAG ONE; -Dexamethasone 20 MG/5 ML VIAL ONE; -EPHEDRINE 25 MG/5 ML SYRINGE ONE; -Heparin 10,000 UNITS/ 10 ML VIAL ONE; -Heparin 30,000 units/30 ml VIAL ONE; -Heparin 5,000 UNITS/ML VIAL ONE; -Iopamidol 370 76% 100 ML VIAL ONE; -Iopamidol 370 76% 50 ML VIAL FS ONE; +Iopamidol-370 76% 500 ML 1 ML ONE; -Ketorolac Tromethamine 30 MG/ML VIAL ONE; -Lidocaine 2% PF 5 ML VIAL ONE; -Magnesium Sulfate 1 GM/2 ML VIAL ONE; -Metoprolol Tartrate 5 MG/5 ML VIAL ONE; -Nitroglycerin 50 MG/250 ML BOT ONE; -PHENYLEPHRINE-NS 100 MCG/ML 10 ML SYRINGE ONE; -Papaverine 60 MG/2 ML VIAL ONE; -Potassium Chloride 60 MEQ/30 ML VIAL ONE; -Protamine Sulfate 250 MG/25 ML VIAL ONE; -Sodium Bicarb 50 MEQ/50 ML Abboject 8.4% SYRINGE ONE; -Thrombin 5000 UNITS/5 ML VIAL ONE; -Vecuronium 10 MG VIAL ONE
[2020-10-03] MEDS ORDERED: chlordiazePOXIDE HCl 25 MG CAP ONE (18:34)
[2020-10-03] MEDS ORDERED: Lorazepam 2 MG/ML VIAL ONE ×2 (18:34→20:32)
[2020-10-03] MEDS ORDERED: Multivitamins, Adult 10 ML, Thiamine HCl 100 MG, Folic Acid 1 MG in Dextrose 5 %-0.45 %... IV SCH (19:00)
[2020-10-03 19:03] LABS: #Lymphocytes 1.3 thou/uL (1.20-3.40); #Monocytes 0.5 thou/uL (0.11-0.59); #Neutrophils 2.9 thou/uL (1.40-6.50); %Basophils 0.6 % (0.0-1.0); %Eosinophils 0.5 % (0.0-10.0); %Lymphocytes 27.1 % (21.0-51.0); %Monocytes 10.9 % (0.0-10.0); %Neutrophils 60.8 % (42.0-75.0); Mean Corpuscular HGB CONC 34.6 g/dL (32.0-36.0); Mean Corpuscular Hemoglobin 26.9 pg (27.0-31.0); Mean Corpuscular Volume 77.9 fL (78.0-98.0); Mean Platelet Volume 8.3 fL (7.4-10.4); Platelet Count 256 thou/uL (130-400); RBC Distribution Width 20.3 % (11.5-14.5); Red Blood Cell (RBC) Count 4.45 mill/uL (4.20-5.40); White Blood Cell (WBC) Count 4.8 thou/uL (4.8-10.8)
[2020-10-03 19:10] LABS: ALT (SGPT) 36 U/L (8-55); AST (SGOT) 49 U/L (5-34); Albumin 3.8 g/dL (3.4-4.8); Alkaline Phosphatase 91 U/L (40-110); Anion Gap 23 mmol/L (10-20); BUN (Urea Nitrogen) 4 mg/dL (9.8-20.1); Bilirubin, Total 0.5 mg/dL (0.2-1.2); Calc. Creatinine Clearance 0 mL/min (70-130); Calcium 8.5 mg/dL (7.8-10.44); Carbon Dioxide 22 mmol/L (23-31); Chloride 96 mmol/L (98-107); Globulin 3.3 g/dL (2.4-3.5); Glucose 204 mg/dL (80-115); Lipase 136 U/L (8-78); Potassium 3.5 mmol/L (3.5-5.1); Protein, Total 7.1 g/dL (5.8-8.1); Sodium 137 mmol/L (136-145)
[2020-10-03 21:45] LABS: Acetaminophen Less than 6.0 mcg/mL (10.0-30.0); Alcohol 196 mg/dL (Less than 10); Salicylate Less than 8.0 mg/dL (15.0-30.0)
[2020-10-03 22:14] LABS: Bilirubin Negative (Negative); Blood, Urine Negative (Negative); Clarity Clear (Clear); Glucose, Urine (Dipstick) Normal (Negative); Ketone, Urine Negative (Negative); Leukocyte Negative Leu/uL (Negative); Nitrite Negative (Negative); Protein, Urine (Dipstick) Negative (Neg-Trace); Specific Gravity, Urine 1.024 (1.002-1.036); Urobilinogen Normal mg/dL (Less than 2); pH, Urine 6.5 (5.0-9.0)
[2020-10-03 22:22] LABS: Amphetamine Not Detected (NotDetected); Barbiturates Screen Not Detected (NotDetected); Benzodiazepine Screen Not Detected (NotDetected); Cocaine Metabolite Screen Not Detected (NotDetected); Medtox Reader # READER 4; Methadone Not Detected (NotDetected); Methamphetamine Not Detected (NotDetected); Opiate Screen Not Detected (NotDetected); Oxycodone Screen Not Detected (NotDetected); Phencyclidine (PCP) Not Detected (NotDetected); THC/Cannabinoid Screen Not Detected (NotDetected); Tricyclic Screen Not Detected (NotDetected)
[2020-10-03 22:23] LABS: Medtox Control Line Valid? VALID (VALID)
[2020-10-03] MEDS ORDERED: Calcium Carbonate 500 MG ChewTAB PO PRN (23:49)
[2020-10-03] MEDS ORDERED: Ondansetron ODT 4 MG TAB PO PRN (23:49)
[2020-10-03] MEDS ORDERED: Senokot S 8.6-50 MG TAB PO PRN (23:49)
[2020-10-03] MEDS ORDERED: Bisacodyl 5 MG TAB PO PRN (23:49)
[2020-10-03] MEDS ORDERED: Lorazepam 2 MG/ML VIAL SLOW IVP PRN (23:56)
[2020-10-04] MEDS ORDERED: Diazepam 5 MG TAB PO PRN (00:08)
[2020-10-04] MEDS ORDERED: Sodium Chloride 0.9% (PF) 10 ML VIAL FS PRN (00:15)
[2020-10-04 00:46] LABS: SARS-CoV-2 NAA Rapid Test Not Detected (NotDetected)
[2020-10-04] MEDS ORDERED: Thiamine HCl 200 MG/2 ML VIAL IM SCH (01:00)
[2020-10-04] MEDS ORDERED: Lorazepam 2 MG/ML VIAL ONE (01:50)
[2020-10-04] MEDS: Lorazepam 2 MG/ML VIAL SLOW IVP PRN ×2 (02:03→18:41)
[2020-10-04] MEDS ORDERED: chlordiazePOXIDE HCl 25 MG CAP ONE (08:17)
[2020-10-04 08:19] LABS: #Basophils 0.1 thou/uL (0.0-0.2); #Lymphocytes 1.7 thou/uL (1.20-3.40); #Monocytes 0.7 thou/uL (0.11-0.59); #Neutrophils 6.8 thou/uL (1.40-6.50); %Basophils 0.7 % (0.0-1.0); %Eosinophils 0.3 % (0.0-10.0); %Lymphocytes 17.9 % (21.0-51.0); %Monocytes 7.6 % (0.0-10.0); %Neutrophils 73.5 % (42.0-75.0); Hemoglobin 11.7 g/dL (12.0-16.0); Mean Corpuscular HGB CONC 32.6 g/dL (32.0-36.0); Mean Corpuscular Hemoglobin 25.4 pg (27.0-31.0); Mean Corpuscular Volume 77.9 fL (78.0-98.0); Mean Platelet Volume 9.1 fL (7.4-10.4); Platelet Count 206 thou/uL (130-400); RBC Distribution Width 20.5 % (11.5-14.5); White Blood Cell (WBC) Count 9.3 thou/uL (4.8-10.8)
[2020-10-04] MEDS ORDERED: Pantoprazole 40 MG VIAL ONE (08:19)
[2020-10-04] MEDS ORDERED: Folic Acid 1 MG TAB ONE (08:19)
[2020-10-04] MEDS ORDERED: Thiamine 100 MG TAB ONE (08:19)
[2020-10-04 08:21] LABS: Iron 62 ug/dL (50-170); Iron Binding Capacity, Total 386 mcg/dL (265-497); Lipase 107 U/L (8-78)
[2020-10-04 08:22] LABS: Anion Gap 17 mmol/L (10-20); BUN (Urea Nitrogen) 4 mg/dL (9.8-20.1); Calc. Creatinine Clearance 0 mL/min (70-130); Calcium 8.6 mg/dL (7.8-10.44); Carbon Dioxide 26 mmol/L (23-31); Chloride 96 mmol/L (98-107); Glucose 100 mg/dL (80-115); Iron 60 ug/dL (50-170); Iron Binding Capacity, Total 391 mcg/dL (265-497); Magnesium 1.9 mg/dL (1.6-2.6); Potassium 3.6 mmol/L (3.5-5.1); Sodium 135 mmol/L (136-145)
[2020-10-04 08:41] LABS: Hypochromia SLIGHT = 6-15 cells (100X) (0-5/hpf); MDiff Complete? YES; Microcytosis SLIGHT = 6-15 cells (100X) (0-5/hpf); Platelet Morphology Comment Appears Adequate; Polychromasia SLIGHT = 2-3 cells (100X) (0-2/hpf); Target Cells MODERATE= 6-15 cells (100X) (0-1/hpf)
[2020-10-04 08:46] LABS: Ferritin 57.68 ng/mL (10-291)
[2020-10-04] MEDS: Pantoprazole 40 MG VIAL IVP SCH (11:08)
[2020-10-04] MEDS: Folic Acid 1 MG TAB PO SCH (11:08)
[2020-10-04] MEDS: chlordiazePOXIDE HCl 25 MG CAP PO SCH ×2 (11:08→17:40)
[2020-10-04] MEDS ORDERED: Magnevist 469MG/ML 20 ML VIAL ONE (12:26)
[2020-10-04] MEDS: Multivitamin W/ Minerals 1 TAB PO SCH (18:18)
[2020-10-04] MEDS: Mometasone 200 MCG/Formoterol 5 MCG 120 PUFF INHALER INH SCH (19:34)
[2020-10-04] MEDS: busPIRone HCl 10 MG TAB PO SCH (20:19)
[2020-10-04] MEDS: Carvedilol 6.25 MG TAB PO SCH (20:19)
[2020-10-05] MEDS ORDERED: Diazepam 5 MG TAB PO PRN (04:00)
[2020-10-05] MEDS: Lorazepam 2 MG/ML VIAL SLOW IVP PRN (04:40)
[2020-10-05] MEDS: Mometasone 200 MCG/Formoterol 5 MCG 120 PUFF INHALER INH SCH ×2 (07:36→18:56)
[2020-10-05] MEDS ORDERED: FLU VACC QS2020-21(6MOS UP)/PF 60 MCG/0.5 ML SYRINGE IM ONE (09:00)
[2020-10-05] MEDS: Thiamine 100 MG TAB PO SCH (10:02)
[2020-10-05] MEDS: Lisinopril 5 MG TAB PO SCH (10:03)
[2020-10-05] MEDS: Atorvastatin Calcium 40 MG TAB PO SCH (10:03)
[2020-10-05] MEDS: busPIRone HCl 10 MG TAB PO SCH ×2 (10:03→21:16)
[2020-10-05] MEDS: Carvedilol 6.25 MG TAB PO SCH ×2 (10:04→21:16)
[2020-10-05] MEDS: Magnesium Oxide 400 MG TAB PO SCH (10:04)
[2020-10-05] MEDS: Pantoprazole 40 MG VIAL IVP SCH (10:04)
[2020-10-05] MEDS: Multivitamin W/ Minerals 1 TAB PO SCH (10:04)
[2020-10-05] MEDS: Folic Acid 1 MG TAB PO SCH (10:04)
[2020-10-05 10:59] VITALS: BMI 14.8
[2020-10-05] MEDS: BEER 1 CAN PO SCH ×2 (12:28→17:23)
[2020-10-05] MEDS ORDERED: Nicotine 14 MG PATCH TOP SCH (17:00)
[2020-10-05] MEDS: Acetaminophen 325 MG TAB PO PRN (21:15)
[2020-10-06] MEDS: Acetaminophen 325 MG TAB PO PRN (04:11)
[2020-10-06] MEDS: Mometasone 200 MCG/Formoterol 5 MCG 120 PUFF INHALER INH SCH (07:29)
[2020-10-06] MEDS: BEER 1 CAN PO SCH ×2 (09:25→12:23)
[2020-10-06] MEDS: Magnesium Oxide 400 MG TAB PO SCH (09:26)
[2020-10-06] MEDS: Multivitamin W/ Minerals 1 TAB PO SCH (09:26)
[2020-10-06] MEDS: busPIRone HCl 10 MG TAB PO SCH (09:26)
[2020-10-06] MEDS: Pantoprazole 40 MG VIAL IVP SCH (09:26)
[2020-10-06] MEDS: Atorvastatin Calcium 40 MG TAB PO SCH (09:26)
[2020-10-06] MEDS: Carvedilol 6.25 MG TAB PO SCH (09:26)
[2020-10-06] MEDS: Folic Acid 1 MG TAB PO SCH (09:26)
[2020-10-06] MEDS: Lisinopril 5 MG TAB PO SCH (09:26)
[2020-10-06] MEDS: Thiamine 100 MG TAB PO SCH (09:26)
[2020-10-06 11:56] VITALS: BP 109/59; TEMP 98.1
== END 2020-10-06 16:00 | disposition home or self-care (01) | DRG 897 ==
LOC: ERS 17:41 → ERHOLD 21:47 → 2NO 10-04 17:04
PROVIDERS: ADMIT Internal Medicine; ATTEND Internal Medicine
DX: F10.139 Alcohol abuse with withdrawal, unspecified (principal); K86.0 Alcohol-induced chronic pancreatitis; E05.80 Other thyrotoxicosis without thyrotoxic crisis or storm; Z20.822 Contact with and (suspected) exposure to COVID-19; R73.9 Hyperglycemia, unspecified; I25.10 Atherosclerotic heart disease of native coronary artery without angina pectoris; J44.9 Chronic obstructive pulmonary disease, unspecified; Y90.6 Blood alcohol level of 120-199 mg/100 ml; E78.5 Hyperlipidemia, unspecified; F41.9 Anxiety disorder, unspecified; F17.210 Nicotine dependence, cigarettes, uncomplicated; D50.9 Iron deficiency anemia, unspecified; Z95.1 Presence of aortocoronary bypass graft; Z28.21 Immunization not carried out because of patient refusal; Z85.118 Personal history of other malignant neoplasm of bronchus and lung; Z91.81 History of falling; Z79.899 Other long term (current) drug therapy; Z79.82 Long term (current) use of aspirin
CPT/HCPCS: 0240U; 36415; 51701; 70450; 70553; 71045; 71275; 72125; 80048; 80053; 80306; 80307; 81003; 82607; 82728; 82746; 83036; 83540; 83550; 83690; 83735; 83880; 84439; 84443; 84484; 85025; 85046; 85379; 87040; 87077; 87086; 87186; 93005; 96365; 96366; 96375; 96376; A9579; C9113; J2060; J3411; J3475; J3490; J7042; Q9967

== ENCOUNTER 2020-10-07 15:59 | Emergency (ER) | payer MEDICAID, SELFPAY ==
[2020-10-07] MEDS ORDERED: Multivitamins, Adult 10 ML, Thiamine HCl 100 MG, Folic Acid 1 MG in Dextrose 5 %-0.45 %... IV SCH (16:30)
[2020-10-07 16:49] LABS: Bilirubin Negative (Negative); Blood, Urine Negative (Negative); Clarity Clear (Clear); Glucose, Urine (Dipstick) Normal (Negative); Ketone, Urine Negative (Negative); Leukocyte 75 Leu/uL (Negative); Nitrite Negative (Negative); Protein, Urine (Dipstick) Negative (Neg-Trace); RBC/HPF None Seen HPF (0-3); Specific Gravity, Urine 1.002 (1.002-1.036); Squamous Epithelial None Seen HPF (0-3); Urobilinogen Normal mg/dL (Less than 2); WBC/HPF 0-3 HPF (0-3)
[2020-10-07 16:51] LABS: Bacteria/HPF 1+ HPF (None Seen)
[2020-10-07 16:58] LABS: Amphetamine Not Detected (NotDetected); Barbiturates Screen Not Detected (NotDetected); Benzodiazepine Screen Detected (NotDetected); Cocaine Metabolite Screen Not Detected (NotDetected); Medtox Control Line Valid? VALID (VALID); Medtox Reader # READER 1; Methadone Not Detected (NotDetected); Methamphetamine Not Detected (NotDetected); Opiate Screen Not Detected (NotDetected); Oxycodone Screen Not Detected (NotDetected); Phencyclidine (PCP) Not Detected (NotDetected); THC/Cannabinoid Screen Not Detected (NotDetected); Tricyclic Screen Not Detected (NotDetected)
[2020-10-07 17:07] LABS: Mean Corpuscular HGB CONC 32.1 g/dL (32.0-36.0); Mean Corpuscular Hemoglobin 24.8 pg (27.0-31.0); Mean Corpuscular Volume 77.3 fL (78.0-98.0); Mean Platelet Volume 9.9 fL (7.4-10.4); Platelet Count 219 thou/uL (130-400); RBC Distribution Width 20.6 % (11.5-14.5); Red Blood Cell (RBC) Count 4.84 mill/uL (4.20-5.40); White Blood Cell (WBC) Count 11.4 thou/uL (4.8-10.8)
[2020-10-07 17:08] LABS: #Basophils 0.1 thou/uL (0.0-0.2); #Eosinphils 0.1 thou/uL (0.0-0.7); #Lymphocytes 2.1 thou/uL (1.20-3.40); #Monocytes 0.8 thou/uL (0.11-0.59); #Neutrophils 8.3 thou/uL (1.40-6.50); %Basophils 0.5 % (0.0-1.0); %Eosinophils 0.6 % (0.0-10.0); %Lymphocytes 18.7 % (21.0-51.0); %Monocytes 7.2 % (0.0-10.0); %Neutrophils 73.1 % (42.0-75.0)
[2020-10-07 17:13] LABS: Acetaminophen Less than 6.0 mcg/mL (10.0-30.0); Alcohol 129 mg/dL (Less than 10); Salicylate Less than 8.0 mg/dL (15.0-30.0)
[2020-10-07 17:14] LABS: ALT (SGPT) 26 U/L (8-55); AST (SGOT) 27 U/L (5-34); Albumin 3.7 g/dL (3.4-4.8); Alkaline Phosphatase 96 U/L (40-110); Anion Gap 17 mmol/L (10-20); BUN (Urea Nitrogen) Less than 4 mg/dL (9.8-20.1); Bilirubin, Total 0.5 mg/dL (0.2-1.2); Calc. Creatinine Clearance 0 mL/min (70-130); Calcium 8.8 mg/dL (7.8-10.44); Carbon Dioxide 24 mmol/L (23-31); Chloride 91 mmol/L (98-107); Globulin 3.2 g/dL (2.4-3.5); Glucose 89 mg/dL (80-115); Potassium 3.1 mmol/L (3.5-5.1); Protein, Total 6.9 g/dL (5.8-8.1); Sodium 129 mmol/L (136-145)
[2020-10-07 17:20] LABS: Anisocytosis SLIGHT = 6-15 cells (100X) (0-5/hpf); Band 3 % (5-11); Elliptocytes SLIGHT = 2-5 cells (100X) (0-1/hpf); Eosinophils 1 % (0-10); Lymphocytes 20 % (21-51); MDiff Complete? YES; Microcytosis SLIGHT = 6-15 cells (100X) (0-5/hpf); Monocytes 6 % (0-10); Neutrophil 69 % (42-75); Ovalocytes SLIGHT = 2-5 cells (100X) (0-1/hpf); Platelet Morphology Comment Appears Adequate; Polychromasia SLIGHT = 2-3 cells (100X) (0-2/hpf); Schistocytes SLIGHT = 2-5 cells (100X) (0-1/hpf); Target Cells SLIGHT = 2-5 cells (100X) (0-1/hpf)
[2020-10-08] MEDS ORDERED: Lorazepam 2 MG/ML VIAL ONE ×2 (08:32→22:19)
[2020-10-08] MEDS ORDERED: Diazepam 5 MG TAB ONE ×2 (13:47→19:45)
[2020-10-08] MEDS ORDERED: Folic Acid 1 MG TAB ONE (13:48)
[2020-10-08] MEDS ORDERED: Thiamine 100 MG TAB ONE (13:48)
[2020-10-08] MEDS ORDERED: Multivit, Therapeutic 1 TAB PO SCH (14:15)
[2020-10-08 17:35] LABS: SARS-CoV-2 NAA Rapid Test Not Detected (NotDetected)
== END 2020-10-07 23:56 ==
LOC: ERS 15:59
DX: R45.851 Suicidal ideations (principal); R19.7 Diarrhea, unspecified; E86.0 Dehydration; Z20.822 Contact with and (suspected) exposure to COVID-19; J45.909 Unspecified asthma, uncomplicated; I10 Essential (primary) hypertension; F17.210 Nicotine dependence, cigarettes, uncomplicated; Z79.82 Long term (current) use of aspirin; Z79.899 Other long term (current) drug therapy
CPT/HCPCS: 36415; 71045; 80053; 80306; 80307; 81003; 81015; 84443; 85025; 93005; 96365; 96366; 96375; 96376; J2060; J3411; J7042; U0002

== ENCOUNTER 2021-03-13 12:36 | Emergency (ER) | payer MEDICAID ==
[2021-03-13 13:04] LABS: #Basophils 0.1 thou/uL (0.0-0.2); #Lymphocytes 1.1 thou/uL (1.20-3.40); #Monocytes 0.7 thou/uL (0.11-0.59); #Neutrophils 8.1 thou/uL (1.40-6.50); %Basophils 0.6 % (0.0-1.0); %Eosinophils 0.2 % (0.0-10.0); %Monocytes 6.8 % (0.0-10.0); %Neutrophils 81.4 % (42.0-75.0); Hemoglobin 15.6 g/dL (12.0-16.0); Mean Corpuscular HGB CONC 35.6 g/dL (32.0-36.0); Mean Corpuscular Hemoglobin 31.1 pg (27.0-31.0); Mean Corpuscular Volume 87.4 fL (78.0-98.0); Mean Platelet Volume 8.6 fL (7.4-10.4); Platelet Count 187 thou/uL (130-400); RBC Distribution Width 15.5 % (11.5-14.5); Red Blood Cell (RBC) Count 5.01 mill/uL (4.20-5.40)
[2021-03-13 13:28] LABS: ALT (SGPT) 31 U/L (8-55); AST (SGOT) 33 U/L (5-34); Albumin 4.2 g/dL (3.4-4.8); Alkaline Phosphatase 89 U/L (40-110); Anion Gap 19 mmol/L (10-20); BUN (Urea Nitrogen) 8 mg/dL (9.8-20.1); Calc. Creatinine Clearance 0 mL/min (70-130); Calcium 8.6 mg/dL (7.8-10.44); Carbon Dioxide 24 mmol/L (23-31); Chloride 92 mmol/L (98-107); Globulin 2.7 g/dL (2.4-3.5); Glucose 100 mg/dL (80-115); Potassium 3.4 mmol/L (3.5-5.1); Protein, Total 6.9 g/dL (5.8-8.1); Sodium 132 mmol/L (136-145)
[2021-03-13] MEDS ORDERED: methylPREDNISolone Sod Succ/PF 125 MG/2 ML VIAL ONE (14:07)
[2021-03-13 15:30] LABS: Bilirubin Negative (Negative); Blood, Urine Negative (Negative); Clarity Clear (Clear); Glucose, Urine (Dipstick) Normal (Negative); Ketone, Urine Negative (Negative); Leukocyte Negative Leu/uL (Negative); Nitrite Negative (Negative); Protein, Urine (Dipstick) Negative (Neg-Trace); Specific Gravity, Urine 1.006 (1.002-1.036); Urobilinogen Normal mg/dL (Less than 2)
== END 2021-03-13 15:59 | disposition home or self-care (01) ==
LOC: ERS 12:36
DX: J44.1 Chronic obstructive pulmonary disease with (acute) exacerbation (principal); I10 Essential (primary) hypertension; F17.210 Nicotine dependence, cigarettes, uncomplicated; Z79.899 Other long term (current) drug therapy
CPT/HCPCS: 36415; 51701; 71045; 80053; 81003; 83880; 84484; 85025; 87086; 93005; 96374; J2930; J7620

== ENCOUNTER 2021-05-17 20:33 | Inpatient (IN) | payer OTHER ==
[2021-05-17 22:23] LABS: Hemoglobin 16.6 g/dL (12.0-16.0); Mean Corpuscular HGB CONC 35.4 g/dL (32.0-36.0); Mean Corpuscular Hemoglobin 32.3 pg (27.0-31.0); Mean Corpuscular Volume 91.2 fL (78.0-98.0); Platelet Count 168 thou/uL (130-400); RBC Distribution Width 16.5 % (11.5-14.5); Red Blood Cell (RBC) Count 5.15 mill/uL (4.20-5.40); White Blood Cell (WBC) Count 22.5 thou/uL (4.8-10.8)
[2021-05-17 22:28] LABS: ALT (SGPT) 165 U/L (8-55); AST (SGOT) 182 U/L (5-34); Acetaminophen Less than 6.0 mcg/mL (10.0-30.0); Albumin 4.5 g/dL (3.4-4.8); Alcohol 352 mg/dL (Less than 10); Alkaline Phosphatase 118 U/L (40-110); Anion Gap 21 mmol/L (10-20); BUN (Urea Nitrogen) Less than 4 mg/dL (9.8-20.1); Bilirubin, Total 1.6 mg/dL (0.2-1.2); CK (CPK) 174 U/L (29-168); Calc. Creatinine Clearance 0 mL/min (70-130); Calcium 9.3 mg/dL (7.8-10.44); Carbon Dioxide 24 mmol/L (23-31); Chloride 95 mmol/L (98-107); Globulin 3.4 g/dL (2.4-3.5); Glucose 84 mg/dL (80-115); Potassium 3.8 mmol/L (3.5-5.1); Protein, Total 7.9 g/dL (5.8-8.1); Salicylate Less than 8.0 mg/dL (15.0-30.0); Sodium 136 mmol/L (136-145)
[2021-05-17 22:41] LABS: Lymphocytes 43 % (21-51); MDiff Complete? YES; Monocytes 9 % (0-10); Neutrophil 32 % (42-75); Platelet Morphology Comment Appears Adequate; RBC Morphology Normal; Reactive Lymphocytes 16 % (0-10)
[2021-05-18] MEDS ORDERED: Ondansetron PF 4 MG/2 ML Vial ONE (00:32)
[2021-05-18] MEDS ORDERED: cefTRIAXone\\ROCEPHIN 2 GM VIAL ONE (00:33)
[2021-05-18 00:37] LABS: Bilirubin Negative (Negative); Blood, Urine Negative (Negative); Clarity Clear (Clear); Glucose, Urine (Dipstick) Normal (Negative); Ketone, Urine Negative (Negative); Leukocyte Negative Leu/uL (Negative); Nitrite Negative (Negative); Protein, Urine (Dipstick) Negative (Neg-Trace); Specific Gravity, Urine 1.003 (1.002-1.036); Urobilinogen Normal mg/dL (Less than 2); pH, Urine 6.5 (5.0-9.0)
[2021-05-18 00:47] LABS: Amphetamine Not Detected (NotDetected); Barbiturates Screen Not Detected (NotDetected); Benzodiazepine Screen Not Detected (NotDetected); Cocaine Metabolite Screen Not Detected (NotDetected); Methadone Not Detected (NotDetected); Methamphetamine Not Detected (NotDetected); Opiate Screen Not Detected (NotDetected); Oxycodone Screen Not Detected (NotDetected); Phencyclidine (PCP) Not Detected (NotDetected); THC/Cannabinoid Screen Not Detected (NotDetected); Tricyclic Screen Not Detected (NotDetected)
[2021-05-18 01:04] LABS: Troponin I Less than 0.010 ng/mL (< 0.028)
[2021-05-18] MEDS ORDERED: Lorazepam 2 MG/ML VIAL ONE ×2 (02:34→09:23)
[2021-05-18 02:52] LABS: Lactic Acid 2.1 mmol/L (0.5-2.2)
[2021-05-18] MEDS: Lorazepam 2 MG/ML VIAL SLOW IVP PRN ×4 (03:00→22:49)
[2021-05-18 04:22] LABS: SARS-CoV-2 NAA Rapid Test Not Detected (NotDetected)
[2021-05-18] MEDS ORDERED: Senokot S 8.6-50 MG TAB PO PRN (09:56)
[2021-05-18] MEDS ORDERED: Ondansetron PF 4 MG/2 ML Vial IVP PRN (09:56)
[2021-05-18] MEDS ORDERED: Acetaminophen 325 MG TAB PO PRN (09:56)
[2021-05-18 10:31] LABS: #Basophils 0.1 thou/uL (0.0-0.2); #Lymphocytes 1.7 thou/uL (1.20-3.40); #Monocytes 0.8 thou/uL (0.11-0.59); %Basophils 0.6 % (0.0-1.0); %Eosinophils 0.6 % (0.0-10.0); %Lymphocytes 19.7 % (21.0-51.0); %Monocytes 9.1 % (0.0-10.0); %Neutrophils 70.1 % (42.0-75.0); Mean Corpuscular HGB CONC 36.5 g/dL (32.0-36.0); Mean Corpuscular Hemoglobin 33.2 pg (27.0-31.0); Mean Platelet Volume 7.9 fL (7.4-10.4); Platelet Count 152 thou/uL (130-400); RBC Distribution Width 16.4 % (11.5-14.5); Red Blood Cell (RBC) Count 4.52 mill/uL (4.20-5.40); White Blood Cell (WBC) Count 8.6 thou/uL (4.8-10.8)
[2021-05-18] MEDS: Nicotine 21 MG PATCH TD SCH (10:45)
[2021-05-18] MEDS: Multivitamins, Adult 10 ML, Folic Acid 1 MG, Thiamine HCl 100 MG in Dextrose 5 %-0.45 %... IV SCH (10:45)
[2021-05-18 10:51] LABS: Anion Gap 17 mmol/L (10-20); BUN (Urea Nitrogen) Less than 4 mg/dL (9.8-20.1); Calc. Creatinine Clearance 0 mL/min (70-130); Calcium 8.6 mg/dL (7.8-10.44); Carbon Dioxide 26 mmol/L (23-31); Chloride 96 mmol/L (98-107); Glucose 99 mg/dL (80-115); Magnesium 1.6 mg/dL (1.6-2.6); Phosphorus 3.2 mg/dL (2.3-4.7); Potassium 3.6 mmol/L (3.5-5.1); Sodium 135 mmol/L (136-145)
[2021-05-18 15:35] VITALS: BMI 15.4
[2021-05-18] MEDS ORDERED: hydrALAZINE 25 MG TAB PO PRN (18:15)
[2021-05-18] MEDS: chlordiazePOXIDE HCl 25 MG CAP PO SCH (21:36)
[2021-05-18] MEDS: Famotidine 20 MG TAB PO SCH (21:36)
[2021-05-19 05:42] LABS: Hemoglobin 15.6 g/dL (12.0-16.0); Mean Corpuscular HGB CONC 33.5 g/dL (32.0-36.0); Mean Corpuscular Hemoglobin 30.6 pg (27.0-31.0); Mean Corpuscular Volume 91.5 fL (78.0-98.0); Mean Platelet Volume 8.8 fL (7.4-10.4); Platelet Count 147 thou/uL (130-400); RBC Distribution Width 16.5 % (11.5-14.5); White Blood Cell (WBC) Count 15.7 thou/uL (4.8-10.8)
[2021-05-19 05:43] LABS: Band 1 % (5-11); Lymphocytes 35 % (21-51); MDiff Complete? YES; Neutrophil 64 % (42-75); Platelet Morphology Comment Appears Adequate; RBC Morphology Normal
[2021-05-19 05:48] LABS: ALT (SGPT) 120 U/L (8-55); AST (SGOT) 119 U/L (5-34); Albumin 3.8 g/dL (3.4-4.8); Alkaline Phosphatase 108 U/L (40-110); Anion Gap 13 mmol/L (10-20); BUN (Urea Nitrogen) 4 mg/dL (9.8-20.1); Bilirubin, Total 2.1 mg/dL (0.2-1.2); Calc. Creatinine Clearance 70 mL/min (70-130); Carbon Dioxide 29 mmol/L (23-31); Chloride 95 mmol/L (98-107); Glucose 80 mg/dL (80-115); Potassium 4.2 mmol/L (3.5-5.1); Protein, Total 6.8 g/dL (5.8-8.1); Sodium 133 mmol/L (136-145)
[2021-05-19] MEDS: chlordiazePOXIDE HCl 25 MG CAP PO SCH ×2 (06:13→14:54)
[2021-05-19] MEDS: Enoxaparin Sodium 40 MG/0.4 ML SYRINGE SC SCH (08:32)
[2021-05-19] MEDS: Nicotine 21 MG PATCH TD SCH (08:33)
[2021-05-19] MEDS: Famotidine 20 MG TAB PO SCH ×2 (08:33→21:03)
[2021-05-19] MEDS: Multivitamins, Adult 10 ML, Folic Acid 1 MG, Thiamine HCl 100 MG in Dextrose 5 %-0.45 %... IV SCH (08:41)
[2021-05-19] MEDS ORDERED: hydrOXYzine 25 MG TAB PO PRN (10:51)
[2021-05-19 11:43] LABS: #Eosinphils 0.1 thou/uL (0.0-0.7); #Lymphocytes 1.5 thou/uL (1.20-3.40); #Monocytes 0.7 thou/uL (0.11-0.59); #Neutrophils 4.4 thou/uL (1.40-6.50); %Basophils 0.6 % (0.0-1.0); %Eosinophils 1.6 % (0.0-10.0); %Lymphocytes 21.5 % (21.0-51.0); %Monocytes 10.8 % (0.0-10.0); %Neutrophils 65.6 % (42.0-75.0); Hemoglobin 15.2 g/dL (12.0-16.0); Mean Corpuscular HGB CONC 35.8 g/dL (32.0-36.0); Mean Corpuscular Volume 92.1 fL (78.0-98.0); Mean Platelet Volume 8.7 fL (7.4-10.4); Platelet Count 148 thou/uL (130-400); RBC Distribution Width 16.8 % (11.5-14.5); White Blood Cell (WBC) Count 6.8 thou/uL (4.8-10.8)
[2021-05-19] MEDS: chlordiazePOXIDE HCl 5 MG CAP PO SCH ×2 (15:09→22:12)
[2021-05-19] MEDS: Lorazepam 2 MG/ML VIAL SLOW IVP PRN (20:59)
[2021-05-19] MEDS ORDERED: Albuterol Sulfate 1.25 MG/3 ML NEB INH PRN (22:38)
[2021-05-19] MEDS ORDERED: cefTRIAXone\\ROCEPHIN 1 GM in Sodium Chloride 0.9% 100 ML IVPB SCH (23:00)
[2021-05-20] MEDS ORDERED: Albuterol Sulfate 2.5 mg/3 ml Neb ONE (02:25)
[2021-05-20] MEDS: Lorazepam 2 MG/ML VIAL SLOW IVP PRN ×2 (02:28→08:41)
[2021-05-20 04:39] LABS: Anion Gap 14 mmol/L (10-20); BUN (Urea Nitrogen) 4 mg/dL (9.8-20.1); Calc. Creatinine Clearance 61 mL/min (70-130); Calcium 9.3 mg/dL (7.8-10.44); Carbon Dioxide 28 mmol/L (23-31); Chloride 97 mmol/L (98-107); Glucose 135 mg/dL (80-115); Potassium 3.2 mmol/L (3.5-5.1); Sodium 136 mmol/L (136-145)
[2021-05-20] MEDS: chlordiazePOXIDE HCl 5 MG CAP PO SCH (06:00)
[2021-05-20 07:21] VITALS: BP 119/64; TEMP 98
[2021-05-20] MEDS ORDERED: Potassium Chloride 20 MEQ TAB PO SCH (08:00)
[2021-05-20] MEDS: Famotidine 20 MG TAB PO SCH (08:40)
[2021-05-20] MEDS: Enoxaparin Sodium 40 MG/0.4 ML SYRINGE SC SCH (08:40)
[2021-05-20 09:47] LABS: Magnesium 1.6 mg/dL (1.6-2.6)
== END 2021-05-20 10:00 | disposition home or self-care (01) | DRG 872 ==
LOC: ERS 20:33 → ERHOLD 05-18 00:38 → 2NO 05-18 14:57
PROVIDERS: ADMIT Student in an Organized Health Care Education/Training Program; ATTEND Internal Medicine
DX: A41.9 Sepsis, unspecified organism (principal); E87.2 Acidosis; F33.9 Major depressive disorder, recurrent, unspecified; F10.229 Alcohol dependence with intoxication, unspecified; Z20.822 Contact with and (suspected) exposure to COVID-19; E86.0 Dehydration; K70.10 Alcoholic hepatitis without ascites; J32.9 Chronic sinusitis, unspecified; F17.210 Nicotine dependence, cigarettes, uncomplicated; I25.10 Atherosclerotic heart disease of native coronary artery without angina pectoris; I10 Essential (primary) hypertension; Y90.8 Blood alcohol level of 240 mg/100 ml or more; J44.9 Chronic obstructive pulmonary disease, unspecified; F41.9 Anxiety disorder, unspecified; Z79.899 Other long term (current) drug therapy; Z91.19 Patient's noncompliance with other medical treatment and regimen; Z91.018 Allergy to other foods; Z85.118 Personal history of other malignant neoplasm of bronchus and lung
CPT/HCPCS: 36415; 70450; 71045; 80048; 80053; 80306; 80307; 81003; 82550; 83605; 83735; 84100; 84443; 84484; 85007; 85025; 85027; 87040; 87086; 93005; 94640; 96365; 96375; J0696; J1650; J2060; J2405; J3411; J3490; J7042; J7611; U0002

== ENCOUNTER 2021-05-29 09:06 | Inpatient (IN) | payer OTHER ==
[2021-05-29] MEDS ORDERED: Folic Acid 1 MG TAB ONE (09:33)
[2021-05-29 09:46] LABS: #Basophils 0.1 thou/uL (0.0-0.2); #Lymphocytes 0.6 thou/uL (1.20-3.40); #Monocytes 0.7 thou/uL (0.11-0.59); #Neutrophils 7.2 thou/uL (1.40-6.50); %Basophils 0.7 % (0.0-1.0); %Lymphocytes 7.3 % (21.0-51.0); %Monocytes 8.4 % (0.0-10.0); %Neutrophils 83.6 % (42.0-75.0); Hemoglobin 15.2 g/dL (12.0-16.0); Mean Corpuscular HGB CONC 34.3 g/dL (32.0-36.0); Mean Corpuscular Hemoglobin 31.5 pg (27.0-31.0); Mean Platelet Volume 6.6 fL (7.4-10.4); Platelet Count 413 thou/uL (130-400); RBC Distribution Width 15.9 % (11.5-14.5); Red Blood Cell (RBC) Count 4.81 mill/uL (4.20-5.40); White Blood Cell (WBC) Count 8.6 thou/uL (4.8-10.8)
[2021-05-29 09:54] LABS: ALT (SGPT) 101 U/L (8-55); AST (SGOT) 80 U/L (5-34); Albumin 4.4 g/dL (3.4-4.8); Alkaline Phosphatase 109 U/L (40-110); Anion Gap 24 mmol/L (10-20); BUN (Urea Nitrogen) 4 mg/dL (9.8-20.1); Bilirubin, Total 1.4 mg/dL (0.2-1.2); Calc. Creatinine Clearance 0 mL/min (70-130); Calcium 9.6 mg/dL (7.8-10.44); Carbon Dioxide 21 mmol/L (23-31); Chloride 97 mmol/L (98-107); Globulin 3.3 g/dL (2.4-3.5); Glucose 125 mg/dL (80-115); Magnesium 1.8 mg/dL (1.6-2.6); Potassium 4.1 mmol/L (3.5-5.1); Protein, Total 7.7 g/dL (5.8-8.1); Sodium 138 mmol/L (136-145)
[2021-05-29 09:55] LABS: Acetaminophen Less than 6.0 mcg/mL (10.0-30.0); Alcohol 162 mg/dL (Less than 10); Salicylate Less than 8.0 mg/dL (15.0-30.0)
[2021-05-29] MEDS ORDERED: Ondansetron PF 4 MG/2 ML Vial ONE (11:41)
[2021-05-29 11:54] LABS: Bacteria/HPF None Seen HPF (None Seen); Bilirubin Negative (Negative); Blood, Urine Negative (Negative); Clarity Clear (Clear); Glucose, Urine (Dipstick) Normal (Negative); Ketone, Urine 10 mg/dL (Negative); Leukocyte 75 Leu/uL (Negative); Nitrite Negative (Negative); Protein, Urine (Dipstick) 20 mg/dL (Neg-Trace); RBC/HPF None Seen HPF (0-3); Specific Gravity, Urine 1.015 (1.002-1.036); Squamous Epithelial 0-3 HPF (0-3); WBC/HPF 0-3 HPF (0-3); pH, Urine 6.5 (5.0-9.0)
[2021-05-29] MEDS ORDERED: Thiamine HCl 200 MG/2 ML VIAL SLOW IVP SCH (12:30)
[2021-05-29] MEDS ORDERED: Diazepam 10 MG/2 ML SYRINGE ONE (14:03)
[2021-05-29] MEDS ORDERED: Diazepam 5 MG TAB ONE ×3 (14:04→18:30)
[2021-05-29] MEDS ORDERED: Ondansetron PF 4 MG/2 ML Vial IVP PRN (16:42)
[2021-05-29] MEDS ORDERED: cloNIDine 0.1 MG TAB PO PRN (16:43)
[2021-05-29] MEDS ORDERED: cefTRIAXone\\ROCEPHIN 1 GM VIAL ONE (18:16)
[2021-05-29] MEDS: Nicotine 21 MG PATCH TD SCH (18:30)
[2021-05-29] MEDS: cefTRIAXone\\ROCEPHIN 1 GM in Sodium Chloride 0.9% 100 ML IVPB SCH (19:02)
[2021-05-29] MEDS: Multivitamins, Adult 10 ML, Folic Acid 1 MG, Thiamine HCl 100 MG in Dextrose 5 %-0.45 %... IV SCH (20:00)
[2021-05-29 21:47] LABS: SARS-CoV-2 NAA Rapid Test Not Detected (NotDetected)
[2021-05-29] MEDS: Diazepam 5 MG TAB PO SCH (23:11)
[2021-05-30 05:49] VITALS: BMI 16.1
[2021-05-30 05:51] LABS: #Basophils 0.1 thou/uL (0.0-0.2); #Eosinphils 0.1 thou/uL (0.0-0.7); #Lymphocytes 1.4 thou/uL (1.20-3.40); #Monocytes 0.8 thou/uL (0.11-0.59); #Neutrophils 5.3 thou/uL (1.40-6.50); %Basophils 0.9 % (0.0-1.0); %Eosinophils 1.5 % (0.0-10.0); %Lymphocytes 18.5 % (21.0-51.0); %Monocytes 10.5 % (0.0-10.0); %Neutrophils 68.6 % (42.0-75.0); Hemoglobin 15.7 g/dL (12.0-16.0); Mean Corpuscular HGB CONC 37.8 g/dL (32.0-36.0); Mean Corpuscular Hemoglobin 35.1 pg (27.0-31.0); Mean Corpuscular Volume 92.9 fL (78.0-98.0); Mean Platelet Volume 7.2 fL (7.4-10.4); Platelet Count 311 thou/uL (130-400); RBC Distribution Width 15.7 % (11.5-14.5); Red Blood Cell (RBC) Count 4.48 mill/uL (4.20-5.40); White Blood Cell (WBC) Count 7.7 thou/uL (4.8-10.8)
[2021-05-30 06:20] LABS: ALT (SGPT) 66 U/L (8-55); AST (SGOT) 41 U/L (5-34); Albumin 3.8 g/dL (3.4-4.8); Alkaline Phosphatase 97 U/L (40-110); Anion Gap 13 mmol/L (10-20); BUN (Urea Nitrogen) 5 mg/dL (9.8-20.1); Bilirubin, Total 1.8 mg/dL (0.2-1.2); Calc. Creatinine Clearance 69 mL/min (70-130); Calcium 9.1 mg/dL (7.8-10.44); Carbon Dioxide 28 mmol/L (23-31); Chloride 96 mmol/L (98-107); Globulin 2.8 g/dL (2.4-3.5); Glucose 108 mg/dL (80-115); Potassium 3.9 mmol/L (3.5-5.1); Protein, Total 6.6 g/dL (5.8-8.1); Sodium 133 mmol/L (136-145)
[2021-05-30] MEDS: Enoxaparin Sodium 40 MG/0.4 ML SYRINGE SC SCH (08:36)
[2021-05-30] MEDS: Diazepam 5 MG TAB PO SCH ×3 (08:37→21:18)
[2021-05-30] MEDS: cefTRIAXone\\ROCEPHIN 1 GM in Sodium Chloride 0.9% 100 ML IVPB SCH (16:53)
[2021-05-30] MEDS: Nicotine 21 MG PATCH TD SCH (16:54)
[2021-05-30] MEDS: Multivitamins, Adult 10 ML, Folic Acid 1 MG, Thiamine HCl 100 MG in Dextrose 5 %-0.45 %... IV SCH (18:13)
[2021-05-31] MEDS: Enoxaparin Sodium 40 MG/0.4 ML SYRINGE SC SCH (08:36)
[2021-05-31] MEDS: Diazepam 5 MG TAB PO SCH (08:36)
[2021-05-31] MEDS ORDERED: Folic Acid 1 MG TAB PO SCH (09:00)
[2021-05-31] MEDS ORDERED: Thiamine 100 MG TAB PO SCH (09:00)
[2021-05-31 12:46] VITALS: BP 133/76; TEMP 97.7
== END 2021-05-31 12:40 | disposition home or self-care (01) | DRG 897 ==
LOC: ERS 09:06 → ERHOLD 15:16 → 3SE 22:02
PROVIDERS: ADMIT Internal Medicine; ATTEND Internal Medicine
PROC: HZ2ZZZZ Detoxification Services for Substance Abuse Treatment (ICD-10-PCS; principal; 2021-05-29)
DX: F10.229 Alcohol dependence with intoxication, unspecified (principal); F33.9 Major depressive disorder, recurrent, unspecified; N39.0 Urinary tract infection, site not specified; Z20.822 Contact with and (suspected) exposure to COVID-19; Y90.6 Blood alcohol level of 120-199 mg/100 ml; F17.210 Nicotine dependence, cigarettes, uncomplicated; F41.9 Anxiety disorder, unspecified; I25.10 Atherosclerotic heart disease of native coronary artery without angina pectoris; J44.9 Chronic obstructive pulmonary disease, unspecified; I10 Essential (primary) hypertension; Z91.018 Allergy to other foods; Z95.1 Presence of aortocoronary bypass graft; Z85.118 Personal history of other malignant neoplasm of bronchus and lung; Z90.2 Acquired absence of lung [part of]; Z71.41 Alcohol abuse counseling and surveillance of alcoholic; Z79.899 Other long term (current) drug therapy
CPT/HCPCS: 36415; 70450; 71045; 80053; 80307; 81003; 81015; 83735; 83880; 84484; 85025; 87086; 93005; 96374; 96375; J0696; J1650; J2405; J3360; J3411; J3490; J7042; U0002

== ENCOUNTER 2021-06-21 18:27 | Inpatient (IN) | payer OTHER ==
[2021-06-21 19:59] LABS: Hemoglobin 15.3 g/dL (12.0-16.0); Mean Corpuscular HGB CONC 35.5 g/dL (32.0-36.0); Mean Corpuscular Hemoglobin 31.6 pg (27.0-31.0); Mean Corpuscular Volume 88.9 fL (78.0-98.0); RBC Distribution Width 15.4 % (11.5-14.5); Red Blood Cell (RBC) Count 4.85 mill/uL (4.20-5.40); White Blood Cell (WBC) Count 16.7 thou/uL (4.8-10.8)
[2021-06-21 20:02] LABS: #Basophils 0.1 thou/uL (0.0-0.2); #Monocytes 1.1 thou/uL (0.11-0.59); #Neutrophils 14.5 thou/uL (1.40-6.50); %Basophils 0.3 % (0.0-1.0); %Lymphocytes 5.8 % (21.0-51.0); %Monocytes 6.8 % (0.0-10.0)
[2021-06-21 20:09] LABS: ALT (SGPT) 96 U/L (8-55); AST (SGOT) 169 U/L (5-34); Albumin 4.3 g/dL (3.4-4.8); Alkaline Phosphatase 88 U/L (40-110); Anion Gap 24 mmol/L (10-20); BUN (Urea Nitrogen) 9 mg/dL (9.8-20.1); Bilirubin, Total 2.4 mg/dL (0.2-1.2); Calc. Creatinine Clearance 0 mL/min (70-130); Calcium 9.5 mg/dL (7.8-10.44); Carbon Dioxide 20 mmol/L (23-31); Chloride 88 mmol/L (98-107); Globulin 3.1 g/dL (2.4-3.5); Potassium 3.6 mmol/L (3.5-5.1); Protein, Total 7.4 g/dL (5.8-8.1); Sodium 128 mmol/L (136-145)
[2021-06-21 20:15] LABS: Glucose 59 mg/dL (80-115)
[2021-06-21 20:18] LABS: Anisocytosis SLIGHT = 6-15 cells (100X) (0-5/hpf); MDiff Complete? YES; Mean Platelet Volume 9.1 fL (7.4-10.4); Platelet Count 117 thou/uL (130-400); Platelet Morphology Comment Appears Decreased
[2021-06-21 20:54] LABS: Bacteria/HPF None Seen HPF (None Seen); Bilirubin 1+ (Negative); Blood, Urine Trace (Negative); Clarity Clear (Clear); Glucose, Urine (Dipstick) Normal (Negative); Ketone, Urine 150 mg/dL (Negative); Leukocyte 25 Leu/uL (Negative); Nitrite Negative (Negative); Protein, Urine (Dipstick) 30 mg/dL (Neg-Trace); RBC/HPF 0-3 HPF (0-3); Squamous Epithelial 0-3 HPF (0-3); Urobilinogen 3 mg/dL (Less than 2); WBC/HPF 0-3 HPF (0-3)
[2021-06-21 21:01] LABS: Amphetamine Not Detected (NotDetected); Barbiturates Screen Not Detected (NotDetected); Benzodiazepine Screen Detected (NotDetected); Cocaine Metabolite Screen Not Detected (NotDetected); Methadone Not Detected (NotDetected); Methamphetamine Not Detected (NotDetected); Opiate Screen Not Detected (NotDetected); Oxycodone Screen Not Detected (NotDetected); Phencyclidine (PCP) Not Detected (NotDetected); THC/Cannabinoid Screen Not Detected (NotDetected); Tricyclic Screen Detected (NotDetected)
[2021-06-21] MEDS ORDERED: Ondansetron ODT 4 MG TAB PO PRN (23:06)
[2021-06-21] MEDS ORDERED: Acetaminophen 325 MG TAB PO PRN (23:06)
[2021-06-21] MEDS ORDERED: Ondansetron PF 4 MG/2 ML Vial IVP PRN (23:06)
[2021-06-21] MEDS ORDERED: Acetaminophen 650 MG Suppository PR PRN (23:06)
[2021-06-22] LABS: Lactic Acid 1.3 mmol/L (0.5-2.2)
[2021-06-22 00:05] LABS: Anion Gap 18 mmol/L (10-20); BUN (Urea Nitrogen) 10 mg/dL (9.8-20.1); Calc. Creatinine Clearance 0 mL/min (70-130); Calcium 9.4 mg/dL (7.8-10.44); Carbon Dioxide 23 mmol/L (23-31); Chloride 89 mmol/L (98-107); Glucose 90 mg/dL (80-115); Magnesium 1.9 mg/dL (1.6-2.6); Potassium 3.2 mmol/L (3.5-5.1); Sodium 127 mmol/L (136-145)
[2021-06-22 00:57] VITALS: BMI 15.7
[2021-06-22] MEDS ORDERED: FLU VACC QS2021-22(6MOS UP)/PF 60 MCG/0.5 ML SYRINGE IM ONE (01:45)
[2021-06-22] MEDS ORDERED: Non-Formulary Item 1 EACH (Doxepin Hcl [Doxepin Hcl] 100 MG Capsule) PO SCH (02:01)
[2021-06-22] MEDS ORDERED: Doxepin HCl 25 MG CAP PO SCH ×2 (02:15→21:00)
[2021-06-22] MEDS ORDERED: Electrolyte Replacement Protocol 1 EACH FS SCH ×2 (04:00→12:00)
[2021-06-22] MEDS ORDERED: cefTRIAXone\\ROCEPHIN 1 GM in Sodium Chloride 0.9% 100 ML IVPB SCH (04:00)
[2021-06-22] MEDS ORDERED: Piperacillin/Tazobactam 3.375 GM in Sodium Chloride 0.9% 100 ML IVPB SCH ×2 (04:00→04:15)
[2021-06-22] MEDS: Sodium Chloride 0.9% 1,000 ML IV SCH (04:26)
[2021-06-22] MEDS ORDERED: Sterile Water 10 ML VIAL FS PRN (04:30)
[2021-06-22] MEDS ORDERED: OLANZapine 10 MG VIAL IM SCH (04:30)
[2021-06-22 04:43] LABS: Anion Gap 17 mmol/L (10-20); BUN (Urea Nitrogen) 10 mg/dL (9.8-20.1); Calc. Creatinine Clearance 59 mL/min (70-130); Calcium 9.3 mg/dL (7.8-10.44); Carbon Dioxide 24 mmol/L (23-31); Chloride 93 mmol/L (98-107); Glucose 82 mg/dL (80-115); Potassium 3.3 mmol/L (3.5-5.1); Sodium 131 mmol/L (136-145)
[2021-06-22 04:46] LABS: #Eosinphils 0.1 thou/uL (0.0-0.7); #Lymphocytes 1.9 thou/uL (1.20-3.40); #Monocytes 1.4 thou/uL (0.11-0.59); #Neutrophils 8.2 thou/uL (1.40-6.50); %Basophils 0.4 % (0.0-1.0); %Eosinophils 0.5 % (0.0-10.0); %Lymphocytes 16.2 % (21.0-51.0); %Monocytes 11.8 % (0.0-10.0); %Neutrophils 71.1 % (42.0-75.0); Mean Corpuscular HGB CONC 36.5 g/dL (32.0-36.0); Mean Corpuscular Hemoglobin 32.4 pg (27.0-31.0); Mean Corpuscular Volume 88.8 fL (78.0-98.0); Mean Platelet Volume 9.2 fL (7.4-10.4); Platelet Count 110 thou/uL (130-400); RBC Distribution Width 15.3 % (11.5-14.5); Red Blood Cell (RBC) Count 4.63 mill/uL (4.20-5.40); White Blood Cell (WBC) Count 11.5 thou/uL (4.8-10.8)
[2021-06-22] MEDS ORDERED: Magnesium 2 GM/50 ML 2 GM in Premix Bag 1 BAG IVPB SCH (07:00)
[2021-06-22] MEDS: Potassium Chloride 20 MEQ TAB PO SCH ×2 (07:34→09:33)
[2021-06-22] MEDS: Enoxaparin Sodium 40 MG/0.4 ML SYRINGE SC SCH (08:02)
[2021-06-22] MEDS: Piperacillin/Tazobactam 3.375 GM in Sodium Chloride 0.9% 100 ML IVPB SCH ×3 (09:32→23:19)
[2021-06-22] MEDS: Thiamine 100 MG TAB PO SCH ×3 (11:02→23:19)
[2021-06-22 11:42] LABS: SARS-CoV-2 PCR by NAA Not Detected (NotDetected)
[2021-06-22] MEDS ORDERED: Lorazepam 1 MG TAB PO PRN (11:53)
[2021-06-22] MEDS ORDERED: Ondansetron ODT 4 MG TAB PO PRN (11:53)
[2021-06-22] MEDS ORDERED: Lorazepam 2 MG/ML VIAL IM PRN (11:53)
[2021-06-22] MEDS ORDERED: Thiamine HCl 200 MG/2 ML VIAL SLOW IVP SCH (12:00)
[2021-06-22 12:54] LABS: #Basophils 0.1 thou/uL (0.0-0.2); #Lymphocytes 1.1 thou/uL (1.20-3.40); #Neutrophils 6.7 thou/uL (1.40-6.50); %Basophils 0.6 % (0.0-1.0); %Eosinophils 0.5 % (0.0-10.0); %Lymphocytes 12.3 % (21.0-51.0); %Monocytes 10.9 % (0.0-10.0); %Neutrophils 75.7 % (42.0-75.0); Hemoglobin 14.3 g/dL (12.0-16.0); Mean Corpuscular HGB CONC 35.4 g/dL (32.0-36.0); Mean Corpuscular Hemoglobin 31.5 pg (27.0-31.0); Mean Corpuscular Volume 88.9 fL (78.0-98.0); Mean Platelet Volume 9.4 fL (7.4-10.4); Platelet Count 114 thou/uL (130-400); RBC Distribution Width 15.3 % (11.5-14.5); Red Blood Cell (RBC) Count 4.55 mill/uL (4.20-5.40); White Blood Cell (WBC) Count 8.9 thou/uL (4.8-10.8)
[2021-06-22 13:09] LABS: ALT (SGPT) 85 U/L (8-55); AST (SGOT) 138 U/L (5-34); Albumin 3.9 g/dL (3.4-4.8); Alkaline Phosphatase 82 U/L (40-110); Anion Gap 17 mmol/L (10-20); BUN (Urea Nitrogen) 9 mg/dL (9.8-20.1); Bilirubin, Total 2.1 mg/dL (0.2-1.2); Calc. Creatinine Clearance 58 mL/min (70-130); Carbon Dioxide 25 mmol/L (23-31); Chloride 94 mmol/L (98-107); Globulin 2.7 g/dL (2.4-3.5); Glucose 134 mg/dL (80-115); Magnesium 2.2 mg/dL (1.6-2.6); Phosphorus 2.1 mg/dL (2.3-4.7); Potassium 3.8 mmol/L (3.5-5.1); Protein, Total 6.6 g/dL (5.8-8.1); Sodium 132 mmol/L (136-145)
[2021-06-22 13:27] LABS: Syphilis Antibody Nonreactive (Nonreactive); Syphilis Antibody Index 0.04 S/CO (<1.00 Non-Reactive)
[2021-06-22] MEDS ORDERED: Multivit, Therapeutic 1 TAB PO SCH (13:45)
[2021-06-22] MEDS ORDERED: Folic Acid 1 MG TAB PO SCH (14:00)
[2021-06-22] MEDS: Lorazepam 1 MG TAB PO SCH ×3 (14:17→23:19)
[2021-06-22] MEDS: Melatonin 3 MG TAB PO PRN (23:21)
[2021-06-23] MEDS: Thiamine 100 MG TAB PO SCH ×4 (05:26→23:09)
[2021-06-23] MEDS: Lorazepam 1 MG TAB PO SCH ×4 (05:26→23:09)
[2021-06-23] MEDS: Sodium Chloride 0.9% 1,000 ML IV SCH ×3 (05:27→12:32)
[2021-06-23 06:49] LABS: #Basophils 0.1 thou/uL (0.0-0.2); #Eosinphils 0.1 thou/uL (0.0-0.7); #Lymphocytes 1.4 thou/uL (1.20-3.40); #Neutrophils 5.2 thou/uL (1.40-6.50); %Basophils 1.3 % (0.0-1.0); %Eosinophils 1.7 % (0.0-10.0); %Monocytes 13.2 % (0.0-10.0); %Neutrophils 65.8 % (42.0-75.0); Hemoglobin 14.6 g/dL (12.0-16.0); Mean Corpuscular Hemoglobin 31.3 pg (27.0-31.0); Mean Corpuscular Volume 89.5 fL (78.0-98.0); Mean Platelet Volume 8.9 fL (7.4-10.4); Platelet Count 119 thou/uL (130-400); RBC Distribution Width 15.3 % (11.5-14.5); Red Blood Cell (RBC) Count 4.67 mill/uL (4.20-5.40); White Blood Cell (WBC) Count 7.8 thou/uL (4.8-10.8)
[2021-06-23 07:17] LABS: Anion Gap 18 mmol/L (10-20); BUN (Urea Nitrogen) 7 mg/dL (9.8-20.1); Calc. Creatinine Clearance 74 mL/min (70-130); Calcium 8.5 mg/dL (7.8-10.44); Carbon Dioxide 21 mmol/L (23-31); Chloride 97 mmol/L (98-107); Glucose 68 mg/dL (80-115); Potassium 3.6 mmol/L (3.5-5.1); Sodium 132 mmol/L (136-145)
[2021-06-23] MEDS: Enoxaparin Sodium 40 MG/0.4 ML SYRINGE SC SCH (08:46)
[2021-06-23] MEDS: Piperacillin/Tazobactam 3.375 GM in Sodium Chloride 0.9% 100 ML IVPB SCH ×3 (08:46→23:09)
[2021-06-23] MEDS: Folic Acid 1 MG TAB PO SCH (08:47)
[2021-06-23] MEDS: Multivit, Therapeutic 1 TAB PO SCH (08:47)
[2021-06-23] MEDS ORDERED: Nicotine 21 MG PATCH TD SCH (11:15)
[2021-06-23] MEDS: D5 0.9% NS w/ 20 mEq KCl 1,000 ML IV SCH (12:31)
[2021-06-23] MEDS: Melatonin 3 MG TAB PO PRN (23:09)
[2021-06-24] MEDS: Lorazepam 1 MG TAB PO PRN ×2 (03:05→09:05)
[2021-06-24] MEDS: Lorazepam 1 MG TAB PO SCH (06:30)
[2021-06-24] MEDS: Thiamine 100 MG TAB PO SCH ×4 (06:30→18:43)
[2021-06-24] MEDS ORDERED: Lisinopril 10 MG TAB PO SCH (09:00)
[2021-06-24] MEDS ORDERED: Nicotine 21 MG PATCH TD SCH (09:00)
[2021-06-24] MEDS ORDERED: Aspirin 81 mg Enteric Coated Tablet PO SCH (09:00)
[2021-06-24] MEDS: Folic Acid 1 MG TAB PO SCH (09:06)
[2021-06-24] MEDS: Enoxaparin Sodium 40 MG/0.4 ML SYRINGE SC SCH (09:06)
[2021-06-24] MEDS: Multivit, Therapeutic 1 TAB PO SCH (09:06)
[2021-06-24] MEDS: Piperacillin/Tazobactam 3.375 GM in Sodium Chloride 0.9% 100 ML IVPB SCH (09:32)
[2021-06-24] MEDS: D5 0.9% NS w/ 20 mEq KCl 1,000 ML IV SCH (09:33)
[2021-06-24] MEDS ORDERED: Lorazepam 1 MG TAB PO PRN ×2 (11:53→18:13)
[2021-06-24] MEDS: Lorazepam 0.5 MG TAB PO SCH ×2 (13:22→17:25)
[2021-06-24] MEDS ORDERED: Acetaminophen 325 MG TAB PO PRN (17:46)
[2021-06-24] MEDS ORDERED: Acetaminophen 650 MG Suppository PR PRN (17:46)
[2021-06-24] MEDS ORDERED: Ondansetron ODT 4 MG TAB PO PRN (17:46)
[2021-06-24] MEDS ORDERED: Ondansetron PF 4 MG/2 ML Vial IVP PRN (17:47)
[2021-06-24] MEDS ORDERED: Sterile Water 10 ML VIAL FS PRN (17:47)
[2021-06-24] MEDS: Melatonin 3 MG TAB PO PRN (21:09)
[2021-06-25] MEDS: Lorazepam 0.5 MG TAB PO SCH ×2 (00:07→07:24)
[2021-06-25] MEDS: Thiamine 100 MG TAB PO SCH ×5 (00:07→18:32)
[2021-06-25] MEDS: Multivit, Therapeutic 1 TAB PO SCH (09:13)
[2021-06-25] MEDS: Aspirin 81 mg Enteric Coated Tablet PO SCH (09:13)
[2021-06-25] MEDS: Folic Acid 1 MG TAB PO SCH (09:14)
[2021-06-25] MEDS: Enoxaparin Sodium 40 MG/0.4 ML SYRINGE SC SCH (09:14)
[2021-06-25] MEDS: Lisinopril 10 MG TAB PO SCH (09:14)
[2021-06-25] MEDS: Nicotine 21 MG PATCH TD SCH (09:14)
[2021-06-25 09:35] LABS: Anion Gap 15 mmol/L (10-20); BUN (Urea Nitrogen) 8 mg/dL (9.8-20.1); Calc. Creatinine Clearance 72 mL/min (70-130); Calcium 8.7 mg/dL (7.8-10.44); Carbon Dioxide 25 mmol/L (23-31); Chloride 100 mmol/L (98-107); Glucose 98 mg/dL (80-115); Sodium 137 mmol/L (136-145)
[2021-06-25] MEDS ORDERED: Potassium Chloride 20 MEQ TAB PO SCH (10:00)
[2021-06-25] MEDS ORDERED: Lorazepam 0.5 MG TAB PO PRN ×2 (11:53)
[2021-06-25] MEDS ORDERED: Thiamine 100 MG TAB PO SCH (12:00)
[2021-06-25] MEDS: Melatonin 3 MG TAB PO PRN (21:47)
[2021-06-26] MEDS: Thiamine 100 MG TAB PO SCH ×4 (01:35→17:31)
[2021-06-26 06:32] LABS: Potassium 3.3 mmol/L (3.5-5.1)
[2021-06-26] MEDS ORDERED: Potassium Chloride 20 MEQ TAB PO SCH (07:00)
[2021-06-26] MEDS: Lisinopril 10 MG TAB PO SCH (08:11)
[2021-06-26] MEDS: Folic Acid 1 MG TAB PO SCH (08:11)
[2021-06-26] MEDS: Multivit, Therapeutic 1 TAB PO SCH (08:11)
[2021-06-26] MEDS: Aspirin 81 mg Enteric Coated Tablet PO SCH (08:11)
[2021-06-26] MEDS: Enoxaparin Sodium 40 MG/0.4 ML SYRINGE SC SCH (08:11)
[2021-06-26] MEDS: Nicotine 21 MG PATCH TD SCH (08:27)
[2021-06-26 14:35] LABS: Hemoglobin 14.5 g/dL (12.0-16.0); Mean Corpuscular Hemoglobin 32.7 pg (27.0-31.0); Mean Corpuscular Volume 90.9 fL (78.0-98.0); Mean Platelet Volume 7.6 fL (7.4-10.4); Platelet Count 228 thou/uL (130-400); RBC Distribution Width 15.5 % (11.5-14.5); Red Blood Cell (RBC) Count 4.44 mill/uL (4.20-5.40); White Blood Cell (WBC) Count 7.6 thou/uL (4.8-10.8)
[2021-06-26 14:49] LABS: Band 1 % (5-11); Eosinophils 1 % (0-10); Lymphocytes 22 % (21-51); MDiff Complete? YES; Monocytes 12 % (0-10); Neutrophil 58 % (42-75); Platelet Morphology Comment Appears Adequate; RBC Morphology Normal; Reactive Lymphocytes 5 % (0-10)
[2021-06-26] MEDS: Melatonin 3 MG TAB PO PRN (22:30)
[2021-06-27] MEDS: Thiamine 100 MG TAB PO SCH ×3 (02:33→12:05)
[2021-06-27] MEDS: Enoxaparin Sodium 40 MG/0.4 ML SYRINGE SC SCH (07:45)
[2021-06-27] MEDS: Aspirin 81 mg Enteric Coated Tablet PO SCH (07:45)
[2021-06-27] MEDS: Multivit, Therapeutic 1 TAB PO SCH (07:45)
[2021-06-27] MEDS: Nicotine 21 MG PATCH TD SCH (07:46)
[2021-06-27] MEDS: Folic Acid 1 MG TAB PO SCH (07:46)
[2021-06-27] MEDS: Lisinopril 10 MG TAB PO SCH (07:47)
[2021-06-27] MEDS ORDERED: Meclizine HCl 12.5 MG TAB PO PRN (11:58)
[2021-06-27 12:51] VITALS: BP 153/83; TEMP 98.6
[2021-06-27] MEDS ORDERED: chlordiazePOXIDE HCl 5 MG CAP PO SCH (15:00)
[2021-06-27 17:08] LABS: Potassium 4.4 mmol/L (3.5-5.1)
[2021-06-27 17:51] LABS: Anion Gap 15 mmol/L (10-20); BUN (Urea Nitrogen) 6 mg/dL (9.8-20.1); Calc. Creatinine Clearance 66 mL/min (70-130); Calcium 9.5 mg/dL (7.8-10.44); Carbon Dioxide 26 mmol/L (23-31); Chloride 97 mmol/L (98-107); Glucose 99 mg/dL (80-115); Sodium 133 mmol/L (136-145)
== END 2021-06-27 18:24 | disposition home health service (06) | DRG 56 ==
LOC: ERS 18:27 → T4-A 22:37 → 2SW 06-22 06:57 → OBSVTOIN 06-22 16:19 → 2SW 06-22 21:56 → UNDODISIN 06-24 17:20 → T4-A 06-24 18:40
PROVIDERS: ADMIT Student in an Organized Health Care Education/Training Program; ATTEND Internal Medicine
DX: G31.2 Degeneration of nervous system due to alcohol (principal); G92.9 Unspecified toxic encephalopathy; J96.01 Acute respiratory failure with hypoxia; N39.0 Urinary tract infection, site not specified; E87.1 Hypo-osmolality and hyponatremia; E44.0 Moderate protein-calorie malnutrition; I50.42 Chronic combined systolic (congestive) and diastolic (congestive) heart failure; I13.0 Hypertensive heart and chronic kidney disease with heart failure and stage 1 through stage 4 chronic kidney disease, or unspecified chronic kidney disease; J44.1 Chronic obstructive pulmonary disease with (acute) exacerbation; Z68.1 Body mass index [BMI] 19.9 or less, adult; Z20.822 Contact with and (suspected) exposure to COVID-19; I25.10 Atherosclerotic heart disease of native coronary artery without angina pectoris; F17.210 Nicotine dependence, cigarettes, uncomplicated; R26.81 Unsteadiness on feet; F19.10 Other psychoactive substance abuse, uncomplicated; F13.10 Sedative, hypnotic or anxiolytic abuse, uncomplicated; E87.6 Hypokalemia; E83.39 Other disorders of phosphorus metabolism; E88.09 Other disorders of plasma-protein metabolism, not elsewhere classified; F41.9 Anxiety disorder, unspecified; F32.A Depression, unspecified; E16.2 Hypoglycemia, unspecified; T50.905A Adverse effect of unspecified drugs, medicaments and biological substances, initial encounter; E86.1 Hypovolemia; N18.1 Chronic kidney disease, stage 1; F10.220 Alcohol dependence with intoxication, uncomplicated; R29.6 Repeated falls; H81.10 Benign paroxysmal vertigo, unspecified ear; R19.7 Diarrhea, unspecified; Z90.2 Acquired absence of lung [part of]; Z85.118 Personal history of other malignant neoplasm of bronchus and lung; I25.2 Old myocardial infarction; Z95.1 Presence of aortocoronary bypass graft; Z91.81 History of falling; Z91.018 Allergy to other foods; Z79.899 Other long term (current) drug therapy; Z71.6 Tobacco abuse counseling
CPT/HCPCS: 36415; 36416; 70450; 70551; 71045; 80048; 80053; 80306; 80307; 81001; 82140; 82248; 83605; 83735; 83930; 83935; 84100; 84132; 84443; 84484; 85025; 86780; 87040; 87045; 87046; 87081; 87086; 87328; 87329; 87427; 87449; 93005; 93010; 93306; 95712; 95819; 95957; 96372; 96374; 96375; 96376; G0378; J1650; J2543; J3475; J3480; J3490; J7050; U0003; U0005

== ENCOUNTER 2022-02-24 17:48 | Emergency (ER) | payer OTHER ==
[2022-02-24 18:29] LABS: #Basophils 0.1 thou/uL (0.0-0.2); #Lymphocytes 2.1 thou/uL (1.20-3.40); #Monocytes 0.6 thou/uL (0.11-0.59); #Neutrophils 3.7 thou/uL (1.40-6.50); %Basophils 1.9 % (0.0-1.0); %Eosinophils 0.5 % (0.0-10.0); %Lymphocytes 31.7 % (21.0-51.0); %Monocytes 8.8 % (0.0-10.0); %Neutrophils 57.1 % (42.0-75.0); Hemoglobin 16.1 g/dL (12.0-16.0); Mean Corpuscular HGB CONC 34.8 g/dL (32.0-36.0); Mean Corpuscular Hemoglobin 30.9 pg (27.0-31.0); Mean Corpuscular Volume 88.7 fL (78.0-98.0); Mean Platelet Volume 8.4 fL (7.4-10.4); Platelet Count 207 thou/uL (130-400); Red Blood Cell (RBC) Count 5.22 mill/uL (4.20-5.40); White Blood Cell (WBC) Count 6.5 thou/uL (4.8-10.8)
[2022-02-24 18:46] LABS: ALT (SGPT) 265 U/L (8-55); AST (SGOT) 328 U/L (5-34); Acetaminophen Less than 10.0 mcg/mL (10.0-30.0); Albumin 4.3 g/dL (3.4-4.8); Alkaline Phosphatase 111 U/L (40-110); Anion Gap 20 mmol/L (10-20); BUN (Urea Nitrogen) Less than 4 mg/dL (9.8-20.1); Bilirubin, Total 1.2 mg/dL (0.2-1.2); CK (CPK) 138 U/L (29-168); Calc. Creatinine Clearance 0 mL/min (70-130); Carbon Dioxide 23 mmol/L (23-31); Chloride 92 mmol/L (98-107); Globulin 3.4 g/dL (2.4-3.5); Glucose 90 mg/dL (80-115); Lipase 193 U/L (8-78); Potassium 3.9 mmol/L (3.5-5.1); Protein, Total 7.7 g/dL (5.8-8.1); Salicylate Less than 8.0 mg/dL (15.0-30.0); Sodium 131 mmol/L (136-145)
[2022-02-24 18:53] LABS: Alcohol 435 mg/dL (Less than 10)
[2022-02-24 23:52] LABS: Bilirubin Negative (Negative); Blood, Urine Negative (Negative); Clarity Clear (Clear); Glucose, Urine (Dipstick) Normal (Negative); Ketone, Urine Negative (Negative); Leukocyte Negative Leu/uL (Negative); Nitrite Negative (Negative); Protein, Urine (Dipstick) Negative (Neg-Trace); Specific Gravity, Urine 1.006 (1.002-1.036); Urobilinogen Normal mg/dL (Less than 2); pH, Urine 5.5 (5.0-9.0)
[2022-02-25] MEDS ORDERED: Dicyclomine 20 MG/2 ML VIAL ONE (06:23)
== END 2022-02-25 00:33 | disposition home or self-care (01) ==
LOC: EEVIPCON 17:48 → ERS 17:48
DX: F10.129 Alcohol abuse with intoxication, unspecified (principal); Y90.8 Blood alcohol level of 240 mg/100 ml or more; I10 Essential (primary) hypertension; I25.2 Old myocardial infarction; J45.909 Unspecified asthma, uncomplicated; F17.210 Nicotine dependence, cigarettes, uncomplicated; Z85.118 Personal history of other malignant neoplasm of bronchus and lung
CPT/HCPCS: 51701; 70450; 71045; 72125; 80053; 80307; 81003; 82550; 83690; 83735; 84484; 85025; 93005; 96372; J0500

== ENCOUNTER 2022-03-06 16:56 | Emergency (ER) | payer OTHER ==
[2022-03-06 18:23] LABS: #Lymphocytes 1.6 thou/uL (1.20-3.40); #Monocytes 1.1 thou/uL (0.11-0.59); #Neutrophils 9.5 thou/uL (1.40-6.50); %Basophils 0.3 % (0.0-1.0); %Lymphocytes 13.4 % (21.0-51.0); %Monocytes 8.7 % (0.0-10.0); %Neutrophils 77.6 % (42.0-75.0); Hemoglobin 13.4 g/dL (12.0-16.0); Mean Corpuscular HGB CONC 35.6 g/dL (32.0-36.0); Mean Corpuscular Hemoglobin 31.4 pg (27.0-31.0); Mean Corpuscular Volume 88.4 fL (78.0-98.0); Mean Platelet Volume 9.8 fL (7.4-10.4); Platelet Count 122 thou/uL (130-400); RBC Distribution Width 16.3 % (11.5-14.5); Red Blood Cell (RBC) Count 4.25 mill/uL (4.20-5.40); White Blood Cell (WBC) Count 12.2 thou/uL (4.8-10.8)
[2022-03-06 18:54] LABS: ALT (SGPT) 139 U/L (8-55); AST (SGOT) 191 U/L (5-34); Acetaminophen Less than 10.0 mcg/mL (10.0-30.0); Albumin 3.8 g/dL (3.4-4.8); Alcohol 307 mg/dL (Less than 10); Alkaline Phosphatase 137 U/L (40-110); Anion Gap 22 mmol/L (10-20); BUN (Urea Nitrogen) Less than 4 mg/dL (9.8-20.1); Bilirubin, Total 2.1 mg/dL (0.2-1.2); Calc. Creatinine Clearance 0 mL/min (70-130); Calcium 8.6 mg/dL (7.8-10.44); Carbon Dioxide 24 mmol/L (23-31); Chloride 86 mmol/L (98-107); Globulin 3.1 g/dL (2.4-3.5); Glucose 88 mg/dL (80-115); Potassium 3.5 mmol/L (3.5-5.1); Protein, Total 6.9 g/dL (5.8-8.1); Salicylate Less than 8.0 mg/dL (15.0-30.0); Sodium 128 mmol/L (136-145)
[2022-03-06 19:03] LABS: Bacteria/HPF 1+ HPF (None Seen); Bilirubin Negative (Negative); Blood, Urine Negative (Negative); Clarity Turbid (Clear); Glucose, Urine (Dipstick) Normal (Negative); Ketone, Urine Negative (Negative); Leukocyte 500 Leu/uL (Negative); Nitrite Negative (Negative); Protein, Urine (Dipstick) Negative (Neg-Trace); RBC/HPF 0-3 HPF (0-3); Specific Gravity, Urine 1.002 (1.002-1.036); Squamous Epithelial None Seen HPF (0-3); Urobilinogen Normal mg/dL (Less than 2); pH, Urine 6.5 (5.0-9.0)
[2022-03-06 19:08] LABS: Amphetamine Not Detected (NotDetected); Barbiturates Screen Not Detected (NotDetected); Benzodiazepine Screen Not Detected (NotDetected); Cocaine Metabolite Screen Not Detected (NotDetected); Methadone Not Detected (NotDetected); Methamphetamine Not Detected (NotDetected); Opiate Screen Not Detected (NotDetected); Oxycodone Screen Not Detected (NotDetected); Phencyclidine (PCP) Not Detected (NotDetected); THC/Cannabinoid Screen Not Detected (NotDetected); Tricyclic Screen Not Detected (NotDetected)
== END 2022-03-06 20:37 | disposition home or self-care (01) ==
LOC: ERS 16:56
DX: S09.90XA Unspecified injury of head, initial encounter (principal); F10.129 Alcohol abuse with intoxication, unspecified; V43.52XA Car driver injured in collision with other type car in traffic accident, initial encounter; J45.909 Unspecified asthma, uncomplicated; I10 Essential (primary) hypertension; Z85.118 Personal history of other malignant neoplasm of bronchus and lung; F17.210 Nicotine dependence, cigarettes, uncomplicated; Y90.8 Blood alcohol level of 240 mg/100 ml or more
CPT/HCPCS: 36415; 70450; 71045; 80053; 80306; 80307; 81003; 81015; 85025; 93005

== ENCOUNTER 2022-03-11 21:40 | Inpatient (IN) | payer OTHER ==
[~2022-03-11 21:40] MED LIST changes: +Iopamidol 370 76% 100 ML VIAL ONE; -Iopamidol-370 76% 500 ML 1 ML ONE
[2022-03-11 23:52] LABS: Anion Gap 22 mmol/L (10-20); BUN (Urea Nitrogen) 6 mg/dL (9.8-20.1); Calc. Creatinine Clearance 0 mL/min (70-130); Calcium 8.2 mg/dL (7.8-10.44); Carbon Dioxide 24 mmol/L (23-31); Chloride 78 mmol/L (98-107); Estimated GFR 109; Glucose 92 mg/dL (80-115); Sodium 121 mmol/L (136-145)
[2022-03-12 00:08] LABS: Potassium 2.6 mmol/L (3.5-5.1)
[2022-03-12 00:12] LABS: Actual Bicarbonate (HCO3v) 28 mEq/L (22-28); Analyzer IN Cardio ER; Base Excess 4.3 mEq/L (-2.0 to +3.0); Calcium, Ionized (venous) 0.93 mmol/L (1.16-1.32); Chloride (VBG) 79 mmol/L (98-106); Hemoglobin (Hb) 13.6 g/dL (11.7-16.0); Potassium (VBG) 2.54 mmol/L (3.70-5.30); Sodium 117.1 mmol/L (133-146); pH (venous) 7.49 (7.32-7.43)
[2022-03-12] MEDS ORDERED: Potassium Chloride 20 MEQ TAB ONE (00:25)
[2022-03-12] MEDS ORDERED: Potassium Chloride 20 MEQ/100 ML PREMIX BAG ONE (00:25)
[2022-03-12 00:30] LABS: ALT (SGPT) 70 U/L (8-55); AST (SGOT) 59 U/L (5-34); Albumin 3.3 g/dL (3.4-4.8); Alkaline Phosphatase 118 U/L (40-110); Anion Gap 19 mmol/L (10-20); BUN (Urea Nitrogen) 6 mg/dL (9.8-20.1); Bilirubin, Total 1.9 mg/dL (0.2-1.2); Calc. Creatinine Clearance 0 mL/min (70-130); Calcium 8.2 mg/dL (7.8-10.44); Carbon Dioxide 25 mmol/L (23-31); Chloride 78 mmol/L (98-107); Estimated GFR 109; Globulin 2.5 g/dL (2.4-3.5); Glucose 94 mg/dL (80-115); Lipase 88 U/L (8-78); Potassium 2.3 mmol/L (3.5-5.1); Protein, Total 5.8 g/dL (5.8-8.1); Sodium 120 mmol/L (136-145)
[2022-03-12 01:08] LABS: CKMB 5.6 ng/mL (0-6.6)
[2022-03-12 01:49] LABS: #Monocytes 1.6 thou/uL (0.11-0.59); #Neutrophils 7.7 thou/uL (1.40-6.50); %Basophils 0.4 % (0.0-1.0); %Eosinophils 0.4 % (0.0-10.0); %Lymphocytes 17.2 % (21.0-51.0); %Monocytes 14.3 % (0.0-10.0); %Neutrophils 67.7 % (42.0-75.0); Hemoglobin 13.2 g/dL (12.0-16.0); Mean Platelet Volume 8.4 fL (7.4-10.4); Platelet Count 251 thou/uL (130-400); RBC Morphology Normal; Red Blood Cell (RBC) Count 4.12 mill/uL (4.20-5.40); White Blood Cell (WBC) Count 11.3 thou/uL (4.8-10.8)
[2022-03-12] MEDS ORDERED: Ondansetron ODT 4 MG TAB PO PRN (01:57)
[2022-03-12] MEDS ORDERED: Lorazepam 2 MG/ML VIAL IM PRN (01:57)
[2022-03-12] MEDS ORDERED: Lorazepam 1 MG TAB PO PRN (01:57)
[2022-03-12] MEDS ORDERED: Zolpidem Tartrate 5 MG TAB PO PRN (01:57)
[2022-03-12] MEDS ORDERED: Acetaminophen 325 MG TAB PO PRN (01:57)
[2022-03-12] MEDS ORDERED: Bisacodyl 5 MG TAB PO PRN (01:57)
[2022-03-12] MEDS ORDERED: Ondansetron PF 4 MG/2 ML Vial IVP PRN (01:57)
[2022-03-12] MEDS ORDERED: Nitroglycerin 0.4 MG TAB (25 Tab Bottle) SL PRN ×2 (01:57→02:25)
[2022-03-12] MEDS ORDERED: Electrolyte Replacement Protocol 1 EACH FS SCH (02:00)
[2022-03-12] MEDS ORDERED: Aspirin 325 MG TAB PO SCH (02:00)
[2022-03-12] MEDS ORDERED: Potassium Chloride 20 MEQ TAB PO SCH ×3 (02:30→14:15)
[2022-03-12] MEDS ORDERED: Aspirin 325 MG TAB ONE (02:45)
[2022-03-12] MEDS ORDERED: Lactated Ringer's 1,000 ML IV SCH (02:45)
[2022-03-12] MEDS ORDERED: Pantoprazole 40 MG VIAL IVP SCH (02:45)
[2022-03-12] MEDS ORDERED: Magnesium 2 GM/50 ML(in water) 2 GM in Premix Bag 1 BAG IVPB SCH (02:45)
[2022-03-12 03:06] LABS: Troponin I 0.032 ng/mL (< 0.028)
[2022-03-12 03:20] LABS: Magnesium 1.6 mg/dL (1.6-2.6)
[2022-03-12 03:32] LABS: ALT (SGPT) 66 U/L (8-55); AST (SGOT) 59 U/L (5-34); Albumin 3.1 g/dL (3.4-4.8); Alkaline Phosphatase 110 U/L (40-110); Anion Gap 20 mmol/L (10-20); BUN (Urea Nitrogen) 5 mg/dL (9.8-20.1); Bilirubin, Total 1.8 mg/dL (0.2-1.2); Calc. Creatinine Clearance 0 mL/min (70-130); Calcium 7.8 mg/dL (7.8-10.44); Carbon Dioxide 23 mmol/L (23-31); Cardiac Risk 3.9 (Less than 4.5); Chloride 86 mmol/L (98-107); Cholesterol 140 mg/dl (< 200 Desired); Estimated GFR 109; Globulin 2.6 g/dL (2.4-3.5); Glucose 73 mg/dL (80-115); HDL Cholesterol 36 mg/dL (>60 Neg Risk); LDL Cholesterol, Calculated 89 mg/dL; Potassium 3.2 mmol/L (3.5-5.1); Protein, Total 5.7 g/dL (5.8-8.1); Sodium 126 mmol/L (136-145); Triglycerides 74 mg/dL (Less than 150)
[2022-03-12 03:39] LABS: Bilirubin, Direct 0.8 mg/dL (0.1-0.3)
[2022-03-12 03:52] LABS: Band 19 % (5-11); Hemoglobin 12.8 g/dL (12.0-16.0); Lymphocytes 29 % (21-51); MDiff Complete? YES; Mean Corpuscular HGB CONC 34.3 g/dL (32.0-36.0); Mean Corpuscular Hemoglobin 30.6 pg (27.0-31.0); Mean Corpuscular Volume 89.4 fL (78.0-98.0); Mean Platelet Volume 8.2 fL (7.4-10.4); Monocytes 6 % (0-10); Neutrophil 45 % (42-75); Nucleated RBC 1 % (0); Platelet Count 241 thou/uL (130-400); RBC Distribution Width 16.8 % (11.5-14.5); Red Blood Cell (RBC) Count 4.17 mill/uL (4.20-5.40); White Blood Cell (WBC) Count 9.6 thou/uL (4.8-10.8)
[2022-03-12] MEDS: Lorazepam 1 MG TAB PO SCH ×4 (05:28→20:04)
[2022-03-12] MEDS: Thiamine HCl 200 MG/2 ML VIAL SLOW IVP SCH (05:42)
[2022-03-12] MEDS: cefTRIAXone\\ROCEPHIN 1 GM in Sodium Chloride 0.9% 100 ML IVPB SCH (05:43)
[2022-03-12] MEDS: Nicotine 14 MG PATCH TD SCH (05:50)
[2022-03-12 06:13] LABS: Anion Gap 18 mmol/L (10-20); BUN (Urea Nitrogen) 4 mg/dL (9.8-20.1); Calc. Creatinine Clearance 0 mL/min (70-130); Carbon Dioxide 23 mmol/L (23-31); Chloride 92 mmol/L (98-107); Estimated GFR 110; Glucose 71 mg/dL (80-115); Potassium 3.3 mmol/L (3.5-5.1); Sodium 130 mmol/L (136-145)
[2022-03-12] MEDS: Folic Acid 1 MG TAB PO SCH (07:23)
[2022-03-12] MEDS: Multivit, Therapeutic 1 TAB PO SCH (07:23)
[2022-03-12] MEDS: Aspirin Chewable 81 MG TAB PO SCH (07:23)
[2022-03-12] MEDS: Famotidine 20 MG TAB PO SCH ×2 (07:23→20:19)
[2022-03-12 07:44] LABS: Troponin I 0.039 ng/mL (< 0.028)
[2022-03-12] MEDS ORDERED: ISOVUE-370 76%-LOCM 1 ML ONE (08:00)
[2022-03-12] MEDS ORDERED: Prevnar 13-Val Conj/PF 0.5 ML SYRINGE IM ONE (09:00)
[2022-03-12] MEDS ORDERED: Enoxaparin Sodium 40 MG/0.4 ML SYRINGE SC SCH (09:00)
[2022-03-12] MEDS: Potassium Chloride 20 MEQ in Lactated Ringer's 1,000 ML IV SCH ×2 (09:41→15:53)
[2022-03-12 10:14] LABS: Anion Gap 14 mmol/L (10-20); BUN (Urea Nitrogen) 4 mg/dL (9.8-20.1); Calc. Creatinine Clearance 83 mL/min (70-130); Calcium 7.8 mg/dL (7.8-10.44); Carbon Dioxide 26 mmol/L (23-31); Chloride 93 mmol/L (98-107); Estimated GFR 110; Glucose 75 mg/dL (80-115); Sodium 130 mmol/L (136-145)
[2022-03-12 10:17] LABS: Potassium 2.9 mmol/L (3.5-5.1)
[2022-03-12 11:35] LABS: Syphilis Antibody Nonreactive (Nonreactive); Syphilis Antibody Index 0.06 S/CO (<1.00 Non-Reactive)
[2022-03-12 12:23] LABS: Amphetamine Not Detected (NotDetected); Barbiturates Screen Not Detected (NotDetected); Benzodiazepine Screen Not Detected (NotDetected); Cocaine Metabolite Screen Not Detected (NotDetected); Methadone Not Detected (NotDetected); Methamphetamine Not Detected (NotDetected); Opiate Screen Not Detected (NotDetected); Oxycodone Screen Not Detected (NotDetected); Phencyclidine (PCP) Not Detected (NotDetected); THC/Cannabinoid Screen Not Detected (NotDetected); Tricyclic Screen Not Detected (NotDetected)
[2022-03-12 14:05] LABS: Anion Gap 20 mmol/L (10-20); BUN (Urea Nitrogen) 4 mg/dL (9.8-20.1); Calc. Creatinine Clearance 83 mL/min (70-130); Calcium 7.9 mg/dL (7.8-10.44); Carbon Dioxide 21 mmol/L (23-31); Chloride 95 mmol/L (98-107); Estimated GFR 110; Glucose 70 mg/dL (80-115); Potassium 3.5 mmol/L (3.5-5.1); Sodium 132 mmol/L (136-145)
[2022-03-12] MEDS ORDERED: Dextrose 5% in Water 1,000 ML IV SCH (14:15)
[2022-03-12 16:22] LABS: Anion Gap 15 mmol/L (10-20); BUN (Urea Nitrogen) 5 mg/dL (9.8-20.1); Calc. Creatinine Clearance 77 mL/min (70-130); Carbon Dioxide 23 mmol/L (23-31); Chloride 96 mmol/L (98-107); Estimated GFR 108; Glucose 96 mg/dL (80-115); Sodium 131 mmol/L (136-145)
[2022-03-12] MEDS ORDERED: Electrolyte Replacement Protocol FS PRN (18:00)
[2022-03-12] MEDS ORDERED: Potassium Chloride 40 MEQ in Sodium Chloride 0.9% 250 ML 250 ML IVPB SCH (18:00)
[2022-03-12 19:03] LABS: Anion Gap 12 mmol/L (10-20); BUN (Urea Nitrogen) 7 mg/dL (9.8-20.1); Calc. Creatinine Clearance 74 mL/min (70-130); Calcium 7.8 mg/dL (7.8-10.44); Carbon Dioxide 28 mmol/L (23-31); Chloride 97 mmol/L (98-107); Estimated GFR 107; Glucose 157 mg/dL (80-115); Potassium 3.3 mmol/L (3.5-5.1); Sodium 134 mmol/L (136-145)
[2022-03-12 22:55] LABS: Anion Gap 12 mmol/L (10-20); BUN (Urea Nitrogen) 6 mg/dL (9.8-20.1); Calc. Creatinine Clearance 73 mL/min (70-130); Calcium 7.6 mg/dL (7.8-10.44); Carbon Dioxide 26 mmol/L (23-31); Chloride 100 mmol/L (98-107); Estimated GFR 106; Glucose 151 mg/dL (80-115); Potassium 3.9 mmol/L (3.5-5.1); Sodium 134 mmol/L (136-145)
[2022-03-13] MEDS ORDERED: Lorazepam 1 MG TAB PO PRN (01:58)
[2022-03-13] MEDS: Lorazepam 1 MG TAB PO SCH ×4 (02:00→21:10)
[2022-03-13] MEDS: Dextrose 5% in Water 1,000 ML IV SCH ×2 (03:24→09:09)
[2022-03-13] MEDS: cefTRIAXone\\ROCEPHIN 1 GM in Sodium Chloride 0.9% 100 ML IVPB SCH (03:29)
[2022-03-13] MEDS: Nicotine 14 MG PATCH TD SCH (03:59)
[2022-03-13] MEDS: Thiamine HCl 200 MG/2 ML VIAL SLOW IVP SCH (04:21)
[2022-03-13 07:22] LABS: Anion Gap 14 mmol/L (10-20); BUN (Urea Nitrogen) 5 mg/dL (9.8-20.1); Calc. Creatinine Clearance 83 mL/min (70-130); Calcium 7.8 mg/dL (7.8-10.44); Carbon Dioxide 21 mmol/L (23-31); Chloride 97 mmol/L (98-107); Estimated GFR 110; Glucose 139 mg/dL (80-115); Potassium 4.8 mmol/L (3.5-5.1); Sodium 127 mmol/L (136-145)
[2022-03-13] MEDS: Famotidine 20 MG TAB PO SCH ×2 (09:09→21:10)
[2022-03-13] MEDS: Aspirin Chewable 81 MG TAB PO SCH (09:09)
[2022-03-13] MEDS: Enoxaparin Sodium 30 MG/0.3 ML SYRINGE SC SCH (09:09)
[2022-03-13] MEDS: Multivit, Therapeutic 1 TAB PO SCH (09:09)
[2022-03-13] MEDS: Folic Acid 1 MG TAB PO SCH (09:09)
[2022-03-13 17:12] LABS: Anion Gap 14 mmol/L (10-20); BUN (Urea Nitrogen) Less than 4 mg/dL (9.8-20.1); Calc. Creatinine Clearance 86 mL/min (70-130); Calcium 7.9 mg/dL (7.8-10.44); Carbon Dioxide 26 mmol/L (23-31); Chloride 92 mmol/L (98-107); Estimated GFR 110; Glucose 90 mg/dL (80-115); Potassium 3.9 mmol/L (3.5-5.1); Sodium 128 mmol/L (136-145)
[2022-03-13 23:53] LABS: Anion Gap 13 mmol/L (10-20); BUN (Urea Nitrogen) Less than 4 mg/dL (9.8-20.1); Calc. Creatinine Clearance 78 mL/min (70-130); Calcium 7.9 mg/dL (7.8-10.44); Carbon Dioxide 27 mmol/L (23-31); Chloride 92 mmol/L (98-107); Estimated GFR 108; Glucose 96 mg/dL (80-115); Magnesium 1.6 mg/dL (1.6-2.6); Potassium 3.8 mmol/L (3.5-5.1); Sodium 128 mmol/L (136-145)
[2022-03-13 23:56] LABS: Troponin I 0.028 ng/mL (< 0.028)
[2022-03-14] MEDS ORDERED: Magnesium 2 GM/50 ML(in water) 2 GM in Premix Bag 1 BAG IVPB SCH (00:30)
[2022-03-14] MEDS ORDERED: Potassium Chloride 20 MEQ TAB PO SCH ×2 (01:15→08:00)
[2022-03-14] MEDS ORDERED: Potassium Chloride 20 MEQ in Premix Bag 1 BAG IVPB SCH (01:30)
[2022-03-14] MEDS: Lorazepam 0.5 MG TAB PO SCH ×4 (01:54→20:52)
[2022-03-14] MEDS: Nicotine 14 MG PATCH TD SCH (01:55)
[2022-03-14] MEDS ORDERED: Lorazepam 1 MG TAB PO PRN (01:58)
[2022-03-14] MEDS: Thiamine HCl 200 MG/2 ML VIAL SLOW IVP SCH (03:18)
[2022-03-14] MEDS: cefTRIAXone\\ROCEPHIN 1 GM in Sodium Chloride 0.9% 100 ML IVPB SCH (03:18)
[2022-03-14 06:50] LABS: Anion Gap 11 mmol/L (10-20); BUN (Urea Nitrogen) Less than 4 mg/dL (9.8-20.1); Calc. Creatinine Clearance 86 mL/min (70-130); Calcium 7.8 mg/dL (7.8-10.44); Carbon Dioxide 27 mmol/L (23-31); Chloride 95 mmol/L (98-107); Estimated GFR 110; Glucose 98 mg/dL (80-115); Potassium 3.4 mmol/L (3.5-5.1); Sodium 130 mmol/L (136-145)
[2022-03-14] MEDS: Multivit, Therapeutic 1 TAB PO SCH (08:40)
[2022-03-14] MEDS: Famotidine 20 MG TAB PO SCH (08:40)
[2022-03-14] MEDS: Aspirin Chewable 81 MG TAB PO SCH (08:40)
[2022-03-14] MEDS: Folic Acid 1 MG TAB PO SCH (08:40)
[2022-03-14] MEDS: Enoxaparin Sodium 30 MG/0.3 ML SYRINGE SC SCH (08:41)
[2022-03-15] MEDS ORDERED: Lorazepam 0.5 MG TAB PO PRN (01:58)
[2022-03-15] MEDS: Nicotine 14 MG PATCH TD SCH ×2 (02:37→23:45)
[2022-03-15] MEDS: Thiamine 100 MG TAB PO SCH ×2 (02:37→23:44)
[2022-03-15 03:54] LABS: Anion Gap 12 mmol/L (10-20); BUN (Urea Nitrogen) 4 mg/dL (9.8-20.1); Calc. Creatinine Clearance 81 mL/min (70-130); Calcium 8.2 mg/dL (7.8-10.44); Carbon Dioxide 27 mmol/L (23-31); Chloride 97 mmol/L (98-107); Estimated GFR 109; Glucose 102 mg/dL (80-115); Potassium 3.9 mmol/L (3.5-5.1); Sodium 132 mmol/L (136-145)
[2022-03-15] MEDS: Multivit, Therapeutic 1 TAB PO SCH (07:44)
[2022-03-15] MEDS: Aspirin Chewable 81 MG TAB PO SCH (07:44)
[2022-03-15] MEDS: Folic Acid 1 MG TAB PO SCH (07:44)
[2022-03-15] MEDS: Enoxaparin Sodium 30 MG/0.3 ML SYRINGE SC SCH (07:44)
[2022-03-15] MEDS: HYDROcodone/Acetaminophen 5/325 mg Tablet PO PRN ×2 (08:55→15:15)
[2022-03-15 13:58] VITALS: BMI 15.3
[2022-03-16 06:04] LABS: Anion Gap 14 mmol/L (10-20); BUN (Urea Nitrogen) 4 mg/dL (9.8-20.1); Calc. Creatinine Clearance 81 mL/min (70-130); Calcium 8.6 mg/dL (7.8-10.44); Carbon Dioxide 23 mmol/L (23-31); Chloride 97 mmol/L (98-107); Estimated GFR 109; Glucose 112 mg/dL (80-115); Potassium 4.2 mmol/L (3.5-5.1); Sodium 130 mmol/L (136-145)
[2022-03-16] MEDS ORDERED: Lidocaine 2% Viscous Solution 20 ML, Aluminum & Magnesium Hydroxide 30 ML, Donnatal Eli... SSW SCH (09:00)
[2022-03-16] MEDS: Enoxaparin Sodium 30 MG/0.3 ML SYRINGE SC SCH (09:23)
[2022-03-16] MEDS: Folic Acid 1 MG TAB PO SCH (09:23)
[2022-03-16] MEDS: Multivit, Therapeutic 1 TAB PO SCH (09:23)
[2022-03-16] MEDS: Aspirin Chewable 81 MG TAB PO SCH (09:23)
[2022-03-16 11:30] VITALS: BP 127/74; TEMP 97.9
== END 2022-03-16 13:43 | disposition home or self-care (01) | DRG 640 ==
LOC: ERS 21:40 → IMCU/EMU 03-12 01:54 → T4-A 03-15 17:53
PROVIDERS: ADMIT Hospitalist; ATTEND Hospitalist
DX: E87.1 Hypo-osmolality and hyponatremia (principal); E43 Unspecified severe protein-calorie malnutrition; N17.9 Acute kidney failure, unspecified; Z68.1 Body mass index [BMI] 19.9 or less, adult; I74.5 Embolism and thrombosis of iliac artery; R64 Cachexia; I70.92 Chronic total occlusion of artery of the extremities; Z20.822 Contact with and (suspected) exposure to COVID-19; E87.6 Hypokalemia; F17.210 Nicotine dependence, cigarettes, uncomplicated; F41.9 Anxiety disorder, unspecified; F32.A Depression, unspecified; E86.0 Dehydration; I25.10 Atherosclerotic heart disease of native coronary artery without angina pectoris; F10.20 Alcohol dependence, uncomplicated; N18.1 Chronic kidney disease, stage 1; I12.9 Hypertensive chronic kidney disease with stage 1 through stage 4 chronic kidney disease, or unspecified chronic kidney disease; R77.8 Other specified abnormalities of plasma proteins; I70.203 Unspecified atherosclerosis of native arteries of extremities, bilateral legs; Z28.21 Immunization not carried out because of patient refusal; Z91.018 Allergy to other foods; I25.2 Old myocardial infarction; Z95.1 Presence of aortocoronary bypass graft; Z87.440 Personal history of urinary (tract) infections; Z79.899 Other long term (current) drug therapy; Z90.2 Acquired absence of lung [part of]; Z71.41 Alcohol abuse counseling and surveillance of alcoholic
CPT/HCPCS: 36415; 71046; 74177; 75635; 80048; 80061; 80306; 82248; 82553; 82805; 83605; 83690; 83735; 84100; 84484; 85025; 86780; 87040; 93005; 93010; 94760; 96374; 96375; 97139; C9113; J0696; J1650; J3411; J3475; J3480; J3490; J7050; J7070; J7120; Q0162; Q9966; Q9967; U0003; U0005

== ENCOUNTER 2022-03-30 19:01 | Inpatient (IN) | payer OTHER ==
[2022-03-30] MEDS ORDERED: Ondansetron PF 4 MG/2 ML Vial ONE (19:31)
[2022-03-30 19:51] LABS: #Basophils 0.1 thou/uL (0.0-0.2); #Eosinphils 0.1 thou/uL (0.0-0.7); #Lymphocytes 2.1 thou/uL (1.20-3.40); #Monocytes 0.4 thou/uL (0.11-0.59); #Neutrophils 4.4 thou/uL (1.40-6.50); %Basophils 1.5 % (0.0-1.0); %Eosinophils 0.9 % (0.0-10.0); %Neutrophils 62.7 % (42.0-75.0); Mean Corpuscular HGB CONC 33.7 g/dL (32.0-36.0); Mean Corpuscular Hemoglobin 31.2 pg (27.0-31.0); Mean Corpuscular Volume 92.4 fL (78.0-98.0); Mean Platelet Volume 7.6 fL (7.4-10.4); Platelet Count 264 thou/uL (130-400); RBC Distribution Width 15.9 % (11.5-14.5); Red Blood Cell (RBC) Count 4.51 mill/uL (4.20-5.40); White Blood Cell (WBC) Count 7.1 thou/uL (4.8-10.8)
[2022-03-30 20:11] LABS: ALT (SGPT) 37 U/L (8-55); AST (SGOT) 56 U/L (5-34); Albumin 3.3 g/dL (3.4-4.8); Alkaline Phosphatase 99 U/L (40-110); Anion Gap 17 mmol/L (10-20); BUN (Urea Nitrogen) Less than 4 mg/dL (9.8-20.1); Bilirubin, Total 0.7 mg/dL (0.2-1.2); Calc. Creatinine Clearance 0 mL/min (70-130); Calcium 8.4 mg/dL (7.8-10.44); Carbon Dioxide 22 mmol/L (23-31); Chloride 102 mmol/L (98-107); Estimated GFR 109; Globulin 3.3 g/dL (2.4-3.5); Glucose 81 mg/dL (80-115); Lipase 161 U/L (8-78); Protein, Total 6.6 g/dL (5.8-8.1); Sodium 137 mmol/L (136-145)
[2022-03-30] MEDS ORDERED: Lorazepam 2 MG/ML VIAL IM PRN (21:00)
[2022-03-30] MEDS ORDERED: Meperidine HCl/PF 25 MG/ML VIAL SLOW IVP PRN (21:00)
[2022-03-30] MEDS ORDERED: Electrolyte Replacement Protocol 1 EACH FS SCH (21:00)
[2022-03-30] MEDS ORDERED: Acetaminophen 650 MG Suppository PR PRN (21:00)
[2022-03-30] MEDS ORDERED: Promethazine HCl 25 MG/ML VIAL IM PRN (21:00)
[2022-03-30] MEDS ORDERED: Ondansetron ODT 4 MG TAB SL PRN (21:15)
[2022-03-30] MEDS ORDERED: Ondansetron PF 4 MG/2 ML Vial IVP PRN (21:15)
[2022-03-30] MEDS ORDERED: Multivitamins, Adult 10 ML, Thiamine HCl 100 MG, Folic Acid 1 MG in Dextrose 5 %-0.45 %... IV SCH (21:15)
[2022-03-30] MEDS ORDERED: Thiamine HCl 200 MG/2 ML VIAL SLOW IVP SCH (21:15)
[2022-03-30] MEDS ORDERED: Aspirin Chewable 81 MG TAB ONE (21:50)
[2022-03-30] MEDS ORDERED: Nitroglycerin 0.4 MG TAB (25 Tab Bottle) SL PRN (23:01)
[2022-03-30] MEDS ORDERED: hydrALAZINE 20 MG/ML VIAL SLOW IVP PRN (23:20)
[2022-03-30] MEDS: Famotidine/PF 20 mg/2ml Vial SLOW IVP SCH (23:25)
[2022-03-31] MEDS: Sodium Chloride 0.9% 1,000 ML IV SCH ×4 (00:55→22:00)
[2022-03-31] MEDS: Dextrose 5 % And 0.9 % NaCl 1,000 ML IV SCH ×2 (00:55→03:39)
[2022-03-31 04:40] LABS: Anion Gap 18 mmol/L (10-20); BUN (Urea Nitrogen) 5 mg/dL (9.8-20.1); Bilirubin, Direct 0.3 mg/dL (0.1-0.3); CRP (Inflammatory) Less than 0.50 mg/dL (= or < 0.5); Calc. Creatinine Clearance 94 mL/min (70-130); Calcium 8.3 mg/dL (7.8-10.44); Carbon Dioxide 20 mmol/L (23-31); Cardiac Risk 2.1 (Less than 4.5); Chloride 104 mmol/L (98-107); Cholesterol 187 mg/dl (< 200 Desired); Estimated GFR 108; Glucose 81 mg/dL (80-115); HDL Cholesterol 90 mg/dL (>60 Neg Risk); LDL Cholesterol, Calculated 85 mg/dL; Lipase 180 U/L (8-78); Magnesium 1.7 mg/dL (1.6-2.6); Phosphorus 3.7 mg/dL (2.3-4.7); Potassium 3.8 mmol/L (3.5-5.1); Sodium 138 mmol/L (136-145); Triglycerides 62 mg/dL (Less than 150)
[2022-03-31] MEDS ORDERED: Lorazepam (BATCHED) 2 MG/ML SYR SLOW IVP PRN (07:00)
[2022-03-31] MEDS: Mometasone 200 MCG/Formoterol 5 MCG 120 PUFF INHALER INH SCH ×2 (07:38→22:30)
[2022-03-31 07:45] LABS: Troponin I 0.019 ng/mL (< 0.028)
[2022-03-31] MEDS ORDERED: Magnesium 2 GM/50 ML(in water) 2 GM in Premix Bag 1 BAG IVPB SCH (08:00)
[2022-03-31] MEDS: Enoxaparin Sodium 40 MG/0.4 ML SYRINGE SC SCH (08:54)
[2022-03-31] MEDS: Famotidine/PF 20 mg/2ml Vial SLOW IVP SCH (08:55)
[2022-03-31] MEDS: Nicotine 21 MG PATCH TD SCH (08:55)
[2022-03-31] MEDS ORDERED: Thiamine 100 MG TAB PO SCH ×2 (10:53→11:30)
[2022-03-31] MEDS ORDERED: Pantoprazole 40 MG VIAL IVP SCH ×2 (10:53→11:15)
[2022-03-31] MEDS ORDERED: Fentanyl 100 MCG/2 ML VIAL SLOW IVP PRN (10:54)
[2022-03-31 10:58] LABS: Syphilis Antibody Nonreactive (Nonreactive); Syphilis Antibody Index 0.04 S/CO (<1.00 Non-Reactive)
[2022-03-31] MEDS: Diazepam 5 MG TAB PO SCH ×3 (12:12→22:55)
[2022-03-31] MEDS ORDERED: Iopamidol-370 76% 500 ML 1 ML ONE (12:53)
[2022-03-31] MEDS: Multivitamins, Adult 10 ML, Folic Acid 1 MG, Thiamine HCl 100 MG in Dextrose 5 %-0.45 %... IV SCH (15:54)
[2022-03-31] MEDS: Pantoprazole 40 MG VIAL IVP SCH (22:00)
[2022-04-01] MEDS: Diazepam 5 MG TAB PO SCH ×4 (05:41→20:44)
[2022-04-01] MEDS: Sodium Chloride 0.9% 1,000 ML IV SCH (05:44)
[2022-04-01] MEDS ORDERED: Lorazepam 2 MG/ML VIAL SLOW IVP PRN (07:00)
[2022-04-01] MEDS: Mometasone 200 MCG/Formoterol 5 MCG 120 PUFF INHALER INH SCH ×2 (07:00→18:59)
[2022-04-01 08:06] LABS: #Basophils 0.1 thou/uL (0.0-0.2); #Eosinphils 0.1 thou/uL (0.0-0.7); #Lymphocytes 1.4 thou/uL (1.20-3.40); #Monocytes 0.5 thou/uL (0.11-0.59); #Neutrophils 5.1 thou/uL (1.40-6.50); %Basophils 0.9 % (0.0-1.0); %Eosinophils 1.7 % (0.0-10.0); %Lymphocytes 19.7 % (21.0-51.0); %Monocytes 6.3 % (0.0-10.0); %Neutrophils 71.5 % (42.0-75.0); Hemoglobin 13.7 g/dL (12.0-16.0); Mean Corpuscular HGB CONC 33.8 g/dL (32.0-36.0); Mean Corpuscular Volume 91.6 fL (78.0-98.0); Mean Platelet Volume 8.4 fL (7.4-10.4); Platelet Count 175 thou/uL (130-400); RBC Distribution Width 15.5 % (11.5-14.5); Red Blood Cell (RBC) Count 4.41 mill/uL (4.20-5.40); White Blood Cell (WBC) Count 7.1 thou/uL (4.8-10.8)
[2022-04-01 08:09] LABS: Anion Gap 16 mmol/L (10-20); BUN (Urea Nitrogen) Less than 4 mg/dL (9.8-20.1); Calc. Creatinine Clearance 87 mL/min (70-130); Calcium 8.2 mg/dL (7.8-10.44); Carbon Dioxide 24 mmol/L (23-31); Chloride 99 mmol/L (98-107); Estimated GFR 106; Glucose 140 mg/dL (80-115); Sodium 136 mmol/L (136-145)
[2022-04-01 08:21] LABS: Potassium 2.6 mmol/L (3.5-5.1)
[2022-04-01 09:01] LABS: Magnesium 1.7 mg/dL (1.6-2.6)
[2022-04-01] MEDS ORDERED: Magnesium 2 GM/50 ML(in water) 2 GM in Premix Bag 1 BAG IVPB SCH (10:00)
[2022-04-01] MEDS ORDERED: Lisinopril 5 MG TAB PO SCH (10:30)
[2022-04-01] MEDS ORDERED: Calcium Carbonate 500 MG ChewTAB PO PRN (10:44)
[2022-04-01] MEDS: Nicotine 21 MG PATCH TD SCH (10:59)
[2022-04-01] MEDS: Pantoprazole 40 MG VIAL IVP SCH ×2 (11:00→20:45)
[2022-04-01] MEDS: Carvedilol 3.125 MG TAB PO SCH ×2 (11:00→17:18)
[2022-04-01] MEDS: Aspirin 81 mg Enteric Coated Tablet PO SCH (11:01)
[2022-04-01] MEDS: Thiamine 100 MG TAB PO SCH (11:01)
[2022-04-01] MEDS: Enoxaparin Sodium 40 MG/0.4 ML SYRINGE SC SCH (11:01)
[2022-04-01] MEDS: Potassium Chloride 20 MEQ TAB PO SCH ×2 (11:01→12:38)
[2022-04-01] MEDS: Multivitamins, Adult 10 ML, Folic Acid 1 MG, Thiamine HCl 100 MG in Dextrose 5 %-0.45 %... IV SCH (12:38)
[2022-04-01] MEDS ORDERED: Atorvastatin Calcium 40 MG TAB PO SCH (21:00)
[2022-04-02] MEDS: Diazepam 5 MG TAB PO SCH ×7 (00:08→21:42)
[2022-04-02] MEDS ORDERED: Lorazepam (BATCHED) 2 MG/ML SYR SLOW IVP PRN (07:00)
[2022-04-02] MEDS: Mometasone 200 MCG/Formoterol 5 MCG 120 PUFF INHALER INH SCH ×2 (07:02→19:10)
[2022-04-02 07:50] LABS: #Basophils 0.1 thou/uL (0.0-0.2); #Eosinphils 0.2 thou/uL (0.0-0.7); #Lymphocytes 1.6 thou/uL (1.20-3.40); #Monocytes 0.7 thou/uL (0.11-0.59); #Neutrophils 4.6 thou/uL (1.40-6.50); %Basophils 0.8 % (0.0-1.0); %Monocytes 10.1 % (0.0-10.0); %Neutrophils 64.1 % (42.0-75.0); Hemoglobin 13.4 g/dL (12.0-16.0); Mean Corpuscular HGB CONC 34.2 g/dL (32.0-36.0); Mean Corpuscular Hemoglobin 31.1 pg (27.0-31.0); Mean Corpuscular Volume 91.1 fL (78.0-98.0); Mean Platelet Volume 8.7 fL (7.4-10.4); Platelet Count 165 thou/uL (130-400); RBC Distribution Width 15.5 % (11.5-14.5); Red Blood Cell (RBC) Count 4.31 mill/uL (4.20-5.40); White Blood Cell (WBC) Count 7.1 thou/uL (4.8-10.8)
[2022-04-02 08:28] LABS: Anion Gap 11 mmol/L (10-20); BUN (Urea Nitrogen) 5 mg/dL (9.8-20.1); Calc. Creatinine Clearance 102 mL/min (70-130); Calcium 8.7 mg/dL (7.8-10.44); Carbon Dioxide 25 mmol/L (23-31); Chloride 98 mmol/L (98-107); Estimated GFR 110; Glucose 96 mg/dL (80-115); Magnesium 1.6 mg/dL (1.6-2.6); Sodium 130 mmol/L (136-145)
[2022-04-02] MEDS ORDERED: Magnesium 2 GM/50 ML(in water) 2 GM in Premix Bag 1 BAG IVPB SCH (09:00)
[2022-04-02] MEDS: Lisinopril 5 MG TAB PO SCH (09:18)
[2022-04-02] MEDS: Aspirin 81 mg Enteric Coated Tablet PO SCH (09:18)
[2022-04-02] MEDS: Pantoprazole 40 MG VIAL IVP SCH (09:18)
[2022-04-02] MEDS: Thiamine 100 MG TAB PO SCH (09:18)
[2022-04-02] MEDS: Enoxaparin Sodium 40 MG/0.4 ML SYRINGE SC SCH (09:18)
[2022-04-02] MEDS: Nicotine 21 MG PATCH TD SCH (09:18)
[2022-04-02] MEDS: Carvedilol 3.125 MG TAB PO SCH ×2 (09:19→16:59)
[2022-04-02] MEDS: Multivitamins, Adult 10 ML, Folic Acid 1 MG, Thiamine HCl 100 MG in Dextrose 5 %-0.45 %... IV SCH (09:25)
[2022-04-03] MEDS: Diazepam 5 MG TAB PO SCH ×4 (01:00→18:59)
[2022-04-03 04:44] LABS: #Eosinphils 0.1 thou/uL (0.0-0.7); #Lymphocytes 2.2 thou/uL (1.20-3.40); #Monocytes 0.8 thou/uL (0.11-0.59); #Neutrophils 3.4 thou/uL (1.40-6.50); %Basophils 0.8 % (0.0-1.0); %Eosinophils 2.1 % (0.0-10.0); %Lymphocytes 33.7 % (21.0-51.0); %Monocytes 11.5 % (0.0-10.0); %Neutrophils 51.9 % (42.0-75.0); Hemoglobin 13.3 g/dL (12.0-16.0); Mean Corpuscular HGB CONC 35.1 g/dL (32.0-36.0); Mean Corpuscular Hemoglobin 32.3 pg (27.0-31.0); Mean Corpuscular Volume 91.8 fL (78.0-98.0); Platelet Count 159 thou/uL (130-400); RBC Distribution Width 15.9 % (11.5-14.5); Red Blood Cell (RBC) Count 4.13 mill/uL (4.20-5.40); White Blood Cell (WBC) Count 6.5 thou/uL (4.8-10.8)
[2022-04-03 05:08] LABS: Anion Gap 12 mmol/L (10-20); BUN (Urea Nitrogen) 7 mg/dL (9.8-20.1); Calc. Creatinine Clearance 64 mL/min (70-130); Calcium 9.1 mg/dL (7.8-10.44); Carbon Dioxide 29 mmol/L (23-31); Chloride 99 mmol/L (98-107); Estimated GFR 105; Glucose 94 mg/dL (80-115); Magnesium 1.8 mg/dL (1.6-2.6); Potassium 3.5 mmol/L (3.5-5.1); Sodium 136 mmol/L (136-145)
[2022-04-03] MEDS ORDERED: Lorazepam 2 MG/ML VIAL SLOW IVP PRN (07:00)
[2022-04-03] MEDS: Mometasone 200 MCG/Formoterol 5 MCG 120 PUFF INHALER INH SCH ×2 (07:45→18:21)
[2022-04-03] MEDS ORDERED: Magnesium 2 GM/50 ML(in water) 2 GM in Premix Bag 1 BAG IVPB SCH (08:00)
[2022-04-03] MEDS ORDERED: Potassium Chloride 20 MEQ TAB PO SCH (08:00)
[2022-04-03] MEDS: Carvedilol 3.125 MG TAB PO SCH ×2 (09:52→18:54)
[2022-04-03] MEDS: Aspirin 81 mg Enteric Coated Tablet PO SCH (09:53)
[2022-04-03] MEDS: Enoxaparin Sodium 40 MG/0.4 ML SYRINGE SC SCH (09:53)
[2022-04-03] MEDS: Lisinopril 5 MG TAB PO SCH (09:53)
[2022-04-03] MEDS: MULTIVIT/IRON SULF/FOLIC ACID 1 EACH TAB PO SCH (09:54)
[2022-04-03] MEDS: Nicotine 21 MG PATCH TD SCH (09:54)
[2022-04-03] MEDS: Thiamine 100 MG TAB PO SCH (09:54)
[2022-04-03 11:05] VITALS: BMI 14.0
[2022-04-04] MEDS: Diazepam 5 MG TAB PO SCH ×2 (00:02→07:36)
[2022-04-04] MEDS: Mometasone 200 MCG/Formoterol 5 MCG 120 PUFF INHALER INH SCH ×2 (07:38→18:55)
[2022-04-04] MEDS: Aspirin 81 mg Enteric Coated Tablet PO SCH (08:25)
[2022-04-04] MEDS: Nicotine 21 MG PATCH TD SCH (08:25)
[2022-04-04] MEDS: Carvedilol 3.125 MG TAB PO SCH ×2 (08:25→16:35)
[2022-04-04] MEDS: Thiamine 100 MG TAB PO SCH (08:25)
[2022-04-04] MEDS: Lisinopril 5 MG TAB PO SCH (08:26)
[2022-04-04] MEDS: Enoxaparin Sodium 30 MG/0.3 ML SYRINGE SC SCH (11:47)
[2022-04-04] MEDS: MULTIVIT/IRON SULF/FOLIC ACID 1 EACH TAB PO SCH (11:47)
[2022-04-04] MEDS: hydrOXYzine 25 MG TAB PO PRN (16:40)
[2022-04-04] MEDS: Acetaminophen 325 MG TAB PO PRN (22:30)
[2022-04-04 23:03] LABS: #Lymphocytes 0.6 thou/uL (1.20-3.40); #Monocytes 0.4 thou/uL (0.11-0.59); #Neutrophils 5.8 thou/uL (1.40-6.50); %Basophils 0.1 % (0.0-1.0); %Eosinophils 0.1 % (0.0-10.0); %Lymphocytes 9.2 % (21.0-51.0); %Monocytes 5.6 % (0.0-10.0); Hemoglobin 13.6 g/dL (12.0-16.0); Mean Corpuscular HGB CONC 34.4 g/dL (32.0-36.0); Mean Corpuscular Hemoglobin 31.3 pg (27.0-31.0); Mean Corpuscular Volume 90.9 fL (78.0-98.0); Mean Platelet Volume 8.7 fL (7.4-10.4); Platelet Count 141 thou/uL (130-400); RBC Distribution Width 16.8 % (11.5-14.5); Red Blood Cell (RBC) Count 4.35 mill/uL (4.20-5.40); White Blood Cell (WBC) Count 6.9 thou/uL (4.8-10.8)
[2022-04-04 23:22] LABS: Anion Gap 14 mmol/L (10-20); BUN (Urea Nitrogen) 8 mg/dL (9.8-20.1); Calc. Creatinine Clearance 60 mL/min (70-130); Calcium 9.1 mg/dL (7.8-10.44); Carbon Dioxide 25 mmol/L (23-31); Chloride 93 mmol/L (98-107); Estimated GFR 103; Glucose 111 mg/dL (80-115); Magnesium 1.6 mg/dL (1.6-2.6); Potassium 4.4 mmol/L (3.5-5.1); Sodium 128 mmol/L (136-145)
[2022-04-05] MEDS: Mometasone 200 MCG/Formoterol 5 MCG 120 PUFF INHALER INH SCH ×2 (07:34→18:37)
[2022-04-05] MEDS ORDERED: Magnesium 2 GM/50 ML(in water) 2 GM in Premix Bag 1 BAG IVPB SCH (08:00)
[2022-04-05] MEDS: Aspirin 81 mg Enteric Coated Tablet PO SCH (09:24)
[2022-04-05] MEDS: Lisinopril 5 MG TAB PO SCH (09:25)
[2022-04-05] MEDS: Thiamine 100 MG TAB PO SCH (09:25)
[2022-04-05] MEDS: Carvedilol 3.125 MG TAB PO SCH ×2 (09:25→17:19)
[2022-04-05] MEDS: Nicotine 21 MG PATCH TD SCH (09:25)
[2022-04-05] MEDS: Enoxaparin Sodium 30 MG/0.3 ML SYRINGE SC SCH (09:26)
[2022-04-05] MEDS: MULTIVIT/IRON SULF/FOLIC ACID 1 EACH TAB PO SCH (09:26)
[2022-04-05 14:32] LABS: Anion Gap 14 mmol/L (10-20); Carbon Dioxide 26 mmol/L (23-31); Chloride 95 mmol/L (98-107); Potassium 3.9 mmol/L (3.5-5.1); Sodium 131 mmol/L (136-145)
[2022-04-05 16:36] LABS: Bacteria/HPF 4+ HPF (None Seen); Bilirubin Negative (Negative); Blood, Urine Trace (Negative); Clarity Turbid (Clear); Glucose, Urine (Dipstick) Normal (Negative); Ketone, Urine Negative (Negative); Leukocyte 500 Leu/uL (Negative); Nitrite 2+ (Negative); Protein, Urine (Dipstick) Negative (Neg-Trace); Specific Gravity, Urine 1.016 (1.002-1.036); Squamous Epithelial 0-3 HPF (0-3); Urobilinogen Normal mg/dL (Less than 2); WBC/HPF Greater than 50 HPF (0-3); pH, Urine 5.5 (5.0-9.0)
[2022-04-05 16:38] LABS: Urine Culture Reflex Yes Yes
[2022-04-05] MEDS ORDERED: Vancomycin 1 GM in Premix Bag 1 BAG IVPB SCH (18:00)
[2022-04-05] MEDS ORDERED: Lactated Ringer's 500 ML IV SCH (18:45)
[2022-04-06 04:24] LABS: Hemoglobin 12.3 g/dL (12.0-16.0); Mean Corpuscular HGB CONC 35.2 g/dL (32.0-36.0); Mean Corpuscular Hemoglobin 31.8 pg (27.0-31.0); Mean Corpuscular Volume 90.3 fL (78.0-98.0); Mean Platelet Volume 8.8 fL (7.4-10.4); Platelet Count 142 thou/uL (130-400); RBC Distribution Width 16.3 % (11.5-14.5); Red Blood Cell (RBC) Count 3.87 mill/uL (4.20-5.40); White Blood Cell (WBC) Count 5.8 thou/uL (4.8-10.8)
[2022-04-06 04:43] LABS: Anion Gap 12 mmol/L (10-20); BUN (Urea Nitrogen) 8 mg/dL (9.8-20.1); Calc. Creatinine Clearance 67 mL/min (70-130); Calcium 8.3 mg/dL (7.8-10.44); Carbon Dioxide 27 mmol/L (23-31); Chloride 95 mmol/L (98-107); Estimated GFR 106; Glucose 100 mg/dL (80-115); Sodium 130 mmol/L (136-145)
[2022-04-06] MEDS: Mometasone 200 MCG/Formoterol 5 MCG 120 PUFF INHALER INH SCH ×2 (06:41→18:52)
[2022-04-06] MEDS: Nicotine 21 MG PATCH TD SCH (08:23)
[2022-04-06] MEDS: Enoxaparin Sodium 30 MG/0.3 ML SYRINGE SC SCH (08:23)
[2022-04-06] MEDS: Lisinopril 5 MG TAB PO SCH (08:24)
[2022-04-06] MEDS: Aspirin 81 mg Enteric Coated Tablet PO SCH (08:24)
[2022-04-06] MEDS: Carvedilol 3.125 MG TAB PO SCH ×2 (08:24→17:05)
[2022-04-06] MEDS: MULTIVIT/IRON SULF/FOLIC ACID 1 EACH TAB PO SCH (08:24)
[2022-04-06] MEDS: Thiamine 100 MG TAB PO SCH (08:24)
[2022-04-06] MEDS: CEFAZOLIN 1 GM in Sodium Chloride 0.9% 100 ML IVPB SCH ×2 (14:40→21:08)
[2022-04-06] MEDS ORDERED: Vancomycin 1 GM in Premix Bag 1 BAG IVPB SCH (15:00)
[2022-04-06] MEDS: Acetaminophen 325 MG TAB PO PRN ×2 (15:15→21:08)
[2022-04-07] MEDS: CEFAZOLIN 1 GM in Sodium Chloride 0.9% 100 ML IVPB SCH ×2 (05:31→15:12)
[2022-04-07] MEDS: Aspirin 81 mg Enteric Coated Tablet PO SCH (08:37)
[2022-04-07] MEDS: Enoxaparin Sodium 30 MG/0.3 ML SYRINGE SC SCH (08:37)
[2022-04-07] MEDS: Carvedilol 3.125 MG TAB PO SCH ×2 (08:37→16:29)
[2022-04-07] MEDS: MULTIVIT/IRON SULF/FOLIC ACID 1 EACH TAB PO SCH (08:37)
[2022-04-07] MEDS: Nicotine 21 MG PATCH TD SCH (08:37)
[2022-04-07] MEDS: Thiamine 100 MG TAB PO SCH (08:37)
[2022-04-07] MEDS: Mometasone 200 MCG/Formoterol 5 MCG 120 PUFF INHALER INH SCH ×2 (09:51→18:55)
[2022-04-07] MEDS: Ciprofloxacin Lactate/D5W 200 MG in Premix Bag 1 BAG IVPB SCH (20:13)
[2022-04-07] MEDS: Acetaminophen 325 MG TAB PO PRN (20:14)
[2022-04-07] MEDS: hydrOXYzine 25 MG TAB PO PRN (22:19)
[2022-04-08 04:53] LABS: Anion Gap 13 mmol/L (10-20); BUN (Urea Nitrogen) 8 mg/dL (9.8-20.1); Calc. Creatinine Clearance 70 mL/min (70-130); Calcium 9.1 mg/dL (7.8-10.44); Carbon Dioxide 26 mmol/L (23-31); Chloride 98 mmol/L (98-107); Estimated GFR 106; Glucose 91 mg/dL (80-115); Potassium 4.4 mmol/L (3.5-5.1); Sodium 133 mmol/L (136-145)
[2022-04-08] MEDS: Mometasone 200 MCG/Formoterol 5 MCG 120 PUFF INHALER INH SCH ×2 (07:51→18:40)
[2022-04-08] MEDS: Enoxaparin Sodium 30 MG/0.3 ML SYRINGE SC SCH (09:02)
[2022-04-08] MEDS: Ciprofloxacin Lactate/D5W 200 MG in Premix Bag 1 BAG IVPB SCH ×2 (09:02→20:43)
[2022-04-08] MEDS: MULTIVIT/IRON SULF/FOLIC ACID 1 EACH TAB PO SCH (09:03)
[2022-04-08] MEDS: Aspirin 81 mg Enteric Coated Tablet PO SCH (09:03)
[2022-04-08] MEDS: Nicotine 21 MG PATCH TD SCH (09:03)
[2022-04-08] MEDS: Thiamine 100 MG TAB PO SCH (09:03)
[2022-04-08] MEDS: Carvedilol 3.125 MG TAB PO SCH ×2 (09:03→16:49)
[2022-04-08] MEDS: hydrOXYzine 25 MG TAB PO PRN (16:56)
[2022-04-08] MEDS: Acetaminophen 325 MG TAB PO PRN (20:43)
[2022-04-09] MEDS: hydrOXYzine 25 MG TAB PO PRN (00:42)
[2022-04-09] MEDS: Mometasone 200 MCG/Formoterol 5 MCG 120 PUFF INHALER INH SCH (07:33)
[2022-04-09] MEDS: Enoxaparin Sodium 30 MG/0.3 ML SYRINGE SC SCH (08:27)
[2022-04-09] MEDS: MULTIVIT/IRON SULF/FOLIC ACID 1 EACH TAB PO SCH (08:27)
[2022-04-09] MEDS: Carvedilol 3.125 MG TAB PO SCH (08:27)
[2022-04-09] MEDS: Aspirin 81 mg Enteric Coated Tablet PO SCH (08:27)
[2022-04-09] MEDS: Thiamine 100 MG TAB PO SCH (08:28)
[2022-04-09] MEDS: Nicotine 21 MG PATCH TD SCH (08:28)
[2022-04-09] MEDS: Ciprofloxacin Lactate/D5W 200 MG in Premix Bag 1 BAG IVPB SCH (09:06)
[2022-04-09 12:17] VITALS: BP 120/67; TEMP 98.1
== END 2022-04-09 16:20 | disposition home or self-care (01) | DRG 896 ==
LOC: ERS 19:01 → 2NO 21:07 → OBSVTOIN 03-31 10:57
PROVIDERS: ADMIT Internal Medicine; ATTEND Internal Medicine
PROC: HZ2ZZZZ Detoxification Services for Substance Abuse Treatment (ICD-10-PCS; principal; 2022-03-31)
DX: F10.239 Alcohol dependence with withdrawal, unspecified (principal); E43 Unspecified severe protein-calorie malnutrition; N39.0 Urinary tract infection, site not specified; Z68.1 Body mass index [BMI] 19.9 or less, adult; I74.5 Embolism and thrombosis of iliac artery; R64 Cachexia; I50.22 Chronic systolic (congestive) heart failure; E87.1 Hypo-osmolality and hyponatremia; R78.81 Bacteremia; Z20.822 Contact with and (suspected) exposure to COVID-19; B96.1 Klebsiella pneumoniae [K. pneumoniae] as the cause of diseases classified elsewhere; B95.61 Methicillin susceptible Staphylococcus aureus infection as the cause of diseases classified elsewhere; F10.229 Alcohol dependence with intoxication, unspecified; K29.20 Alcoholic gastritis without bleeding; I25.5 Ischemic cardiomyopathy; I10 Essential (primary) hypertension; F17.210 Nicotine dependence, cigarettes, uncomplicated; I25.10 Atherosclerotic heart disease of native coronary artery without angina pectoris; Z60.2 Problems related to living alone; R77.8 Other specified abnormalities of plasma proteins; J44.9 Chronic obstructive pulmonary disease, unspecified; E78.5 Hyperlipidemia, unspecified; K76.0 Fatty (change of) liver, not elsewhere classified; G62.9 Polyneuropathy, unspecified; R29.6 Repeated falls; Z91.81 History of falling; Z91.018 Allergy to other foods; I25.2 Old myocardial infarction; Z79.899 Other long term (current) drug therapy; Z79.82 Long term (current) use of aspirin; Z82.49 Family history of ischemic heart disease and other diseases of the circulatory system; Z83.3 Family history of diabetes mellitus; Z71.41 Alcohol abuse counseling and surveillance of alcoholic; Z71.6 Tobacco abuse counseling; Z85.42 Personal history of malignant neoplasm of other parts of uterus; Z85.118 Personal history of other malignant neoplasm of bronchus and lung
CPT/HCPCS: 36415; 74177; 80048; 80051; 80053; 80061; 81001; 82248; 82553; 83605; 83690; 83735; 84100; 84484; 85025; 85027; 86140; 86780; 87040; 87077; 87086; 87149; 87186; 87324; 87449; 93005; 93306; 96361; 96372; 96374; 96375; 96376; C9113; G0378; J0690; J0744; J1650; J2060; J2405; J3370; J3411; J3475; J3490; J7042; J7050; J7120; Q9967; S0028; U0003; U0005

== ENCOUNTER 2022-04-15 20:33 | Emergency (ER) | payer OTHER ==
[2022-04-15 21:32] LABS: Bilirubin Negative (Negative); Blood, Urine Negative (Negative); Clarity Clear (Clear); Glucose, Urine (Dipstick) Normal (Negative); Ketone, Urine Negative (Negative); Leukocyte Negative Leu/uL (Negative); Nitrite Negative (Negative); Protein, Urine (Dipstick) Negative (Neg-Trace); Specific Gravity, Urine 1.002 (1.002-1.036); Urobilinogen Normal mg/dL (Less than 2); pH, Urine 5.5 (5.0-9.0)
== END 2022-04-15 22:00 | disposition home or self-care (01) ==
LOC: ERS 20:33
DX: F10.129 Alcohol abuse with intoxication, unspecified (principal); I25.2 Old myocardial infarction; I10 Essential (primary) hypertension; Z79.899 Other long term (current) drug therapy
CPT/HCPCS: 51701; 81003; 87086

== ENCOUNTER 2022-04-21 16:50 | Inpatient (IN) | payer OTHER ==
[2022-04-21 17:49] LABS: #Basophils 0.1 thou/uL (0.0-0.2); #Lymphocytes 1.2 thou/uL (1.20-3.40); #Monocytes 0.5 thou/uL (0.11-0.59); #Neutrophils 7.2 thou/uL (1.40-6.50); %Basophils 0.8 % (0.0-1.0); %Eosinophils 0.1 % (0.0-10.0); %Lymphocytes 13.1 % (21.0-51.0); %Monocytes 5.9 % (0.0-10.0); %Neutrophils 80.1 % (42.0-75.0); Hemoglobin 11.4 g/dL (12.0-16.0); Mean Corpuscular HGB CONC 33.8 g/dL (32.0-36.0); Mean Corpuscular Hemoglobin 28.6 pg (27.0-31.0); Mean Corpuscular Volume 84.7 fL (78.0-98.0); Mean Platelet Volume 6.4 fL (7.4-10.4); Platelet Count 514 thou/uL (130-400); RBC Distribution Width 17.5 % (11.5-14.5); Red Blood Cell (RBC) Count 3.99 mill/uL (4.20-5.40)
[2022-04-21 17:50] LABS: Bilirubin Negative (Negative); Blood, Urine 1+ (Negative); Clarity Clear (Clear); Glucose, Urine (Dipstick) Normal (Negative); Ketone, Urine Trace mg/dL (Negative); Leukocyte Negative Leu/uL (Negative); Nitrite Negative (Negative); Protein, Urine (Dipstick) Negative (Neg-Trace); RBC/HPF None Seen HPF (0-3); Specific Gravity, Urine 1.006 (1.002-1.036); Squamous Epithelial 0-3 HPF (0-3); Urobilinogen Normal mg/dL (Less than 2); WBC/HPF None Seen HPF (0-3)
[2022-04-21 17:51] LABS: Bacteria/HPF Rare-Few HPF (None Seen)
[2022-04-21] MEDS ORDERED: Lorazepam 1 MG TAB ONE (18:02)
[2022-04-21 18:03] LABS: ALT (SGPT) 44 U/L (8-55); AST (SGOT) 50 U/L (5-34); Albumin 4.1 g/dL (3.4-4.8); Alkaline Phosphatase 102 U/L (40-110); Anion Gap 21 mmol/L (10-20); BUN (Urea Nitrogen) 4 mg/dL (9.8-20.1); Bilirubin, Total 1.2 mg/dL (0.2-1.2); Calc. Creatinine Clearance 0 mL/min (70-130); Calcium 8.7 mg/dL (7.8-10.44); Carbon Dioxide 22 mmol/L (23-31); Chloride 93 mmol/L (98-107); Estimated GFR 105; Globulin 3.3 g/dL (2.4-3.5); Glucose 74 mg/dL (80-115); Magnesium 1.6 mg/dL (1.6-2.6); Potassium 3.4 mmol/L (3.5-5.1); Protein, Total 7.4 g/dL (5.8-8.1); Sodium 133 mmol/L (136-145)
[2022-04-21 18:10] LABS: Acetaminophen Less than 10.0 mcg/mL (10.0-30.0); Alcohol 173 mg/dL (Less than 10); CK (CPK) 178 U/L (29-168); Salicylate Less than 8.0 mg/dL (15.0-30.0)
[2022-04-21] MEDS ORDERED: Cefepime 2 GM VIAL ONE (19:11)
[2022-04-21] MEDS ORDERED: Propranolol 60 MG TAB PO SCH (19:30)
[2022-04-21 20:13] LABS: Amphetamine Not Detected (NotDetected); Barbiturates Screen Not Detected (NotDetected); Benzodiazepine Screen Not Detected (NotDetected); Cocaine Metabolite Screen Not Detected (NotDetected); Methadone Not Detected (NotDetected); Methamphetamine Not Detected (NotDetected); Opiate Screen Not Detected (NotDetected); Oxycodone Screen Not Detected (NotDetected); Phencyclidine (PCP) Not Detected (NotDetected); THC/Cannabinoid Screen Not Detected (NotDetected); Tricyclic Screen Not Detected (NotDetected)
[2022-04-21] MEDS ORDERED: Ondansetron PF 4 MG/2 ML Vial IVP PRN (20:51)
[2022-04-21] MEDS ORDERED: Acetaminophen 325 MG TAB PO PRN (20:51)
[2022-04-21] MEDS ORDERED: Dextrose 50% Abboject 50 ML SYRINGE SLOW IVP PRN (21:01)
[2022-04-21] MEDS ORDERED: Dextrose 5% in Water 1,000 ML IV PRN (21:01)
[2022-04-21 21:03] LABS: Lactic Acid 2.2 mmol/L (0.5-2.2)
[2022-04-21] MEDS ORDERED: Potassium Chloride 20 MEQ TAB PO SCH (21:15)
[2022-04-21] MEDS ORDERED: Magnesium Oxide 400 MG TAB PO SCH (21:30)
[2022-04-21 22:11] VITALS: BMI 15.1
[2022-04-21 22:13] LABS: SARS-CoV-2 NAA Rapid Test Not Detected (NotDetected)
[2022-04-22] MEDS ORDERED: Lorazepam 2 MG/ML VIAL IM PRN (02:06)
[2022-04-22] MEDS ORDERED: Electrolyte Replacement Protocol 1 EACH FS SCH (02:15)
[2022-04-22] MEDS: Thiamine HCl 200 MG/2 ML VIAL SLOW IVP SCH (03:54)
[2022-04-22 04:29] LABS: #Basophils 0.1 thou/uL (0.0-0.2); #Lymphocytes 1.5 thou/uL (1.20-3.40); #Monocytes 0.8 thou/uL (0.11-0.59); #Neutrophils 7.7 thou/uL (1.40-6.50); %Basophils 0.5 % (0.0-1.0); %Eosinophils 0.4 % (0.0-10.0); %Lymphocytes 14.6 % (21.0-51.0); %Neutrophils 76.5 % (42.0-75.0); Hemoglobin 11.1 g/dL (12.0-16.0); Mean Corpuscular HGB CONC 34.3 g/dL (32.0-36.0); Mean Corpuscular Volume 84.6 fL (78.0-98.0); Mean Platelet Volume 6.8 fL (7.4-10.4); Platelet Count 470 thou/uL (130-400); RBC Distribution Width 17.6 % (11.5-14.5); Red Blood Cell (RBC) Count 3.84 mill/uL (4.20-5.40)
[2022-04-22 04:45] LABS: Anion Gap 17 mmol/L (10-20); BUN (Urea Nitrogen) 4 mg/dL (9.8-20.1); Calc. Creatinine Clearance 72 mL/min (70-130); Calcium 8.7 mg/dL (7.8-10.44); Carbon Dioxide 24 mmol/L (23-31); Chloride 93 mmol/L (98-107); Estimated GFR 106; Glucose 89 mg/dL (80-115); Magnesium 1.8 mg/dL (1.6-2.6); Potassium 4.4 mmol/L (3.5-5.1); Sodium 130 mmol/L (136-145)
[2022-04-22 04:49] LABS: ALT (SGPT) 38 U/L (8-55); AST (SGOT) 41 U/L (5-34); Albumin 3.9 g/dL (3.4-4.8); Alkaline Phosphatase 95 U/L (40-110); Anion Gap 16 mmol/L (10-20); BUN (Urea Nitrogen) 5 mg/dL (9.8-20.1); Bilirubin, Total 1.5 mg/dL (0.2-1.2); Calc. Creatinine Clearance 70 mL/min (70-130); Calcium 8.7 mg/dL (7.8-10.44); Carbon Dioxide 25 mmol/L (23-31); Chloride 94 mmol/L (98-107); Estimated GFR 106; Glucose 91 mg/dL (80-115); Potassium 4.3 mmol/L (3.5-5.1); Protein, Total 6.9 g/dL (5.8-8.1); Sodium 131 mmol/L (136-145)
[2022-04-22] MEDS ORDERED: Magnesium 2 GM/50 ML(in water) 2 GM in Premix Bag 1 BAG IVPB SCH (08:00)
[2022-04-22] MEDS: Folic Acid 1 MG TAB PO SCH (08:48)
[2022-04-22] MEDS: Multivit, Therapeutic 1 TAB PO SCH (08:48)
[2022-04-22] MEDS: chlordiazePOXIDE HCl 5 MG CAP PO SCH ×3 (08:56→19:43)
[2022-04-22] MEDS: Lorazepam 1 MG TAB PO PRN ×4 (12:58→22:23)
[2022-04-22] MEDS ORDERED: Nicotine 21 MG PATCH TD SCH (20:30)
[2022-04-23] MEDS: Thiamine HCl 200 MG/2 ML VIAL SLOW IVP SCH (02:16)
[2022-04-23] MEDS: Lorazepam 1 MG TAB PO PRN ×4 (02:16→22:09)
[2022-04-23 04:34] LABS: #Basophils 0.1 thou/uL (0.0-0.2); #Eosinphils 0.1 thou/uL (0.0-0.7); #Lymphocytes 2.1 thou/uL (1.20-3.40); #Monocytes 0.7 thou/uL (0.11-0.59); #Neutrophils 4.6 thou/uL (1.40-6.50); %Basophils 0.7 % (0.0-1.0); %Eosinophils 1.3 % (0.0-10.0); %Lymphocytes 27.2 % (21.0-51.0); %Monocytes 9.4 % (0.0-10.0); %Neutrophils 61.3 % (42.0-75.0); Hemoglobin 11.5 g/dL (12.0-16.0); Mean Corpuscular HGB CONC 33.6 g/dL (32.0-36.0); Mean Corpuscular Hemoglobin 29.1 pg (27.0-31.0); Mean Corpuscular Volume 86.6 fL (78.0-98.0); Mean Platelet Volume 7.3 fL (7.4-10.4); Platelet Count 344 thou/uL (130-400); RBC Distribution Width 17.5 % (11.5-14.5); Red Blood Cell (RBC) Count 3.95 mill/uL (4.20-5.40); White Blood Cell (WBC) Count 7.6 thou/uL (4.8-10.8)
[2022-04-23 04:51] LABS: Anion Gap 16 mmol/L (10-20); BUN (Urea Nitrogen) 7 mg/dL (9.8-20.1); Calc. Creatinine Clearance 69 mL/min (70-130); Calcium 9.1 mg/dL (7.8-10.44); Carbon Dioxide 27 mmol/L (23-31); Chloride 93 mmol/L (98-107); Estimated GFR 105; Glucose 100 mg/dL (80-115); Magnesium 1.9 mg/dL (1.6-2.6); Potassium 3.5 mmol/L (3.5-5.1); Sodium 132 mmol/L (136-145)
[2022-04-23] MEDS ORDERED: Potassium Chloride 20 MEQ TAB PO SCH (08:00)
[2022-04-23] MEDS ORDERED: Magnesium 2 GM/50 ML(in water) 2 GM in Premix Bag 1 BAG IVPB SCH (08:00)
[2022-04-23] MEDS: chlordiazePOXIDE HCl 5 MG CAP PO SCH ×3 (10:08→20:23)
[2022-04-23] MEDS: Multivit, Therapeutic 1 TAB PO SCH (10:09)
[2022-04-23] MEDS: Folic Acid 1 MG TAB PO SCH (10:09)
[2022-04-23] MEDS: Nicotine 21 MG PATCH TD SCH (10:10)
[2022-04-23] MEDS ORDERED: Melatonin 3 MG TAB PO SCH (23:45)
[2022-04-24] MEDS: Thiamine HCl 200 MG/2 ML VIAL SLOW IVP SCH (02:16)
[2022-04-24] MEDS: Lorazepam 1 MG TAB PO PRN ×3 (02:16→16:50)
[2022-04-24 04:43] LABS: #Eosinphils 0.2 thou/uL (0.0-0.7); #Lymphocytes 2.4 thou/uL (1.20-3.40); #Monocytes 0.9 thou/uL (0.11-0.59); #Neutrophils 4.2 thou/uL (1.40-6.50); %Basophils 0.5 % (0.0-1.0); %Eosinophils 2.2 % (0.0-10.0); %Lymphocytes 31.3 % (21.0-51.0); %Monocytes 11.3 % (0.0-10.0); %Neutrophils 54.6 % (42.0-75.0); Hemoglobin 11.4 g/dL (12.0-16.0); Mean Corpuscular HGB CONC 32.9 g/dL (32.0-36.0); Mean Corpuscular Hemoglobin 28.3 pg (27.0-31.0); Mean Platelet Volume 7.5 fL (7.4-10.4); Platelet Count 295 thou/uL (130-400); RBC Distribution Width 17.8 % (11.5-14.5); Red Blood Cell (RBC) Count 4.02 mill/uL (4.20-5.40); White Blood Cell (WBC) Count 7.8 thou/uL (4.8-10.8)
[2022-04-24 05:11] LABS: Anion Gap 14 mmol/L (10-20); BUN (Urea Nitrogen) 8 mg/dL (9.8-20.1); Calc. Creatinine Clearance 69 mL/min (70-130); Calcium 9.6 mg/dL (7.8-10.44); Carbon Dioxide 29 mmol/L (23-31); Chloride 96 mmol/L (98-107); Estimated GFR 105; Glucose 115 mg/dL (80-115); Magnesium 1.8 mg/dL (1.6-2.6); Sodium 135 mmol/L (136-145)
[2022-04-24] MEDS ORDERED: Magnesium 2 GM/50 ML(in water) 2 GM in Premix Bag 1 BAG IVPB SCH (08:00)
[2022-04-24] MEDS: Multivit, Therapeutic 1 TAB PO SCH (10:34)
[2022-04-24] MEDS: chlordiazePOXIDE HCl 5 MG CAP PO SCH ×2 (10:34→14:54)
[2022-04-24] MEDS: Folic Acid 1 MG TAB PO SCH (10:35)
[2022-04-24] MEDS: Nicotine 21 MG PATCH TD SCH (10:35)
[2022-04-24 16:19] VITALS: BP 121/70; TEMP 98.4
[2022-04-25] MEDS ORDERED: Lorazepam 0.5 MG TAB PO PRN (02:06)
[2022-04-25] MEDS ORDERED: Thiamine 100 MG TAB PO SCH (09:00)
== END 2022-04-24 18:10 | disposition home or self-care (01) | DRG 896 ==
LOC: EEVIPCON 16:50 → ERS 16:50 → 2NO 20:08 → OBSVTOIN 04-23 14:02
PROVIDERS: ADMIT Internal Medicine; ATTEND Internal Medicine
DX: F10.20 Alcohol dependence, uncomplicated (principal); E43 Unspecified severe protein-calorie malnutrition; Z68.1 Body mass index [BMI] 19.9 or less, adult; I50.22 Chronic systolic (congestive) heart failure; E87.2 Acidosis; E86.0 Dehydration; I11.0 Hypertensive heart disease with heart failure; I25.10 Atherosclerotic heart disease of native coronary artery without angina pectoris; Z20.822 Contact with and (suspected) exposure to COVID-19; J44.9 Chronic obstructive pulmonary disease, unspecified; F17.210 Nicotine dependence, cigarettes, uncomplicated; E87.6 Hypokalemia; Z95.1 Presence of aortocoronary bypass graft; Z95.5 Presence of coronary angioplasty implant and graft; Z79.82 Long term (current) use of aspirin
CPT/HCPCS: 36415; 36416; 71045; 80048; 80053; 80306; 80307; 81003; 81015; 82550; 82607; 83605; 83735; 84439; 84443; 84481; 84484; 85025; 87040; 93005; J0692; J3411; J3475

== ENCOUNTER 2022-05-25 13:51 | Inpatient (IN) | payer OTHER ==
[2022-05-25 14:40] LABS: #Basophils 0.1 thou/uL (0.0-0.2); #Lymphocytes 1.3 thou/uL (1.20-3.40); #Monocytes 0.6 thou/uL (0.11-0.59); #Neutrophils 5.1 thou/uL (1.40-6.50); %Basophils 1.2 % (0.0-1.0); %Eosinophils 0.3 % (0.0-10.0); %Lymphocytes 18.3 % (21.0-51.0); %Neutrophils 72.2 % (42.0-75.0); Hemoglobin 13.2 g/dL (12.0-16.0); Mean Corpuscular HGB CONC 33.1 g/dL (32.0-36.0); Mean Corpuscular Hemoglobin 26.4 pg (27.0-31.0); Mean Corpuscular Volume 79.9 fL (78.0-98.0); Platelet Count 206 thou/uL (130-400); RBC Distribution Width 20.1 % (11.5-14.5); Red Blood Cell (RBC) Count 4.99 mill/uL (4.20-5.40); White Blood Cell (WBC) Count 7.1 thou/uL (4.8-10.8)
[2022-05-25] MEDS ORDERED: Ondansetron PF 4 MG/2 ML Vial ONE (14:56)
[2022-05-25 14:57] LABS: Acetaminophen Less than 10.0 mcg/mL (10.0-30.0); Alcohol 300 mg/dL (Less than 10); Salicylate Less than 8.0 mg/dL (15.0-30.0)
[2022-05-25] MEDS ORDERED: Lorazepam 1 MG TAB ONE (14:59)
[2022-05-25 15:00] LABS: ALT (SGPT) 36 U/L (8-55); AST (SGOT) 54 U/L (5-34); Albumin 4.1 g/dL (3.4-4.8); Alkaline Phosphatase 121 U/L (40-110); Anion Gap 15 mmol/L (10-20); BUN (Urea Nitrogen) Less than 4 mg/dL (9.8-20.1); Bilirubin, Total 0.7 mg/dL (0.2-1.2); Calc. Creatinine Clearance 0 mL/min (70-130); Calcium 8.8 mg/dL (7.8-10.44); Carbon Dioxide 29 mmol/L (23-31); Chloride 95 mmol/L (98-107); Estimated GFR 102; Globulin 3.8 g/dL (2.4-3.5); Glucose 92 mg/dL (80-115); Lipase 85 U/L (8-78); Potassium 3.1 mmol/L (3.5-5.1); Protein, Total 7.9 g/dL (5.8-8.1); Sodium 136 mmol/L (136-145)
[2022-05-25 15:53] LABS: Bilirubin Negative (Negative); Blood, Urine Negative (Negative); Clarity Clear (Clear); Glucose, Urine (Dipstick) Normal (Negative); Ketone, Urine Negative (Negative); Leukocyte 250 Leu/uL (Negative); Nitrite 2+ (Negative); Protein, Urine (Dipstick) Negative (Neg-Trace); RBC/HPF 0-3 HPF (0-3); Specific Gravity, Urine 1.003 (1.002-1.036); Squamous Epithelial None Seen HPF (0-3); Urobilinogen Normal mg/dL (Less than 2)
[2022-05-25 15:54] LABS: Bacteria/HPF 1+ HPF (None Seen)
[2022-05-25 15:56] LABS: Amphetamine Not Detected (NotDetected); Barbiturates Screen Not Detected (NotDetected); Benzodiazepine Screen Not Detected (NotDetected); Cocaine Metabolite Screen Not Detected (NotDetected); Methadone Not Detected (NotDetected); Methamphetamine Not Detected (NotDetected); Opiate Screen Not Detected (NotDetected); Oxycodone Screen Not Detected (NotDetected); Phencyclidine (PCP) Not Detected (NotDetected); THC/Cannabinoid Screen Not Detected (NotDetected); Tricyclic Screen Not Detected (NotDetected)
[2022-05-25] MEDS ORDERED: Potassium Chloride 20 MEQ TAB ONE (16:36)
[2022-05-25] MEDS ORDERED: Nitrofurantoin Monohyd/M-Cryst 100 MG CAP PO SCH (16:45)
[2022-05-25] MEDS ORDERED: Lorazepam 2 MG/ML VIAL IM PRN (18:08)
[2022-05-25] MEDS ORDERED: Lorazepam 1 MG TAB PO PRN (18:08)
[2022-05-25] MEDS ORDERED: Electrolyte Replacement Protocol 1 EACH FS SCH (18:15)
[2022-05-25] MEDS ORDERED: Lorazepam 1 MG TAB PO SCH (18:15)
[2022-05-25] MEDS ORDERED: Potassium Chloride 40 MEQ in Premix Bag 1 BAG IVPB ONE (18:35)
[2022-05-25 18:51] LABS: Bilirubin, Direct 0.2 mg/dL (0.1-0.3); Magnesium 1.6 mg/dL (1.6-2.6); Phosphorus 2.4 mg/dL (2.3-4.7)
[2022-05-25] MEDS ORDERED: Magnesium 2 GM/50 ML(in water) 2 GM in Premix Bag 1 BAG IVPB SCH (20:00)
[2022-05-25] MEDS: Ondansetron ODT 4 MG TAB PO PRN (21:40)
[2022-05-25] MEDS: Lorazepam 1 MG TAB PO SCH (21:40)
[2022-05-25] MEDS: Thiamine HCl 200 MG/2 ML VIAL SLOW IVP SCH (21:42)
[2022-05-25] MEDS: Nicotine 14 MG PATCH TD SCH (21:42)
[2022-05-25] MEDS: Pantoprazole 40 MG VIAL IVP SCH (21:43)
[2022-05-25] MEDS: Potassium Chloride 20 MEQ in Premix Bag 1 BAG IVPB SCH (22:35)
[2022-05-26] MEDS: Potassium Chloride 20 MEQ in Premix Bag 1 BAG IVPB SCH (00:58)
[2022-05-26] MEDS: Lorazepam 1 MG TAB PO SCH ×4 (03:15→21:41)
[2022-05-26 04:40] LABS: #Basophils 0.1 thou/uL (0.0-0.2); #Lymphocytes 1.9 thou/uL (1.20-3.40); #Monocytes 0.9 thou/uL (0.11-0.59); #Neutrophils 6.7 thou/uL (1.40-6.50); %Basophils 0.6 % (0.0-1.0); %Eosinophils 0.5 % (0.0-10.0); %Lymphocytes 19.6 % (21.0-51.0); %Neutrophils 70.3 % (42.0-75.0); Hemoglobin 11.2 g/dL (12.0-16.0); Mean Corpuscular HGB CONC 32.8 g/dL (32.0-36.0); Mean Corpuscular Hemoglobin 26.5 pg (27.0-31.0); Mean Corpuscular Volume 80.9 fL (78.0-98.0); Mean Platelet Volume 9.4 fL (7.4-10.4); Platelet Count 153 thou/uL (130-400); RBC Distribution Width 20.1 % (11.5-14.5); Red Blood Cell (RBC) Count 4.22 mill/uL (4.20-5.40); White Blood Cell (WBC) Count 9.5 thou/uL (4.8-10.8)
[2022-05-26 04:58] LABS: ALT (SGPT) 30 U/L (8-55); AST (SGOT) 39 U/L (5-34); Albumin 3.3 g/dL (3.4-4.8); Alkaline Phosphatase 101 U/L (40-110); Anion Gap 13 mmol/L (10-20); BUN (Urea Nitrogen) Less than 4 mg/dL (9.8-20.1); Calc. Creatinine Clearance 70 mL/min (70-130); Carbon Dioxide 25 mmol/L (23-31); Chloride 98 mmol/L (98-107); Estimated GFR 106; Globulin 3.1 g/dL (2.4-3.5); Glucose 99 mg/dL (80-115); Protein, Total 6.4 g/dL (5.8-8.1); Sodium 132 mmol/L (136-145)
[2022-05-26] MEDS ORDERED: Albuterol 200 PUFF (6.7GM INHALER) INH PRN (07:18)
[2022-05-26] MEDS ORDERED: Albuterol Sulfate 2.5 mg/3 ml Neb NEB PRN (07:29)
[2022-05-26] MEDS ORDERED: Magnesium 2 GM/50 ML(in water) 2 GM in Premix Bag 1 BAG IVPB SCH ×2 (08:00→22:00)
[2022-05-26] MEDS: Folic Acid 1 MG TAB PO SCH (08:36)
[2022-05-26] MEDS: Multivit, Therapeutic 1 TAB PO SCH (08:37)
[2022-05-26] MEDS: Pantoprazole 40 MG VIAL IVP SCH ×2 (08:37→20:20)
[2022-05-26] MEDS ORDERED: Multivitamins, Adult 10 ML, Thiamine HCl 100 MG, Folic Acid 1 MG in Dextrose 5 %-0.45 %... IV SCH (09:00)
[2022-05-26 11:14] LABS: Syphilis Antibody Nonreactive (Nonreactive); Syphilis Antibody Index 0.08 S/CO (<1.00 Non-Reactive)
[2022-05-26] MEDS: Multivitamins, Adult 10 ML, Folic Acid 1 MG, Thiamine HCl 100 MG in Dextrose 5 %-0.45 %... IV SCH (18:06)
[2022-05-26] MEDS: Nicotine 14 MG PATCH TD SCH (20:17)
[2022-05-26] MEDS: Thiamine HCl 200 MG/2 ML VIAL SLOW IVP SCH (20:18)
[2022-05-26] MEDS: Carvedilol 3.125 MG TAB PO SCH (20:20)
[2022-05-26 20:41] LABS: Anion Gap 15 mmol/L (10-20); BUN (Urea Nitrogen) Less than 4 mg/dL (9.8-20.1); Calc. Creatinine Clearance 61 mL/min (70-130); Calcium 8.4 mg/dL (7.8-10.44); Carbon Dioxide 26 mmol/L (23-31); Chloride 93 mmol/L (98-107); Estimated GFR 102; Glucose 118 mg/dL (80-115); Magnesium 1.8 mg/dL (1.6-2.6); Potassium 3.5 mmol/L (3.5-5.1); Sodium 130 mmol/L (136-145)
[2022-05-26 20:46] LABS: Troponin I 0.019 ng/mL (< 0.028)
[2022-05-26] MEDS: Lorazepam 1 MG TAB PO PRN (21:47)
[2022-05-26] MEDS ORDERED: Potassium Chloride 20 MEQ TAB PO SCH (22:00)
[2022-05-26] MEDS ORDERED: hydrOXYzine 25 MG TAB PO SCH (23:15)
[2022-05-26] MEDS ORDERED: hydrOXYzine 25 MG TAB PO PRN (23:53)
[2022-05-26] MEDS ORDERED: Phenazopyridine HCl 100 MG TAB PO SCH (23:59)
[2022-05-27] MEDS: cefTRIAXone\\ROCEPHIN 1 GM in Sodium Chloride 0.9% 100 ML IVPB SCH (00:02)
[2022-05-27 00:04] LABS: Troponin I 0.016 ng/mL (< 0.028)
[2022-05-27] MEDS: Lorazepam 1 MG TAB PO PRN ×3 (00:54→11:37)
[2022-05-27] MEDS ORDERED: Diazepam 5 MG TAB PO PRN (01:42)
[2022-05-27] MEDS: Lorazepam 1 MG TAB PO SCH ×3 (03:07→17:27)
[2022-05-27] MEDS: Ondansetron ODT 4 MG TAB PO PRN (04:21)
[2022-05-27 05:55] LABS: Potassium 4.7 mmol/L (3.5-5.1)
[2022-05-27] MEDS ORDERED: Dexmedetomidine In 0.9 % NaCl 100 ML IVPB SCH (06:45)
[2022-05-27] MEDS ORDERED: Lorazepam (BATCHED) 2 MG/ML SYR IM PRN (07:41)
[2022-05-27] MEDS ORDERED: Magnesium 2 GM/50 ML(in water) 2 GM in Premix Bag 1 BAG IVPB SCH (08:00)
[2022-05-27] MEDS: Pantoprazole 40 MG VIAL IVP SCH ×2 (10:17→21:49)
[2022-05-27] MEDS: Multivit, Therapeutic 1 TAB PO SCH (10:17)
[2022-05-27] MEDS: Carvedilol 3.125 MG TAB PO SCH ×2 (10:17→21:49)
[2022-05-27] MEDS: Phenazopyridine HCl 100 MG TAB PO SCH ×2 (10:18→21:49)
[2022-05-27] MEDS: Folic Acid 1 MG TAB PO SCH (10:20)
[2022-05-27] MEDS: Nicotine 14 MG PATCH TD SCH (17:27)
[2022-05-27] MEDS: Lorazepam 0.5 MG TAB PO SCH (17:28)
[2022-05-27] MEDS ORDERED: Lorazepam 1 MG TAB PO PRN (18:08)
[2022-05-27] MEDS: Multivitamins, Adult 10 ML, Folic Acid 1 MG, Thiamine HCl 100 MG in Dextrose 5 %-0.45 %... IV SCH (18:29)
[2022-05-27] MEDS: Thiamine HCl 200 MG/2 ML VIAL SLOW IVP SCH (18:30)
[2022-05-28] MEDS: cefTRIAXone\\ROCEPHIN 1 GM in Sodium Chloride 0.9% 100 ML IVPB SCH (00:01)
[2022-05-28] MEDS: Lorazepam 0.5 MG TAB PO SCH ×3 (00:06→11:15)
[2022-05-28] MEDS ORDERED: Prevnar 13-Val Conj/PF 0.5 ML SYRINGE IM ONE (09:00)
[2022-05-28] MEDS: Pantoprazole 40 MG VIAL IVP SCH ×2 (09:03→20:39)
[2022-05-28] MEDS: Carvedilol 3.125 MG TAB PO SCH ×2 (09:03→20:39)
[2022-05-28] MEDS: Phenazopyridine HCl 100 MG TAB PO SCH ×2 (09:03→21:16)
[2022-05-28] MEDS: Multivit, Therapeutic 1 TAB PO SCH (09:03)
[2022-05-28] MEDS: Folic Acid 1 MG TAB PO SCH (09:03)
[2022-05-28] MEDS: Lorazepam 0.5 MG TAB PO PRN ×3 (09:04→23:01)
[2022-05-28 09:27] LABS: Phosphorus 2.8 mg/dL (2.3-4.7)
[2022-05-28 09:29] LABS: Anion Gap 11 mmol/L (10-20); BUN (Urea Nitrogen) 7 mg/dL (9.8-20.1); Calc. Creatinine Clearance 68 mL/min (70-130); Calcium 8.6 mg/dL (7.8-10.44); Carbon Dioxide 27 mmol/L (23-31); Chloride 95 mmol/L (98-107); Estimated GFR 104; Glucose 128 mg/dL (80-115); Potassium 4.2 mmol/L (3.5-5.1); Sodium 129 mmol/L (136-145)
[2022-05-28 10:16] LABS: #Basophils 0.1 thou/uL (0.0-0.2); #Eosinphils 0.1 thou/uL (0.0-0.7); #Monocytes 0.9 thou/uL (0.11-0.59); %Basophils 0.6 % (0.0-1.0); %Eosinophils 1.2 % (0.0-10.0); %Lymphocytes 24.8 % (21.0-51.0); %Monocytes 11.6 % (0.0-10.0); %Neutrophils 61.7 % (42.0-75.0); Hemoglobin 11.4 g/dL (12.0-16.0); Mean Corpuscular HGB CONC 33.1 g/dL (32.0-36.0); Mean Corpuscular Hemoglobin 27.1 pg (27.0-31.0); Mean Corpuscular Volume 81.8 fL (78.0-98.0); Mean Platelet Volume 9.7 fL (7.4-10.4); Platelet Count 123 thou/uL (130-400); RBC Distribution Width 19.7 % (11.5-14.5); Red Blood Cell (RBC) Count 4.22 mill/uL (4.20-5.40); White Blood Cell (WBC) Count 8.1 thou/uL (4.8-10.8)
[2022-05-28] MEDS: Multivitamins, Adult 10 ML, Folic Acid 1 MG, Thiamine HCl 100 MG in Dextrose 5 %-0.45 %... IV SCH (15:54)
[2022-05-28] MEDS: Nicotine 14 MG PATCH TD SCH (18:05)
[2022-05-28] MEDS: Thiamine 100 MG TAB PO SCH (18:05)
[2022-05-29 08:05] LABS: Hemoglobin 11.2 g/dL (12.0-16.0); Mean Corpuscular HGB CONC 32.1 g/dL (32.0-36.0); Mean Corpuscular Hemoglobin 26.1 pg (27.0-31.0); Mean Corpuscular Volume 81.4 fL (78.0-98.0); Mean Platelet Volume 10.3 fL (7.4-10.4); Platelet Count 126 thou/uL (130-400); RBC Distribution Width 19.6 % (11.5-14.5); Red Blood Cell (RBC) Count 4.28 mill/uL (4.20-5.40); White Blood Cell (WBC) Count 5.2 thou/uL (4.8-10.8)
[2022-05-29 08:09] LABS: ALT (SGPT) 24 U/L (8-55); AST (SGOT) 35 U/L (5-34); Albumin 3.2 g/dL (3.4-4.8); Alkaline Phosphatase 85 U/L (40-110); Anion Gap 15 mmol/L (10-20); BUN (Urea Nitrogen) 4 mg/dL (9.8-20.1); Bilirubin, Total 0.9 mg/dL (0.2-1.2); Calc. Creatinine Clearance 69 mL/min (70-130); Calcium 8.9 mg/dL (7.8-10.44); Carbon Dioxide 21 mmol/L (23-31); Chloride 99 mmol/L (98-107); Estimated GFR 105; Glucose 101 mg/dL (80-115); Potassium 4.3 mmol/L (3.5-5.1); Protein, Total 6.2 g/dL (5.8-8.1); Sodium 131 mmol/L (136-145)
[2022-05-29] MEDS: Carvedilol 3.125 MG TAB PO SCH ×2 (08:44→20:14)
[2022-05-29] MEDS: Lorazepam 0.5 MG TAB PO PRN ×3 (08:44→20:14)
[2022-05-29] MEDS: Multivit, Therapeutic 1 TAB PO SCH (08:44)
[2022-05-29] MEDS: Pantoprazole 40 MG VIAL IVP SCH ×2 (08:44→20:14)
[2022-05-29] MEDS: Folic Acid 1 MG TAB PO SCH (08:44)
[2022-05-29 12:56] LABS: Band 1 % (5-11); Eosinophils 2 % (0-10); Lymphocytes 49 % (21-51); MDiff Complete? YES; Monocytes 13 % (0-10); Neutrophil 35 % (42-75); Platelet Morphology Comment Appears Decreased; Polychromasia SLIGHT = 2-3 cells (100X) (0-2/hpf)
[2022-05-29] MEDS: Multivitamins, Adult 10 ML, Folic Acid 1 MG, Thiamine HCl 100 MG in Dextrose 5 %-0.45 %... IV SCH (14:29)
[2022-05-29] MEDS: Thiamine 100 MG TAB PO SCH (16:15)
[2022-05-29] MEDS: Nicotine 14 MG PATCH TD SCH (16:15)
[2022-05-30] MEDS: Lorazepam 0.5 MG TAB PO PRN ×4 (00:27→20:21)
[2022-05-30 04:14] LABS: Eosinophils 3 % (0-10); Hemoglobin 11.8 g/dL (12.0-16.0); Lymphocytes 32 % (21-51); MDiff Complete? YES; Mean Corpuscular HGB CONC 32.4 g/dL (32.0-36.0); Mean Corpuscular Hemoglobin 26.7 pg (27.0-31.0); Mean Corpuscular Volume 82.2 fL (78.0-98.0); Mean Platelet Volume 9.3 fL (7.4-10.4); Monocytes 12 % (0-10); Neutrophil 54 % (42-75); Nucleated RBC 2 % (0); Platelet Count 161 thou/uL (130-400); Platelet Morphology Comment Appears Adequate; RBC Distribution Width 19.7 % (11.5-14.5); RBC Morphology Normal; Red Blood Cell (RBC) Count 4.41 mill/uL (4.20-5.40); White Blood Cell (WBC) Count 6.7 thou/uL (4.8-10.8)
[2022-05-30] MEDS: Multivit, Therapeutic 1 TAB PO SCH (08:32)
[2022-05-30] MEDS: Folic Acid 1 MG TAB PO SCH (08:32)
[2022-05-30] MEDS: Pantoprazole 40 MG VIAL IVP SCH (08:32)
[2022-05-30] MEDS: Carvedilol 3.125 MG TAB PO SCH ×2 (08:32→20:18)
[2022-05-30 10:35] VITALS: BMI 15.3
[2022-05-30] MEDS ORDERED: Senokot S 8.6-50 MG TAB PO PRN (13:41)
[2022-05-30] MEDS ORDERED: Electrolyte Replacement Protocol FS SCH (13:45)
[2022-05-30] MEDS: Thiamine 100 MG TAB PO SCH (16:29)
[2022-05-30] MEDS: Nicotine 14 MG PATCH TD SCH (16:30)
[2022-05-30] MEDS ORDERED: cloNIDine 0.1 MG TAB PO PRN (18:47)
[2022-05-30] MEDS ORDERED: Nicotine 14 MG PATCH TD PRN (18:47)
[2022-05-31] MEDS: Lorazepam 0.5 MG TAB PO PRN ×4 (02:27→22:50)
[2022-05-31 04:17] LABS: Anion Gap 12 mmol/L (10-20); BUN (Urea Nitrogen) 6 mg/dL (9.8-20.1); Calc. Creatinine Clearance 57 mL/min (70-130); Calcium 8.9 mg/dL (7.8-10.44); Carbon Dioxide 27 mmol/L (23-31); Chloride 93 mmol/L (98-107); Estimated GFR 100; Glucose 139 mg/dL (80-115); Magnesium 1.8 mg/dL (1.6-2.6); Phosphorus 3.4 mg/dL (2.3-4.7); Potassium 4.1 mmol/L (3.5-5.1); Sodium 128 mmol/L (136-145)
[2022-05-31 04:55] LABS: Anisocytosis SLIGHT = 6-15 cells (100X) (0-5/hpf); Band 3 % (5-11); Eosinophils 1 % (0-10); Hemoglobin 12.3 g/dL (12.0-16.0); Lymphocytes 42 % (21-51); MDiff Complete? YES; Mean Corpuscular HGB CONC 32.6 g/dL (32.0-36.0); Mean Corpuscular Hemoglobin 26.6 pg (27.0-31.0); Mean Corpuscular Volume 81.6 fL (78.0-98.0); Mean Platelet Volume 8.8 fL (7.4-10.4); Monocytes 8 % (0-10); Neutrophil 45 % (42-75); Platelet Count 216 thou/uL (130-400); RBC Distribution Width 19.7 % (11.5-14.5); White Blood Cell (WBC) Count 6.7 thou/uL (4.8-10.8)
[2022-05-31] MEDS ORDERED: Magnesium 2 GM/50 ML(in water) 2 GM in Premix Bag 1 BAG IVPB SCH (08:00)
[2022-05-31] MEDS: Folic Acid 1 MG TAB PO SCH (08:43)
[2022-05-31] MEDS: Multivit, Therapeutic 1 TAB PO SCH (08:43)
[2022-05-31] MEDS: Carvedilol 3.125 MG TAB PO SCH ×2 (08:43→20:26)
[2022-05-31] MEDS: Aspirin 81 mg Enteric Coated Tablet PO SCH (08:44)
[2022-05-31] MEDS: Thiamine 100 MG TAB PO SCH (17:03)
[2022-06-01 04:19] LABS: ALT (SGPT) 26 U/L (8-55); AST (SGOT) 22 U/L (5-34); Albumin 3.3 g/dL (3.4-4.8); Alkaline Phosphatase 75 U/L (40-110); Anion Gap 14 mmol/L (10-20); BUN (Urea Nitrogen) 5 mg/dL (9.8-20.1); Bilirubin, Total 0.4 mg/dL (0.2-1.2); Calc. Creatinine Clearance 66 mL/min (70-130); Calcium 8.5 mg/dL (7.8-10.44); Carbon Dioxide 25 mmol/L (23-31); Chloride 95 mmol/L (98-107); Estimated GFR 103; Glucose 127 mg/dL (80-115); Phosphorus 3.4 mg/dL (2.3-4.7); Potassium 4.5 mmol/L (3.5-5.1); Protein, Total 6.3 g/dL (5.8-8.1); Sodium 129 mmol/L (136-145)
[2022-06-01 04:27] LABS: Band 2 % (5-11); Eosinophils 3 % (0-10); Hemoglobin 11.4 g/dL (12.0-16.0); Lymphocytes 26 % (21-51); MDiff Complete? YES; Mean Corpuscular HGB CONC 32.6 g/dL (32.0-36.0); Mean Corpuscular Hemoglobin 26.4 pg (27.0-31.0); Mean Corpuscular Volume 81.2 fL (78.0-98.0); Mean Platelet Volume 8.8 fL (7.4-10.4); Monocytes 14 % (0-10); Neutrophil 54 % (42-75); Platelet Count 268 thou/uL (130-400); Platelet Morphology Comment Appears Adequate; RBC Distribution Width 19.8 % (11.5-14.5); RBC Morphology Normal; Reactive Lymphocytes 1 % (0-10); Red Blood Cell (RBC) Count 4.33 mill/uL (4.20-5.40); White Blood Cell (WBC) Count 7.5 thou/uL (4.8-10.8)
[2022-06-01] MEDS ORDERED: Magnesium 2 GM/50 ML(in water) 2 GM in Premix Bag 1 BAG IVPB SCH (08:00)
[2022-06-01] MEDS: Carvedilol 3.125 MG TAB PO SCH (08:56)
[2022-06-01] MEDS: Aspirin 81 mg Enteric Coated Tablet PO SCH (08:56)
[2022-06-01] MEDS: Multivit, Therapeutic 1 TAB PO SCH (08:56)
[2022-06-01] MEDS: Folic Acid 1 MG TAB PO SCH (08:56)
[2022-06-01] MEDS: Lorazepam 0.5 MG TAB PO PRN (12:01)
[2022-06-01 16:45] VITALS: TEMP 98.6
[2022-06-01 17:28] VITALS: BP 171/80
== END 2022-06-01 17:38 | disposition home or self-care (01) | DRG 896 ==
LOC: SUATTDRO 13:51 → ERS 13:51 → 2SW 17:47 → IMCU/EMU 05-27 05:52 → OBSVTOIN 05-27 06:36
PROVIDERS: ADMIT Internal Medicine; ATTEND Internal Medicine
PROC: HZ2ZZZZ Detoxification Services for Substance Abuse Treatment (ICD-10-PCS; principal; 2022-05-27)
DX: F10.229 Alcohol dependence with intoxication, unspecified (principal); E43 Unspecified severe protein-calorie malnutrition; G93.41 Metabolic encephalopathy; Z68.1 Body mass index [BMI] 19.9 or less, adult; I50.22 Chronic systolic (congestive) heart failure; R64 Cachexia; N39.0 Urinary tract infection, site not specified; Z20.822 Contact with and (suspected) exposure to COVID-19; F10.239 Alcohol dependence with withdrawal, unspecified; I25.10 Atherosclerotic heart disease of native coronary artery without angina pectoris; F32.A Depression, unspecified; Z60.2 Problems related to living alone; F17.210 Nicotine dependence, cigarettes, uncomplicated; J45.909 Unspecified asthma, uncomplicated; F41.9 Anxiety disorder, unspecified; J44.9 Chronic obstructive pulmonary disease, unspecified; K21.9 Gastro-esophageal reflux disease without esophagitis; I11.0 Hypertensive heart disease with heart failure; S80.12XA Contusion of left lower leg, initial encounter; S80.11XA Contusion of right lower leg, initial encounter; E83.42 Hypomagnesemia; W01.0XXA Fall on same level from slipping, tripping and stumbling without subsequent striking against object, initial encounter; Z95.1 Presence of aortocoronary bypass graft; Z85.118 Personal history of other malignant neoplasm of bronchus and lung; Z90.2 Acquired absence of lung [part of]; Z79.899 Other long term (current) drug therapy; Z79.82 Long term (current) use of aspirin; Z82.49 Family history of ischemic heart disease and other diseases of the circulatory system; Z80.1 Family history of malignant neoplasm of trachea, bronchus and lung; Z80.8 Family history of malignant neoplasm of other organs or systems; Z71.6 Tobacco abuse counseling; I25.2 Old myocardial infarction
CPT/HCPCS: 36415; 70450; 71045; 72125; 80048; 80053; 80306; 80307; 81003; 81015; 82248; 83690; 83735; 83880; 84100; 84132; 84484; 85025; 86780; 87086; 93005; 93010; 96374; 96375; 96376; C9113; G0378; J0696; J2060; J2405; J3411; J3475; J3480; J3490; J7042; Q0162; U0003; U0005

== ENCOUNTER 2022-09-27 13:30 | Outpatient (CLI) | payer OTHER | END 2022-09-27 13:31 | disposition home or self-care (01) | LOC: BICULT 13:30 | PROVIDERS: ATTEND Family Medicine | DX: R09.89 Other specified symptoms and signs involving the circulatory and respiratory systems (principal) | CPT/HCPCS: 93880 ==

== ENCOUNTER 2023-02-15 13:11 | Inpatient (IN) | payer MEDICARE, MEDICAID ==
[2023-02-15 14:11] LABS: #Basophils 0.1 thou/uL (0.0-0.2); #Monocytes 0.6 thou/uL (0.11-0.59); #Neutrophils 5.5 thou/uL (1.40-6.50); %Basophils 1.3 % (0.0-1.0); %Eosinophils 0.4 % (0.0-10.0); %Lymphocytes 19.1 % (21.0-51.0); %Monocytes 7.6 % (0.0-10.0); %Neutrophils 71.2 % (42.0-75.0); Hemoglobin 10.1 g/dL (12.0-16.0); Mean Corpuscular HGB CONC 33.8 g/dL (32.0-36.0); Mean Corpuscular Hemoglobin 21.4 pg (27.0-31.0); Mean Corpuscular Volume 63.2 fl (78.0-98.0); Mean Platelet Volume 9.1 fL (7.4-10.4); Platelet Count 266 10x3/uL (130-400); RBC Distribution Width 22.8 % (11.5-14.5); Red Blood Cell (RBC) Count 4.73 mill/uL (4.20-5.40); White Blood Cell (WBC) Count 7.8 10x3/uL (4.8-10.8)
[2023-02-15] MEDS ORDERED: Ipratropium/Albuterol 3 ML NEB ONE ×2 (14:33→15:29)
[2023-02-15 14:35] LABS: Anisocytosis MODERATE=16-30 cells HPF (0-5); Burr Cells SLIGHT = 2-5 cells HPF (0-1); CellaVision Operator ID LAB.MJL; Hypochromia SLIGHT = 6-15 cells HPF (0-5); Microcytosis SLIGHT = 6-15 cells HPF (0-5); Ovalocytes SLIGHT = 2-5 cells HPF (0-1); Platelet Adequacy Comment Platelets Normal; Poikilocytosis SLIGHT = 6-15 cells HPF (0-5); Polychromasia SLIGHT = 2-3 cells HPF (0-2); Target Cells SLIGHT = 2-5 cells HPF (0-1); Tear Drops SLIGHT = 2-5 cells HPF (0-1)
[2023-02-15 14:55] LABS: Bilirubin Negative (Negative); Blood, Urine Negative (Negative); CAUTI Indications for Culture Alt mental st,lethar; Clarity Clear (Clear); Glucose, Urine (Dipstick) Normal (Negative); Ketone, Urine Negative (Negative); Leukocyte Negative Leu/uL (Negative); Nitrite Negative (Negative); Protein, Urine (Dipstick) Negative (Neg-Trace); RBC/HPF 0-3 HPF (0-3); Specific Gravity, Urine 1.002 (1.002-1.036); Squamous Epithelial None Seen HPF (0-3); Urobilinogen Normal mg/dL (Less than 2); WBC/HPF None Seen HPF (0-3)
[2023-02-15 14:56] LABS: Bacteria/HPF 1+ HPF (None Seen)
[2023-02-15 14:57] LABS: Urine Culture Reflex No No
[2023-02-15] MEDS ORDERED: methylPREDNISolone Sod Succ/PF 125 MG/2 ML VIAL ONE (15:20)
[2023-02-15] MEDS ORDERED: cefTRIAXone (ROCEPHIN) 1 GM VIAL ONE (15:20)
[2023-02-15 16:02] LABS: Lipase 107 U/L (8-78)
[2023-02-15 16:03] LABS: ALT (SGPT) 41 U/L (8-55); AST (SGOT) 57 U/L (5-34); Albumin 4.1 g/dL (3.4-4.8); Alkaline Phosphatase 98 U/L (40-110); Anion Gap 18 mmol/L (10-20); BUN (Urea Nitrogen) Less than 4 mg/dL (9.8-20.1); Bilirubin, Total 0.5 mg/dL (0.2-1.2); CK (CPK) 68 U/L (29-168); Calc. Creatinine Clearance 0 mL/min (70-130); Calcium 8.6 mg/dL (7.8-10.44); Carbon Dioxide 22 mmol/L (23-31); Chloride 96 mmol/L (98-107); Estimated GFR 102; Globulin 3.2 g/dL (2.4-3.5); Glucose 74 mg/dL (80-115); Potassium 3.1 mmol/L (3.5-5.1); Protein, Total 7.3 g/dL (5.8-8.1); Sodium 133 mmol/L (136-145)
[2023-02-15] MEDS ORDERED: Potassium Chloride 20 MEQ TAB ONE (16:23)
[2023-02-15] MEDS ORDERED: Lorazepam 1 MG TAB ONE (17:57)
[2023-02-15] MEDS ORDERED: Thiamine HCl 100 MG, Folic Acid 1 MG in Dextrose 5 %-0.45 % NaCl 1,000 ML IVPB SCH (18:00)
[2023-02-15] MEDS ORDERED: Lorazepam 2 MG/ML VIAL IM PRN (18:44)
[2023-02-15] MEDS ORDERED: Ipratropium/Albuterol 3 ML NEB NEB PRN (18:44)
[2023-02-15] MEDS ORDERED: Electrolyte Replacement Protocol FS SCH (18:45)
[2023-02-15] MEDS ORDERED: Senokot S 8.6-50 MG TAB PO PRN (18:55)
[2023-02-15] MEDS ORDERED: Acetaminophen 325 MG TAB PO PRN (20:00)
[2023-02-15] MEDS: Sodium Chloride 0.9% 1,000 ML IV SCH (20:49)
[2023-02-15] MEDS: Sertraline 100 MG TAB PO SCH (20:55)
[2023-02-15] MEDS: Doxepin HCl 25 MG CAP PO SCH (20:56)
[2023-02-15] MEDS: Carvedilol 3.125 MG TAB PO SCH (20:57)
[2023-02-16] MEDS ORDERED: diphenhydrAMINE 25 MG CAP PO SCH (00:30)
[2023-02-16] MEDS: Sodium Chloride 0.9% 1,000 ML IV SCH ×2 (00:55→10:22)
[2023-02-16] MEDS: Ipratropium/Albuterol 3 ML NEB NEB SCH ×5 (01:19→18:16)
[2023-02-16 02:30] VITALS: BMI 17.5
[2023-02-16] MEDS: Lorazepam 1 MG TAB PO PRN ×4 (03:04→20:18)
[2023-02-16 04:48] LABS: #Monocytes 0.2 thou/uL (0.11-0.59); #Neutrophils 2.9 thou/uL (1.40-6.50); %Lymphocytes 12.6 % (21.0-51.0); %Neutrophils 81.8 % (42.0-75.0); Mean Corpuscular HGB CONC 34.1 g/dL (32.0-36.0); Mean Corpuscular Hemoglobin 21.6 pg (27.0-31.0); Mean Corpuscular Volume 63.3 fl (78.0-98.0); Mean Platelet Volume 9.6 fL (7.4-10.4); Platelet Count 218 10x3/uL (130-400); RBC Distribution Width 22.7 % (11.5-14.5); Red Blood Cell (RBC) Count 4.63 mill/uL (4.20-5.40); White Blood Cell (WBC) Count 3.6 10x3/uL (4.8-10.8)
[2023-02-16 05:17] LABS: Anion Gap 16 mmol/L (10-20); BUN (Urea Nitrogen) Less than 4 mg/dL (9.8-20.1); Calc. Creatinine Clearance 75 mL/min (70-130); Calcium 8.3 mg/dL (7.8-10.44); Carbon Dioxide 25 mmol/L (23-31); Chloride 95 mmol/L (98-107); Estimated GFR 104; Glucose 134 mg/dL (80-115); Magnesium 1.5 mg/dL (1.6-2.6); Phosphorus 2.3 mg/dL (2.3-4.7); Potassium 3.8 mmol/L (3.5-5.1); Sodium 132 mmol/L (136-145)
[2023-02-16] MEDS: Mometasone 200 MCG/Formoterol 5 MCG 120 PUFF INHALER INH SCH ×2 (07:01→18:19)
[2023-02-16 08:57] LABS: Troponin I Less than 0.010 ng/mL (< 0.028)
[2023-02-16] MEDS ORDERED: Magnesium 2 GM/50 ML(in water) 2 GM in Premix Bag 1 BAG IVPB SCH (09:00)
[2023-02-16] MEDS: Multivit, Therapeutic 1 TAB PO SCH (09:32)
[2023-02-16] MEDS: Sertraline 100 MG TAB PO SCH ×2 (09:32→20:19)
[2023-02-16] MEDS: predniSONE 20 MG TAB PO SCH (09:32)
[2023-02-16] MEDS: Folic Acid 1 MG TAB PO SCH (09:32)
[2023-02-16] MEDS: Carvedilol 3.125 MG TAB PO SCH ×2 (12:36→20:18)
[2023-02-16] MEDS ORDERED: Regadenoson 0.4 MG/5 ML SYRINGE ONE (13:23)
[2023-02-16] MEDS ORDERED: Iopamidol 370 76% 100 ML VIAL ONE (14:50)
[2023-02-16] MEDS: Aspirin 81 mg Enteric Coated Tablet PO SCH (15:12)
[2023-02-16] MEDS: Nicotine 21 MG PATCH TOP SCH (20:17)
[2023-02-16] MEDS: Doxepin HCl 25 MG CAP PO SCH ×2 (20:30→20:35)
[2023-02-16] MEDS: cefTRIAXone\\ROCEPHIN 2 GM in Sodium Chloride 0.9% 100 ML IVPB SCH (21:37)
[2023-02-16] MEDS ORDERED: Lorazepam 2 MG/ML VIAL SLOW IVP SCH (22:15)
[2023-02-17] MEDS: Lorazepam 1 MG TAB PO PRN ×4 (00:21→20:08)
[2023-02-17] MEDS: Ipratropium/Albuterol 3 ML NEB NEB SCH ×4 (02:27→19:28)
[2023-02-17 04:44] LABS: #Neutrophils 9.5 thou/uL (1.40-6.50); %Basophils 0.2 % (0.0-1.0); %Eosinophils 0.2 % (0.0-10.0); %Lymphocytes 17.1 % (21.0-51.0); %Monocytes 7.8 % (0.0-10.0); %Neutrophils 74.1 % (42.0-75.0); Hemoglobin 10.8 g/dL (12.0-16.0); Mean Corpuscular HGB CONC 34.1 g/dL (32.0-36.0); Mean Corpuscular Hemoglobin 21.6 pg (27.0-31.0); Mean Platelet Volume 9.9 fL (7.4-10.4); Platelet Count 208 10x3/uL (130-400); RBC Distribution Width 23.1 % (11.5-14.5); Red Blood Cell (RBC) Count 5.01 mill/uL (4.20-5.40); White Blood Cell (WBC) Count 12.9 10x3/uL (4.8-10.8)
[2023-02-17 04:49] LABS: Mean Corpuscular Volume 63.3 fl (78.0-98.0)
[2023-02-17 05:07] LABS: Anion Gap 11 mmol/L (10-20); BUN (Urea Nitrogen) 4 mg/dL (9.8-20.1); Calc. Creatinine Clearance 77 mL/min (70-130); Calcium 8.8 mg/dL (7.8-10.44); Carbon Dioxide 28 mmol/L (23-31); Chloride 91 mmol/L (98-107); Estimated GFR 104; Glucose 103 mg/dL (80-115); Magnesium 1.9 mg/dL (1.6-2.6); Potassium 3.2 mmol/L (3.5-5.1); Sodium 127 mmol/L (136-145)
[2023-02-17] MEDS: Mometasone 200 MCG/Formoterol 5 MCG 120 PUFF INHALER INH SCH ×2 (07:37→19:30)
[2023-02-17] MEDS ORDERED: Potassium Chloride 20 MEQ TAB PO SCH (08:00)
[2023-02-17] MEDS ORDERED: Magnesium 2 GM/50 ML(in water) 2 GM in Premix Bag 1 BAG IVPB SCH (08:00)
[2023-02-17] MEDS: Multivit, Therapeutic 1 TAB PO SCH (08:46)
[2023-02-17] MEDS: predniSONE 20 MG TAB PO SCH (08:46)
[2023-02-17] MEDS: Aspirin 81 mg Enteric Coated Tablet PO SCH (08:47)
[2023-02-17] MEDS: Folic Acid 1 MG TAB PO SCH (08:47)
[2023-02-17] MEDS: Sertraline 100 MG TAB PO SCH ×2 (08:47→20:08)
[2023-02-17] MEDS: Carvedilol 3.125 MG TAB PO SCH ×2 (08:47→20:08)
[2023-02-17] MEDS: Nicotine 21 MG PATCH TOP SCH (18:29)
[2023-02-17] MEDS: Doxepin HCl 25 MG CAP PO SCH (20:07)
[2023-02-17] MEDS: cefTRIAXone\\ROCEPHIN 2 GM in Sodium Chloride 0.9% 100 ML IVPB SCH (20:16)
[2023-02-18] MEDS: Ipratropium/Albuterol 3 ML NEB NEB SCH ×4 (02:00→18:36)
[2023-02-18 04:54] LABS: #Eosinphils 0.1 thou/uL (0.0-0.7); #Monocytes 0.8 thou/uL (0.11-0.59); #Neutrophils 4.5 thou/uL (1.40-6.50); %Basophils 0.3 % (0.0-1.0); %Eosinophils 0.6 % (0.0-10.0); %Lymphocytes 29.4 % (21.0-51.0); %Monocytes 10.3 % (0.0-10.0); %Neutrophils 58.9 % (42.0-75.0); Hemoglobin 10.2 g/dL (12.0-16.0); Mean Corpuscular HGB CONC 33.1 g/dL (32.0-36.0); Mean Corpuscular Hemoglobin 21.2 pg (27.0-31.0); Platelet Count 161 10x3/uL (130-400); RBC Distribution Width 22.6 % (11.5-14.5); Red Blood Cell (RBC) Count 4.81 mill/uL (4.20-5.40); White Blood Cell (WBC) Count 7.7 10x3/uL (4.8-10.8)
[2023-02-18 05:17] LABS: Anion Gap 12 mmol/L (10-20); BUN (Urea Nitrogen) 6 mg/dL (9.8-20.1); Calc. Creatinine Clearance 75 mL/min (70-130); Calcium 8.6 mg/dL (7.8-10.44); Carbon Dioxide 27 mmol/L (23-31); Chloride 94 mmol/L (98-107); Estimated GFR 103; Glucose 87 mg/dL (80-115); Sodium 130 mmol/L (136-145)
[2023-02-18] MEDS: Mometasone 200 MCG/Formoterol 5 MCG 120 PUFF INHALER INH SCH ×2 (08:00→18:39)
[2023-02-18] MEDS ORDERED: Potassium Chloride 20 MEQ TAB PO SCH (08:00)
[2023-02-18] MEDS: Aspirin 81 mg Enteric Coated Tablet PO SCH (09:16)
[2023-02-18] MEDS: Sertraline 100 MG TAB PO SCH ×2 (09:16→20:54)
[2023-02-18] MEDS: Multivit, Therapeutic 1 TAB PO SCH (09:16)
[2023-02-18] MEDS: Folic Acid 1 MG TAB PO SCH (09:16)
[2023-02-18] MEDS: predniSONE 20 MG TAB PO SCH (09:16)
[2023-02-18] MEDS: Lorazepam 1 MG TAB PO PRN (09:17)
[2023-02-18] MEDS: Carvedilol 3.125 MG TAB PO SCH ×2 (10:06→20:54)
[2023-02-18] MEDS: Nicotine 21 MG PATCH TOP SCH (18:25)
[2023-02-18] MEDS ORDERED: Lorazepam 0.5 MG TAB PO PRN (18:44)
[2023-02-18] MEDS ORDERED: Thiamine 100 MG TAB PO SCH (20:00)
[2023-02-18] MEDS: cefTRIAXone\\ROCEPHIN 2 GM in Sodium Chloride 0.9% 100 ML IVPB SCH (20:53)
[2023-02-18] MEDS: Doxepin HCl 25 MG CAP PO SCH (20:54)
[2023-02-19] MEDS: Ipratropium/Albuterol 3 ML NEB NEB SCH ×2 (00:17→08:00)
[2023-02-19 04:27] LABS: #Eosinphils 0.1 thou/uL (0.0-0.7); #Monocytes 0.6 thou/uL (0.11-0.59); #Neutrophils 6.4 thou/uL (1.40-6.50); %Basophils 0.1 % (0.0-1.0); %Eosinophils 0.7 % (0.0-10.0); %Monocytes 6.4 % (0.0-10.0); %Neutrophils 73.2 % (42.0-75.0); Mean Corpuscular HGB CONC 32.4 g/dL (32.0-36.0); Mean Corpuscular Hemoglobin 21.1 pg (27.0-31.0); Mean Corpuscular Volume 65.3 fl (78.0-98.0); Platelet Count 132 10x3/uL (130-400); RBC Distribution Width 22.5 % (11.5-14.5); Red Blood Cell (RBC) Count 4.73 mill/uL (4.20-5.40); White Blood Cell (WBC) Count 8.8 10x3/uL (4.8-10.8)
[2023-02-19 04:54] LABS: Anion Gap 14 mmol/L (10-20); BUN (Urea Nitrogen) 12 mg/dL (9.8-20.1); Calc. Creatinine Clearance 75 mL/min (70-130); Calcium 8.7 mg/dL (7.8-10.44); Carbon Dioxide 24 mmol/L (23-31); Chloride 97 mmol/L (98-107); Estimated GFR 103; Glucose 89 mg/dL (80-115); Potassium 4.2 mmol/L (3.5-5.1); Sodium 131 mmol/L (136-145)
[2023-02-19 07:33] VITALS: TEMP 98.3
[2023-02-19] MEDS: Mometasone 200 MCG/Formoterol 5 MCG 120 PUFF INHALER INH SCH (07:59)
[2023-02-19] MEDS ORDERED: Ipratropium/Albuterol 3 ML NEB NEB PRN (08:16)
[2023-02-19] MEDS: Carvedilol 3.125 MG TAB PO SCH (08:58)
[2023-02-19] MEDS: Sertraline 100 MG TAB PO SCH (08:58)
[2023-02-19] MEDS: Multivit, Therapeutic 1 TAB PO SCH (08:58)
[2023-02-19] MEDS: predniSONE 20 MG TAB PO SCH (08:58)
[2023-02-19] MEDS: Aspirin 81 mg Enteric Coated Tablet PO SCH (08:58)
[2023-02-19] MEDS: Folic Acid 1 MG TAB PO SCH (08:58)
[2023-02-19 13:06] VITALS: BP 103/70
== END 2023-02-19 15:50 | disposition home or self-care (01) | DRG 896 ==
LOC: ERS 13:11 → SUATTDRO 13:11 → 2NO 18:30 → OBSVTOIN 02-16 17:14 → 2NO 02-16 19:30
PROVIDERS: ADMIT Family Medicine; ATTEND Internal Medicine
DX: F10.139 Alcohol abuse with withdrawal, unspecified (principal); G93.41 Metabolic encephalopathy; E87.1 Hypo-osmolality and hyponatremia; J44.1 Chronic obstructive pulmonary disease with (acute) exacerbation; E44.0 Moderate protein-calorie malnutrition; Z68.1 Body mass index [BMI] 19.9 or less, adult; E87.6 Hypokalemia; E86.0 Dehydration; F17.210 Nicotine dependence, cigarettes, uncomplicated; I10 Essential (primary) hypertension; E86.9 Volume depletion, unspecified; R00.0 Tachycardia, unspecified; I95.9 Hypotension, unspecified; Z79.82 Long term (current) use of aspirin; Z79.899 Other long term (current) drug therapy; Z95.1 Presence of aortocoronary bypass graft; Z85.118 Personal history of other malignant neoplasm of bronchus and lung; I25.2 Old myocardial infarction; Z90.2 Acquired absence of lung [part of]; Z79.51 Long term (current) use of inhaled steroids; Z98.890 Other specified postprocedural states
CPT/HCPCS: 36415; 71045; 71275; 78452; 80048; 80053; 81001; 83605; 83690; 83735; 83880; 84100; 84443; 84484; 85025; 85379; 87040; 93005; 93010; 93017; 94640; 96361; 96365; 96372; 96375; A9500; G0378; J0696; J1650; J2060; J2785; J2930; J3411; J3475; J3490; J7042; J7050; J7512; J7620; Q9967

== ENCOUNTER 2023-02-24 15:56 | Inpatient (IN) | payer MEDICARE, MEDICAID ==
[~2023-02-24 15:56] MED LIST changes: -Iopamidol 370 76% 100 ML VIAL ONE; +Iopamidol-370 76% 500 ML MDV (1 ML CHARGE) ONE
[2023-02-24 16:38] LABS: #Basophils 0.1 thou/uL (0.0-0.2); #Eosinphils 0.1 thou/uL (0.0-0.7); #Monocytes 1.3 thou/uL (0.11-0.59); #Neutrophils 5.6 thou/uL (1.40-6.50); %Basophils 0.8 % (0.0-1.0); %Eosinophils 0.6 % (0.0-10.0); %Monocytes 13.9 % (0.0-10.0); %Neutrophils 60.1 % (42.0-75.0); Hemoglobin 9.8 g/dL (12.0-16.0); Mean Corpuscular HGB CONC 33.7 g/dL (32.0-36.0); Mean Corpuscular Hemoglobin 21.9 pg (27.0-31.0); Mean Corpuscular Volume 65.1 fl (78.0-98.0); Platelet Count 284 10x3/uL (130-400); RBC Distribution Width 22.9 % (11.5-14.5); Red Blood Cell (RBC) Count 4.47 mill/uL (4.20-5.40); White Blood Cell (WBC) Count 9.3 10x3/uL (4.8-10.8)
[2023-02-24 17:01] LABS: ALT (SGPT) 46 U/L (8-55); AST (SGOT) 40 U/L (5-34); Albumin 3.7 g/dL (3.4-4.8); Alkaline Phosphatase 82 U/L (40-110); Anion Gap 18 mmol/L (10-20); BUN (Urea Nitrogen) Less than 4 mg/dL (9.8-20.1); Bilirubin, Total 0.6 mg/dL (0.2-1.2); Calc. Creatinine Clearance 0 mL/min (70-130); Calcium 8.4 mg/dL (7.8-10.44); Carbon Dioxide 22 mmol/L (23-31); Chloride 85 mmol/L (98-107); Estimated GFR 107; Globulin 2.5 g/dL (2.4-3.5); Glucose 88 mg/dL (80-115); Potassium 2.9 mmol/L (3.5-5.1); Protein, Total 6.2 g/dL (5.8-8.1); Sodium 122 mmol/L (136-145)
[2023-02-24 17:02] LABS: Anisocytosis SLIGHT = 6-15 cells HPF (0-5); Burr Cells SLIGHT = 2-5 cells HPF (0-1); CellaVision Operator ID LAB.KB; Hypochromia SLIGHT = 6-15 cells HPF (0-5); Microcytosis SLIGHT = 6-15 cells HPF (0-5); Platelet Adequacy Comment Platelets Normal; Polychromasia SLIGHT = 2-3 cells HPF (0-2); Target Cells SLIGHT = 2-5 cells HPF (0-1)
[2023-02-24 17:25] LABS: Acetaminophen Less than 10 mcg/mL (10.0-30.0); Alcohol 303.5 mg/dL (Less than 10); Salicylate Less than 8.0 mg/dL (15.0-30.0)
[2023-02-24 18:39] LABS: Bacteria/HPF None Seen HPF (None Seen); Bilirubin Negative (Negative); Blood, Urine Negative (Negative); CAUTI Indications for Culture Alt mental st,lethar; Clarity Clear (Clear); Glucose, Urine (Dipstick) Normal (Negative); Ketone, Urine Negative (Negative); Leukocyte 75 Leu/uL (Negative); Nitrite Negative (Negative); Protein, Urine (Dipstick) Negative (Neg-Trace); RBC/HPF None Seen HPF (0-3); Specific Gravity, Urine 1.001 (1.002-1.036); Squamous Epithelial None Seen HPF (0-3); Urobilinogen Normal mg/dL (Less than 2); WBC/HPF 0-3 HPF (0-3); pH, Urine 6.5 (5.0-9.0)
[2023-02-24 18:41] LABS: Urine Culture Reflex No No
[2023-02-24 18:47] LABS: Amphetamine Not Detected (NotDetected); Barbiturates Screen Not Detected (NotDetected); Benzodiazepine Screen Not Detected (NotDetected); Cocaine Metabolite Screen Not Detected (NotDetected); Methadone Not Detected (NotDetected); Methamphetamine Not Detected (NotDetected); Opiate Screen Not Detected (NotDetected); Oxycodone Screen Not Detected (NotDetected); Phencyclidine (PCP) Not Detected (NotDetected); THC/Cannabinoid Screen Not Detected (NotDetected); Tricyclic Screen Not Detected (NotDetected)
[2023-02-24] MEDS ORDERED: Acetaminophen 325 MG TAB PO PRN (20:59)
[2023-02-24] MEDS ORDERED: Lorazepam 1 MG TAB PO PRN (20:59)
[2023-02-24] MEDS ORDERED: Lorazepam 2 MG/ML VIAL IM PRN (20:59)
[2023-02-24] MEDS ORDERED: Ondansetron ODT 4 MG TAB PO PRN ×2 (20:59)
[2023-02-24] MEDS ORDERED: Potassium Chloride 40 MEQ in Premix Bag 1 BAG IVPB SCH (21:00)
[2023-02-24] MEDS ORDERED: Acetaminophen 500 MG TAB PO SCH (21:00)
[2023-02-24] MEDS ORDERED: Electrolyte Replacement Protocol 1 EACH FS PRN (21:00)
[2023-02-24] MEDS ORDERED: Albuterol 200 PUFF (6.7GM INHALER) INH PRN (21:04)
[2023-02-24] MEDS ORDERED: Lorazepam 2 MG/ML VIAL SLOW IVP SCH (21:15)
[2023-02-24 23:20] LABS: Albumin 2.8 g/dL (3.4-4.8)
[2023-02-24 23:21] LABS: Chloride 102 mmol/L (98-107); Sodium 130 mmol/L (136-145)
[2023-02-24 23:22] LABS: Calcium 7.8 mg/dL (7.8-10.44)
[2023-02-24 23:23] LABS: Globulin 3.1 g/dL (2.4-3.5); Glucose 75 mg/dL (80-115); Protein, Total 5.9 g/dL (5.8-8.1)
[2023-02-24 23:24] LABS: Carbon Dioxide 13 mmol/L (23-31)
[2023-02-24 23:25] LABS: Bilirubin, Total 0.5 mg/dL (0.2-1.2)
[2023-02-24 23:26] LABS: Alkaline Phosphatase 79 U/L (40-110); Calc. Creatinine Clearance 0 mL/min (70-130); Estimated GFR 105; Phosphorus 3.2 mg/dL (2.3-4.7)
[2023-02-24 23:27] LABS: BUN (Urea Nitrogen) Less than 4 mg/dL (9.8-20.1)
[2023-02-24 23:28] LABS: AST (SGOT) 50 U/L (5-34); Bilirubin, Direct 0.6 mg/dL (0.1-0.3)
[2023-02-24 23:29] LABS: ALT (SGPT) 40 U/L (8-55); Magnesium 1.9 mg/dL (1.6-2.6)
[2023-02-24 23:33] LABS: Potassium 5.9 mmol/L (3.5-5.1)
[2023-02-24 23:34] LABS: Anion Gap 21 mmol/L (10-20)
[2023-02-24 23:50] LABS: #Basophils 0.1 thou/uL (0.0-0.2); #Monocytes 1.4 thou/uL (0.11-0.59); #Neutrophils 4.3 thou/uL (1.40-6.50); %Basophils 0.9 % (0.0-1.0); %Eosinophils 0.6 % (0.0-10.0); %Lymphocytes 17.2 % (21.0-51.0); %Monocytes 19.9 % (0.0-10.0); %Neutrophils 61.1 % (42.0-75.0); Hemoglobin 10.5 g/dL (12.0-16.0); Mean Corpuscular HGB CONC 33.7 g/dL (32.0-36.0); Mean Corpuscular Volume 65.4 fl (78.0-98.0); Mean Platelet Volume 9.2 fL (7.4-10.4); Platelet Count 266 10x3/uL (130-400); RBC Distribution Width 23.7 % (11.5-14.5); Red Blood Cell (RBC) Count 4.77 mill/uL (4.20-5.40)
[2023-02-25 00:11] LABS: Anion Gap 16 mmol/L (10-20); BUN (Urea Nitrogen) Less than 4 mg/dL (9.8-20.1); Calc. Creatinine Clearance 0 mL/min (70-130); Calcium 8.2 mg/dL (7.8-10.44); Carbon Dioxide 22 mmol/L (23-31); Chloride 100 mmol/L (98-107); Estimated GFR 106; Glucose 97 mg/dL (80-115); Potassium 3.2 mmol/L (3.5-5.1); Sodium 135 mmol/L (136-145)
[2023-02-25] MEDS: Thiamine HCl 200 MG/2 ML VIAL SLOW IVP SCH ×2 (00:33→20:52)
[2023-02-25] MEDS: Sodium Chloride 0.9% 1,000 ML IV SCH ×2 (00:34→03:34)
[2023-02-25 01:11] VITALS: BMI 17.9
[2023-02-25 04:41] LABS: #Basophils 0.1 thou/uL (0.0-0.2); #Eosinphils 0.1 thou/uL (0.0-0.7); #Monocytes 1.4 thou/uL (0.11-0.59); #Neutrophils 4.7 thou/uL (1.40-6.50); %Lymphocytes 18.1 % (21.0-51.0); %Monocytes 18.6 % (0.0-10.0); Hemoglobin 9.5 g/dL (12.0-16.0); Mean Corpuscular HGB CONC 33.9 g/dL (32.0-36.0); Mean Corpuscular Hemoglobin 22.2 pg (27.0-31.0); Mean Corpuscular Volume 65.6 fl (78.0-98.0); Platelet Count 296 10x3/uL (130-400); RBC Distribution Width 23.4 % (11.5-14.5); Red Blood Cell (RBC) Count 4.27 mill/uL (4.20-5.40); White Blood Cell (WBC) Count 7.7 10x3/uL (4.8-10.8)
[2023-02-25 05:11] LABS: ALT (SGPT) 37 U/L (8-55); AST (SGOT) 28 U/L (5-34); Albumin 3.4 g/dL (3.4-4.8); Alkaline Phosphatase 75 U/L (40-110); Anion Gap 10 mmol/L (10-20); BUN (Urea Nitrogen) Less than 4 mg/dL (9.8-20.1); Bilirubin, Total 0.6 mg/dL (0.2-1.2); Calc. Creatinine Clearance 82 mL/min (70-130); Calcium 8.1 mg/dL (7.8-10.44); Carbon Dioxide 27 mmol/L (23-31); Chloride 102 mmol/L (98-107); Estimated GFR 105; Globulin 2.5 g/dL (2.4-3.5); Glucose 85 mg/dL (80-115); Potassium 3.1 mmol/L (3.5-5.1); Protein, Total 5.9 g/dL (5.8-8.1); Sodium 136 mmol/L (136-145)
[2023-02-25] MEDS: Mometasone 200 MCG/Formoterol 5 MCG 120 PUFF INHALER INH SCH ×2 (07:19→19:27)
[2023-02-25] MEDS ORDERED: Magnesium 2 GM/50 ML(in water) 2 GM in Premix Bag 1 BAG IVPB SCH (08:00)
[2023-02-25] MEDS ORDERED: Potassium Bicarbonate/Cit Ac 20 MEQ TAB PO SCH (08:00)
[2023-02-25] MEDS ORDERED: Folic Acid 1 MG TAB PO SCH (09:00)
[2023-02-25] MEDS ORDERED: Carvedilol 3.125 MG TAB PO SCH (09:00)
[2023-02-25 09:10] LABS: Anion Gap 13 mmol/L (10-20); BUN (Urea Nitrogen) 4 mg/dL (9.8-20.1); Calc. Creatinine Clearance 80 mL/min (70-130); Calcium 8.3 mg/dL (7.8-10.44); Carbon Dioxide 25 mmol/L (23-31); Chloride 101 mmol/L (98-107); Estimated GFR 105; Glucose 117 mg/dL (80-115); Potassium 3.1 mmol/L (3.5-5.1); Sodium 136 mmol/L (136-145)
[2023-02-25] MEDS ORDERED: Lorazepam 0.5 MG TAB PO SCH ×2 (09:15→11:00)
[2023-02-25] MEDS: Sertraline 100 MG TAB PO SCH ×2 (09:54→20:51)
[2023-02-25] MEDS: Aspirin 81 mg Enteric Coated Tablet PO SCH (09:55)
[2023-02-25] MEDS: Multivit, Therapeutic 1 TAB PO SCH (09:55)
[2023-02-25] MEDS: Folic Acid 1 MG TAB PO SCH (09:55)
[2023-02-25] MEDS: Nicotine 21 MG PATCH TOP SCH (10:31)
[2023-02-25 11:30] LABS: Anion Gap 13 mmol/L (10-20); BUN (Urea Nitrogen) 4 mg/dL (9.8-20.1); Calc. Creatinine Clearance 82 mL/min (70-130); Calcium 8.6 mg/dL (7.8-10.44); Carbon Dioxide 28 mmol/L (23-31); Chloride 95 mmol/L (98-107); Estimated GFR 105; Glucose 108 mg/dL (80-115); Potassium 3.8 mmol/L (3.5-5.1); Sodium 132 mmol/L (136-145)
[2023-02-25] MEDS ORDERED: HYDROcodone/Acetaminophen 5/325 mg Tablet PO PRN (14:19)
[2023-02-25] MEDS ORDERED: cloNIDine 0.1 MG TAB PO PRN (14:20)
[2023-02-25] MEDS ORDERED: Ipratropium/Albuterol 3 ML NEB NEB PRN (14:22)
[2023-02-25] MEDS ORDERED: Amlodipine 5 MG TAB PO SCH (14:30)
[2023-02-25] MEDS: Carvedilol 6.25 MG TAB PO SCH (19:28)
[2023-02-25] MEDS: hydrOXYzine 25 MG TAB PO PRN (19:28)
[2023-02-25] MEDS ORDERED: Lorazepam 1 MG TAB PO PRN (20:59)
[2023-02-25] MEDS ORDERED: Doxepin HCl 25 MG CAP PO SCH (21:00)
[2023-02-26 05:07] LABS: Anion Gap 14 mmol/L (10-20); BUN (Urea Nitrogen) 6 mg/dL (9.8-20.1); Calc. Creatinine Clearance 76 mL/min (70-130); Calcium 8.8 mg/dL (7.8-10.44); Carbon Dioxide 28 mmol/L (23-31); Chloride 93 mmol/L (98-107); Estimated GFR 103; Glucose 101 mg/dL (80-115); Magnesium 1.9 mg/dL (1.6-2.6); Phosphorus 2.6 mg/dL (2.3-4.7); Potassium 3.6 mmol/L (3.5-5.1); Sodium 131 mmol/L (136-145)
[2023-02-26] MEDS: Mometasone 200 MCG/Formoterol 5 MCG 120 PUFF INHALER INH SCH (07:23)
[2023-02-26] MEDS ORDERED: Magnesium 2 GM/50 ML(in water) 2 GM in Premix Bag 1 BAG IVPB SCH (08:00)
[2023-02-26] MEDS ORDERED: Amlodipine 5 MG TAB PO SCH (09:00)
[2023-02-26] MEDS: Aspirin 81 mg Enteric Coated Tablet PO SCH (11:11)
[2023-02-26] MEDS: Folic Acid 1 MG TAB PO SCH (11:11)
[2023-02-26] MEDS: Carvedilol 6.25 MG TAB PO SCH ×2 (11:11→16:26)
[2023-02-26] MEDS: Multivit, Therapeutic 1 TAB PO SCH (11:11)
[2023-02-26] MEDS: Sertraline 100 MG TAB PO SCH (11:12)
[2023-02-26] MEDS: Nicotine 21 MG PATCH TOP SCH (11:33)
[2023-02-26] MEDS: hydrOXYzine 25 MG TAB PO PRN (11:34)
[2023-02-26 16:25] VITALS: TEMP 97
[2023-02-26 16:27] VITALS: BP 142/64
[2023-02-26] MEDS ORDERED: Lorazepam 0.5 MG TAB PO SCH (21:00)
[2023-02-27] MEDS ORDERED: Lorazepam 0.5 MG TAB PO PRN (20:59)
[2023-02-27] MEDS ORDERED: Thiamine 100 MG TAB PO SCH (21:00)
== END 2023-02-26 16:40 | disposition home health service (06) | DRG 641 ==
LOC: SUATTDRO 15:56 → ERS 15:56 → 2NO 20:49
PROVIDERS: ADMIT Family Medicine; ATTEND Family Medicine
DX: E87.1 Hypo-osmolality and hyponatremia (principal); Z68.1 Body mass index [BMI] 19.9 or less, adult; I10 Essential (primary) hypertension; F41.9 Anxiety disorder, unspecified; F32.A Depression, unspecified; F17.210 Nicotine dependence, cigarettes, uncomplicated; J44.9 Chronic obstructive pulmonary disease, unspecified; R62.7 Adult failure to thrive; F10.20 Alcohol dependence, uncomplicated; I25.2 Old myocardial infarction; Z95.1 Presence of aortocoronary bypass graft; Z79.82 Long term (current) use of aspirin; Z79.51 Long term (current) use of inhaled steroids; Z79.899 Other long term (current) drug therapy; Z85.118 Personal history of other malignant neoplasm of bronchus and lung
CPT/HCPCS: 36415; 70450; 71045; 71275; 74174; 80048; 80053; 80306; 80307; 81001; 82248; 83735; 83880; 84100; 84484; 85025; 93005; J1650; J2060; J3411; J3475; J7050; Q9967

== ENCOUNTER 2023-03-07 21:10 | Inpatient (IN) | payer MEDICARE, MEDICAID ==
[2023-03-07 23:18] LABS: #Basophils 0.1 thou/uL (0.0-0.2); #Eosinphils 0.2 thou/uL (0.0-0.7); #Monocytes 0.7 thou/uL (0.11-0.59); #Neutrophils 5.9 thou/uL (1.40-6.50); %Basophils 1.1 % (0.0-1.0); %Eosinophils 1.8 % (0.0-10.0); %Lymphocytes 17.6 % (21.0-51.0); %Monocytes 7.9 % (0.0-10.0); %Neutrophils 71.1 % (42.0-75.0); Hemoglobin 9.6 g/dL (12.0-16.0); Mean Platelet Volume 8.7 fL (7.4-10.4); Platelet Count 456 10x3/uL (130-400); RBC Distribution Width 23.9 % (11.5-14.5); Red Blood Cell (RBC) Count 4.18 mill/uL (4.20-5.40); White Blood Cell (WBC) Count 8.3 10x3/uL (4.8-10.8)
[2023-03-07 23:20] LABS: Mean Corpuscular Volume 69.6 fl (78.0-98.0)
[2023-03-07] MEDS ORDERED: Thiamine HCl 200 MG/2 ML VIAL SLOW IVP SCH (23:30)
[2023-03-07 23:31] LABS: INR-International Normal Ratio 0.9
[2023-03-07 23:34] LABS: PTT 18.7 sec (22.9-36.1)
[2023-03-07 23:42] LABS: ALT (SGPT) 28 U/L (8-55); AST (SGOT) 31 U/L (5-34); Acetaminophen Less than 10 mcg/mL (10.0-30.0); Albumin 3.5 g/dL (3.4-4.8); Alcohol 210.2 mg/dL (Less than 10); Alkaline Phosphatase 100 U/L (40-110); Anion Gap 20 mmol/L (10-20); BUN (Urea Nitrogen) Less than 4 mg/dL (9.8-20.1); Bilirubin, Total 0.4 mg/dL (0.2-1.2); CK (CPK) 50 U/L (29-168); Calc. Creatinine Clearance 0 mL/min (70-130); Calcium 8.1 mg/dL (7.8-10.44); Carbon Dioxide 19 mmol/L (23-31); Chloride 102 mmol/L (98-107); Estimated GFR 106; Globulin 2.8 g/dL (2.4-3.5); Glucose 80 mg/dL (80-115); Magnesium 1.6 mg/dL (1.6-2.6); Potassium 3.6 mmol/L (3.5-5.1); Protein, Total 6.3 g/dL (5.8-8.1); Salicylate Less than 8.0 mg/dL (15.0-30.0); Sodium 137 mmol/L (136-145)
[2023-03-08] MEDS ORDERED: Ondansetron PF 4 MG/2 ML Vial IVP PRN (00:39)
[2023-03-08] MEDS ORDERED: Acetaminophen 325 MG TAB PO PRN (00:39)
[2023-03-08] MEDS ORDERED: Labetalol HCl 100 MG/20 ML VIAL SLOW IVP PRN (00:39)
[2023-03-08] MEDS ORDERED: Lorazepam 2 MG/ML VIAL IM PRN (00:39)
[2023-03-08] MEDS ORDERED: Ondansetron ODT 4 MG TAB PO PRN (00:39)
[2023-03-08] MEDS ORDERED: Nicotine 21 MG PATCH TD PRN (00:39)
[2023-03-08] MEDS ORDERED: Electrolyte Replacement Protocol 1 EACH FS SCH (00:45)
[2023-03-08] MEDS ORDERED: Aspirin Chewable 81 MG TAB ONE ×2 (00:54→08:13)
[2023-03-08] MEDS ORDERED: Magnesium 2 GM/50 ML(in water) 2 GM in Premix Bag 1 BAG IVPB SCH (01:15)
[2023-03-08 01:25] LABS: Bacteria/HPF None Seen HPF (None Seen); Bilirubin Negative (Negative); Blood, Urine Negative (Negative); CAUTI Indications for Culture Dysuria,urgency,freq; Clarity Clear (Clear); Glucose, Urine (Dipstick) Normal (Negative); Ketone, Urine Negative (Negative); Leukocyte Negative Leu/uL (Negative); Nitrite Negative (Negative); Protein, Urine (Dipstick) Negative (Neg-Trace); RBC/HPF 0-3 HPF (0-3); Specific Gravity, Urine 1.011 (1.002-1.036); Squamous Epithelial 0-3 HPF (0-3); Urobilinogen Normal mg/dL (Less than 2); WBC/HPF 0-3 HPF (0-3)
[2023-03-08 01:29] LABS: Urine Culture Reflex No No
[2023-03-08] MEDS ORDERED: Lactated Ringer's 1,000 ML IV SCH (01:30)
[2023-03-08 01:56] LABS: Amphetamine Not Detected (NotDetected); Barbiturates Screen Not Detected (NotDetected); Benzodiazepine Screen Not Detected (NotDetected); Cocaine Metabolite Screen Not Detected (NotDetected); Methadone Not Detected (NotDetected); Methamphetamine Not Detected (NotDetected); Opiate Screen Not Detected (NotDetected); Oxycodone Screen Not Detected (NotDetected); Phencyclidine (PCP) Not Detected (NotDetected); THC/Cannabinoid Screen Not Detected (NotDetected); Tricyclic Screen Detected (NotDetected)
[2023-03-08] MEDS ORDERED: Magnesium 2 GM/50 ML BAG (IN WATER) ONE (01:58)
[2023-03-08] MEDS ORDERED: Lorazepam 1 MG TAB ONE ×3 (01:58→08:13)
[2023-03-08] MEDS: Lorazepam 1 MG TAB PO PRN ×4 (02:00→17:58)
[2023-03-08 02:16] LABS: Phosphorus 2.4 mg/dL (2.3-4.7)
[2023-03-08 02:18] LABS: Lactic Acid 4.5 mmol/L (0.5-2.2)
[2023-03-08] MEDS ORDERED: Sodium Chloride 0.9% 500 ML IV SCH (02:45)
[2023-03-08] MEDS ORDERED: Ondansetron PF 4 MG/2 ML Vial ONE (02:55)
[2023-03-08 04:45] LABS: #Basophils 0.1 thou/uL (0.0-0.2); #Eosinphils 0.1 thou/uL (0.0-0.7); #Monocytes 0.9 thou/uL (0.11-0.59); #Neutrophils 5.4 thou/uL (1.40-6.50); %Basophils 0.9 % (0.0-1.0); %Eosinophils 1.1 % (0.0-10.0); %Lymphocytes 15.1 % (21.0-51.0); %Monocytes 11.2 % (0.0-10.0); %Neutrophils 71.4 % (42.0-75.0); Hemoglobin 8.7 g/dL (12.0-16.0); Mean Corpuscular HGB CONC 33.2 g/dL (32.0-36.0); Mean Corpuscular Hemoglobin 22.4 pg (27.0-31.0); Mean Platelet Volume 8.6 fL (7.4-10.4); Platelet Count 462 10x3/uL (130-400); RBC Distribution Width 23.6 % (11.5-14.5); Red Blood Cell (RBC) Count 3.89 mill/uL (4.20-5.40); White Blood Cell (WBC) Count 7.6 10x3/uL (4.8-10.8)
[2023-03-08 04:48] LABS: Mean Corpuscular Volume 67.4 fl (78.0-98.0)
[2023-03-08 04:50] LABS: Lactic Acid 2.8 mmol/L (0.5-2.2)
[2023-03-08 04:51] LABS: Hemoglobin A1c 4.2 % (4.0-6.0)
[2023-03-08 05:09] LABS: Anion Gap 16 mmol/L (10-20); BUN (Urea Nitrogen) Less than 4 mg/dL (9.8-20.1); Calc. Creatinine Clearance 0 mL/min (70-130); Calcium 8.2 mg/dL (7.8-10.44); Carbon Dioxide 24 mmol/L (23-31); Cardiac Risk 2.1 (Less than 4.5); Chloride 100 mmol/L (98-107); Cholesterol 122 mg/dl (< 200 Desired); Estimated GFR 107; Glucose 95 mg/dL (80-115); HDL Cholesterol 57 mg/dL (>60 Neg Risk); LDL Cholesterol, Calculated 51 mg/dL; Magnesium 2.1 mg/dL (1.6-2.6); Potassium 3.7 mmol/L (3.5-5.1); Sodium 136 mmol/L (136-145); Triglycerides 69 mg/dL (Less than 150)
[2023-03-08] MEDS ORDERED: Folic Acid 1 MG TAB ONE ×2 (08:13→08:20)
[2023-03-08] MEDS: Folic Acid 1 MG TAB PO SCH (08:23)
[2023-03-08] MEDS: Aspirin 81 mg Enteric Coated Tablet PO SCH (08:23)
[2023-03-08] MEDS: chlordiazePOXIDE HCl 5 MG CAP PO SCH ×3 (10:13→20:46)
[2023-03-08] MEDS: Multivit, Therapeutic 1 TAB PO SCH (10:14)
[2023-03-08 14:06] VITALS: BMI 18.6
[2023-03-08] MEDS: Lorazepam 0.5 MG TAB PO PRN (20:18)
[2023-03-08] MEDS: Atorvastatin Calcium 40 MG TAB PO SCH (20:19)
[2023-03-08] MEDS: Thiamine HCl 200 MG/2 ML VIAL SLOW IVP SCH (21:19)
[2023-03-09] MEDS: Lorazepam 0.5 MG TAB PO PRN
[2023-03-09 05:33] LABS: #Eosinphils 0.1 thou/uL (0.0-0.7); #Monocytes 0.9 thou/uL (0.11-0.59); #Neutrophils 7.4 thou/uL (1.40-6.50); %Basophils 0.4 % (0.0-1.0); %Eosinophils 1.2 % (0.0-10.0); %Lymphocytes 19.7 % (21.0-51.0); %Monocytes 8.5 % (0.0-10.0); %Neutrophils 69.9 % (42.0-75.0); Hemoglobin 9.8 g/dL (12.0-16.0); Mean Corpuscular HGB CONC 31.9 g/dL (32.0-36.0); Mean Corpuscular Volume 68.8 fl (78.0-98.0); Platelet Count 476 10x3/uL (130-400); RBC Distribution Width 23.6 % (11.5-14.5); Red Blood Cell (RBC) Count 4.46 mill/uL (4.20-5.40); White Blood Cell (WBC) Count 10.5 10x3/uL (4.8-10.8)
[2023-03-09 05:59] LABS: Anion Gap 12 mmol/L (10-20); BUN (Urea Nitrogen) 4 mg/dL (9.8-20.1); Calc. Creatinine Clearance 82 mL/min (70-130); Calcium 8.8 mg/dL (7.8-10.44); Carbon Dioxide 29 mmol/L (23-31); Chloride 95 mmol/L (98-107); Estimated GFR 104; Glucose 99 mg/dL (80-115); Sodium 132 mmol/L (136-145)
[2023-03-09 06:27] LABS: Delete Auto Diff?? NO
[2023-03-09 06:51] LABS: CellaVision Operator ID LAB.GE; Hypochromia SLIGHT = 6-15 cells HPF (0-5); Microcytosis MODERATE=15-30 cells HPF (0-5); Platelet Adequacy Comment Platelets Increased; Polychromasia MODERATE = 3-4 cells HPF (0-2); Target Cells MODERATE= 6-15 cells HPF (0-1)
[2023-03-09] MEDS: Aspirin 81 mg Enteric Coated Tablet PO SCH (08:57)
[2023-03-09] MEDS: Folic Acid 1 MG TAB PO SCH (08:57)
[2023-03-09] MEDS: chlordiazePOXIDE HCl 5 MG CAP PO SCH ×3 (08:57→20:06)
[2023-03-09] MEDS: Multivit, Therapeutic 1 TAB PO SCH (08:57)
[2023-03-09] MEDS ORDERED: Iopamidol-370 76% 500 ML MDV (1 ML CHARGE) ONE (12:21)
[2023-03-09] MEDS ORDERED: Lactated Ringer's 500 ML IV SCH (16:45)
[2023-03-09] MEDS ORDERED: Lactated Ringer's 1,000 ML IV SCH (17:00)
[2023-03-09] MEDS: cefTRIAXone\\ROCEPHIN 2 GM in Sodium Chloride 0.9% 100 ML IVPB SCH (17:18)
[2023-03-09] MEDS: Lorazepam 1 MG TAB PO PRN ×2 (17:18→22:21)
[2023-03-09] MEDS: Atorvastatin Calcium 40 MG TAB PO SCH (20:06)
[2023-03-09] MEDS: Thiamine HCl 200 MG/2 ML VIAL SLOW IVP SCH (22:21)
[2023-03-10] MEDS ORDERED: Lorazepam 1 MG TAB PO PRN (00:39)
[2023-03-10 05:26] LABS: Anion Gap 19 mmol/L (10-20); BUN (Urea Nitrogen) 7 mg/dL (9.8-20.1); Calc. Creatinine Clearance 77 mL/min (70-130); Calcium 9.6 mg/dL (7.8-10.44); Carbon Dioxide 21 mmol/L (23-31); Chloride 91 mmol/L (98-107); Estimated GFR 103; Glucose 91 mg/dL (80-115); Potassium 4.6 mmol/L (3.5-5.1); Sodium 126 mmol/L (136-145)
[2023-03-10 08:26] LABS: #Basophils 0.1 thou/uL (0.0-0.2); #Monocytes 0.5 thou/uL (0.11-0.59); #Neutrophils 15.3 thou/uL (1.40-6.50); %Basophils 0.4 % (0.0-1.0); %Lymphocytes 2.6 % (21.0-51.0); %Monocytes 2.7 % (0.0-10.0); %Neutrophils 93.6 % (42.0-75.0); Hemoglobin 11.3 g/dL (12.0-16.0); Mean Corpuscular HGB CONC 30.8 g/dL (32.0-36.0); Mean Corpuscular Hemoglobin 22.5 pg (27.0-31.0); Mean Platelet Volume 9.4 fL (7.4-10.4); Platelet Count 200 10x3/uL (130-400); RBC Distribution Width 24.2 % (11.5-14.5); Red Blood Cell (RBC) Count 5.03 mill/uL (4.20-5.40); White Blood Cell (WBC) Count 16.4 10x3/uL (4.8-10.8)
[2023-03-10 08:52] LABS: Anisocytosis SLIGHT = 6-15 cells HPF (0-5); Hypochromia MODERATE=16-30 cells HPF (0-5); Microcytosis SLIGHT = 6-15 cells HPF (0-5); Ovalocytes SLIGHT = 2-5 cells HPF (0-1); Platelet Adequacy Comment Platelets Normal; Polychromasia MODERATE = 3-4 cells HPF (0-2); Stomatocytes SLIGHT = 2-5 cells HPF (0-1); Target Cells SLIGHT = 2-5 cells HPF (0-1)
[2023-03-10 10:11] LABS: Anion Gap 15 mmol/L (10-20); BUN (Urea Nitrogen) 6 mg/dL (9.8-20.1); Calc. Creatinine Clearance 74 mL/min (70-130); Calcium 8.9 mg/dL (7.8-10.44); Carbon Dioxide 20 mmol/L (23-31); Chloride 96 mmol/L (98-107); Estimated GFR 102; Glucose 127 mg/dL (80-115); Potassium 4.1 mmol/L (3.5-5.1); Sodium 127 mmol/L (136-145)
[2023-03-10] MEDS: Folic Acid 1 MG TAB PO SCH (11:46)
[2023-03-10] MEDS: Multivit, Therapeutic 1 TAB PO SCH (11:46)
[2023-03-10] MEDS: Aspirin 81 mg Enteric Coated Tablet PO SCH (11:46)
[2023-03-10] MEDS: chlordiazePOXIDE HCl 5 MG CAP PO SCH ×2 (12:00→15:53)
[2023-03-10 16:35] LABS: Sodium 126 mmol/L (136-145)
[2023-03-10] MEDS: Carvedilol 6.25 MG TAB PO SCH (18:06)
[2023-03-10] MEDS: cefTRIAXone\\ROCEPHIN 2 GM in Sodium Chloride 0.9% 100 ML IVPB SCH (18:06)
[2023-03-10] MEDS: chlordiazePOXIDE HCl 25 MG CAP PO SCH (18:07)
[2023-03-10] MEDS ORDERED: Thiamine 100 MG TAB PO SCH (21:00)
[2023-03-10] MEDS: Atorvastatin Calcium 40 MG TAB PO SCH (21:03)
[2023-03-11] MEDS ORDERED: Lorazepam 0.5 MG TAB PO PRN (00:39)
[2023-03-11] MEDS: chlordiazePOXIDE HCl 25 MG CAP PO SCH ×4 (00:59→20:16)
[2023-03-11 05:48] LABS: Hemoglobin 10.7 g/dL (12.0-16.0); Mean Corpuscular HGB CONC 32.2 g/dL (32.0-36.0); Mean Corpuscular Hemoglobin 22.6 pg (27.0-31.0); Mean Platelet Volume 9.4 fL (7.4-10.4); Platelet Count 277 10x3/uL (130-400); RBC Distribution Width 23.2 % (11.5-14.5); Red Blood Cell (RBC) Count 4.74 mill/uL (4.20-5.40); White Blood Cell (WBC) Count 7.2 10x3/uL (4.8-10.8)
[2023-03-11 05:56] LABS: Delete Auto Diff?? YES; Manual Diff?? YES
[2023-03-11 05:59] LABS: Anion Gap 14 mmol/L (10-20); BUN (Urea Nitrogen) 14 mg/dL (9.8-20.1); Calc. Creatinine Clearance 77 mL/min (70-130); Calcium 8.6 mg/dL (7.8-10.44); Carbon Dioxide 24 mmol/L (23-31); Chloride 93 mmol/L (98-107); Estimated GFR 103; Glucose 95 mg/dL (80-115); Potassium 3.5 mmol/L (3.5-5.1); Sodium 127 mmol/L (136-145)
[2023-03-11 06:36] LABS: Anisocytosis MODERATE=16-30 cells HPF (0-5); Band 9 % (5-11); CellaVision Operator ID LAB.JMM; Hypochromia SLIGHT = 6-15 cells HPF (0-5); Lymphocytes 11 % (21-51); Macrocytosis SLIGHT = 6-15 cells HPF (0-5); Monocytes 7 % (0-10); Neutrophil 72 % (42-75); Platelet Adequacy Comment Platelets Normal; Polychromasia MODERATE = 3-4 cells HPF (0-2); Total Cell Count 100
[2023-03-11] MEDS ORDERED: Potassium Chloride 20 MEQ TAB PO SCH (08:00)
[2023-03-11] MEDS: Aspirin 81 mg Enteric Coated Tablet PO SCH (10:55)
[2023-03-11] MEDS: Multivit, Therapeutic 1 TAB PO SCH (10:55)
[2023-03-11] MEDS: Carvedilol 6.25 MG TAB PO SCH ×2 (10:55→16:32)
[2023-03-11] MEDS: Folic Acid 1 MG TAB PO SCH (10:55)
[2023-03-11] MEDS ORDERED: Amoxicillin/Potassium Clav 875 MG TAB PO SCH (11:15)
[2023-03-11] MEDS: Cosyntropin 250 MCG VIAL SLOW IVP SCH (11:25)
[2023-03-11] MEDS ORDERED: Cosyntropin 250 MCG VIAL SLOW IVP SCH (14:30)
[2023-03-11 18:40] LABS: Creatinine, Urine 103.43 mg/dL (47-110)
[2023-03-11] MEDS: Amoxicillin/Potassium Clav 875 MG TAB PO SCH (20:16)
[2023-03-11] MEDS: Atorvastatin Calcium 40 MG TAB PO SCH (20:16)
[2023-03-12] MEDS: chlordiazePOXIDE HCl 25 MG CAP PO SCH ×2 (03:15→09:20)
[2023-03-12] MEDS: Cosyntropin 250 MCG VIAL SLOW IVP SCH ×2 (06:30→07:33)
[2023-03-12 06:50] LABS: Manual Diff?? YES
[2023-03-12 06:52] LABS: Delete Auto Diff?? YES
[2023-03-12 06:53] LABS: #Basophils 0.1 thou/uL (0.0-0.2); #Eosinphils 0.1 thou/uL (0.0-0.7); #Monocytes 1.4 thou/uL (0.11-0.59); #Neutrophils 3.6 thou/uL (1.40-6.50); %Basophils 0.7 % (0.0-1.0); %Eosinophils 1.9 % (0.0-10.0); %Lymphocytes 25.4 % (21.0-51.0); %Monocytes 19.5 % (0.0-10.0); %Neutrophils 52.2 % (42.0-75.0); Hemoglobin 10.3 g/dL (12.0-16.0); Mean Corpuscular HGB CONC 32.4 g/dL (32.0-36.0); Mean Corpuscular Hemoglobin 22.7 pg (27.0-31.0); Mean Corpuscular Volume 70.2 fl (78.0-98.0); Platelet Count 238 10x3/uL (130-400); RBC Distribution Width 22.5 % (11.5-14.5); Red Blood Cell (RBC) Count 4.53 mill/uL (4.20-5.40); White Blood Cell (WBC) Count 6.9 10x3/uL (4.8-10.8)
[2023-03-12 07:12] LABS: Anion Gap 14 mmol/L (10-20); BUN (Urea Nitrogen) 7 mg/dL (9.8-20.1); Calc. Creatinine Clearance 80 mL/min (70-130); Calcium 8.8 mg/dL (7.8-10.44); Carbon Dioxide 24 mmol/L (23-31); Chloride 98 mmol/L (98-107); Estimated GFR 104; Glucose 118 mg/dL (80-115); Potassium 3.6 mmol/L (3.5-5.1); Sodium 132 mmol/L (136-145)
[2023-03-12 07:20] LABS: Anisocytosis SLIGHT = 6-15 cells HPF (0-5); Band 10 % (5-11); CellaVision Operator ID LAB.CLH1; Hypochromia SLIGHT = 6-15 cells HPF (0-5); Large Platelets 8.1 % (0-5); Lymphocytes 18 % (21-51); Microcytosis SLIGHT = 6-15 cells HPF (0-5); Monocytes 13 % (0-10); Neutrophil 59 % (42-75); Platelet Adequacy Comment Platelets Normal; Polychromasia SLIGHT = 2-3 cells HPF (0-2); Target Cells SLIGHT = 2-5 cells HPF (0-1); Total Cell Count 99
[2023-03-12] MEDS: Aspirin 81 mg Enteric Coated Tablet PO SCH (09:18)
[2023-03-12] MEDS: Folic Acid 1 MG TAB PO SCH (09:18)
[2023-03-12] MEDS: Carvedilol 6.25 MG TAB PO SCH (09:18)
[2023-03-12] MEDS: Multivit, Therapeutic 1 TAB PO SCH (09:18)
[2023-03-12] MEDS: Amoxicillin/Potassium Clav 875 MG TAB PO SCH (09:18)
[2023-03-12 16:52] VITALS: TEMP 97.3
[2023-03-12 16:53] VITALS: BP 78/62
[2023-03-12] MEDS ORDERED: chlordiazePOXIDE HCl 25 MG CAP PO SCH (21:00)
[2023-03-14] MEDS ORDERED: chlordiazePOXIDE HCl 25 MG CAP PO SCH (09:00)
== END 2023-03-12 16:30 | disposition home or self-care (01) | DRG 65 ==
LOC: ERS 21:10 → ERHOLD 03-08 00:32 → 2SE 03-08 13:23 → OBSVTOIN 03-09 15:19
PROVIDERS: ADMIT Internal Medicine; ATTEND Hospitalist
DX: I63.9 Cerebral infarction, unspecified (principal); E87.1 Hypo-osmolality and hyponatremia; G81.94 Hemiplegia, unspecified affecting left nondominant side; E87.20 Acidosis, unspecified; I50.22 Chronic systolic (congestive) heart failure; I25.10 Atherosclerotic heart disease of native coronary artery without angina pectoris; J45.909 Unspecified asthma, uncomplicated; R47.1 Dysarthria and anarthria; F17.210 Nicotine dependence, cigarettes, uncomplicated; F41.9 Anxiety disorder, unspecified; R29.700 NIHSS score 0; D64.9 Anemia, unspecified; I95.9 Hypotension, unspecified; E05.90 Thyrotoxicosis, unspecified without thyrotoxic crisis or storm; I11.0 Hypertensive heart disease with heart failure; Z79.82 Long term (current) use of aspirin; Z79.51 Long term (current) use of inhaled steroids; Z79.899 Other long term (current) drug therapy; Z95.1 Presence of aortocoronary bypass graft; Z98.890 Other specified postprocedural states; Z90.2 Acquired absence of lung [part of]
CPT/HCPCS: 36415; 36416; 70450; 70496; 70498; 70551; 71045; 71275; 80048; 80053; 80061; 80306; 80307; 80400; 81001; 82533; 82550; 82570; 83036; 83605; 83690; 83735; 83880; 83930; 83935; 84100; 84300; 84439; 84443; 84484; 85025; 85610; 85730; 87040; 87086; 93005; 93010; 93306; 96374; 96375; 96376; G0378; J0696; J0834; J2405; J3411; J3475; J3490; J7030; J7120; Q9967

== ENCOUNTER 2023-10-24 10:01 | Inpatient (IN) | payer OTHER ==
[2023-10-24 11:34] LABS: #Basophils 0.2 thou/uL (0.0-0.2); #Eosinphils 0.1 thou/uL (0.0-0.7); #Monocytes 0.9 thou/uL (0.11-0.59); #Neutrophils 4.7 thou/uL (1.40-6.50); %Basophils 1.9 % (0.0-1.0); %Eosinophils 1.7 % (0.0-10.0); %Lymphocytes 28.9 % (21.0-51.0); %Monocytes 10.3 % (0.0-10.0); Hematocrit 34.4 % (36.0-47.0); Hemoglobin 10.9 g/dL (12.0-16.0); Mean Corpuscular HGB CONC 31.7 g/dL (32.0-36.0); Mean Corpuscular Hemoglobin 21.2 pg (27.0-31.0); Mean Corpuscular Volume 66.9 fl (78.0-98.0); Platelet Count 222 10x3/uL (130-400); RBC Distribution Width 22.5 % (11.5-14.5); Red Blood Cell (RBC) Count 5.14 mill/uL (4.20-5.40); White Blood Cell (WBC) Count 8.3 10x3/uL (4.8-10.8)
[2023-10-24] MEDS ORDERED: Thiamine HCl 200 MG/2 ML VIAL ONE (11:38)
[2023-10-24 11:53] LABS: Acetaminophen Less than 10 mcg/mL (10.0-30.0); Alcohol 197.5 mg/dL (Less than 10); Salicylate Less than 8.0 mg/dL (15.0-30.0)
[2023-10-24 11:54] LABS: ALT (SGPT) 49 U/L (8-55); AST (SGOT) 76 U/L (5-34); Albumin 3.6 g/dL (3.4-4.8); Alkaline Phosphatase 96 U/L (40-110); Anion Gap 17 mmol/L (10-20); BUN (Urea Nitrogen) 5 mg/dL (9.8-20.1); Bilirubin, Total 0.4 mg/dL (0.2-1.2); Calc. Creatinine Clearance 0 mL/min (70-130); Calcium 8.8 mg/dL (7.8-10.44); Carbon Dioxide 21 mmol/L (23-31); Chloride 101 mmol/L (98-107); Estimated GFR 102; Globulin 3.4 g/dL (2.4-3.5); Glucose 83 mg/dL (80-115); Potassium 3.6 mmol/L (3.5-5.1); Sodium 135 mmol/L (136-145)
[2023-10-24 13:34] LABS: Bacteria/HPF None Seen HPF (None Seen); Bilirubin Negative (Negative); Blood, Urine Negative (Negative); CAUTI Indications for Culture Dysuria,urgency,freq; Clarity Clear (Clear); Glucose, Urine (Dipstick) Normal (Negative); Ketone, Urine Negative (Negative); Leukocyte Negative Leu/uL (Negative); Nitrite Negative (Negative); Protein, Urine (Dipstick) Negative (Neg-Trace); RBC/HPF None Seen HPF (0-3); Specific Gravity, Urine 1.003 (1.002-1.036); Squamous Epithelial None Seen HPF (0-3); Urobilinogen Normal mg/dL (Less than 2); WBC/HPF None Seen HPF (0-3)
[2023-10-24 13:35] LABS: Urine Culture Reflex No No
[2023-10-24 13:39] LABS: Anisocytosis MODERATE=16-30 cells HPF (0-5); Burr Cells SLIGHT = 2-5 cells HPF (0-1); CellaVision Operator ID LAB.KB; Hypochromia SLIGHT = 6-15 cells HPF (0-5); Microcytosis MODERATE=15-30 cells HPF (0-5); Platelet Adequacy Comment Platelets Normal; Polychromasia SLIGHT = 2-3 cells HPF (0-2)
[2023-10-24 13:48] LABS: Amphetamine Not Detected (NotDetected); Barbiturates Screen Not Detected (NotDetected); Benzodiazepine Screen Not Detected (NotDetected); Cocaine Metabolite Screen Not Detected (NotDetected); Methadone Not Detected (NotDetected); Methamphetamine Not Detected (NotDetected); Opiate Screen Not Detected (NotDetected); Oxycodone Screen Not Detected (NotDetected); Phencyclidine (PCP) Not Detected (NotDetected); THC/Cannabinoid Screen Not Detected (NotDetected); Tricyclic Screen Detected (NotDetected)
[2023-10-24] MEDS ORDERED: Diazepam 5 MG TAB ONE (16:41)
[2023-10-24] MEDS ORDERED: Acetaminophen 325 MG TAB PO PRN (17:39)
[2023-10-24] MEDS ORDERED: Ondansetron ODT 4 MG TAB PO PRN (20:20)
[2023-10-24] MEDS ORDERED: Lorazepam 2 MG/ML VIAL IM PRN (20:20)
[2023-10-24] MEDS ORDERED: Electrolyte Replacement Protocol 1 EACH FS SCH (20:30)
[2023-10-24] MEDS: Lorazepam 1 MG TAB PO SCH (21:14)
[2023-10-24] MEDS: Multivit, Therapeutic 1 TAB PO SCH (21:14)
[2023-10-24] MEDS: Nicotine 14 MG PATCH TD SCH (21:14)
[2023-10-24] MEDS: Lorazepam 1 MG TAB PO PRN (21:15)
[2023-10-24] MEDS: Folic Acid 1 MG TAB PO SCH (21:15)
[2023-10-24] MEDS: Thiamine HCl 200 MG/2 ML VIAL SLOW IVP SCH (21:15)
[2023-10-25] MEDS: Multivit, Therapeutic 1 TAB PO SCH (07:58)
[2023-10-25] MEDS: Folic Acid 1 MG TAB PO SCH (07:58)
[2023-10-25 09:40] VITALS: BMI 18.3
[2023-10-25] MEDS: Nicotine 21 MG PATCH TD SCH (11:10)
[2023-10-25] MEDS: Multivitamins, Adult 10 ML, Folic Acid 1 MG, Thiamine HCl 100 MG, Admixture Fee 1 EACH ... IV SCH (12:21)
[2023-10-25] MEDS: Lorazepam 1 MG TAB PO SCH (12:49)
[2023-10-25] MEDS: Lorazepam 1 MG TAB PO PRN (19:56)
[2023-10-25] MEDS: Doxepin HCl 25 MG CAP PO SCH (22:34)
[2023-10-26 08:39] VITALS: TEMP 97.3
[2023-10-26] MEDS: Sertraline 100 MG TAB PO SCH (08:40)
[2023-10-26 11:54] VITALS: BP 114/73
[2023-10-26] MEDS ORDERED: Lorazepam 1 MG TAB PO PRN (20:20)
[2023-10-26] MEDS ORDERED: Lorazepam 0.5 MG TAB PO SCH (20:30)
[2023-10-27] MEDS ORDERED: Lorazepam 0.5 MG TAB PO PRN (20:20)
[2023-10-27] MEDS ORDERED: Thiamine 100 MG TAB PO SCH (20:30)
== END 2023-10-26 12:04 | disposition home or self-care (01) | DRG 896 ==
LOC: ERS 10:01 → ERHOLD 17:24 → 2NO 17:44 → OBSVTOIN 10-25 16:43
PROVIDERS: ADMIT Internal Medicine; ATTEND Hospitalist
DX: F10.939 Alcohol use, unspecified with withdrawal, unspecified (principal); E43 Unspecified severe protein-calorie malnutrition; Z68.1 Body mass index [BMI] 19.9 or less, adult; F32.A Depression, unspecified; I25.10 Atherosclerotic heart disease of native coronary artery without angina pectoris; J44.9 Chronic obstructive pulmonary disease, unspecified; F17.210 Nicotine dependence, cigarettes, uncomplicated; Z82.49 Family history of ischemic heart disease and other diseases of the circulatory system; Z98.891 History of uterine scar from previous surgery; Z95.1 Presence of aortocoronary bypass graft; Z90.2 Acquired absence of lung [part of]
CPT/HCPCS: 36415; 71045; 80053; 80306; 80307; 81001; 84443; 85025; 93005; 96361; 96374; 96375; G0378; J3411; J7042

== ENCOUNTER 2024-02-23 21:58 | Emergency (ER) | payer MEDICARE, OTHER ==
[2024-02-23] MEDS ORDERED: Proparacaine 0.5% Opth 15 ML BOT ONE (22:26)
[2024-02-23 22:58] LABS: #Basophils 0.13 10x3/uL (0.0-0.2); %Basophils 1.4 % (0.0-1.0); %Eosinophils 2.1 % (0.0-10.0); %Lymphocytes 26.3 % (21.0-51.0); %Monocytes 9.9 % (0.0-10.0); Hematocrit 23.4 % (36.0-47.0); Hemoglobin 7.2 g/dL (12.0-16.0); Mean Corpuscular HGB CONC 30.8 g/dL (32.0-36.0); Mean Corpuscular Hemoglobin 17.4 pg (27.0-31.0); Mean Corpuscular Volume 56.5 fL (78.0-98.0); Platelet Count 538 10x3/uL (130-400); RBC Distribution Width 23.3 % (11.5-14.5); Red Blood Cell (RBC) Count 4.14 mill/uL (4.20-5.40)
[2024-02-23 23:00] LABS: INR-International Normal Ratio 0.9; Prothrombin Time 12.1 sec (12.0-14.7)
[2024-02-23 23:02] LABS: PTT 26.3 sec (22.9-36.1)
[2024-02-23 23:15] LABS: Lipase 37 U/L (8-78); Troponin I Less than 0.010 ng/mL (< 0.028)
[2024-02-23 23:18] LABS: ALT (SGPT) 8 U/L (8-55); AST (SGOT) 13 U/L (5-34); Acetaminophen Less than 10 mcg/mL (10.0-30.0); Albumin 3.5 g/dL (3.4-4.8); Alcohol Less than 10.0 mg/dL (Less than 10); Alkaline Phosphatase 86 U/L (40-110); Anion Gap 16 mmol/L (10-20); BUN (Urea Nitrogen) 6 mg/dL (9.8-20.1); Bilirubin, Total 0.2 mg/dL (0.2-1.2); Calc. Creatinine Clearance 0 mL/min (70-130); Calcium 9.3 mg/dL (7.8-10.44); Carbon Dioxide 22 mmol/L (23-31); Chloride 101 mmol/L (98-107); Estimated GFR 101; Globulin 3.4 g/dL (2.4-3.5); Glucose 95 mg/dL (80-115); Potassium 4.4 mmol/L (3.5-5.1); Protein, Total 6.9 g/dL (5.8-8.1); Salicylate Less than 8.0 mg/dL (15.0-30.0); Sodium 135 mmol/L (136-145)
[2024-02-23 23:46] LABS: Amphetamine Not Detected (NotDetected); Barbiturates Screen Not Detected (NotDetected); Benzodiazepine Screen Not Detected (NotDetected); Cocaine Metabolite Screen Not Detected (NotDetected); Methadone Not Detected (NotDetected); Methamphetamine Not Detected (NotDetected); Opiate Screen Not Detected (NotDetected); Oxycodone Screen Not Detected (NotDetected); Phencyclidine (PCP) Not Detected (NotDetected); THC/Cannabinoid Screen Not Detected (NotDetected); Tricyclic Screen Detected (NotDetected)
[2024-02-23 23:49] LABS: Bilirubin Negative (Negative); Blood, Urine Negative (Negative); CAUTI Indications for Culture Acute Hematuria; Clarity Clear (Clear); Glucose, Urine (Dipstick) Normal (Negative); Ketone, Urine Negative (Negative); Leukocyte Negative Leu/uL (Negative); Nitrite Negative (Negative); Protein, Urine (Dipstick) Negative (Neg-Trace); RBC/HPF None Seen HPF (0-3); Specific Gravity, Urine 1.003 (1.002-1.036); Squamous Epithelial None Seen HPF (0-3); Urobilinogen Normal mg/dL (Less than 2); WBC/HPF 0-3 HPF (0-3)
[2024-02-23 23:54] LABS: Bacteria/HPF Rare-Few HPF (None Seen)
[2024-02-23 23:55] LABS: Urine Culture Reflex No No
[2024-02-23] MEDS ORDERED: Acetaminophen 500 MG TAB ONE (23:56)
[2024-02-24] MEDS ORDERED: Ketorolac Tromethamine 30 MG (1 mL) VIAL ONE (00:37)
== END 2024-02-24 01:02 | disposition home or self-care (01) ==
LOC: ERS 21:58
DX: H57.11 Ocular pain, right eye (principal); I10 Essential (primary) hypertension; F17.210 Nicotine dependence, cigarettes, uncomplicated
CPT/HCPCS: 70496; 70498; 80053; 80306; 80307; 81001; 83690; 84484; 85025; 85610; 85730; 93005; J1885; 96374; Q9967

== ENCOUNTER 2025-04-23 13:11 | Outpatient (CLI) | payer OTHER | END 2025-04-23 13:12 | disposition home or self-care (01) | LOC: BICCT 13:11 | PROVIDERS: ATTEND Internal Medicine | DX: J44.9 Chronic obstructive pulmonary disease, unspecified (principal); R91.1 Solitary pulmonary nodule; J98.4 Other disorders of lung; I25.10 Atherosclerotic heart disease of native coronary artery without angina pectoris; I65.22 Occlusion and stenosis of left carotid artery; J43.9 Emphysema, unspecified | CPT/HCPCS: 71250 ==

== ENCOUNTER 2025-06-29 21:11 | Emergency (ER) | payer OTHER ==
[2025-06-29] MEDS ORDERED: Lidocaine 1% w/Epinephrine 1:100K 20 ML VIAL ONE (21:24)
[2025-06-29] MEDS ORDERED: Magnesium 2 GM/50 ML BAG (IN WATER) ONE (22:01)
[2025-06-29] MEDS ORDERED: Acetaminophen 500 MG TAB ONE (22:01)
[2025-06-29 22:18] LABS: #Basophils 0.11 10x3/uL (0.0-0.2); #Eosinophils 0.08 10x3/uL (0.0-0.7); #Monocytes 1.01 10x3/uL (0.11-0.59); #Neutrophils 8.87 10x3/uL (1.40-6.50); %Basophils 0.9 % (0.0-1.0); %Eosinophils 0.6 % (0.0-10.0); %Lymphocytes 20.6 % (21.0-51.0); %Monocytes 7.9 % (0.0-10.0); %Neutrophils 69.8 % (42.0-75.0); Hematocrit 41.2 % (36.0-47.0); Hemoglobin 13.7 g/dL (12.0-16.0); Mean Corpuscular Hemoglobin 21.0 pg (27.0-31.0); Mean Corpuscular Volume 63.1 fL (78.0-98.0); Platelet Count 315 10x3/uL (130-400); Red Blood Cell (RBC) Count 6.53 mill/uL (4.20-5.40); White Blood Cell (WBC) Count 12.72 10x3/uL (4.8-10.8)
[2025-06-29 22:42] LABS: Anisocytosis SLIGHT = 6-15 cells HPF (0-5); Microcytosis SLIGHT = 6-15 cells HPF (0-5); Platelet Adequacy Comment Platelets Normal; Polychromasia SLIGHT = 2-3 cells HPF (0-2); Target Cells SLIGHT = 2-5 cells HPF (0-1)
[2025-06-29 22:43] LABS: ALT (SGPT) 19 U/L (Less than 34); AST (SGOT) 40 U/L (11-34); Albumin 3.9 g/dL (3.1-4.5); Alkaline Phosphatase 87 U/L (40-110); Anion Gap 19 mmol/L (10-20); BUN (Urea Nitrogen) 5 mg/dL (9.8-20.1); Bilirubin, Total 0.6 mg/dL (0.3-1.2); CK (CPK) 70 U/L (29-168); Calc. Creatinine Clearance 0 mL/min (70-130); Calcium 9.2 mg/dL (7.8-10.44); Carbon Dioxide 26 mmol/L (23-31); Chloride 93 mmol/L (98-107); Globulin 3.7 g/dL (2.4-3.5); Glucose 98 mg/dL (80-115); Lipase 29 U/L (8-78); Potassium 4.0 mmol/L (3.5-5.1); Sodium 134 mmol/L (136-145)
[2025-06-29 22:55] LABS: Bacteria/HPF None Seen HPF (None Seen); CAUTI Indications for Culture Alt mental st,lethar; Glucose, Urine (Dipstick) Normal (Negative); Leukocyte Negative Leu/uL (Negative); Protein, Urine (Dipstick) Negative (Neg-Trace); RBC/HPF 0-3 HPF (0-3); Specific Gravity, Urine 1.003 (1.002-1.036); WBC/HPF None Seen HPF (0-3)
[2025-06-29 22:56] LABS: Urine Culture Reflex No No
== END 2025-06-30 02:00 | disposition home or self-care (01) ==
LOC: ERS 21:11
DX: S01.21XA Laceration without foreign body of nose, initial encounter (principal); J44.9 Chronic obstructive pulmonary disease, unspecified; I10 Essential (primary) hypertension; F17.210 Nicotine dependence, cigarettes, uncomplicated; W19.XXXA Unspecified fall, initial encounter
CPT/HCPCS: 70450; 70486; 80053; 80307; 81001; 82550; 83690; 84484 ×2; 85025; 93005; J3411; J3475; 12013; 96374; 96375

== ENCOUNTER 2025-07-20 20:03 | Inpatient (IN) | payer OTHER ==
[2025-07-20 21:01] LABS: Lipase 38 U/L (8-78); Magnesium 1.7 mg/dL (1.6-2.6)
[2025-07-20 21:02] LABS: Acetaminophen Less than 10 mcg/mL (Less than 10); Salicylate Less than 8.0 mg/dL (Less than 8.0)
[2025-07-20 21:03] LABS: ALT (SGPT) 13 U/L (Less than 34); AST (SGOT) 29 U/L (11-34); Albumin 3.9 g/dL (3.1-4.5); Alkaline Phosphatase 72 U/L (40-110); Anion Gap 17 mmol/L (10-20); BUN (Urea Nitrogen) 7 mg/dL (9.8-20.1); Bilirubin, Total 0.6 mg/dL (0.3-1.2); Calc. Creatinine Clearance 0 mL/min (70-130); Calcium 9.3 mg/dL (7.8-10.44); Carbon Dioxide 23 mmol/L (23-31); Chloride 96 mmol/L (98-107); Globulin 3.3 g/dL (2.4-3.5); Glucose 121 mg/dL (80-115); Potassium 3.6 mmol/L (3.5-5.1); Sodium 132 mmol/L (136-145)
[2025-07-20] MEDS ORDERED: Aspirin Chewable 81 MG TAB ONE (21:29)
[2025-07-20] MEDS ORDERED: Magnesium 2 GM/50 ML BAG (IN WATER) ONE (21:30)
[2025-07-20 21:37] LABS: #Basophils 0.15 10x3/uL (0.0-0.2); #Eosinophils 0.03 10x3/uL (0.0-0.7); #Monocytes 1.28 10x3/uL (0.11-0.59); #Neutrophils 11.20 10x3/uL (1.40-6.50); %Basophils 1.0 % (0.0-1.0); %Eosinophils 0.2 % (0.0-10.0); %Lymphocytes 16.5 % (21.0-51.0); %Monocytes 8.4 % (0.0-10.0); %Neutrophils 73.4 % (42.0-75.0); Hematocrit 40.1 % (36.0-47.0); Hemoglobin 12.8 g/dL (12.0-16.0); Mean Corpuscular Hemoglobin 20.6 pg (27.0-31.0); Mean Corpuscular Volume 64.6 fL (78.0-98.0); Platelet Count 452 10x3/uL (130-400); Red Blood Cell (RBC) Count 6.21 mill/uL (4.20-5.40); White Blood Cell (WBC) Count 15.24 10x3/uL (4.8-10.8)
[2025-07-20] MEDS ORDERED: Azithromycin 500 MG VIAL ONE (23:20)
[2025-07-20] MEDS ORDERED: cefTRIAXone (ROCEPHIN) 1 GM VIAL ONE (23:20)
[2025-07-21] MEDS ORDERED: Ondansetron PF 4 MG/2 ML Vial IVP PRN ×2 (01:15→02:02)
[2025-07-21] MEDS ORDERED: Acetaminophen 325 MG TAB PO PRN (01:15)
[2025-07-21 01:52] VITALS: BMI 19.8
[2025-07-21] MEDS: Benzonatate 100 MG CAP PO SCH (03:43)
[2025-07-21] MEDS: Melatonin 3 MG TAB PO PRN (03:43)
[2025-07-21 04:53] LABS: #Basophils Less than 0.03 10x3/uL (0.0-0.2); #Eosinophils Less than 0.03 10x3/uL (0.0-0.7); #Monocytes 0.11 10x3/uL (0.11-0.59); #Neutrophils 9.57 10x3/uL (1.40-6.50); %Basophils 0.2 % (0.0-1.0); %Eosinophils 0.1 % (0.0-10.0); %Lymphocytes 4.7 % (21.0-51.0); %Monocytes 1.1 % (0.0-10.0); %Neutrophils 93.6 % (42.0-75.0); Hematocrit 36.8 % (36.0-47.0); Hemoglobin 12.2 g/dL (12.0-16.0); Mean Corpuscular Hemoglobin 20.8 pg (27.0-31.0); Mean Corpuscular Volume 62.8 fL (78.0-98.0); Platelet Count 448 10x3/uL (130-400); Red Blood Cell (RBC) Count 5.86 mill/uL (4.20-5.40); White Blood Cell (WBC) Count 10.22 10x3/uL (4.8-10.8)
[2025-07-21 05:02] LABS: Anion Gap 18 mmol/L (10-20); BUN (Urea Nitrogen) 8 mg/dL (9.8-20.1); Calc. Creatinine Clearance 83 mL/min (70-130); Calcium 9.1 mg/dL (7.8-10.44); Carbon Dioxide 22 mmol/L (23-31); Chloride 99 mmol/L (98-107); Glucose 196 mg/dL (80-115); Potassium 3.9 mmol/L (3.5-5.1); Sodium 135 mmol/L (136-145)
[2025-07-21 05:04] LABS: Influenza A by NAA Not Detected (NotDetected); Influenza B by NAA Not Detected (NotDetected); SARS-CoV-2 NAA Rapid Test Not Detected (NotDetected)
[2025-07-21] MEDS: Benzonatate 100 MG CAP PO PRN (09:16)
[2025-07-21] MEDS: Folic Acid 1 MG TAB PO SCH (09:16)
[2025-07-21] MEDS: Multivit, Therapeutic 1 TAB PO SCH (09:16)
[2025-07-21] MEDS: Enoxaparin 40 MG (0.4 mL) SYRINGE SC SCH (09:16)
[2025-07-21] MEDS: Carvedilol 3.125 MG TAB PO SCH (16:21)
[2025-07-21] MEDS: Senokot S 8.6-50 MG TAB PO SCH (23:28)
[2025-07-21] MEDS: cefTRIAXone\\ROCEPHIN 1 GM in Sodium Chloride 0.9% 100 ML IVPB SCH (23:29)
[2025-07-21] MEDS: Azithromycin 500 MG in Sodium Chloride 0.9% 250 ML 250 ML IVPB SCH (23:29)
[2025-07-22] MEDS: Azithromycin 500 MG in Sodium Chloride 0.9% 250 ML 250 ML IVPB SCH (01:36)
[2025-07-22] MEDS: cefTRIAXone\\ROCEPHIN 1 GM in Sodium Chloride 0.9% 100 ML IVPB SCH (01:37)
[2025-07-22] MEDS: Magnesium 2 GM/50 ML(in water) 2 GM in Premix 1 BAG IVPB SCH (02:25)
[2025-07-22] MEDS ORDERED: Rocuronium Bromide 10 MG/ML (10ML VIAL) ONE (02:38)
[2025-07-22] MEDS ORDERED: PROPOFOL 200 MG/20 ML VIAL ONE (02:38)
[2025-07-22] MEDS ORDERED: Etomidate 40 MG (20 mL) VIAL ONE (02:38)
[2025-07-22] MEDS ORDERED: Furosemide 40 MG (4 mL) VIAL SLOW IVP SCH (02:45)
[2025-07-22] MEDS ORDERED: Propofol BOLUS 1,000 MG/100 ML VIAL IV PRN (03:45)
[2025-07-22] MEDS ORDERED: Ventilator Sedation Protocol 1 EACH FS SCH (03:45)
[2025-07-22] MEDS ORDERED: DISCONTINUE PREVIOUS NARCOTIC PAIN MEDICATIONS AND BENZODIAZEPINES FS SCH (03:45)
[2025-07-22] MEDS ORDERED: Fentanyl BOLUS 100 ML IVPB PRN (03:45)
[2025-07-22 04:08] LABS: Actual Bicarbonate (HCO3a) 19.1 mEq/L (22-28); Base Excess (BEa) -4.9 mEq/L (-2.0 to +3.0); CO2 Tension 32.2 mmHg (35.0-45.0); Calcium, Ionized (arterial) 1.14 mmol/L (1.12-1.30); Hematocrit-ABG 38 % (36.0-47.0); Hemoglobin (Hb) 12.8 g/dL (12.0-16.0); O2 Tension (PaO2), arterial 284.4 mmHg (> 80.0); Potassium - ABG Lab 3.40 mmol/L (3.70-5.30); pH, Arterial 7.391 (7.35-7.45)
[2025-07-22 04:10] LABS: Puncture Site Left Radial artery
[2025-07-22] MEDS: Norepinephrine 8 MG/0.9% NS 250 ML ONE (04:25)
[2025-07-22 05:10] LABS: Hematocrit 35.2 % (36.0-47.0); Hemoglobin 11.7 g/dL (12.0-16.0); Mean Corpuscular Hemoglobin 21.0 pg (27.0-31.0); Mean Corpuscular Volume 63.3 fL (78.0-98.0); Platelet Count 373 10x3/uL (130-400); Red Blood Cell (RBC) Count 5.56 mill/uL (4.20-5.40); White Blood Cell (WBC) Count 35.00 10x3/uL (4.8-10.8)
[2025-07-22 05:26] LABS: ALT (SGPT) 49 U/L (Less than 34); AST (SGOT) 68 U/L (11-34); Albumin 3.4 g/dL (3.1-4.5); Alkaline Phosphatase 62 U/L (40-110); Anion Gap 14 mmol/L (10-20); BUN (Urea Nitrogen) 11 mg/dL (9.8-20.1); Bilirubin, Total 0.5 mg/dL (0.3-1.2); Calc. Creatinine Clearance 75 mL/min (70-130); Calcium 8.6 mg/dL (7.8-10.44); Carbon Dioxide 21 mmol/L (23-31); Chloride 101 mmol/L (98-107); Globulin 2.9 g/dL (2.4-3.5); Glucose 176 mg/dL (80-115); Potassium 3.8 mmol/L (3.5-5.1); Sodium 132 mmol/L (136-145)
[2025-07-22 05:37] LABS: Microcytosis SLIGHT = 6-15 cells HPF (0-5); Platelet Adequacy Comment Platelets Normal; Polychromasia SLIGHT = 2-3 cells HPF (0-2); Target Cells SLIGHT = 2-5 cells HPF (0-1)
[2025-07-22] MEDS ORDERED: Norepinephrine 8 MG/0.9% NS 250 ML IVPB SCH (06:15)
[2025-07-22 06:22] LABS: Legionella Urinary Ag Negative (Negative); Strep pneumo Urine Ag NEGATIVE (NEGATIVE)
[2025-07-22] MEDS: Furosemide 40 MG TAB PO SCH (09:58)
[2025-07-22] MEDS: Pantoprazole 40 MG VIAL IVP SCH (09:58)
[2025-07-22] MEDS: Aspirin 325 MG TAB PO SCH (09:58)
[2025-07-22] MEDS: Mupirocin 1 GM TUBE NASAL DECOLONIZATION NASAL SCH (10:14)
[2025-07-22] MEDS: GUAIFENESIN SF SOLN 200 MG/10 ML UDCUP PO PRN (21:45)
[2025-07-23 06:20] LABS: Hematocrit 31.1 % (36.0-47.0); Hemoglobin 10.2 g/dL (12.0-16.0); Mean Corpuscular Hemoglobin 20.4 pg (27.0-31.0); Mean Corpuscular Volume 62.2 fL (78.0-98.0); Platelet Count 304 10x3/uL (130-400); Red Blood Cell (RBC) Count 5.00 mill/uL (4.20-5.40); White Blood Cell (WBC) Count 16.15 10x3/uL (4.8-10.8)
[2025-07-23 06:25] LABS: #Basophils Less than 0.03 10x3/uL (0.0-0.2); #Eosinophils Less than 0.03 10x3/uL (0.0-0.7); #Monocytes 0.95 10x3/uL (0.11-0.59); #Neutrophils 14.20 10x3/uL (1.40-6.50); %Basophils 0.1 % (0.0-1.0); %Eosinophils 0.0 % (0.0-10.0); %Lymphocytes 5.7 % (21.0-51.0); %Monocytes 5.9 % (0.0-10.0); %Neutrophils 87.9 % (42.0-75.0)
[2025-07-23 06:27] LABS: Anion Gap 13 mmol/L (10-20); BUN (Urea Nitrogen) 14 mg/dL (9.8-20.1); Calc. Creatinine Clearance 82 mL/min (70-130); Calcium 8.5 mg/dL (7.8-10.44); Carbon Dioxide 24 mmol/L (23-31); Chloride 100 mmol/L (98-107); Glucose 135 mg/dL (80-115); Potassium 4.8 mmol/L (3.5-5.1); Sodium 132 mmol/L (136-145)
[2025-07-23 06:56] LABS: Actual Bicarbonate (HCO3a) 24.1 mEq/L (22-28); Base Excess (BEa) 0.8 mEq/L (-2.0 to +3.0); CO2 Tension 34.2 mmHg (35.0-45.0); Calcium, Ionized (arterial) 1.14 mmol/L (1.12-1.30); Hematocrit-ABG 34 % (36.0-47.0); Hemoglobin (Hb) 11.5 g/dL (12.0-16.0); O2 Tension (PaO2), arterial 126.6 mmHg (> 80.0); Potassium - ABG Lab 3.80 mmol/L (3.70-5.30); pH, Arterial 7.466 (7.35-7.45)
[2025-07-23 07:03] LABS: Puncture Site Left Brachial artery
[2025-07-23] MEDS: Magnesium 2 GM/50 ML(in water) 2 GM in Premix 1 BAG IVPB SCH (09:17)
[2025-07-24 06:03] LABS: #Basophils Less than 0.03 10x3/uL (0.0-0.2); #Eosinophils Less than 0.03 10x3/uL (0.0-0.7); #Monocytes 0.99 10x3/uL (0.11-0.59); #Neutrophils 14.07 10x3/uL (1.40-6.50); %Basophils 0.0 % (0.0-1.0); %Eosinophils 0.0 % (0.0-10.0); %Lymphocytes 3.9 % (21.0-51.0); %Monocytes 6.3 % (0.0-10.0); %Neutrophils 89.3 % (42.0-75.0); Hematocrit 32.9 % (36.0-47.0); Hemoglobin 10.8 g/dL (12.0-16.0); Mean Corpuscular Hemoglobin 20.8 pg (27.0-31.0); Mean Corpuscular Volume 63.3 fL (78.0-98.0); Platelet Count 257 10x3/uL (130-400); Red Blood Cell (RBC) Count 5.20 mill/uL (4.20-5.40); White Blood Cell (WBC) Count 15.75 10x3/uL (4.8-10.8)
[2025-07-24 06:21] LABS: Anion Gap 13 mmol/L (10-20); BUN (Urea Nitrogen) 18 mg/dL (9.8-20.1); Calc. Creatinine Clearance 89 mL/min (70-130); Calcium 8.5 mg/dL (7.8-10.44); Carbon Dioxide 25 mmol/L (23-31); Chloride 101 mmol/L (98-107); Glucose 139 mg/dL (80-115); Potassium 4.5 mmol/L (3.5-5.1); Sodium 134 mmol/L (136-145)
[2025-07-24 07:09] LABS: Actual Bicarbonate (HCO3a) 26.3 mEq/L (22-28); Base Excess (BEa) 2.4 mEq/L (-2.0 to +3.0); CO2 Tension 38.5 mmHg (35.0-45.0); Calcium, Ionized (arterial) 1.15 mmol/L (1.12-1.30); Hematocrit-ABG 35 % (36.0-47.0); Hemoglobin (Hb) 11.8 g/dL (12.0-16.0); O2 Tension (PaO2), arterial 91.9 mmHg (> 80.0); Potassium - ABG Lab 3.64 mmol/L (3.70-5.30); pH, Arterial 7.453 (7.35-7.45)
[2025-07-24 07:16] LABS: ALV-art Gradient 145.175 mmHg (0-20); Puncture Site Left Brachial artery
[2025-07-24] MEDS: Thiamine 100 MG TAB PO SCH (09:56)
[2025-07-25] MEDS: Acetaminophen 325 MG TAB PO PRN (02:34)
[2025-07-25 04:11] LABS: #Basophils Less than 0.03 10x3/uL (0.0-0.2); #Eosinophils Less than 0.03 10x3/uL (0.0-0.7); #Monocytes 1.03 10x3/uL (0.11-0.59); #Neutrophils 11.89 10x3/uL (1.40-6.50); %Basophils 0.0 % (0.0-1.0); %Eosinophils 0.0 % (0.0-10.0); %Lymphocytes 3.9 % (21.0-51.0); %Monocytes 7.6 % (0.0-10.0); %Neutrophils 88.2 % (42.0-75.0); Hematocrit 31.6 % (36.0-47.0); Hemoglobin 10.4 g/dL (12.0-16.0); Mean Corpuscular Hemoglobin 21.0 pg (27.0-31.0); Mean Corpuscular Volume 63.8 fL (78.0-98.0); Platelet Count 263 10x3/uL (130-400); Red Blood Cell (RBC) Count 4.95 mill/uL (4.20-5.40); White Blood Cell (WBC) Count 13.48 10x3/uL (4.8-10.8)
[2025-07-25 04:24] LABS: Anion Gap 17 mmol/L (10-20); BUN (Urea Nitrogen) 20 mg/dL (9.8-20.1); Calc. Creatinine Clearance 92 mL/min (70-130); Calcium 8.4 mg/dL (7.8-10.44); Carbon Dioxide 28 mmol/L (23-31); Chloride 100 mmol/L (98-107); Glucose 139 mg/dL (80-115); Potassium 3.4 mmol/L (3.5-5.1); Sodium 142 mmol/L (136-145)
[2025-07-25 04:51] LABS: Anisocytosis SLIGHT = 6-15 cells HPF (0-5); Microcytosis SLIGHT = 6-15 cells HPF (0-5); Platelet Adequacy Comment Platelets Normal; Target Cells SLIGHT = 2-5 cells HPF (0-1)
[2025-07-25] MEDS: Potassium Chloride 20 MEQ in Premix 1 BAG IVPB SCH (05:42)
[2025-07-25 06:29] LABS: Actual Bicarbonate (HCO3a) 29.6 mEq/L (22-28); Base Excess (BEa) 6.3 mEq/L (-2.0 to +3.0); CO2 Tension 38.0 mmHg (35.0-45.0); Calcium, Ionized (arterial) 1.15 mmol/L (1.12-1.30); Hematocrit-ABG 34 % (36.0-47.0); Hemoglobin (Hb) 11.7 g/dL (12.0-16.0); O2 Tension (PaO2), arterial 90.0 mmHg (> 80.0); Potassium - ABG Lab 3.27 mmol/L (3.70-5.30); pH, Arterial 7.510 (7.35-7.45)
[2025-07-25 06:41] LABS: Puncture Site Left Brachial artery
[2025-07-25] MEDS: Magnesium 2 GM/50 ML(in water) 2 GM in Premix 1 BAG IVPB SCH (10:28)
[2025-07-25 18:36] LABS: Potassium 2.9 mmol/L (3.5-5.1)
[2025-07-26 05:27] LABS: #Basophils Less than 0.03 10x3/uL (0.0-0.2); #Eosinophils Less than 0.03 10x3/uL (0.0-0.7); #Monocytes 0.94 10x3/uL (0.11-0.59); #Neutrophils 10.50 10x3/uL (1.40-6.50); %Basophils 0.0 % (0.0-1.0); %Eosinophils 0.0 % (0.0-10.0); %Lymphocytes 4.1 % (21.0-51.0); %Monocytes 7.8 % (0.0-10.0); %Neutrophils 87.7 % (42.0-75.0); Hematocrit 33.2 % (36.0-47.0); Hemoglobin 10.7 g/dL (12.0-16.0); Mean Corpuscular Hemoglobin 20.9 pg (27.0-31.0); Mean Corpuscular Volume 64.7 fL (78.0-98.0); Platelet Count 252 10x3/uL (130-400); Red Blood Cell (RBC) Count 5.13 mill/uL (4.20-5.40); White Blood Cell (WBC) Count 11.98 10x3/uL (4.8-10.8)
[2025-07-26 05:47] LABS: Anion Gap 12 mmol/L (10-20); BUN (Urea Nitrogen) 19 mg/dL (9.8-20.1); Calc. Creatinine Clearance 110 mL/min (70-130); Calcium 8.2 mg/dL (7.8-10.44); Carbon Dioxide 31 mmol/L (23-31); Chloride 97 mmol/L (98-107); Glucose 137 mg/dL (80-115); Potassium 3.2 mmol/L (3.5-5.1); Sodium 137 mmol/L (136-145)
[2025-07-26 09:49] LABS: Magnesium 2.1 mg/dL (1.6-2.6)
[2025-07-26] MEDS: Lactulose 20 GM (30 mL) UDCUP PO SCH (17:26)
[2025-07-26] MEDS: Senokot S 8.6-50 MG TAB PO SCH (21:10)
[2025-07-27 04:40] LABS: #Basophils Less than 0.03 10x3/uL (0.0-0.2); #Eosinophils Less than 0.03 10x3/uL (0.0-0.7); #Monocytes 1.43 10x3/uL (0.11-0.59); #Neutrophils 12.26 10x3/uL (1.40-6.50); %Basophils 0.1 % (0.0-1.0); %Eosinophils 0.0 % (0.0-10.0); %Lymphocytes 3.8 % (21.0-51.0); %Monocytes 10.0 % (0.0-10.0); %Neutrophils 85.7 % (42.0-75.0); Hematocrit 31.7 % (36.0-47.0); Hemoglobin 10.4 g/dL (12.0-16.0); Mean Corpuscular Hemoglobin 20.9 pg (27.0-31.0); Mean Corpuscular Volume 63.7 fL (78.0-98.0); Platelet Count 263 10x3/uL (130-400); Red Blood Cell (RBC) Count 4.98 mill/uL (4.20-5.40); White Blood Cell (WBC) Count 14.30 10x3/uL (4.8-10.8)
[2025-07-27 04:50] LABS: Anion Gap 13 mmol/L (10-20); BUN (Urea Nitrogen) 22 mg/dL (9.8-20.1); Calc. Creatinine Clearance 102 mL/min (70-130); Calcium 8.3 mg/dL (7.8-10.44); Carbon Dioxide 34 mmol/L (23-31); Chloride 97 mmol/L (98-107); Glucose 139 mg/dL (80-115); Potassium 2.7 mmol/L (3.5-5.1); Sodium 141 mmol/L (136-145)
[2025-07-27 05:25] LABS: Anisocytosis SLIGHT = 6-15 cells HPF (0-5); Microcytosis SLIGHT = 6-15 cells HPF (0-5); Platelet Adequacy Comment Platelets Normal; Polychromasia SLIGHT = 2-3 cells HPF (0-2); Target Cells SLIGHT = 2-5 cells HPF (0-1)
[2025-07-27] MEDS ORDERED: PHOS-NAK 1 PKT PACK PO PRN (06:30)
[2025-07-27] MEDS: Potassium Chloride 20 MEQ in Premix 1 BAG IVPB PRN (06:30)
[2025-07-27] MEDS ORDERED: Magnesium 2 GM/50 ML(in water) 2 GM in Premix 1 BAG IVPB PRN (06:30)
[2025-07-27] MEDS ORDERED: Electrolyte Replacement Protocol 1 EACH FS SCH (06:30)
[2025-07-27 12:36] VITALS: BMI 19.5
[2025-07-27] MEDS: Glycopyrrolate 0.4 MG/ 2 ML VIAL SLOW IVP PRN (13:27)
[2025-07-27] MEDS: Atropine Sulfate 1% Ophth Soln 5 ml Bottle SL PRN (14:18)
[2025-07-29 08:37] VITALS: BP 95/58
[2025-07-29 13:07] VITALS: TEMP 99.3
== END 2025-07-29 13:17 | disposition expired | DRG 207 ==
LOC: ERS 20:03 → OBS 23:52 → OBSVTOIN 07-21 15:00 → 2NO 07-21 20:02 → IMCU/EMU 07-22 02:18 → CCU 07-22 02:48 → T4-B 07-28 08:27
PROVIDERS: ADMIT Internal Medicine; ATTEND Family Medicine
PROC: 3E03329 Introduction of Other Anti-infective into Peripheral Vein, Percutaneous Approach (ICD-10-PCS; 2025-07-21)
PROC: 5A1955Z Respiratory Ventilation, Greater than 96 Consecutive Hours (ICD-10-PCS; principal; 2025-07-22)
PROC: 0BH17EZ Insertion of Endotracheal Airway into Trachea, Via Natural or Artificial Opening (ICD-10-PCS; 2025-07-22)
PROC: 4A133R1 Monitoring of Arterial Saturation, Peripheral, Percutaneous Approach (ICD-10-PCS; 2025-07-22)
PROC: 0T9B70Z Drainage of Bladder with Drainage Device, Via Natural or Artificial Opening (ICD-10-PCS; 2025-07-22)
PROC: 05HB33Z Insertion of Infusion Device into Right Basilic Vein, Percutaneous Approach (ICD-10-PCS; 2025-07-22)
PROC: 0DH67UZ Insertion of Feeding Device into Stomach, Via Natural or Artificial Opening (ICD-10-PCS; 2025-07-22)
PROC: 5A09357 Assistance with Respiratory Ventilation, Less than 24 Consecutive Hours, Continuous Positive Airway Pressure (ICD-10-PCS; 2025-07-27)
DX: J44.1 Chronic obstructive pulmonary disease with (acute) exacerbation (principal); J96.01 Acute respiratory failure with hypoxia; I50.43 Acute on chronic combined systolic (congestive) and diastolic (congestive) heart failure; J69.0 Pneumonitis due to inhalation of food and vomit; I21.A1 Myocardial infarction type 2; E87.1 Hypo-osmolality and hyponatremia; Z51.5 Encounter for palliative care; Z66 Do not resuscitate; Z85.118 Personal history of other malignant neoplasm of bronchus and lung; I11.0 Hypertensive heart disease with heart failure; E78.5 Hyperlipidemia, unspecified; I25.10 Atherosclerotic heart disease of native coronary artery without angina pectoris; I73.9 Peripheral vascular disease, unspecified; H54.8 Legal blindness, as defined in USA; F41.9 Anxiety disorder, unspecified; F32.A Depression, unspecified; F51.04 Psychophysiologic insomnia; F10.21 Alcohol dependence, in remission; E87.6 Hypokalemia; F17.210 Nicotine dependence, cigarettes, uncomplicated; F43.10 Post-traumatic stress disorder, unspecified; I08.1 Rheumatic disorders of both mitral and tricuspid valves; D64.9 Anemia, unspecified; Z86.718 Personal history of other venous thrombosis and embolism; Z98.890 Other specified postprocedural states; Z98.891 History of uterine scar from previous surgery; Z95.1 Presence of aortocoronary bypass graft; Z95.5 Presence of coronary angioplasty implant and graft; Z79.82 Long term (current) use of aspirin; Z79.899 Other long term (current) drug therapy; Z83.3 Family history of diabetes mellitus; Z79.52 Long term (current) use of systemic steroids
CPT/HCPCS: 36415; 36416; 36600; 71045; 71275; 74018; 80048; 80053; 80307; 82805; 83605; 83690; 83735; 83880; 84484; 85025; 85379; 87040; 87449; 87636; 87899; 93005; 93010; 94002; 94003; 94640; 94660; 96365; 96367; 96368; 96372; 96375; 96376; G0378; J0456; J0696; J1650; J2060; J2250; J2270; J2470; J2704; J2919; J3475; J3480; J7030; J7050; J7626; Q9967